=== PATIENT | male | born 1955 | race Caucasian/White ===

== ENCOUNTER → 2017-12-08 10:40 | Outpatient (CLI) | payer OTHER, SELFPAY ==
--- NOTE | 2017-12-08 17:08 | RAD_ITS ---
STUDY: X-RAY - ORBITS REASON FOR EXAM: Male, 62 years old. This study is being performed as a clearance examination for exclusion of orbital metal, prior to the performance of an MRI examination. TECHNIQUE: 2 view(s) of the orbits were obtained. COMPARISON: None. FINDINGS: Normal bilateral orbits without a metallic orbital foreign body. Normal visualized facial bones. Normal paranasal sinuses. The soft tissue structures are unremarkable. RAD/Orbits for Foreign Body IMPRESSION: No demonstrated metallic orbital foreign body. The patient is cleared for an MRI examination. Electronically Signed: Nguyen Nelson MD at 5:37 EST , Service support ,
== END ==
PROVIDERS: Family Provider Family Medicine; PCP Family Medicine
DX: Z01.818 Encounter for other preprocedural examination (principal); M54.12 Radiculopathy, cervical region; M65.812 Other synovitis and tenosynovitis, left shoulder; M12.512 Traumatic arthropathy, left shoulder
CPT/HCPCS: 70030

== ENCOUNTER 2018-04-01 14:00 | Outpatient (RCR) | payer OTHER, SELFPAY ==
--- NOTE | 2018-02-03 10:32 | HP.PTEVAL ---
Patient's Visit Information RADHA WOODARD is a 62 year old M referred to Physical Therapy by Andrew Frey with a diagnosis of Left shoulder Scope. Date of Evaluation: 01/30/18 Physical Therapist: Jaylene Hassan - Visit Plan Frequency: 3x /Week Duration: 3 Weeks Plan: Shoulder Scope 4/5- focus on ROM and strength - Subjective Subjective: Patient reports left shoulder surgery January 15, [address] Lopez - arthroscopic- RTC scope and removed bone spur. They want him up and moving around- they wanted him to use the sling when out in public but not normally. Went back to see MD 8 days after surgery. He told him rehab 3x a week for 6 weeks- but hopes to work with someone for a couple of weeks and do more at home. No pain just feels stiff. Worst: 10/10 with sudden movement up or back. Pain with putting a t-shirt on but he still has problems. Work: [employer]- heavy lifting and awkward lifting- unloading, dragging. MD is thinking of keeping him out 3 months. Sleep: can't roll on his left side. Pain is located in the shoulder and radiates to the elbow and sometimes to the neck. But now its better- no CASTILLO, blurred vision, dizziness. 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 PMHx: allergy and propecia med, pulmonary embolism (3 years), Right THR, Right elbow surgery, right RTc right hernia, right thumb surgery - Objective Posture: FH, RS, Increased kyphosis- mild guarding of the left UE- no sling. Palpation: tender along upper trap, medial border of the scapule, bicipital groove. ROM: elbow/wrist/hand: WNL Shoulder- AROM: flexion: 50 degrees, abduction: 40 degrees, IR: to L3, ER:20 degrees PROM: flexion-180 degrees, abduction: 180 degrees, ir: to belly ER: 60 degrees. Strength: Isometric at neutral: 4/5 with discomfort - Goals Goal 1:: Patient will be I with HEP and progression Goal Time Frame: 4-6 Weeks Goal 2:: Patient will demo full AROM of the left shoulder Goal Time Frame: 4-6 Weeks Goal 3:: Patient will demo 5/5 strength in UE where deficit Goal Time Frame: 4-6 Weeks - Rehabilitation Potential Physical Therapy Diagnosis: Patient presents with hypomobility- he has decreased AROM, strength and muscular endurance s/p left shoulder scope leading to inability to perform ADL's. Rehabilitation Potential: Good - Anticipated Interventions Patient/Client Instruction: Educate patient on: Benefits of Fitness Program For the Purpose of:: To improve ability to perform ADL's Therapeutic Exercise to Include: Strength training, Endurance training, Body mechanics, Postural training, Passive ROM, Active ROM, Scapular Strength/Stabilization For the Purpose of:: To improve muscle performance and motor function Manual Therapy Techniques to Include: Mobilization, Passive ROM, Soft tissue mobilization For the Purpose of:: To increase ROM TENS: Yes Cryotherapy (ice pack, ice massage): Yes Thermo therapy (hot pack): Yes Ultrasound (thermal/non thermal): Yes For the Purpose of:: To decrease pain Thank you for the opportunity to evaluate your patient. For Medicare and Medicare HMO plans, please review the plan of care and approve it. It will need to be FAXED BACK to us at [phone] for Medicare purposes. Please let me know if there are questions or concerns regarding this plan of care. Physician Signature: Date:
--- NOTE | 2018-02-20 10:31 | HP.PTREVAL_ITS ---
Andrew Frey, It has been my pleasure to treat RADHA WOODARD over the last 10 visits for Left shoulder Scope. Please see the progress note below for an update on the physical therapy plan of care! Subjective: Patient reports that its coming stiffness/pain/ mild pain at night. Rolling on ball feels really good- possibly from his neck. Worst: 7/10 after increased strengthening. No problems cutting grass. Feels like his ROM hits a wall of resistance but he can push through and it full ROM. Feels like he is 60% back to normal Objective/Function: Posture: FH, RS, Increased kyphosis-improving. Palpation: tender along upper trap, medial border of the scapule, bicipital groove. ROM: elbow/wrist/hand: WNL Shoulder- AROM: flexion: 170 degrees, abduction: 170 degrees, IR: to L3, ER:40 degrees Strength: Isometric at neutral: 4+/5 with discomfort. In available range 4-/5 throughout Plan Plan: Continue POC 2x a week for 4 weeks Goals Goal 1:: Patient will be I with HEP and progression Goal Time Frame: 4-6 Weeks Goal Progress: Progressing Goal 2:: Patient will demo full AROM of the left shoulder Goal Time Frame: 4-6 Weeks Goal Progress: Goal Met Goal 3:: Patient will demo 5/5 strength in UE where deficit Goal Time Frame: 4-6 Weeks Goal Progress: Progressing Anticipated Interventions Patient/Client Instruction: Educate patient on: Benefits of Fitness Program For the Purpose of:: To improve ability to perform ADL's Therapeutic Exercise to Include: Strength training, Endurance training, Body mechanics, Postural training, Passive ROM, Active ROM, Scapular Strength/ Stabilization For the Purpose of:: To improve muscle performance and motor function Manual Therapy Techniques to Include: Mobilization, Passive ROM, Soft tissue mobilization For the Purpose of:: To increase ROM TENS: Yes Cryotherapy (ice pack, ice massage): Yes Thermo therapy (hot pack): Yes Ultrasound (thermal/non thermal): Yes For the Purpose of:: To decrease pain Please do not hesitate to contact me at [phone] by phone or Fax: if you have questions or concerns regarding this new plan of care! Sincerely, Jaylene Hassan
--- NOTE | 2018-03-25 08:01 | HP.PTREVAL_ITS ---
Andrew Frey, It has been my pleasure to treat RADHA WOODARD over the last 18 visits for Left shoulder Scope. Please see the progress note below for an update on the physical therapy plan of care! Subjective: Patient reports that he has increased ROM and it loosens up in sessions. Sleeping has been a challenge in the past week due to working in the garden. Saw march 18 who wrote him off for another 6 weeks. Pain at the worst 6/10 best:0/10. Frustrated he isn't better faster. Objective/Function: Posture: FH, RS, Increased kyphosis- guards the left shoulder. Palpation: tender UT and bicipital groove. ROM: flexion-165 degrees abd-ear IR: L2 ER: 40 degrees. Strength: Flx/Abd: 4/5, IR/ER: 4/5, Extn/Add: 4+ /5, Scap: fair Plan Plan: Cont 2x a week for 2 for ROM strength and work related tasks- increased to 60 min for progression Goals Goal 1:: Patient will be I with HEP and progression Goal Time Frame: 4-6 Weeks Goal Progress: Progressing Goal 2:: Patient will demo full AROM of the left shoulder Goal Time Frame: 4-6 Weeks Goal Progress: Goal Met Goal 3:: Patient will demo 5/5 strength in UE where deficit Goal Time Frame: 4-6 Weeks Goal Progress: Progressing Anticipated Interventions Patient/Client Instruction: Educate patient on: Benefits of Fitness Program For the Purpose of:: To improve ability to perform ADL's Therapeutic Exercise to Include: Strength training, Endurance training, Body mechanics, Postural training, Passive ROM, Active ROM, Scapular Strength/ Stabilization For the Purpose of:: To improve muscle performance and motor function Manual Therapy Techniques to Include: Mobilization, Passive ROM, Soft tissue mobilization For the Purpose of:: To increase ROM TENS: Yes Cryotherapy (ice pack, ice massage): Yes Thermo therapy (hot pack): Yes Ultrasound (thermal/non thermal): Yes For the Purpose of:: To decrease pain Please do not hesitate to contact me at [phone] by phone or Fax: if you have questions or concerns regarding this new plan of care! Sincerely, Jaylene Hassan
--- NOTE | 2018-04-01 14:21 | HP.PTDCSUM ---
HP - PT D/C Summary It has been my pleasure to treat RADHA WOODARD under orders from Andrew Frey, for the diagnosis of Left shoulder Scope for a total of 21 visit(s). Discharge Date: Please see the following information for a summary of their discharge status. - Subjective Subjective: Feels that he is improving strength sorto. He only has problems with one machine where he has to come up. Goes back to his MD in 2 weeks. Plans to go back to work the next week. Is concerned about stretching out ahead of him. He is more confident about going back to work. - Pain Left Shoulder Pain Intensity (Out of 10): 1 - Overall Improvement % Improvement: 70 - Objective Objective/Function: Posture: good throughout- chest up more confident. Palpation: not tender. ROM: flexion-180 degrees abd-ear IR: equal ER: 40 degrees. Strength: Flx/Abd: 4+/5, IR/ER: 4+/5, Extn/Add: 5/5, Scap: fair plus - Goals Goal 1:: Patient will be I with HEP and progression Goal Progress: Goal Met Goal 2:: Patient will demo full AROM of the left shoulder Goal Progress: Goal Met Goal 3:: Patient will demo 5/5 strength in UE where deficit Goal Progress: Progressing - Plan Plan: Discharge to HEP - D/C Information If there are questions or concerns regarding this patient's physical therapy, please feel free to call me at [phone]. Thank you for the referral of this patient. Sincerely, Jaylene Hassan
== END 2018-04-01 16:16 | disposition home or self-care (01) ==
LOC: PT 14:00
PROVIDERS: Family Provider Family Medicine; PCP Family Medicine; Visit Provider Orthopaedic Surgery
DX: M75.112 Incomplete rotator cuff tear or rupture of left shoulder, not specified as traumatic (principal); M75.42 Impingement syndrome of left shoulder; S43.432D Superior glenoid labrum lesion of left shoulder, subsequent encounter; S46.012D Strain of muscle(s) and tendon(s) of the rotator cuff of left shoulder, subsequent encounter
CPT/HCPCS: 97110; 97161; 97164

== ENCOUNTER → 2019-09-13 09:33 | Outpatient (CLI) | payer SELFPAY ==
[2019-08-18 12:17] VITALS: BMI 27.2
--- NOTE | 2019-09-13 09:37 | STEWCON_ITS ---
Reason For Study: DYSPNEA/SOB Stress Results Protocol: Armando Protocol WITH DEFINITY Maximum Predicted HR: 158 bpm Target HR: 134 bpm % Maximum Predicted HR: 91 % DurationHeart Rate Stage (mm:ss) (bpm) BP Comment BASELINE 49 110/642 CC DEFINITY STAGE 1 3:00 78 118/64 STAGE 2 3:00 91 122/70 STAGE 3 3:00 108 144/70HAMSTRINGS ARE TIRED STAGE 4 2:30 144 / 2 CC DEFINITY RECOVERY 73 110/68 Stress Duration: 11:30 mm:ss Maximum Stress HR: 144 bpm Baseline Echocardiogram Findings Stress Echo Wall motion Data Resting WM Intermediate WM Stress WM Interpretation Summary Exercise stress echo. 64-year-old man with a history of hyperlipidemia and previous pulmonary embolism. Stress protocol: Resting EKG demonstrates sinus bradycardia with a rate of 54 bpm normal intervals are noted resting blood pressures 110/64 mmHg. The patient exercised according to regular Armando protocol for total duration of 11 minutes and 30 seconds. Patient completed 2 minutes and 30 seconds to stage IV of the Armando protocol the maximum heart rate attained was 139 bpm which was 87% of maximum predicted heart rate the maximum workload was 13.7 metabolic equivalents. The patient maintained sinus rhythm throughout the recording. Upsloping ST changes only were noted with no meet the criteria for ischemia. The resting blood pressure was 110/64 with a peak blood pressure 144/70 mmHg with a rate pressure product of 20,000. Stress echocardiographic images. Resting and stress echocardiographic images were obtained with Definity enhancement. The resting estimated ejection fraction was 55% with a peak ejection fraction of 65% with no wall motion abnormalities noted. There was adequate thickening of all peters. Test was terminated due to attainment of target heart rate. Conclusion: Exercise stress echo with no EKG or echocardiographic criteria for ischemia at a high workload. Excellent functional capacity. No arrhythmias noted. Ordering Physician: Jose Ramon Banks Referring Physician: Darren, Jose Ramon Performed By: Ermelinda Sosa, SACHA, RVT
[2019-09-13 11:52] LABS: AST(SGOT) 33 U/L (15-37); Alanine Aminotransfer ALT/SGPT 63 U/L (16-61); Albumin, Serum 4.2 g/dL (3.2-5.0); Alkaline Phosphatase 69 U/L (45-117); Anion Gap 9 (5-15); BUN 13 mg/dL (7-18); BUN/Creat Ratio 13.1 RATIO (10-20); Bilirubin, Direct 0.17 mg/dL (0.00-0.30); Calcium,Total 9.2 mg/dL (8.5-10.1); Chloride 105 mmol/L (98-107); Cholesterol 203 mg/dL (200); EST Glomerular Filtration Rate 81 mL/min (>60); Est Glom Filt Rate - Afr Amer 98 mL/min (>60); Glucose 115 mg/dL (74-106); High Density Lipoprotein 32 mg/dL; Protein, Total 7.2 g/dL (6.4-8.2); Sodium Level 140 mmol/L (136-145); Triglycerides 364 mg/dL; Very Low Density Lipoprotein 73 mg/dL (5-40)
== END ==
PROVIDERS: Family Provider Family Medicine; PCP Family Medicine; Referring Provider Internal Medicine Cardiovascular Disease; Visit Provider Internal Medicine Cardiovascular Disease
DX: R06.02 Shortness of breath (principal); R06.00 Dyspnea, unspecified; E78.5 Hyperlipidemia, unspecified; N40.0 Benign prostatic hyperplasia without lower urinary tract symptoms
CPT/HCPCS: 36415; 80048; 80061; 80076; 84153; 84443; 93017; 93350; Q9957; A4216; C8928; G0103

== ENCOUNTER 2020-04-02 07:12 | Emergency (ER) | payer OTHER, SELFPAY ==
[2019-08-18 12:17] VITALS: BMI 27.2
[2020-04-02 07:13] VITALS: BP 142/81; PULSE 59; RESP 16; TEMP 36.2; O2SAT 99; BMI 27.0
[2020-04-02 07:27] VITALS: BP 145/83; PULSE 52; RESP 16; O2SAT 98
--- NOTE | 2020-04-02 07:34 | VDLE_ITS ---
Reason For Study: LLE PAIN RIGHT LEFT CFV is compressible, spontaneous, phasic, GSV is normal. competent and demonstrates normal CFV is compressible, spontaneous, phasic, augmentation. competent, and demonstrates normal Procedure augmentation. Exam performed portable in ED. FV is compressible, spontaneous, phasic, A preliminary report was called and/or faxed competent and demonstrates normal to ED. augmentation. POP V is compressible, spontaneous, phasic, competent and demonstrates normal augmentation. T/P Trunk is compressible. PTV is compressible. LT PerV is compressible. Interpretation Summary Deep veins of the left lower extremity are patent and compressible segmentally. There is no evidence of left lower extremity deep vein thrombosis. Valvular competence appears intact within the proximal deep venous system on the left . The left great saphenous vein appears patent and compressible segmentally. Ordering Physician: Yann Khanna Referring Physician: Jhoan Pierre Performed By: Sonia Joseph, SACHA, RVT
--- NOTE | 2020-04-02 07:49 | ED.VISSUMM ---
- ER Visit Summary Date of Service: 04/02/20 Chief Complaint: Left calf pain History of Present Illness: The patient is a 64 M who presents with left calf pain. He states it started about 4 hours ago. He had cramping in his left calf. Started while he was sleeping. Actually woke him up from sleep. He states he went up to walk and he felt lightheaded and faint when it happened. That symptom has gone away. He feels like his left calf is still swollen but the pain and cramping is improved. He denies any injuries. He does have a history of PE. He is currently on no blood thinning medications currently. He denies any chest pain or shortness of breath. Physical Examination: Vital signs reviewed. HEENT exam unremarkable. Heart is regular rate and rhythm without murmurs. Lungs are clear to auscultation. Abdomen is soft and nontender. Extremities reveal no edema. He does have left calf tenderness to palpation. I feel no cords. There is no swelling. He has 2+ DP pulses which are equal. Skin exam normal. Neurologic exam normal. Test Results: BMP normal except for glucose of 182. Magnesium normal. Duplex ultrasound is negative Emergency Department Course and Treatment: Patient has no DVT. His electrolytes are normal. He has been outside a lot and he does have a little bit of a sunburn on his arms. He admits that he does not drink a lot of water when he is outside. I recommended that he increase his hydration. He is going to call his doctor for follow-up Treatment Plan: [] Disposition: Discharge Impression: Left leg pain This note was generated with [employer] dictation software. It may contain incorrect words, spelling, and punctuation that were not noted in review of the chart prior to signing ED Disposition - Plan for ED Patient: Disposition: Home or Assisted Living Instructions: ED Muscle Pain Leg Cramps Referrals: Jhoan Pierre MD [Primary Care Provider] -
[2020-04-02 08:31] LABS: Anion Gap 6 (5-15); BUN 16 mg/dL (7-18); Chloride 106 mmol/L (98-107); Creatinine, Serum 0.89 mg/dL (0.70-1.30); EST Glomerular Filtration Rate 92 mL/min (>60); Est Glom Filt Rate - Afr Amer 112 mL/min (>60); Estimated Creatinine Clearance 80.46 ml/min; Glucose 182 mg/dL (74-106); Magnesium 1.7 mg/dL (1.6-2.6); Potassium 4.1 mmol/L (3.5-5.1); Sodium Level 139 mmol/L (136-145)
== END 2020-04-02 10:24 | disposition home or self-care (01) ==
PROVIDERS: Emergency Provider Emergency Medicine; PCP Family Medicine
DX: M79.662 Pain in left lower leg (principal); M79.89 Other specified soft tissue disorders; Z86.711 Personal history of pulmonary embolism
CPT/HCPCS: 80048; 83735; 93971; 99282

== ENCOUNTER → 2020-07-26 11:04 | Outpatient (CLI) | payer SELFPAY ==
[2020-07-26 09:37] VITALS: BMI 28.1
--- NOTE | 2020-07-26 11:05 | RAD_ITS ---
STUDY: X-RAY CHEST REASON FOR EXAM: Male, 65 years old. DYSPNEA, INCREASED WEAKNESS TECHNIQUE: PA and lateral views of the chest. COMPARISON: 03/07/2017 FINDINGS: The lungs are clear and expanded. There is no demonstrated pleural abnormality. Normal size heart. Normal mediastinum and thuan. Normal visualized pulmonary arteries. Normal visualized aortic arch and descending thoracic aorta. Normal visualized thoracic spine. Normal visualized ribs, clavicles, and shoulders. There is no demonstrated abnormality of the visualized soft tissue structures of the upper abdomen. RAD/Chest PA and Lateral IMPRESSION: Normal x-ray examination of the chest. Electronically Signed: Roland Samaniego MD at 8:55 EDT Tel , Service support ,
== END ==
PROVIDERS: PCP Family Medicine; Referring Provider Physician Assistant Medical; Visit Provider Physician Assistant Medical
DX: R06.00 Dyspnea, unspecified (principal)
CPT/HCPCS: 71046

== ENCOUNTER → 2020-08-02 08:29 | Outpatient (CLI) | payer SELFPAY ==
[2020-07-26 09:37] VITALS: BMI 28.1
[2020-08-02 10:01] LABS: Absolute Lymphocyte Count 1.46 X10^3/uL (0.83-4.51); Absolute Neutrophil Count 2.7 X10^3/uL (2.0-7.7); Basophil# 0.03 X10^3/uL; Basophil% 0.6 % (0-1); Eosinophil# 0.23 X10^3/uL; Eosinophils% 4.7 % (0-5); Hematocrit 48.4 % (40-54); Hemoglobin 16.7 g/dL (13.0-16.5); Lymphocyte # 1.46 X10^3/ul (4.0); Lymphocyte % 30.1 % (19-41); Mean Corp Hgb Conc 34.5 g/dL (32-36); Mean Corpuscular Hgb 33.7 pg (27.0-32.0); Mean Corpuscular Volume 97.8 fL (80-94); Mean Platelet Vol. 9.2 fl (6.2-12.0); Monocyte% 8.2 % (0-10); NRBC Flagged by Analyzer 0 % (0-5); Neutrophil # 2.72 X10^3/uL (2.7-7.7); Neutrophil % 56.2 % (47-70); Platelet Count 161 K/mm3 (150-450); RBC Distribution Width CV 12.2 % (11.6-14.6); RBC Distribution Width SD 44.4 fl (35.1-43.9); Red Blood Count 4.95 M/mm3 (4.6-6.2); White Blood Count 4.9 K/mm3 (4.4-11.0)
[2020-08-02 10:32] LABS: Anion Gap 3 (5-15); BUN 19 mg/dL (7-18); BUN/Creat Ratio 19.9 RATIO (10-20); Calcium,Total 9.3 mg/dL (8.5-10.1); Chloride 106 mmol/L (98-107); Cholesterol 208 mg/dL (200); Creatinine, Serum 0.96 mg/dL (0.70-1.30); EST Glomerular Filtration Rate 84 mL/min (>60); Est Glom Filt Rate - Afr Amer 102 mL/min (>60); Glucose 128 mg/dL (74-106); High Density Lipoprotein 32 mg/dL; Potassium 4.2 mmol/L (3.5-5.1); Sodium Level 137 mmol/L (136-145); Triglycerides 526 mg/dL
[2020-08-02 10:46] LABS: Thyroid Stim Hormone (TSH) 4.21 uIU/mL (0.358-3.74)
== END ==
PROVIDERS: Physician Assistant Medical; PCP Family Medicine; Referring Provider Family Medicine; Visit Provider Family Medicine
DX: Z00.00 Encounter for general adult medical examination without abnormal findings (principal); E78.5 Hyperlipidemia, unspecified; R06.00 Dyspnea, unspecified
CPT/HCPCS: 36415; 80048; 80061; 84443; 85025

== ENCOUNTER 2020-08-23 08:31 | Outpatient (RCR) | payer SELFPAY ==
[2020-07-26 09:37] VITALS: BMI 28.1
--- NOTE | 2020-08-31 14:42 | NS ---
Recieved Message from pts Nichol w/ questions regarding seasoning/dressing on meats and vegetables. Provided several spice blend options w/ focus on low sodium for overall good health. Discussed dressing options and provided examples using spices/oils/mustard that pt likes. Gave ideas for toppings for sweet potatos. Use of garlic/onion/aromatic vegetables to infuse flavor into foods. Questions regarding keto diet pt had saw online as healthy diet- discourage following Keto diet and reviewed importance of CHO containing foods in moderation as discussed in initial appointment. Pt edda MINERN available for questions/concerns. Lulu Staples RDN, LD
== END 2020-09-11 23:59 ==
LOC: NS 08:31
PROVIDERS: PCP Family Medicine; Visit Provider Family Medicine
DX: Z71.3 Dietary counseling and surveillance (principal); E66.9 Obesity, unspecified; Z68.29 Body mass index [BMI] 29.0-29.9, adult; E11.9 Type 2 diabetes mellitus without complications
CPT/HCPCS: 97802

== ENCOUNTER 2020-09-25 09:04 | Outpatient (RCR) | payer SELFPAY ==
[2020-07-26 09:37] VITALS: BMI 28.1
== END 2020-09-25 23:59 | disposition home or self-care (01) ==
LOC: NS 09:04
PROVIDERS: PCP Family Medicine; Visit Provider Family Medicine
DX: Z71.3 Dietary counseling and surveillance (principal); E66.9 Obesity, unspecified; Z68.29 Body mass index [BMI] 29.0-29.9, adult
CPT/HCPCS: 97802

== ENCOUNTER → 2020-10-30 09:40 | Outpatient (CLI) | payer SELFPAY ==
[2020-07-26 09:37] VITALS: BMI 28.1
[2020-10-30 13:12] LABS: Hemoglobin A1c 5.2 % (3.8-5.6)
[2020-10-30 13:29] LABS: Anion Gap 8 (5-15); BUN 12 mg/dL (7-18); BUN/Creat Ratio 12.9 RATIO (10-20); Calcium,Total 9.1 mg/dL (8.5-10.1); Chloride 108 mmol/L (98-107); Cholesterol 176 mg/dL (200); Creatinine, Serum 0.93 mg/dL (0.70-1.30); EST Glomerular Filtration Rate 87 mL/min (>60); Est Glom Filt Rate - Afr Amer 106 mL/min (>60); Free T3 2.6 pg/mL (2.18-3.98); Glucose 96 mg/dL (74-106); High Density Lipoprotein 48 mg/dL; Potassium 3.9 mmol/L (3.5-5.1); Sodium Level 140 mmol/L (136-145); Thyroid Stim Hormone (TSH) 3.86 uIU/mL (0.358-3.74); Triglycerides 123 mg/dL; Very Low Density Lipoprotein 25 mg/dL (5-40)
== END ==
PROVIDERS: PCP Family Medicine; Visit Provider Family Medicine
DX: K21.9 Gastro-esophageal reflux disease without esophagitis (principal)
CPT/HCPCS: 36415; 80048; 80061; 83036; 84436; 84443; 84481

== ENCOUNTER → 2021-08-30 07:12 | Outpatient (CLI) | payer SELFPAY ==
[2021-08-30 10:38] LABS: ALB/GLOB Ratio 1.1 RATIO (0.9-2.4); AST(SGOT) 29 U/L (15-37); Alanine Aminotransfer ALT/SGPT 42 U/L (16-61); Albumin, Serum 3.8 g/dL (3.2-5.0); Alkaline Phosphatase 63 U/L (45-117); Anion Gap 5 (5-15); BUN 15 mg/dL (7-18); BUN/Creat Ratio 19.9 RATIO (10-20); Calcium,Total 9.5 mg/dL (8.5-10.1); Chloride 102 mmol/L (98-107); Cholesterol 193 mg/dL (200); Creatinine, Serum 0.75 mg/dL (0.70-1.30); EST Glomerular Filtration Rate 111 mL/min (>60); Est Glom Filt Rate - Afr Amer 134 mL/min (>60); Globulin 3.6 g/dL (2.2-4.2); Glucose 91 mg/dL (74-106); High Density Lipoprotein 56 mg/dL; Protein, Total 7.4 g/dL (6.4-8.2); Sodium Level 138 mmol/L (136-145); Triglycerides 67 mg/dL; Very Low Density Lipoprotein 13 mg/dL (5-40)
== END ==
PROVIDERS: PCP Family Medicine; Referring Provider Family Medicine; Visit Provider Family Medicine
DX: E78.5 Hyperlipidemia, unspecified (principal)
CPT/HCPCS: 36415; 80053; 80061

== ENCOUNTER → 2021-09-24 | Outpatient (CLI) | payer MEDICARE, SELFPAY | END | disposition home or self-care (01) | PROVIDERS: PCP Family Medicine; Visit Provider Nurse Practitioner Family | DX: U07.1 COVID-19 (principal) | CPT/HCPCS: 87635; U0005; U0003 ==

== ENCOUNTER → 2021-09-25 13:30 | Outpatient (CLI) | payer SELFPAY ==
--- NOTE | 2021-09-25 13:52 | RAD_ITS ---
STUDY: X-RAY CHEST REASON FOR EXAM: Male, 66 years old. COVID 19 . Shortness of breath. TECHNIQUE: PA and lateral views of the chest. COMPARISON: Comparison is made with prior examination dated 07/26/2020. FINDINGS: Patchy bilateral pulmonary infiltrates worse in the left hemithorax. Follow-up is recommended. There is no demonstrated pleural abnormality. Normal size heart. Normal mediastinum and thuan. Normal visualized pulmonary arteries. There is atherosclerotic tortuosity of the aortic arch and descending thoracic aorta. There are diffuse degenerative changes of the visualized thoracic spine. Normal visualized ribs, clavicles, and shoulders. There is no demonstrated abnormality of the visualized soft tissue structures of the upper abdomen. RAD/Chest PA and Lateral IMPRESSION: Bilateral pulmonary infiltrates worse in the left hemithorax. Follow-up is recommended. Electronically Signed: Peng Gomez MD at 14:20 EST , Service support ,
== END ==
PROVIDERS: PCP Family Medicine; Referring Provider Nurse Practitioner Family; Visit Provider Nurse Practitioner Family
DX: U07.1 COVID-19 (principal)
CPT/HCPCS: 71046

== ENCOUNTER 2021-09-26 12:56 | Inpatient (IN) | payer MEDICARE, OTHER, SELFPAY ==
[2021-09-26] VITALS (10 sets, daily range): BP systolic 108–131; BP diastolic 65–86; PULSE 55–71; RESP 16–28; TEMP 36.3–36.8; O2SAT 85–98; BMI 22.3; BMI 21.7
--- NOTE | 2021-09-26 13:46 | CT_ITS ---
STUDY: CTA CHEST REASON FOR EXAM: Male, 66 years old. Dyspnea, high probability PE RADIATION DOSAGE (If Supplied By Facility): CTDIvol = ( 12.77 ) mGy, DLP = ( 385.51 ) mGycm TECHNIQUE: The examination was performed with the intravenous administration of IV 100mL Isovue-370. Post-processing of the angiographic images was performed, with multiplanar reformation and 3D reconstruction. Individualized dose optimization techniques were used for this CT. COMPARISON: Comparison is made with prior chest graft done earlier today. FINDINGS: Intraluminal filling defects seen in the branches of the right lower lobe pulmonary artery in complex from emboli. Normal thoracic aorta and visualized great vessels. There is no demonstrated aortic dissection. Normal heart and pericardium. There are visualized mediastinal lymph nodes, which are within normal size limits, and with normal morphology. Normal hilar regions. Normal visualized trachea and bronchi. The lungs are well expanded. Diffuse bilateral pulmonary infiltrates worse in the lower lobes. Normal pleura. Normal chest wall structures. There are degenerative changes of thoracic spine. Normal visualized upper abdomen. CT/CTA Chest W/WO Contrast IMPRESSION: Pulmonary emboli in branches of the right lower lobe pulmonary artery. Diffuse bilateral pulmonary infiltrates in the peripheral distribution worse in the lower lobes. Electronically Signed: Peng Gomez MD at 14:41 EST , Service support ,
--- NOTE | 2021-09-26 13:46 | EKG12_ITS ---
Test Reason : SOB Blood Pressure : / mmHG Vent. Rate : 062 BPM Atrial Rate : 062 BPM P-R Int : 194 ms QRS Dur : 102 ms QT Int : 438 ms P-R-T Axes : 016 024 034 degrees QTc Int : 444 ms Normal sinus rhythm Normal ECG Confirmed by VIJAY BETTS, LIZZ ([id number]), newspaper managing editor AUDI FRANCO ([id number]) on 09/28/2021 12:45:48 PM Referred By: MEGAN/DO Confirmed By:ANGELLA LINARES MD
--- NOTE | 2021-09-26 13:48 | EDS_ITS ---
HPI History of Present Illness Chief Complaint: Shortness of Breath Detail of Chief Complaint: Shortness of breath with low oxygen levels at home Informant: patient and family Narrative Narrative: Patient presents to the emergency department chief complaint of shortness of breath. His family member who is with him states that his O2 saturations at home have been 80 to 84% on room air. Patient has exertional dyspnea as well as cough and low-grade fevers. He has remote history of PE 15 years ago. Patient currently not anticoagulated. Patient tested positive for Covid with a home test on September 15. Patient also had a drive-through test 3 days ago that was positive. Patient denies any chest pain. On arrival to the emergency department nurses ambulated patient with 4 L of oxygen on and he was 87%. [facility] Medical History Asthma Chronic back pain Disc disease, degenerative, lumbar or lumbosacral GERD (gastroesophageal reflux disease) History of deep venous thrombosis History of pulmonary embolus (PE) (2012) Obstructive sleep apnea Trigger finger Home Medications albuterol sulfate 2 puff INHALATION Q4H PRN PRN 11/11/14 [History Last Taken 11/10/14] finasteride 1 mg PO DAILY 11/11/14 [History Last Taken 11/10/14] [employer] Pack PO 08/18/19 [History Last Taken Unknown] magnesium oxide 400 mg PO DAILY 08/18/19 [History Last Taken Unknown] red yeast rice 600 mg tablet 600 mg PO DAILY 08/18/19 [History Last Taken Unknown] vitamin B complex 1 tab PO DAILY 08/18/19 [History Last Taken Unknown] montelukast 10 mg tablet 10 mg PO DAILY tab 07/05/21 [History Last Taken Unknown] nifedipine 30 mg tablet,extended release 24 hr 30 mg PO .PRN tab 07/05/21 [History Last Taken Unknown] Allergy/AdvReac Type Severity Reaction Status Date / Time iodine AdvReac Hives Verified 09/26/21 14:04 Family History Father Myocardial infarction, Onset Age: 37 Mother Myocardial infarction, Onset Age: 73 Surgical History History of herniorrhaphy History of hip replacement History of left heart catheterization (11/14/14) History of nasal septoplasty History of repair of rotator cuff Social History Smoking Status: Never smoker ROS ROS ED Constitutional Constitutional ED: Reports systems reviewed and no addt'l complaints, except as documented; Denies body ache(s), change in weight or chills Eyes Eyes: Denies acute decrease in peripheral vision, change in vision, double vision or loss of vision ENT ENT ED: Reports none; Denies ear pain, lip swelling, loss taste/smell, neck pain, otalgia or sore throat Cardiovascular Cardiovascular: Reports none; Denies abdominal pain, chest pain with activity, leg edema, lightheadedness, palpitations, rapid heart rate or syncope Respiratory/Chest Respiratory/Chest: Reports none, cough and dyspnea; Denies change in mental status, dry cough, hemoptysis, shortness of breath at rest or shortness of breath with exertion Gastrointestinal Gastrointestinal: Reports none; Denies abdominal pain, change in stool character, diarrhea, hematemesis, hematochezia, melena, rectal bleeding or v omiting Genitourinary Genitourinary ED: Reports none; Denies abdominal discomfort, anuria, dysuria, genital pain or polyuria Musculoskeletal Musculoskeletal: Reports none; Denies arthralgias, back pain, difficulty walking, extremity pain, muscle weakness or myalgias Integumentary Reports none; Denies abscess or rash Neurologic Neurologic: Reports none; Denies abnormal gait, confusion, focal weakness, frequent falls, headache(s), loss of vision, numbness, paresthesias, radicular pain, vertigo or weakness Psychiatric Psychiatric: Reports systems reviewed and no addt'l complaints, except as documented and none; Denies behavioral changes, confusion, difficulty concentrating, hallucinations, suicidal ideation, tactile hallucinations or visual hallucinations Endocrine Endocrinology: Denies none, cold intolerance, excessive sweating, fatigue or heat intolerance Hematologic/Lymphatic Hematologic/Lymphatic: Reports none; Denies anemia, easy bleeding or easy bruisi ng Allergic/Immunologic Allergic/Immunologic ED: Denies as per HPI, none, lip swelling, mouth swelling, throat swelling, tongue swelling or hives EXAM Physical Exam Const Vital Signs: 09/26/21 12:57 09/26/21 13:24 09/26/21 15:15 Temperature 97.5 F L Temperature Source Temporal Pulse Rate 71 59 L Respiratory Rate 18 16 Respiratory Effort Short of Breath Labored Respiratory Depth Normal Respiratory Pattern Normal Blood Pressure 123/71 H 116/74 Blood Pressure Mean 88 88 Pulse Ox 85 98 Oxygen Delivery Method Room Air Nasal Cannula Nasal Cannula Oxygen Flow Rate (L/min) 4 4 Positive well nourished and well developed General Appearance ED: well developed and NAD HEENT Reports TM's clear and moist mucous membranes normocephalic and atraumatic; Negative for trauma or tenderness Tympanic Membrane ED: Yes TM's clear Eyes PERRL and EOMs intact bilaterally General Eye ED: Negative for pale conjunctiva or scleral icterus Neck no lymphadenopathy, supple and no JVD General: Negative for tenderness Chest Wall inspection of chest normal and palpation of chest normal Chest: Negative for tenderness Resp normal respiratory effort and clear to auscultation bilaterally Effort and Inspection: Negative for respiratory distress or pain with movement Auscultation: Negative for rhonchi, wheezes or diminished lung sounds Cardio regular rate, regular rhythm, S1 normal heart sound, S2 normal heart sound and no murmurs Peripheral Pulses: pulses 2+ throughout GI normal to inspection, nondistended, normoactive bowel sounds, soft to palpation, non-tender, non-distended and no masses Back/Spine no CVA tenderness and no thoracic nor lumbar tenderness Extremity normal to inspection General Extremety ED: Negative for edema General Extremity: Negative for edema Neuro oriented x3, CN's II-XII intact bilaterally, no sensory deficits noted and gait normal Sensorium / Orientation: awake, alert, oriented to person, oriented to place and oriented to time Motor Exam: strength 5/5 throughout and strength abnormal Psych mental status grossly normal Skin no rashes or lesions noted and no wounds MDM MDM MDM Narrative Medical decision making narrative: IV line established on arrival. Patient placed on oxygen 4 L. Patient noted to have right lower lobe pulmonary emboli on CT and Covid pneumonia. He was started on Decadron as well as Lovenox. Case will be discussed with hospitalist evaluate patient for admission as he was hypoxic on 4 L with ambulation with pulse ox of 87%. Lab Data Attestation: I reviewed the patient's lab results. Labs: Laboratory Results - last 24 hr 09/26/21 09/26/2121 13:18 13:18 13:18 WBC 8.1 RBC 4.50 L Hgb 15.0 Hct 42.7 MCV 94.9 H MCH 33.3 H MCHC 35.1 RDW Std Deviation 45.1 H RDW Coeff of Jennifer 12.9 Plt Count 177 MPV 9.4 Immature Gran % (Auto) 0.900 Neut % (Auto) 89.4 H Lymph % (Auto) 5.2 L [place] % (Auto) 3.6 Eos % (Auto) 0.7 Baso % (Auto) 0.2 Absolute Neuts (auto) 7.2 Absolute Lymphs (auto) 0.42 L Nucleated RBC % 0 Differential Comment COMMENT Sodium 137 Potassium 3.5 Chloride 105 Carbon Dioxide 27.0 Anion Gap 5 BUN 18 Creatinine 0.71 Estim Creat Clear Calc 98.99 Est GFR (MDRD) Af Amer 143 Est GFR (MDRD) Non-Af 118 BUN/Creatinine Ratio 25.2 H Glucose 126 H Lactic Acid 0.7 Calcium 8.8 Troponin I High Sens 72 Radiography Diagnostic Testing: Clinical Impression(s) from Imaging Studies Chest CTA 09/26/21 13:46 IMPRESSION: Pulmonary emboli in branches of the right lower lobe pulmonary artery. Diffuse bilateral pulmonary infiltrates in the peripheral distribution worse in the lower lobes. Electronically Signed: Peng Gomez MD at 14:41 EST , Service support , EKG Initial EKG: Attestation: I personally reviewed and interpreted this EKG as follows: Comments: Sinus rhythm with a ventricular rate of 62 bpm with no acute ST segment changes Discharge Plan Triage Chief Complaint: Shortness of Breath ED Provider: Marcio Toney Dx/Rx/DC Orders Clinical Impression: Pulmonary emboli, COVID-19, Hypoxemia Prescriptions: No Action vitamin B complex [B Complex 1] Tablet 1 tab PO DAILY RF: 0 magnesium oxide 400 mg magnesium capsule 400 mg PO DAILY RF: 0 red yeast rice 600 mg tablet 600 mg tablet 600 mg PO DAILY RF: 0 [employer] Pack PO RF: 0 montelukast [Singulair] 10 mg tablet 10 mg PO DAILY RF: 0 nifedipine 30 mg tablet extended release 24hr 30 mg PO .PRN RF: 0 albuterol sulfate 1 PUFF inhaler 2 puff inhalation Q4H PRN PRN (Reason: Asthma) RF: 0 finasteride 1 MG tablet 1 mg PO DAILY RF: 0 Primary Care Provider: Jhoan Pierre Referrals: Jhoan Pierre MD [Primary Care Provider] - Disposition Disposition: Acute Care Hospital [facility]
[2021-09-26 13:59] LABS: Absolute Lymphocyte Count 0.42 X10^3/uL (0.83-4.51); Absolute Neutrophil Count 7.2 X10^3/uL (2.0-7.7); Basophil# 0.02 X10^3/uL; Basophil% 0.2 % (0-1); Eosinophil# 0.06 X10^3/uL; Eosinophils% 0.7 % (0-5); Hematocrit 42.7 % (40-54); Lymphocyte # 0.42 X10^3/ul (0.83-4.51); Lymphocyte % 5.2 % (19-41); Mean Corp Hgb Conc 35.1 g/dL (32-36); Mean Corpuscular Hgb 33.3 pg (27.0-32.0); Mean Corpuscular Volume 94.9 fL (80-94); Mean Platelet Vol. 9.4 fl (6.2-12.0); Monocyte# 0.29 X10^3/uL; Monocyte% 3.6 % (0-10); NRBC Flagged by Analyzer 0 % (0-5); Neutrophil # 7.24 X10^3/uL (2.7-7.7); Neutrophil % 89.4 % (47-70); POSITIVE DIFFERENTIAL YES; Platelet Count 177 K/mm3 (150-450); RBC Distribution Width CV 12.9 % (11.6-14.6); RBC Distribution Width SD 45.1 fl (35.1-43.9); White Blood Count 8.1 K/mm3 (4.4-11.0)
[2021-09-26 14:02] LABS: Differential Indicated SCAN CRITERIA MET
[2021-09-26] MEDS: dexAMETHasone 4 MG Tablet 6 MG PO (14:05)
[2021-09-26 14:12] LABS: Anion Gap 5 (5-15); BUN 18 mg/dL (7-18); BUN/Creat Ratio 25.2 RATIO (10-20); Calcium,Total 8.8 mg/dL (8.5-10.1); Chloride 105 mmol/L (98-107); Creatinine, Serum 0.71 mg/dL (0.70-1.30); EST Glomerular Filtration Rate 118 mL/min (>60); Est Glom Filt Rate - Afr Amer 143 mL/min (>60); Estimated Creatinine Clearance 98.99 ml/min; Glucose 126 mg/dL (74-106); Potassium 3.5 mmol/L (3.5-5.1); Sodium Level 137 mmol/L (136-145); Troponin-I HS 72 pg/mL (3.0-78.0)
[2021-09-26 14:15] LABS: Lactic Acid 0.7 mmol/L (0.4-1.9)
--- NOTE | 2021-09-26 15:27 | HP.PCM.HOS_ITS ---
HPI - General General Date of Admission: 09/26/21 Date of Service: 09/26/21 Chief Complaint: COVID +, Dyspnea, worsening HPI Narrative The patient is a 66 y/o M w/ PMHx: Asthma, GERD, BPH, Chronic back pain w/ DDD, OSITO, Hx VTE (PE, DVT 2012) who presents to the [facility] ED on 09/26/21 with history of diagnosis COVID from a home test as well as a drive-through with initial onset of Covid type symptoms 09/09/2021 with fevers, headaches, body aches, cough and dyspnea reporting that his also has been ill at home but has seemingly improved while he is worsened with progressively worsening fatigue, malaise, cough and dyspnea prompting eventual ED evaluation. Patient also reports pleuritic discomfort with deep inspiratory effort and coughing, primarily right-sided. Patient is not vaccinated against COVID. Patient's niece who is visiting strongly encourage patient to eventually present to the ED secondary to his worsening symptoms. Work-up in the ED included T 97.5, heart rate 71, BP 123/71, respiratory rate 18, initially 85% on room air with improvement to 98% on 4 L nasal cannula, CBC with WC 8.1, hemoglobin 15, platelet 177 with lymphopenia, BMP with glucose 126, lactic acid 0.7, high- sensitivity cardiac troponin 72, blood culture x2 pending per ED, CTPA with pulmonary emboli in the branches of the right lower lobe pulmonary artery, diffuse bilateral pulmonary infiltrates in the peripheral distribution worse in the lower lobes consistent with Covid pneumonia, EKG with sinus bradycardia with no acute evidence of ischemia. In the ED patient administered Decadron 6 mg p.o. x1 as well as Lovenox 70 mg subcu x1 and fentanyl 50 mcg x 1. [facility] Medical History Asthma Chronic back pain Disc disease, degenerative, lumbar or lumbosacral GERD (gastroesophageal reflux disease) History of deep venous thrombosis History of pulmonary embolus (PE) (2012) Obstructive sleep apnea Trigger finger Home Medications albuterol sulfate 2 puff INHALATION Q4H PRN PRN 11/11/14 [History Last Taken 09/26/21] finasteride 1 mg PO DAILY 11/11/14 [History Last Taken 09/26/21] [employer] Pack 1 dose pk PO DAILY 08/18/19 [History Last Taken 09/26/21] magnesium oxide 400 mg PO DAILY 08/18/19 [History Last Taken 09/26/21] montelukast 10 mg tablet 10 mg PO DAILY tab 07/05/21 [History Last Taken 09/26/21] cyanocobalamin (vitamin B-12) [Vitamin B-12] 1,000 mcg PO DAILY 09/26/21 [ History Last Taken 09/26/21] red yeast rice 600 mg PO DAILY 09/26/21 [History Last Taken 09/25/21] Allergy/AdvReac Type Severity Reaction Status Date / Time iodine AdvReac Hives Verified 09/26/21 14:04 Family History (Updated 09/26/21 @ 16:[address] Dorene Saha MD) Father Myocardial infarction, Onset Age: 37 Heart disease Mother Myocardial infarction, Onset Age: 73 Heart disease Surgical History History of herniorrhaphy History of hip replacement History of left heart catheterization (11/14/14) History of nasal septoplasty History of repair of rotator cuff Social History (Updated 09/26/21 @ 16:[address] Dorene Saha MD) household members: spouse Smoking Status: Former smoker how long ago did patient quit smoking: Smoked ~ 6 months 19-20 years old, <1/2 ppd. alcohol intake: never substance use type: does not use ROS ROS Narrative Admission Review of Systems: CONSTITUTIONAL: No weight loss, + fever, weakness or fatigue. HEENT: + Headache, dry throat. Eyes: No visual loss, blurred vision, double vision or yellow sclerae. Ears, Nose, Throat: No hearing loss, sneezing. SKIN: No rash or itching, lesions, wounds. CARDIOVASCULAR: + Pleuritic chest discomfort. No palpitations, edema, orthopnea, syncopal events. RESPIRATORY: + shortness of breath, cough, No marked sputum, wheezing, hemoptysis. GASTROINTESTINAL: No anorexia, nausea, vomiting, diarrhea, abdominal pain, melena, BRBPR. GENITOURINARY: No dysuria, frequency, urgency or retention. NEUROLOGICAL: + headache, No dizziness, syncope, paralysis, ataxia, numbness or tingling in the extremities, focal weakness, change in bowel or bladder control, seizure. MUSCULOSKELETAL: + muscle, back pain, joint pain or stiffness. HEMATOLOGIC: No anemia, bleeding or bruising. LYMPHATICS: No enlarged nodes. No history of splenectomy. PSYCHIATRIC: No history of depression or anxiety. ENDOCRINOLOGIC: No reports of sweating, cold or heat intolerance. No polyuria or polydipsia. ALLERGIES: + history of asthma, hives, eczema or rhinitis. Vital Signs Vital Signs Vital Signs: 09/26/21 12:57 09/26/21 13:24 09/26/21 15:15 Temperature 97.5 F L Temperature Source Temporal Pulse Rate 71 59 L Respiratory Rate 18 16 Respiratory Effort Short of Breath Labored Respiratory Depth Normal Respiratory Pattern Normal Blood Pressure 123/71 H 116/74 Blood Pressure Mean 88 88 Pulse Ox 85 98 Oxygen Delivery Method Room Air Nasal Cannula Nasal Cannula Oxygen Flow Rate (L/min) 4 4 Weight Weight: 146 lb 12.8 oz Body Mass Index (BMI) 22.3 Physical Exam Narrative Physical Examination: General: Awake, alert, oriented x 3 and cooperative, seated upright in the ED bed, fatigued and ill-appearing, mildly increased respiratory rate but no evidence of distress. Skin: Normal color, normal turgor, no icterus, no cyanosis. HEENT: AT/NC, EOMI, PERRLA, moderately dry MM, no carotid bruits or JVD noted. Lungs: Diffusely diminished, greater bases, mildly increased respiratory rate, coughing fits elicited with deep inspiratory effort increased, no rales, ronchi or wheezing. Heart: Mildly bradycardic with regular rhythm; no gallop, rub audible. Abdomen: Soft, morbidly obese, no obvious TTP, unable to discern distention given habitus, distant hyperactive bowel sounds, unable to discern HSM secondary to habitus. Extremities: No cyanosis, clubbing, or edema. Neurological: Patient awake, alert, oriented as noted, cognitive function intact; pupils equally reactive to light and accommodation, cranial nerves II- XII grossly normal, moving all 4 extremities, no focal deficits, strength moderately global decrease secondary to acute presentation. Psychiatric: Affect appears fatigued, ill-appearing, no acute evidence of depressive or anxiety feelings. Results Lab / Micro Data Result Diagrams: 09/26/21 13:18 09/26/21 13:18 Labs: Laboratory Results - last 24 hr 09/26/21 13:18: WBC 8.1, RBC 4.50 L, Hgb 15.0, Hct 42.7, MCV 94.9 H, MCH 33.3 H, MCHC 35.1, RDW Std Deviation 45.1 H, RDW Coeff of Jennifer 12.9, Plt Count 177, MPV 9.4, Immature Gran % (Auto) 0.900, Neut % (Auto) 89.4 H, Lymph % (Auto) 5.2 L, [place] % (Auto) 3.6, Eos % (Auto) 0.7, Baso % (Auto) 0.2, Absolute Neuts (auto) 7.2, Absolute Lymphs (auto) 0.42 L, Nucleated RBC % 0, Differential Comment COMMENT 09/26/21 13:18: Sodium 137, Potassium 3.5, Chloride 105, Carbon Dioxide 27.0, Anion Gap 5, BUN 18, Creatinine 0.71, Estim Creat Clear Calc 98.99, Est GFR (MDRD) Af Amer 143, Est GFR (MDRD) Non-Af 118, BUN/Creatinine Ratio 25.2 H, Glucose 126 H, Calcium 8.8, Troponin I High Sens 72 09/26/21 13:18: Lactic Acid 0.7 Radiology Impression Chest CTA 09/26/21 13:46 IMPRESSION: Pulmonary emboli in branches of the right lower lobe pulmonary artery. Diffuse bilateral pulmonary infiltrates in the peripheral distribution worse in the lower lobes. Electronically Signed: Peng Gomez MD at 14:41 EST , Service support , Assessment & Plan Assessment/Plan (1) Pneumonia due to COVID-19 virus: (2) Pulmonary emboli: QUALIFIERS: Pulmonary embolism type: other Chronicity: acute Acute cor pulmonale presence: unspecified Qualified Code(s): I26.99 - Other pulmonary embolism without acute cor pulmonale (3) Hypoxemia: PLAN: The patient is a 66 y/o M w/ PMHx: Asthma, GERD, BPH, Chronic back pain w/ DDD, OSITO, Hx VTE (PE, DVT 2012) who presents to the [facility] ED on 09/26/21 with history of diagnosis COVID from a home test as well as a drive-through with initial onset of Covid type symptoms 09/09/2021 with fevers, headaches, body aches, cough and dyspnea reporting that his also has been ill at home but has seemingly improved while he is worsened with progressively worsening fatigue, malaise, cough and dyspnea prompting eventual ED evaluation. #1. Acute Hypoxia secondary to Acute Bilateral Pneumonia and Acute R Sided Pulmonary emboli secondary to Acute Viral Syndrome, COVID-19: Will admit to the PCU, maintain on COVID precautions with need for completion 20 days of quarantine specifically ending on 09/29/21, will maintain on oxygen with wean as tolerated to room air, PRN albuterol, HOB, IS parameters w/ pending sputum cultures, respiratory viral panel and urine antigens, will obtain D-dimer for trending purposes, coags, procalcitonin, CRP, CPK, Ferritin, LDH, hepatic profile and BNP, continue supportive care including q 2 hour turning including prone given no prone bed availability and judicious hydration, closely monitor for worsening status for ARDS and multiorgan failure, will initiate and continue IV decadron x 10 doses, patient out of timeline for IV remdesivir, continue IV lovenox. If respiratory status worsens and patient requires airvo or BIPAP transition will initiate barcitinib regimen additionally with ID involvement. #2. Dyspnea, pleuritic chest discomfort, worsening with Hypoxia secondary to Acute presentation #1 and concurrent as noted Acute R Sided Pulmonary Embolism w/ history prior remote VTE: EKG without acute findings, trop x 1 normal. Will maintain on cardiac telemetry. Will obtain BNP. Will defer ECHO and BL LE DVT US given acute presentation #1 and does not currently changes course. Will continue therapeutic lovenox regimen with pending AM insurance oral regimen investigation. #3. Chronic asthma: Not on routine inhalation, will have as needed albuterol, encourage head of bed and I-S. #4. BPH: We will continue patient home finasteride regimen. #5. History of VTE: Noted history of DVT and PE 2012, from discussions no obvious evidence of provoked status but poor historian regarding the event. Will continue treatment as noted above. May require hypercoagulable work-up following completion of therapy, deferred immediately as already initiated on treatment in the ED upon evaluation. #6. OSITO: CPAP nightly. #7. GERD: We will maintain on famotidine. #8. DVT prophylaxis: SCDs, therapeutic Lovenox as noted. #9. CODE status: Patient LEONOR is his and living will is currently in place. Discussed CODE status at length including difference between FULL code, DNR-CCA and DNR-CC status. Following discussions about the differences in these status, requested Full Code status. Amenable to airvo and BIPAp if needed. Advanced Care Planning Face to Face Time: 16 minutes. Charges/Coding Visit Charges Inpatient E&M: 84165 Init Hosp L3 Procedures Hospitalists Procedures: [id number] Advncd Care Plan 30 Min
--- NOTE | 2021-09-26 15:49 | NURSING ---
PCU WHITE COVID 19, HYPOXIA, PE
[2021-09-26] MEDS: Enoxaparin 80 MG/0.8 ML Syringe 70 MG SC (16:37)
[2021-09-26 16:58] LABS: Procalcitonin 0.73 ng/mL (0.00-0.09)
[2021-09-26 17:16] LABS: International Normalized Ratio 1.2; Partial Thromboplast Time 27.9 Seconds (24.1-36.2); Prothrombin Time (Protime)PT. 14.8 SECONDS (11.7-14.9)
[2021-09-26 17:28] LABS: AST(SGOT) 32 U/L (15-37); Alanine Aminotransfer ALT/SGPT 58 U/L (16-61); Albumin, Serum 2.1 g/dL (3.2-5.0); Alkaline Phosphatase 245 U/L (45-117); Bilirubin, Direct 0.19 mg/dL (0.00-0.30); Ferritin 1177 ng/mL (26-388); Globulin 4.2 g/dL (2.2-4.2); LDH 343 U/L (87-241); Protein, Total 6.3 g/dL (6.4-8.2)
[2021-09-26 17:45] LABS: D-Dimer Quantitative (DVT/PE) 15.37 FEU/ug/m (0.27-0.49)
[2021-09-26 18:02] LABS: BNP,B-Type NATRIURETIC PEPTIDE 36.7 pg/mL (0-100)
[2021-09-26] MEDS: Famotidine 20 MG Tablet PO (20:58)
[2021-09-26] MEDS: 0.9% Normal Saline 1,000 ML 100 ML IV (20:59)
--- NOTE | 2021-09-26 21:32 | CPS ---
pt has home cpap and did not bring his from home.
[2021-09-27] VITALS (13 sets, daily range): BP systolic 113–146; BP diastolic 62–88; PULSE 51–91; RESP 20–22; TEMP 36.3–36.8; O2SAT 84–96
--- NOTE | 2021-09-27 01:00 | PCS.PANDOC ---
PANDEMIC DOCUMENTATION INITIATED: Date: 05/28/2021 Time: 190
[2021-09-27 07:32] LABS: Absolute Lymphocyte Count 0.35 X10^3/uL (0.83-4.51); Absolute Neutrophil Count 4.7 X10^3/uL (2.0-7.7); Hematocrit 38.9 % (40-54); Hemoglobin 13.7 g/dL (13.0-16.5); Lymphocyte # 0.35 X10^3/ul (0.83-4.51); Lymphocyte % 6.6 % (19-41); Mean Corp Hgb Conc 35.2 g/dL (32-36); Mean Corpuscular Hgb 33.3 pg (27.0-32.0); Mean Corpuscular Volume 94.6 fL (80-94); Mean Platelet Vol. 9.5 fl (6.2-12.0); Monocyte# 0.26 X10^3/uL; Monocyte% 4.9 % (0-10); NRBC Flagged by Analyzer 0 % (0-5); Neutrophil # 4.66 X10^3/uL (2.7-7.7); Neutrophil % 87.7 % (47-70); POSITIVE DIFFERENTIAL YES; Platelet Count 199 K/mm3 (150-450); RBC Distribution Width CV 12.8 % (11.6-14.6); RBC Distribution Width SD 44.6 fl (35.1-43.9); Red Blood Count 4.11 M/mm3 (4.6-6.2); White Blood Count 5.3 K/mm3 (4.4-11.0)
[2021-09-27 07:36] LABS: Differential Indicated SCAN CRITERIA MET
[2021-09-27 07:55] LABS: ALB/GLOB Ratio 0.4 RATIO (0.9-2.4); AST(SGOT) 20 U/L (15-37); Alanine Aminotransfer ALT/SGPT 43 U/L (16-61); Albumin, Serum 1.7 g/dL (3.2-5.0); Alkaline Phosphatase 221 U/L (45-117); Anion Gap 9 (5-15); BUN 19 mg/dL (7-18); BUN/Creat Ratio 35.8 RATIO (10-20); Calcium,Total 8.3 mg/dL (8.5-10.1); Chloride 107 mmol/L (98-107); Creatinine, Serum 0.53 mg/dL (0.70-1.30); EST Glomerular Filtration Rate 166 mL/min (>60); Est Glom Filt Rate - Afr Amer 201 mL/min (>60); Estimated Creatinine Clearance 129.26 ml/min; Globulin 4.1 g/dL (2.2-4.2); Glucose 141 mg/dL (74-106); Protein, Total 5.8 g/dL (6.4-8.2); Sodium Level 139 mmol/L (136-145)
[2021-09-27] MEDS: Enoxaparin 80 MG/0.8 ML Syringe 70 MG SC ×2 (09:26→20:30)
[2021-09-27] MEDS: dexAMETHasone 10 MG/ML Vial 6 MG IV (09:26)
[2021-09-27] MEDS: Magnesium Chloride 64 MG Delay Rel.Tablet 128 MG PO (09:27)
[2021-09-27] MEDS: Famotidine 20 MG Tablet PO ×2 (09:27→20:30)
[2021-09-27] MEDS: Montelukast 10 MG Tablet PO (09:27)
[2021-09-27] MEDS: Cyanocobalamin 500 MCG Tablet 1000 MCG PO (09:27)
--- NOTE | 2021-09-27 15:00 | PN.HOSP_ITS ---
Subjective Subjective Patient reported symptoms since 09/09/2021 with fever, headache, body aches, cough mild shortness of breath. He has a history of obstructive sleep apnea on CPAP at home, DVT/PE in 2013. He said shortness of breath is okay at rest but gets worse during conversation on exertion. Objective Data Objective Data Vital Signs: Vital Signs Temp Pulse Resp BP Pulse Ox 98.1 F 77 22 H 121/70 H 94 09/27/21 14:00 09/27/21 14:20 09/27/21 14:00 09/27/21 14:00 09/27/21 14:00 Oxygen Flow Rate (L/min) 11 Oxygen Delivery Method High Flow Weight: 142 lb 13.753 oz Body Mass Index (BMI) 21.7 Intake & Output: Intake and Output for Last 24 Hours 09/25/21 09/26/21 09/27/21 23:59 23:59 23:59 Intake Total 1346.67 / 1346.67 Output Total 120 / 120 Balance 1226.67 / 1226.67 Medical Nutrition Assessment Dietitian: Malnutrition Criteria Met Start: 09/27/21 13:58 Freq: Status: Active Protocol: Document 09/27/21 13:58 AG (Rec: 09/27/21 13:58 AG [id number]) Nutrition Malnutrition Evidence of Malnutrition Exists Yes Malnutrition (moderate): Acute Illness/Injury Evidenced By Suboptimal Energy Intake ( Moderate),Weight Loss (Severe) Clinical Problem Acute Disease or Injury Related Malnutrition Etiology moderate, acute malnutrition r /t inadequate energy intake w/ increased nutrient needs d/t COVID illness Signs/Symptoms as evidenced by unintentional wt loss of 9.1#/6% wt loss <1 month; estimated PO intake meeting <75% of estimated energy needs x 2 weeks Status Active Problem Recommendation Dietitian Recommendations/Changes regular diet; will d/c Ensure and add Magic Cup w/ dinner instead. Lab / Micro Data Result Diagrams: 09/27/21 07:00 09/27/21 07:00 Labs: Laboratory Results - last 24 hr 09/26/21 13:15: PT 14.8, INR 1.2, APTT 27.9, D-Dimer Quant (PE/DVT) 15.37 H* 09/26/21 13:18: B-Natriuretic Peptide 36.7 09/26/21 13:18: Procalcitonin 0.73 H 09/26/21 13:18: Ferritin 1177 H, Total Bilirubin 0.80, Direct Bilirubin 0.19, AST 32, ALT 58, Alkaline Phosphatase 245 H, Lactate Dehydrogenase 343 H, C-React Prot Ext Range 303.00 H, Total Protein 6.3 L, Albumin 2.1 L, Globulin 4.2 09/27/21 07:00: WBC 5.3, RBC 4.11 L, Hgb 13.7, Hct 38.9 L, MCV 94.6 H, MCH 33.3 H, MCHC 35.2, RDW Std Deviation 44.6 H, RDW Coeff of Jennifer 12.8, Plt Count 199, MPV 9.5, Immature Gran % (Auto) 0.800, Neut % (Auto) 87.7 H, Lymph % (Auto) 6.6 L, [place] % (Auto) 4.9, Eos % (Auto) 0.0, Baso % (Auto) 0.0, Absolute Neuts (auto) 4.7, Absolute Lymphs (auto) 0.35 L, Nucleated RBC % 0 09/27/21 07:00: Sodium 139, Potassium 4.0, Chloride 107, Carbon Dioxide 23.0, Anion Gap 9, BUN 19 H, Creatinine 0.53 L, Estim Creat Clear Calc 129.26, Est GFR (MDRD) Af Amer 201, Est GFR (MDRD) Non-Af 166, BUN/Creatinine Ratio 35.8 H, Glucose 141 H, Calcium 8.3 L, Total Bilirubin 0.60, AST 20, ALT 43, Alkaline Phosphatase 221 H, Total Protein 5.8 L, Albumin 1.7 L, Globulin 4.1, Albumin/Globulin Ratio 0.4 L Micro: Microbiology 09/27/21 13:52 Urine, Clean Catch Legionella Antigen - Final 09/27/21 13:52 Urine, Clean Catch Streptococcus pneumoniae Antigen (M - Final 09/26/21 Unknown Sputum, Expectorated/Coughed Gram Stain - Final 09/26/21 20:30 Mucosa - Nasopharyngeal Respiratory Panel (PCR) - Final Physical Exam Narrative General: Alert, Oriented x3, Cooperative HEENT: Atraumatic, PERRLA, EOMI, Normocephalic Oral: No Gingival or Mucosal Lesions/ Ulcerations Neck: Supple, No JVD, Negative Carotid Bruits Lungs: Air entry diminished in bilateral lung bases. Bilateral coarse rhonchi/wheezing. Hypoxia. Cardiovascular: Regular rate, Regular Rhythm, Normal S1, Normal S2, No murmurs Abdomen: Bowel Sounds Present, Soft, Non Tender, Non-Distended : No renal angle tenderness. No suprapubic tenderness. Extremities: No edema, Capillary Refill Less than 3 Seconds Skin: No rashes, No breakdown Musculoskeletal: No Tenderness to Palpation of Joints or Extremities Neurological: Cranial nerves II-XII grossly intact, DTR 2+/4 and Symmetrical, Neuro grossly intact Psych/Mental Status: Normal Affect, Appropriate. Assessment & Plan Assessment/Plan (1) Pneumonia due to COVID-19 virus: (2) Pulmonary emboli: QUALIFIERS: Pulmonary embolism type: other Chronicity: acute Acute cor pulmonale presence: unspecified Qualified Code(s): I26.99 - Other pulmonary embolism without acute cor pulmonale (3) Hypoxemia: PLAN: The patient is a 66 y/o M is admitted with shortness of breath and other Covid symptoms since 09/09. 1. Acute hypoxic respiratory failure secondary to bilateral COVID-19 pneumonia and acute right-sided pulmonary emboli due to COVID-19 infection, hypercoagulable disorder: Patient is admitted in PCU. On oxygen therapy to keep pulse ox more than 92%. On bronchodilator, Decadron, therapeutic dose of Lovenox. If patient needs airflow, BiPAP or high oxygen requirement, will need ID consult for baricitinib. Incentive spirometry, Pep. Urinary antigens are negative. Respiratory panel negative. Initial Gram stain of sputum culture shows 1+ gram-positive rods, 1+ GNR, 1+ GPC. Chest CTA shows pulmonary emboli in branches of the right lower lobe pulmonary artery. Diffuse bilateral pul monary infiltrates. #1. Right-sided pulmonary embolism, with history of DVT/PE in 2013: Continue Lovenox as mentioned above. Seems no obvious evidence of provoked cause therefore will need hypercoagulable work-up after 2-3 completion of anticoagulant therapy. Most likely will need lifelong anticoagulant as per tolerated. #3. Chronic intermittent asthma: On bronchodilator. PFT as an outpatient #4. BPH:continue patient home finasteride regimen. 5 OSITO: CPAP nightly. #7. GERD: On famotidine. #8. DVT prophylaxis: SCDs, therapeutic Lovenox as noted. #9. CODE status: Patient HCPOA is his and living will is currently in place full code. Charges/Coding Visit Charges Inpatient E&M: 35766 Subs Hosp L2
--- NOTE | 2021-09-27 16:54 | CASEMGMT ---
RN CM Assessment Introduced role of RN CM to patient.? Patient is alert, oriented and able?to participate in RN CM Assessment. ?Care providers, pharmacy, and demographics verified. Admit Dx: Covid, hypoxia, PE. Re-Admit: No Barriers/Issues: Patient was tested for Covid at [facility]. Patient is self pay and needing all the discounts he can get. Has [facility] #[phone]. States after he self pays- submits receipts to them and they will reimburse. PCP: Jhoan Pierre Specialists: Cardio- Used to see [facility] Preferred Pharmacy: [facility], [place] Insurance: None. Self Pay- see above note. Rx Benefit:?None- Self Pay. States [facility] will use savings cards- whichever card gives best discount. LNOK: Gloria Mcclelland LW/HPOA: Has both, aware not on file. HPOA- Gloria. Living Arrangements:? Lives with in a [facility], 2 steps to enter. ADL?s: Independent with ambulation and ADLs Transportation: Both patient and drive. will transport upon DC. DME: [employer]- [employer]. HHC: None SNF: None Goal: Home. Hope is to wean off O2 as he is self pay. Informed of approx private pay O2 cost and DME companies that take private pay no preference just wants whatever one is going to be the cheapest. DC PLAN: Home with possible O2. Given list to private pay HH/Outpatient PT, Given [facility] number, Given Haily Alba [facility] Information. Amita Scott RNCM
[2021-09-27] MEDS: guaiFENesin/D-Methorphan TAB.SR.12H 1 TABLET PO (20:30)
[2021-09-28] VITALS (10 sets, daily range): BP systolic 107–135; BP diastolic 56–78; PULSE 49–82; RESP 18–20; TEMP 35.8–36.7; O2SAT 87–99
--- NOTE | 2021-09-28 04:51 | CPS ---
Attempted to set up home cpap unit. When it was packed up, was packed up with water in container of main cpap. Electric inside machine is damaged. Machine will not even power on. Pt said to leave it to dry out. RN notified.
[2021-09-28] MEDS: Cyanocobalamin 500 MCG Tablet 1000 MCG PO (08:41)
[2021-09-28] MEDS: dexAMETHasone 10 MG/ML Vial 6 MG IV (08:41)
[2021-09-28] MEDS: Enoxaparin 80 MG/0.8 ML Syringe 70 MG SC ×2 (08:41→21:32)
[2021-09-28] MEDS: Magnesium Chloride 64 MG Delay Rel.Tablet 128 MG PO (08:41)
[2021-09-28] MEDS: Famotidine 20 MG Tablet PO ×2 (08:42→21:32)
[2021-09-28] MEDS: Montelukast 10 MG Tablet PO (08:42)
[2021-09-28] MEDS: guaiFENesin/D-Methorphan TAB.SR.12H 1 TABLET PO ×2 (08:46→21:32)
--- NOTE | 2021-09-28 14:19 | CASEMGMT ---
Green sheet on chart for home oxygen, if pt qualifies. Elmer GUARDADO CM
--- NOTE | 2021-09-28 14:50 | PCM.PN.HOSP ---
Subjective Subjective Patient got CPAP from home. Shortness of breath and dyspnea. No fever. Objective Data Objective Data Vital Signs: Vital Signs Temp Pulse Resp BP Pulse Ox 98.0 F 66 18 135/78 H 93 09/28/21 08:36 09/28/21 08:36 09/28/21 08:36 09/28/21 08:36 09/28/21 08:36 Oxygen Flow Rate (L/min) 9 Oxygen Delivery Method Nasal Cannula Weight: 139 lb 5.314 oz Body Mass Index (BMI) 21.7 Intake & Output: Intake and Output for Last 24 Hours 09/26/21 09/27/21 09/28/21 23:59 23:59 23:59 Intake Total 2446.67 / 2446.67 400 / 400 Output Total 1320 / 1320 1200 / 1200 Balance 1126.67 / 1126.67 -800 / -800 Medical Nutrition Assessment Dietitian: Malnutrition Criteria Met Start: 09/27/21 13:58 Freq: Status: Active Protocol: Document 09/27/21 13:58 AG (Rec: 09/27/21 13:58 [id number]) Nutrition Malnutrition Evidence of Malnutrition Exists Yes Malnutrition (moderate): Acute Illness/Injury Evidenced By Suboptimal Energy Intake ( Moderate),Weight Loss (Severe) Clinical Problem Acute Disease or Injury Related Malnutrition Etiology moderate, acute malnutrition r /t inadequate energy intake w/ increased nutrient needs d/t COVID illness Signs/Symptoms as evidenced by unintentional wt loss of 9.1#/6% wt loss <1 month; estimated PO intake meeting <75% of estimated energy needs x 2 weeks Status Active Problem Recommendation Dietitian Recommendations/Changes regular diet; will d/c Ensure and add Magic Cup w/ dinner instead. Lab / Micro Data Result Diagrams: 09/27/21 07:00 09/27/21 07:00 Micro: Microbiology 09/26/21 13:35 Blood Culture (Wb) - Anticubital Left Blood Culture - Preliminary No growth in 48 hours. 09/26/21 Unknown Sputum, Expectorated/Coughed Gram Stain - Final 09/26/21 Unknown Sputum, Expectorated/Coughed Respiratory Culture - Preliminary Appears to be normal respiratory jada. Further studies to follow. 09/27/21 13:52 Urine, Clean Catch Legionella Antigen - Final 09/27/21 13:52 Urine, Clean Catch Streptococcus pneumoniae Antigen (M - Final 09/26/21 20:30 Mucosa - Nasopharyngeal Respiratory Panel (PCR) - Final Physical Exam Narrative General: Alert, Oriented x3, Cooperative HEENT: Atraumatic, PERRLA, EOMI, Normocephalic Oral: No Gingival or Mucosal Lesions/ Ulcerations Neck: Supple, No JVD, Negative Carotid Bruits Lungs: Air entry diminished in bilateral lung bases. Bilateral rhonchi has improved. Still on high FiO2 Cardiovascular: Regular rate, Regular Rhythm, Normal S1, Normal S2, No murmurs Abdomen: Bowel Sounds Present, Soft, Non Tender, Non-Distended : No renal angle tenderness. No suprapubic tenderness. Extremities: No edema, Capillary Refill Less than 3 Seconds Skin: No rashes, No breakdown Musculoskeletal: No Tenderness to Palpation of Joints or Extremities Neurological: Cranial nerves II-XII grossly intact, DTR 2+/4 and Symmetrical, Neuro grossly intact Psych/Mental Status: Normal Affect, Appropriate. Assessment & Plan Assessment/Plan (1) Pneumonia due to COVID-19 virus: (2) Pulmonary emboli: QUALIFIERS: Pulmonary embolism type: other Chronicity: acute Acute cor pulmonale presence: unspecified Qualified Code(s): I26.99 - Other pulmonary embolism without acute cor pulmonale (3) Hypoxemia: PLAN: The patient is a 66 y/o M is admitted with shortness of breath and other Covid symptoms since 09/09. 1. Acute hypoxic respiratory failure secondary to bilateral COVID-19 pneumonia and acute right-sided pulmonary emboli due to COVID-19 infection, hypercoagulable disorder: Patient is admitted in PCU. On oxygen therapy to keep pulse ox more than 92%. On bronchodilator, Decadron, therapeutic dose of Lovenox. If patient needs airflow, BiPAP or high oxygen requirement, will need ID consult for baricitinib. Incentive spirometry, Pep. Urinary antigens are negative. Respiratory panel negative. Initial Gram stain of sputum culture shows 1+ gram-positive rods, 1+ GNR, 1+ GPC. Chest CTA shows pulmonary emboli in branches of the right lower lobe pulmonary artery. Diffuse bilateral pulmonary infiltrates. 09/28: Encouraged for incentive spirometry Pep and prone positioning. Sputum culture shows mixed normal respiratory jada. No fever. Labs ordered. #1. Right-sided pulmonary embolism, with history of DVT/PE in 2013: Continue Lovenox as mentioned above. Seems no obvious evidence of provoked cause therefore will need hypercoagulable work-up after 2-3 completion of anticoagulant therapy. Most likely will need lifelong anticoagulant as per tolerated. #3. Chronic intermittent asthma: On bronchodilator. PFT as an outpatient #4. BPH:continue patient home finasteride regimen. 5 OSITO: CPAP nightly. #7. GERD: On famotidine. #8. DVT prophylaxis: SCDs, therapeutic Lovenox as noted. #9. CODE status: Patient LEONOR is his and living will is currently in place full code. Active Medications Acetaminophen (Acetaminophen 325 Mg Tablet) 650 mg PO Q4H PRN PRN PRN Reason: Fever, pain 1-07/22 Al Hydroxide/Mg Hydroxide (Mag Hydrox/Al Hydrox/Simeth 30 Ml Udc) 30 ml PO Q6H PRN PRN PRN Reason: Gastric Burning Albuterol Sulfate (Albuterol 2.5 Mg/3 Ml Vial.Neb.) 2.5 mg INHALATION Q2H PRN PRN PRN Reason: Dyspnea, wheezing Cyanocobalamin (Cyanocobalamin 500 Mcg Tablet) 1,000 mcg PO DAILY [facility] Last Admin: 09/28/21 08:41 Dose: 1,000 mcg Documented by: Dexamethasone Sodium Phosphate (Dexamethasone 10 Mg/Ml Vial) 6 mg IV DAILY [facility] Stop: 10/06/21 10:01 Last Admin: 09/28/21 08:41 Dose: 6 mg Documented by: Enoxaparin Sodium (Enoxaparin 80 Mg/0.8 Ml Syringe) 70 mg SC Q12 [facility] Last Admin: 09/28/21 08:41 Dose: 70 mg Documented by: Famotidine (Famotidine 20 Mg Tablet) 20 mg PO BID [facility] Last Admin: 09/28/21 08:42 Dose: 20 mg Documented by: Guaifenesin (Guaifenesin/D-Methorphan Tab.Sr.12h) 1 tablet PO BID [facility] Last Admin: 09/28/21 08:46 Dose: 1 tablet Documented by: Hydralazine HCl (Hydralazine 20 Mg/Ml Vial) 10 mg IV Q4H PRN PRN PRN Reason: SBP > 160 Sodium Chloride () 250 mls @ 15 mls/hr IV .[id number] PRN PRN Reason: Saline Flush Sodium Chloride () 250 mls @ 15 mls/hr IV .[id number] PRN PRN Reason: Additional IVPB Infusion Loperamide HCl (Loperamide 2 Mg Capsule) 2 mg PO Q2H PRN PRN PRN Reason: Diarrhea Magnesium Chloride (Magnesium Chloride 64 Mg Delay Rel.Tablet) 128 mg PO DAILY [facility] Last Admin: 09/28/21 08:41 Dose: 128 mg Documented by: Melatonin (Melatonin 3 Mg Tablet) 3 mg PO QHS PRN PRN PRN Reason: INSOMNIA Montelukast Sodium (Montelukast 10 Mg Tablet) 10 mg PO DAILY [facility] Last Admin: 09/28/21 08:42 Dose: 10 mg Documented by: Prochlorperazine Edisylate (Prochlorperazine 10 Mg/2 Ml Vial) 5 mg IV Q4H PRN PRN PRN Reason: Breakthrough Nausea/Vomiting Sodium Chloride (0.9% Saline Lock 10 Ml Syringe) 10 - 40 ml IV UD PRN PRN Reason: SALINE FLUSH Throat Lozenges (Benzocaine/Menthol 1 Lozenge) 1 lozenge MUCOUS MEM Q2H PRN PRN PRN Reason: SORE THROAT Charges/Coding Visit Charges Inpatient E&M: 38185 Subs Hosp L2
[2021-09-28 16:01] LABS: Absolute Lymphocyte Count 0.34 X10^3/uL (0.83-4.51); Absolute Neutrophil Count 8.2 X10^3/uL (2.0-7.7); Basophil# 0.01 X10^3/uL; Basophil% 0.1 % (0-1); Eosinophil# 0.01 X10^3/uL; Eosinophils% 0.1 % (0-5); Hemoglobin 14.9 g/dL (13.0-16.5); Lymphocyte # 0.34 X10^3/ul (0.83-4.51); Lymphocyte % 3.9 % (19-41); Mean Corp Hgb Conc 34.7 g/dL (32-36); Mean Corpuscular Hgb 33.1 pg (27.0-32.0); Mean Corpuscular Volume 95.6 fL (80-94); Mean Platelet Vol. 10.5 fl (6.2-12.0); Monocyte# 0.18 X10^3/uL; Monocyte% 2.1 % (0-10); NRBC Flagged by Analyzer 0 % (0-5); Neutrophil # 8.19 X10^3/uL (2.7-7.7); Neutrophil % 93.3 % (47-70); POSITIVE COUNT YES; POSITIVE DIFFERENTIAL YES; Platelet Count 220 K/mm3 (150-450); RBC Distribution Width CV 12.9 % (11.6-14.6); RBC Distribution Width SD 45.8 fl (35.1-43.9); White Blood Count 8.8 K/mm3 (4.4-11.0)
[2021-09-28 16:15] LABS: Differential Indicated SCAN CRITERIA MET
[2021-09-28 16:53] LABS: ALB/GLOB Ratio 0.6 RATIO (0.9-2.4); AST(SGOT) 68 U/L (15-37); Alanine Aminotransfer ALT/SGPT 93 U/L (16-61); Albumin, Serum 2.2 g/dL (3.2-5.0); Alkaline Phosphatase 262 U/L (45-117); Anion Gap 7 (5-15); BUN 27 mg/dL (7-18); BUN/Creat Ratio 32.8 RATIO (10-20); Calcium,Total 8.8 mg/dL (8.5-10.1); Chloride 108 mmol/L (98-107); Creatinine, Serum 0.82 mg/dL (0.70-1.30); EST Glomerular Filtration Rate 100 mL/min (>60); Est Glom Filt Rate - Afr Amer 121 mL/min (>60); Estimated Creatinine Clearance 81.36 ml/min; Globulin 3.6 g/dL (2.2-4.2); Glucose 285 mg/dL (74-106); Potassium 4.6 mmol/L (3.5-5.1); Protein, Total 5.8 g/dL (6.4-8.2); Sodium Level 137 mmol/L (136-145)
[2021-09-28 17:00] LABS: Platelet Estimate ADEQUATE (ADEQ); Red Cell Morphology NORM C+C NORMAL (NORM C&C)
[2021-09-29] VITALS (12 sets, daily range): BP systolic 119–143; BP diastolic 70–78; PULSE 51–91; RESP 16–20; TEMP 36–36.6; O2SAT 91–96
[2021-09-29] MEDS: Sodium Chloride 0.65% 1 SPRAY SPRAY.BTL 2 SPRAY NASAL (06:13)
[2021-09-29 06:47] LABS: Absolute Lymphocyte Count 0.57 X10^3/uL (0.83-4.51); Absolute Neutrophil Count 8.6 X10^3/uL (2.0-7.7); Basophil# 0.01 X10^3/uL; Basophil% 0.1 % (0-1); Hematocrit 39.3 % (40-54); Lymphocyte # 0.57 X10^3/ul (0.83-4.51); Lymphocyte % 5.9 % (19-41); Mean Corp Hgb Conc 35.6 g/dL (32-36); Mean Corpuscular Hgb 33.6 pg (27.0-32.0); Mean Corpuscular Volume 94.2 fL (80-94); Mean Platelet Vol. 8.9 fl (6.2-12.0); Monocyte# 0.48 X10^3/uL; Monocyte% 4.9 % (0-10); NRBC Flagged by Analyzer 0 % (0-5); Neutrophil # 8.61 X10^3/uL (2.7-7.7); Neutrophil % 88.4 % (47-70); POSITIVE DIFFERENTIAL YES; Platelet Count 225 K/mm3 (150-450); RBC Distribution Width CV 12.8 % (11.6-14.6); RBC Distribution Width SD 44.3 fl (35.1-43.9); Red Blood Count 4.17 M/mm3 (4.6-6.2); White Blood Count 9.7 K/mm3 (4.4-11.0)
[2021-09-29 06:55] LABS: Differential Indicated SCAN CRITERIA MET
[2021-09-29 07:10] LABS: Differential Comment SCANNED
[2021-09-29 07:21] LABS: ALB/GLOB Ratio 0.5 RATIO (0.9-2.4); AST(SGOT) 139 U/L (15-37); Alanine Aminotransfer ALT/SGPT 210 U/L (16-61); Albumin, Serum 1.9 g/dL (3.2-5.0); Alkaline Phosphatase 247 U/L (45-117); Anion Gap 8 (5-15); BUN 25 mg/dL (7-18); BUN/Creat Ratio 38.5 RATIO (10-20); Calcium,Total 8.7 mg/dL (8.5-10.1); Chloride 109 mmol/L (98-107); Creatinine, Serum 0.65 mg/dL (0.70-1.30); EST Glomerular Filtration Rate 132 mL/min (>60); Est Glom Filt Rate - Afr Amer 159 mL/min (>60); Estimated Creatinine Clearance 104.42 ml/min; Globulin 3.8 g/dL (2.2-4.2); Glucose 134 mg/dL (74-106); Potassium 4.4 mmol/L (3.5-5.1); Protein, Total 5.7 g/dL (6.4-8.2); Sodium Level 139 mmol/L (136-145)
[2021-09-29] MEDS: Montelukast 10 MG Tablet PO (08:17)
[2021-09-29] MEDS: Famotidine 20 MG Tablet PO ×2 (08:17→20:40)
[2021-09-29] MEDS: guaiFENesin/D-Methorphan TAB.SR.12H 1 TABLET PO ×2 (08:17→20:40)
[2021-09-29] MEDS: dexAMETHasone 10 MG/ML Vial 6 MG IV (08:17)
[2021-09-29] MEDS: Magnesium Chloride 64 MG Delay Rel.Tablet 128 MG PO (08:17)
[2021-09-29] MEDS: Enoxaparin 80 MG/0.8 ML Syringe 70 MG SC (08:18)
[2021-09-29] MEDS: 0.9% Saline Lock 10 ML Syringe IV (08:18)
[2021-09-29] MEDS: Cyanocobalamin 500 MCG Tablet 1000 MCG PO (08:19)
--- NOTE | 2021-09-29 13:44 | PCM.PN.HOSP ---
Subjective Subjective Patient respiratory status is improved. Patient is doing incentive spirometry every 2 3 hours and Pep. Afebrile. Currently on 4 L of oxygen. Objective Data Objective Data Vital Signs: Vital Signs Temp Pulse Resp BP Pulse Ox 96.8 F L 53 L 18 143/74 H 91 09/29/21 08:25 09/29/21 08:25 09/29/21 08:25 09/29/21 08:25 09/29/21 12:46 Oxygen Flow Rate (L/min) 4 Oxygen Delivery Method High Flow Weight: 141 lb 12.116 oz Body Mass Index (BMI) 21.7 Intake & Output: Intake and Output for Last 24 Hours 09/27/21 09/28/21 09/29/21 23:59 23:59 23:59 Intake Total 2446.67 / 2446.67 880 / 1180 1000 / 1000 Output Total 1320 / 1320 2700 / 3700 1800 / 1800 Balance 1126.67 / 1126.67 -1820 / -2520 -800 / -800 Medical Nutrition Assessment Dietitian: Malnutrition Criteria Met Start: 09/27/21 13:58 Freq: Status: Active Protocol: Document 09/27/21 13:58 AG (Rec: 09/27/21 13:58 [id number]) Nutrition Malnutrition Evidence of Malnutrition Exists Yes Malnutrition (moderate): Acute Illness/Injury Evidenced By Suboptimal Energy Intake ( Moderate),Weight Loss (Severe) Clinical Problem Acute Disease or Injury Related Malnutrition Etiology moderate, acute malnutrition r /t inadequate energy intake w/ increased nutrient needs d/t COVID illness Signs/Symptoms as evidenced by unintentional wt loss of 9.1#/6% wt loss <1 month; estimated PO intake meeting <75% of estimated energy needs x 2 weeks Status Active Problem Recommendation Dietitian Recommendations/Changes regular diet; will d/c Ensure and add Magic Cup w/ dinner instead. Lab / Micro Data Result Diagrams: 09/29/21 06:40 09/29/21 06:40 Labs: Laboratory Results - last 24 hr 09/28/21 15:35: WBC 8.8, RBC 4.50 L, Hgb 14.9, Hct 43.0, MCV 95.6 H, MCH 33.1 H, MCHC 34.7, RDW Std Deviation 45.8 H, RDW Coeff of Jennifer 12.9, Plt Count 220, MPV 10.5, Immature Gran % (Auto) 0.500, Neut % (Auto) 93.3 H, Lymph % (Auto) 3.9 L, [place] % (Auto) 2.1, Eos % (Auto) 0.1, Baso % (Auto) 0.1, Absolute Neuts (auto) 8.2 H, Absolute Lymphs (auto) 0.34 L, Nucleated RBC % 0, Differential Comment , Platelet Estimate ADEQUATE, RBC Morphology NORM C+C 09/28/21 15:35: Sodium 137, Potassium 4.6, Chloride 108 H, Carbon Dioxide 22.0, Anion Gap 7, BUN 27 H, Creatinine 0.82, Estim Creat Clear Calc 81.36, Est GFR (MDRD) Af Amer 121, Est GFR (MDRD) Non-Af 100, BUN/Creatinine Ratio 32.8 H, Glucose 285 H, Calcium 8.8, Total Bilirubin 0.30, AST 68 H, ALT 93 H, Alkaline Phosphatase 262 H, Total Protein 5.8 L, Albumin 2.2 L, Globulin 3.6, Albumin/Globulin Ratio 0.6 L 09/29/21 06:40: WBC 9.7, RBC 4.17 L, Hgb 14.0, Hct 39.3 L, MCV 94.2 H, MCH 33.6 H, MCHC 35.6, RDW Std Deviation 44.3 H, RDW Coeff of Jennifer 12.8, Plt Count 225, MPV 8.9, Immature Gran % (Auto) 0.700, Neut % (Auto) 88.4 H, Lymph % (Auto) 5.9 L, [place] % (Auto) 4.9, Eos % (Auto) 0.0, Baso % (Auto) 0.1, Absolute Neuts (auto) 8.6 H, Absolute Lymphs (auto) 0.57 L, Nucleated RBC % 0, Differential Comment SCANNED 09/29/21 06:40: Sodium 139, Potassium 4.4, Chloride 109 H, Carbon Dioxide 22.0, Anion Gap 8, BUN 25 H, Creatinine 0.65 L, Estim Creat Clear Calc 104.42, Est GFR (MDRD) Af Amer 159, Est GFR (MDRD) Non-Af 132, BUN/Creatinine Ratio 38.5 H, Glucose 134 H, Calcium 8.7, Total Bilirubin 0.40, AST 139 H, ALT 210 H, Alkaline Phosphatase 247 H, Total Protein 5.7 L, Albumin 1.9 L, Globulin 3.8, Albumin/Globulin Ratio 0.5 L Micro: Microbiology 09/26/21 Unknown Sputum, Expectorated/Coughed Gram Stain - Final 09/26/21 Unknown Sputum, Expectorated/Coughed Respiratory Culture - Final 09/26/21 13:35 Blood Culture (Wb) - Anticubital Left Blood Culture - Preliminary No growth in 48 hours. 09/27/21 13:52 Urine, Clean Catch Legionella Antigen - Final 09/27/21 13:52 Urine, Clean Catch Streptococcus pneumoniae Antigen (M - Final 09/26/21 20:30 Mucosa - Nasopharyngeal Respiratory Panel (PCR) - Final Physical Exam Narrative General: Alert, Oriented x3, Cooperative HEENT: Atraumatic, PERRLA, EOMI, Normocephalic Oral: No Gingival or Mucosal Lesions/ Ulcerations Neck: Supple, No JVD, Negative Carotid Bruits Lungs: Air entry diminished in bilateral lung bases. No tachypnea. Mild expiratory rhonchi. Cardiovascular: Regular rate, Regular Rhythm, Normal S1, Normal S2, No murmurs Abdomen: Bowel Sounds Present, Soft, Non Tender, Non-Distended : No renal angle tenderness. No suprapubic tenderness. Extremities: No edema, Capillary Refill Less than 3 Seconds Skin: No rashes, No breakdown Musculoskeletal: No Tenderness to Palpation of Joints or Extremities Neurological: Cranial nerves II-XII grossly intact, DTR 2+/4 and Symmetrical, Neuro grossly intact Psych/Mental Status: Normal Affect, Appropriate. Assessment & Plan Assessment/Plan (1) Pneumonia due to COVID-19 virus: (2) Pulmonary emboli: QUALIFIERS: Acute cor pulmonale presence: unspecified Chronicity: acute Pulmonary embolism type: other Qualified Code(s): I26.99 - Other pulmonary embolism without acute cor pulmonale (3) Hypoxemia: PLAN: The patient is a 66 y/o M is admitted with shortness of breath and other Covid symptoms since 09/09. 1. Acute hypoxic respiratory failure secondary to bilateral COVID-19 pneumonia and acute right-sided pulmonary emboli due to COVID-19 infection, hypercoagulable disorder: Patient is admitted in PCU. On oxygen therapy to keep pulse ox more than 92%. On bronchodilator, Decadron, therapeutic dose of Lovenox. If patient needs airflow, BiPAP or high oxygen requirement, will need ID consult for baricitinib. Incentive spirometry, Pep. Urinary antigens are negative. Respiratory panel negative. Initial Gram stain of sputum culture shows 1+ gram-positive rods, 1+ GNR, 1+ GPC. Chest CTA shows pulmonary emboli in branches of the right lower lobe pulmonary artery. Diffuse bilateral pulmonary infiltrates. 09/28: Encouraged for incentive spirometry Pep and prone positioning. Sputum culture shows mixed normal respiratory jada. No fever. Labs ordered. 09/29: Labs reviewed. No fever. Oxygenation and ventilation improving #1. Right-sided pulmonary embolism, with history of DVT/PE in 2013: Continue Lovenox as mentioned above. Seems no obvious evidence of provoked cause therefore will need hypercoagulable work-up after 2-3 completion of anticoagulant therapy. Most likely will need lifelong anticoagulant as per tolerated. 09/29: Lovenox discontinued and started on Eliquis 10 mg p.o. twice daily, changed to 5 mg twice daily on 10/04, morning dose #3. Chronic intermittent asthma: On bronchodilator. 09/29: Patient further said he smoked for 1 year and was told he does not have COPD. PFT as an outpatient #4. BPH:continue patient home finasteride regimen. 5 OSITO: CPAP nightly. #7. GERD: On famotidine. #8. DVT prophylaxis: SCDs, therapeutic Lovenox as noted. #9. CODE status: Patient LEONOR is his and living will is currently in place full code. Charges/Coding Visit Charges Inpatient E&M: 13217 Subs Hosp L2
[2021-09-29] MEDS: APIXABAN 5 MG TABLET 10 MG PO (20:40)
[2021-09-30] VITALS (10 sets, daily range): BP systolic 113–137; BP diastolic 70–80; PULSE 45–70; RESP 18; TEMP 35.7–36.8; O2SAT 92–96
[2021-09-30 06:47] LABS: Absolute Lymphocyte Count 0.71 X10^3/uL (0.83-4.51); Absolute Neutrophil Count 7.6 X10^3/uL (2.0-7.7); Basophil# 0.01 X10^3/uL; Basophil% 0.1 % (0-1); Hematocrit 42.2 % (40-54); Hemoglobin 14.7 g/dL (13.0-16.5); Lymphocyte # 0.71 X10^3/ul (0.83-4.51); Lymphocyte % 7.9 % (19-41); Mean Corp Hgb Conc 34.8 g/dL (32-36); Mean Corpuscular Hgb 32.9 pg (27.0-32.0); Mean Corpuscular Volume 94.4 fL (80-94); Mean Platelet Vol. 8.9 fl (6.2-12.0); Monocyte# 0.58 X10^3/uL; Monocyte% 6.4 % (0-10); NRBC Flagged by Analyzer 0 % (0-5); Neutrophil # 7.61 X10^3/uL (2.7-7.7); Neutrophil % 84.2 % (47-70); Platelet Count 245 K/mm3 (150-450); RBC Distribution Width CV 12.6 % (11.6-14.6); RBC Distribution Width SD 43.9 fl (35.1-43.9); Red Blood Count 4.47 M/mm3 (4.6-6.2)
[2021-09-30 07:40] LABS: ALB/GLOB Ratio 0.6 RATIO (0.9-2.4); AST(SGOT) 152 U/L (15-37); Alanine Aminotransfer ALT/SGPT 427 U/L (16-61); Albumin, Serum 2.2 g/dL (3.2-5.0); Alkaline Phosphatase 275 U/L (45-117); Anion Gap 9 (5-15); BUN 25 mg/dL (7-18); BUN/Creat Ratio 37.3 RATIO (10-20); Chloride 105 mmol/L (98-107); Creatinine, Serum 0.67 mg/dL (0.70-1.30); EST Glomerular Filtration Rate 127 mL/min (>60); Est Glom Filt Rate - Afr Amer 153 mL/min (>60); Glucose 136 mg/dL (74-106); Potassium 4.5 mmol/L (3.5-5.1); Protein, Total 6.2 g/dL (6.4-8.2); Sodium Level 138 mmol/L (136-145)
[2021-09-30] MEDS: 0.9% Saline Lock 10 ML Syringe IV (08:16)
[2021-09-30] MEDS: Cyanocobalamin 500 MCG Tablet 1000 MCG PO (08:16)
[2021-09-30] MEDS: dexAMETHasone 10 MG/ML Vial 6 MG IV (08:16)
[2021-09-30] MEDS: Magnesium Chloride 64 MG Delay Rel.Tablet 128 MG PO (08:17)
[2021-09-30] MEDS: Famotidine 20 MG Tablet PO ×2 (08:17→21:38)
[2021-09-30] MEDS: APIXABAN 5 MG TABLET 10 MG PO ×2 (08:17→21:38)
[2021-09-30] MEDS: guaiFENesin/D-Methorphan TAB.SR.12H 1 TABLET PO ×2 (08:17→21:38)
[2021-09-30] MEDS: Montelukast 10 MG Tablet PO (08:17)
--- NOTE | 2021-09-30 12:26 | PN.HOSP_ITS ---
Subjective Subjective Patient had mild nosebleeding from dry air. On nasal saline. Shortness of breath/dyspnea on exertion. Objective Data Objective Data Vital Signs: Vital Signs Temp Pulse Resp BP Pulse Ox 97.5 F L 60 18 115/80 93 09/30/21 10:10 09/30/21 10:10 09/30/21 10:10 09/30/21 10:10 09/30/21 10:10 Oxygen Flow Rate (L/min) 3 Oxygen Delivery Method Nasal Cannula Weight: 141 lb 12.116 oz Body Mass Index (BMI) 21.7 Intake & Output: Intake and Output for Last 24 Hours 09/28/21 09/29/21 09/30/21 23:59 23:59 23:59 Intake Total 880 / 1180 1800 / 2400 960 / 960 Output Total 2700 / 3700 2500 / 4325 2875 / 2875 Balance -1820 / -2520 -700 / -1925 -1915 / -1915 Medical Nutrition Assessment Dietitian: Malnutrition Criteria Met Start: 09/27/21 13:58 Freq: Status: Active Protocol: Document 09/27/21 13:58 AG (Rec: 09/27/21 13:58 AG [id number]) Nutrition Malnutrition Evidence of Malnutrition Exists Yes Malnutrition (moderate): Acute Illness/Injury Evidenced By Suboptimal Energy Intake ( Moderate),Weight Loss (Severe) Clinical Problem Acute Disease or Injury Related Malnutrition Etiology moderate, acute malnutrition r /t inadequate energy intake w/ increased nutrient needs d/t COVID illness Signs/Symptoms as evidenced by unintentional wt loss of 9.1#/6% wt loss <1 month; estimated PO intake meeting <75% of estimated energy needs x 2 weeks Status Active Problem Recommendation Dietitian Recommendations/Changes regular diet; will d/c Ensure and add Magic Cup w/ dinner instead. Lab / Micro Data Result Diagrams: 09/30/21 05:10 09/30/21 05:10 Labs: Laboratory Results - last 24 hr 09/30/21 05:10: WBC 9.0, RBC 4.47 L, Hgb 14.7, Hct 42.2, MCV 94.4 H, MCH 32.9 H, MCHC 34.8, RDW Std Deviation 43.9, RDW Coeff of Jennifer 12.6, Plt Count 245, MPV 8.9, Immature Gran % (Auto) 1.400 H, Neut % (Auto) 84.2 H, Lymph % (Auto) 7.9 L, [place] % (Auto) 6.4, Eos % (Auto) 0.0, Baso % (Auto) 0.1, Absolute Neuts (auto) 7.6, Absolute Lymphs (auto) 0.71 L, Nucleated RBC % 0 09/30/21 05:10: Sodium 138, Potassium 4.5, Chloride 105, Carbon Dioxide 24.0, Anion Gap 9, BUN 25 H, Creatinine 0.67 L, Estim Creat Clear Calc 101.30, Est GFR (MDRD) Af Amer 153, Est GFR (MDRD) Non-Af 127, BUN/Creatinine Ratio 37.3 H, Glucose 136 H, Calcium 9.0, Total Bilirubin 0.50, AST 152 H, ALT 427 H, Alkaline Phosphatase 275 H, Total Protein 6.2 L, Albumin 2.2 L, Globulin 4.0, Albumin/Globulin Ratio 0.6 L Micro: Microbiology 09/26/21 Unknown Sputum, Expectorated/Coughed Gram Stain - Final 09/26/21 Unknown Sputum, Expectorated/Coughed Respiratory Culture - Final 09/26/21 13:35 Blood Culture (Wb) - Anticubital Left Blood Culture - Preliminary No growth in 48 hours. 09/27/21 13:52 Urine, Clean Catch Legionella Antigen - Final 09/27/21 13:52 Urine, Clean Catch Streptococcus pneumoniae Antigen (M - Final 09/26/21 20:30 Mucosa - Nasopharyngeal Respiratory Panel (PCR) - Final Physical Exam Narrative General: Alert, Oriented x3, Cooperative HEENT: Mild nasal bleeding/epistaxis from dry air. Atraumatic, PERRLA, EOMI, Normocephalic Oral: No Gingival or Mucosal Lesions/ Ulcerations Neck: Supple, No JVD, Negative Carotid Bruits Lungs: Air entry diminished in bilateral lung bases. No tachypnea. Mild expiratory rhonchi. Cardiovascular: Regular rate, Regular Rhythm, Normal S1, Normal S2, No murmurs Abdomen: Bowel Sounds Present, Soft, Non Tender, Non-Distended : No renal angle tenderness. No suprapubic tenderness. Extremities: No edema, Capillary Refill Less than 3 Seconds Skin: No rashes, No breakdown Musculoskeletal: No Tenderness to Palpation of Joints or Extremities Neurological: Cranial nerves II-XII grossly intact, DTR 2+/4 and Symmetrical, Neuro grossly intact Psych/Mental Status: Normal Affect, Appropriate. Assessment & Plan Assessment/Plan (1) Pneumonia due to COVID-19 virus: (2) Pulmonary emboli: QUALIFIERS: Pulmonary embolism type: other Chronicity: acute Acute cor pulmonale presence: unspecified Qualified Code(s): I26.99 - Other pulmonary embolism without acute cor pulmonale (3) Hypoxemia: PLAN: The patient is a 66 y/o M is admitted with shortness of breath and other Covid symptoms since 09/09. 1. Acute hypoxic respiratory failure secondary to bilateral COVID-19 pneumonia and acute right-sided pulmonary emboli due to COVID-19 infection, hypercoagulable disorder: Patient is admitted in PCU. On oxygen therapy to keep pulse ox more than 92%. On bronchodilator, Decadron, therapeutic dose of Lovenox. If patient needs airflow, BiPAP or high oxygen requirement, will need ID consult for baricitinib. Incentive spirometry, Pep. Urinary antigens are negative. Respiratory panel negative. Initial Gram stain of sputum culture shows 1+ gram-positive rods, 1+ GNR, 1+ GPC. Chest CTA shows pulmonary emboli in branches of the right lower lobe pulmonary artery. Diffuse bilateral pulmonary infiltrates. 09/28: Encouraged for incentive spirometry Pep and prone positioning. Sputum culture shows mixed normal respiratory jada. No fever. Labs ordered. 09/29: Labs reviewed. No fever. Oxygenation and ventilation improving 09/30: Patient on 3 L of oxygen but gets dyspneic/short of breath on exertion. Possible 1 or 2 more days and then discharge. #1. Right-sided pulmonary embolism, with history of DVT/PE in 2013: Continue Lovenox as mentioned above. Seems no obvious evidence of provoked cause therefore will need hypercoagulable work-up after 2-3 completion of anticoagulant therapy. Most likely will need lifelong anticoagulant as per tolerated. 09/29: Lovenox discontinued and started on Eliquis 10 mg p.o. twice daily, carmen nged to 5 mg twice daily on 10/04, morning dose 09/30 mild epistaxis probably from dry air. H&H 14.7/. Continue Eliquis as mentioned above. #3. Chronic intermittent asthma: On bronchodilator. 09/29: Patient further said he smoked for 1 year and was told he does not have COPD. PFT as an outpatient #4. BPH:continue patient home finasteride regimen. 5 OSITO: CPAP nightly. #7. GERD: On famotidine. #8. DVT prophylaxis: SCDs, therapeutic Lovenox as noted. #9. CODE status: Patient LEONOR is his and living will is currently in place full code. Charges/Coding Visit Charges Inpatient E&M: 01452 Subs Hosp L2
[2021-09-30] MEDS: MELATONIN 3 MG TABLET PO (23:58)
[2021-10-01] VITALS (10 sets, daily range): BP systolic 112–131; BP diastolic 66–74; PULSE 42–69; RESP 18–20; TEMP 35.2–36.9; O2SAT 89–96
[2021-10-01 06:27] LABS: Absolute Lymphocyte Count 0.96 X10^3/uL (0.83-4.51); Absolute Neutrophil Count 7.4 X10^3/uL (2.0-7.7); Basophil# 0.04 X10^3/uL; Basophil% 0.4 % (0-1); Eosinophil# 0.01 X10^3/uL; Eosinophils% 0.1 % (0-5); Hematocrit 43.3 % (40-54); Hemoglobin 15.1 g/dL (13.0-16.5); Lymphocyte # 0.96 X10^3/ul (0.83-4.51); Lymphocyte % 10.3 % (19-41); Mean Corp Hgb Conc 34.9 g/dL (32-36); Mean Corpuscular Hgb 32.8 pg (27.0-32.0); Mean Corpuscular Volume 94.1 fL (80-94); Mean Platelet Vol. 9.5 fl (6.2-12.0); Monocyte# 0.65 X10^3/uL; NRBC Flagged by Analyzer 0 % (0-5); Neutrophil # 7.36 X10^3/uL (2.7-7.7); Neutrophil % 79.4 % (47-70); Platelet Count 229 K/mm3 (150-450); RBC Distribution Width CV 12.4 % (11.6-14.6); RBC Distribution Width SD 42.8 fl (35.1-43.9); White Blood Count 9.3 K/mm3 (4.4-11.0)
[2021-10-01 06:36] LABS: ALB/GLOB Ratio 0.5 RATIO (0.9-2.4); AST(SGOT) 96 U/L (15-37); Alanine Aminotransfer ALT/SGPT 458 U/L (16-61); Albumin, Serum 2.2 g/dL (3.2-5.0); Alkaline Phosphatase 259 U/L (45-117); Anion Gap 6 (5-15); BUN 28 mg/dL (7-18); BUN/Creat Ratio 39.9 RATIO (10-20); Calcium,Total 8.4 mg/dL (8.5-10.1); Chloride 105 mmol/L (98-107); EST Glomerular Filtration Rate 120 mL/min (>60); Est Glom Filt Rate - Afr Amer 146 mL/min (>60); Estimated Creatinine Clearance 96.96 ml/min; Globulin 4.1 g/dL (2.2-4.2); Glucose 154 mg/dL (74-106); Potassium 4.5 mmol/L (3.5-5.1); Protein, Total 6.3 g/dL (6.4-8.2); Sodium Level 137 mmol/L (136-145)
[2021-10-01] MEDS: 0.9% Saline Lock 10 ML Syringe IV (09:13)
[2021-10-01] MEDS: dexAMETHasone 10 MG/ML Vial 6 MG IV (09:14)
[2021-10-01] MEDS: APIXABAN 5 MG TABLET 10 MG PO ×2 (09:15→22:02)
[2021-10-01] MEDS: Famotidine 20 MG Tablet PO ×2 (09:15→22:01)
[2021-10-01] MEDS: Cyanocobalamin 500 MCG Tablet 1000 MCG PO (09:15)
[2021-10-01] MEDS: Montelukast 10 MG Tablet PO (09:15)
[2021-10-01] MEDS: Magnesium Chloride 64 MG Delay Rel.Tablet 128 MG PO (09:15)
[2021-10-01] MEDS: guaiFENesin/D-Methorphan TAB.SR.12H 1 TABLET PO ×2 (09:15→22:01)
--- NOTE | 2021-10-01 10:11 | CASEMGMT ---
Addendum entered by Niru Yang 10/02/21 08:13: 10/01/21 1630 Pt re-tested for O2 and now needs oxygen with ambulation but also has crackles in bases. Hospitalist notified by nursing. Elmer GUARDADO CM Original Note: Per Naomi GUARDADO, pt does not qualify for home oxygen at this time. Pt will be sent home on Eliquis and pt to be provided Eliquis 30 day free trial card and co-pay card at this time w/ instructions. Pt voices no further questions/concerns/needs. Elmer GUARDADO CM
--- NOTE | 2021-10-01 18:09 | PN.HOSP_ITS ---
Subjective Subjective Follow-up on acute hypoxic respiratory failure/acute COVID-19 pneumonia/acute PE Patient was seen and examined. He is currently on 2 L of oxygen. Attempt to wean him off oxygen failed. He denied any chest pain or dizziness Objective Data Objective Data Vital Signs: Vital Signs Temp Pulse Resp BP Pulse Ox 96.3 F L 61 18 112/68 91 10/01/21 15:30 10/01/21 15:30 10/01/21 15:30 10/01/21 15:30 10/01/21 15:30 Oxygen Flow Rate (L/min) 2 Oxygen Delivery Method Room Air Weight: 63.1 kg Body Mass Index (BMI) 21.7 Intake & Output: Intake and Output for Last 24 Hours 09/29/21 09/30/21 10/01/21 23:59 23:59 23:59 Intake Total 1800 / 2400 1360 / 2560 2080 / 2080 Output Total 2500 / 4325 2875 / 4775 3300 / 3300 Balance -700 / -1925 -1515 / -2215 -1220 / -1220 Medical Nutrition Assessment Dietitian: Malnutrition Criteria Met Start: 09/27/21 13:58 Freq: Status: Active Protocol: Document 09/27/21 13:58 AG (Rec: 09/27/21 13:58 AG [id number]) Nutrition Malnutrition Evidence of Malnutrition Exists Yes Malnutrition (moderate): Acute Illness/Injury Evidenced By Suboptimal Energy Intake ( Moderate),Weight Loss (Severe) Clinical Problem Acute Disease or Injury Related Malnutrition Etiology moderate, acute malnutrition r /t inadequate energy intake w/ increased nutrient needs d/t COVID illness Signs/Symptoms as evidenced by unintentional wt loss of 9.1#/6% wt loss <1 month; estimated PO intake meeting <75% of estimated energy needs x 2 weeks Status Active Problem Recommendation Dietitian Recommendations/Changes regular diet; will d/c Ensure and add Magic Cup w/ dinner instead. Lab / Micro Data Result Diagrams: 10/01/21 05:05 10/01/21 05:05 Labs: Laboratory Results - last 24 hr 10/01/21 05:05: WBC 9.3, RBC 4.60, Hgb 15.1, Hct 43.3, MCV 94.1 H, MCH 32.8 H, MCHC 34.9, RDW Std Deviation 42.8, RDW Coeff of Jennifer 12.4, Plt Count 229, MPV 9. 5, Immature Gran % (Auto) 2.800 H, Neut % (Auto) 79.4 H, Lymph % (Auto) 10.3 L, [place] % (Auto) 7.0, Eos % (Auto) 0.1, Baso % (Auto) 0.4, Absolute Neuts (auto) 7.4, Absolute Lymphs (auto) 0.96, Nucleated RBC % 0 10/01/21 05:05: Sodium 137, Potassium 4.5, Chloride 105, Carbon Dioxide 26.0, Anion Gap 6, BUN 28 H, Creatinine 0.70, Estim Creat Clear Calc 96.96, Est GFR (MDRD) Af Amer 146, Est GFR (MDRD) Non-Af 120, BUN/Creatinine Ratio 39.9 H, Glucose 154 H, Calcium 8.4 L, Total Bilirubin 0.50, AST 96 H, ALT 458 H, Alkaline Phosphatase 259 H, Total Protein 6.3 L, Albumin 2.2 L, Globulin 4.1, Albumin/Globulin Ratio 0.5 L Micro: Microbiology 09/26/21 Unknown Sputum, Expectorated/Coughed Gram Stain - Final 09/26/21 Unknown Sputum, Expectorated/Coughed Respiratory Culture - Final 09/26/21 13:35 Blood Culture (Wb) - Anticubital Left Blood Culture - Preliminary No growth in 48 hours. 09/27/21 13:52 Urine, Clean Catch Legionella Antigen - Final 09/27/21 13:52 Urine, Clean Catch Streptococcus pneumoniae Antigen (M - Final 09/26/21 20:30 Mucosa - Nasopharyngeal Respiratory Panel (PCR) - Final Physical Exam Narrative Physical exam: General: Alert, Oriented x3, Cooperative, No apparent distress, on 2L oxygen HEENT: Atraumatic Oral: Moist Mucosa Neck: Supple Lungs: Diminished to auscultation Cardiovascular: HS I+II, regular, no murmurs Abdomen: Bowel Sounds Present, Soft, Non Tender Extremities: No edema Assessment & Plan Assessment/Plan (1) Pneumonia due to COVID-19 virus: (2) Pulmonary emboli: QUALIFIERS: Pulmonary embolism type: other Chronicity: acute Acute cor pulmonale presence: unspecified Qualified Code(s): I26.99 - Other pulmonary embolism without acute cor pulmonale (3) Hypoxemia: PLAN: 1. Acute hypoxic respiratory failure secondary to Acute COVID-19 pneumonia/Acute emboli Patient is currently on 2 L of oxygen Continue to wean off oxygen Encourage use of incentive spirometer 2. Acute PE, right-sided, on Eliquis 3. Rest of chronic medical conditions including asthma, BPH, OSITO, GERD remained stable 4. Severe protein calorie malnutrition, director of ancillary services consulted, on supplements 5. DVT prophylaxis?on Eliquis Charges/Coding Visit Charges Inpatient E&M: 89976 Subs Hosp L2
[2021-10-01] MEDS: MELATONIN 3 MG TABLET PO (22:58)
[2021-10-02] VITALS (9 sets, daily range): BP systolic 106–131; BP diastolic 71–75; PULSE 47–72; RESP 16–18; TEMP 36.8–37.1; O2SAT 76–97
[2021-10-02 06:44] LABS: Absolute Lymphocyte Count 1.02 X10^3/uL (0.83-4.51); Absolute Neutrophil Count 9.8 X10^3/uL (2.0-7.7); Basophil# 0.04 X10^3/uL; Basophil% 0.3 % (0-1); Eosinophil# 0.05 X10^3/uL; Eosinophils% 0.4 % (0-5); Hematocrit 42.1 % (40-54); Hemoglobin 14.8 g/dL (13.0-16.5); Lymphocyte # 1.02 X10^3/ul (0.83-4.51); Lymphocyte % 8.7 % (19-41); Mean Corp Hgb Conc 35.2 g/dL (32-36); Mean Corpuscular Volume 93.8 fL (80-94); Mean Platelet Vol. 9.6 fl (6.2-12.0); Monocyte# 0.72 X10^3/uL; Monocyte% 6.1 % (0-10); NRBC Flagged by Analyzer 0 % (0-5); Neutrophil # 9.75 X10^3/uL (2.7-7.7); Neutrophil % 82.9 % (47-70); Platelet Count 200 K/mm3 (150-450); RBC Distribution Width CV 12.5 % (11.6-14.6); RBC Distribution Width SD 43.1 fl (35.1-43.9); Red Blood Count 4.49 M/mm3 (4.6-6.2); White Blood Count 11.8 K/mm3 (4.4-11.0)
[2021-10-02 07:04] LABS: ALB/GLOB Ratio 0.6 RATIO (0.9-2.4); AST(SGOT) 40 U/L (15-37); Alanine Aminotransfer ALT/SGPT 332 U/L (16-61); Albumin, Serum 2.2 g/dL (3.2-5.0); Alkaline Phosphatase 222 U/L (45-117); Anion Gap 8 (5-15); BUN 26 mg/dL (7-18); BUN/Creat Ratio 40.5 RATIO (10-20); Calcium,Total 8.6 mg/dL (8.5-10.1); Chloride 102 mmol/L (98-107); Creatinine, Serum 0.64 mg/dL (0.70-1.30); EST Glomerular Filtration Rate 133 mL/min (>60); Est Glom Filt Rate - Afr Amer 161 mL/min (>60); Estimated Creatinine Clearance 104.07 ml/min; Globulin 3.9 g/dL (2.2-4.2); Glucose 157 mg/dL (74-106); Potassium 4.3 mmol/L (3.5-5.1); Protein, Total 6.1 g/dL (6.4-8.2); Sodium Level 136 mmol/L (136-145)
--- NOTE | 2021-10-02 09:53 | PCM.DC ---
Discharge Instructions Diet Discharge Diet: No restrictions Activity Discharge Activity: Return to Normal Activity Follow Up Care Test Results: Test results from this visit will be discussed in further detail at your follow-up appointment, if applicable. Discharge Plan Admission Admit Date/Time: 09/26/21 16:17 Primary Reason for Your Visit: Acute COVID-19 pneumonia/Acute PE Attending Provider: Mayra Ellison Primary Care Provider: Jhoan Pierre Instructions Additional Instructions / Restrictions: You are being discharged with oxygen. Continue to use your oxygen all the time. Continue to use your incentive spirometer. Continue to remain active and eat healthy. Let your doctor know if you develop fever >101.3F or have progressive worsening shortness of breath. Follow-up with your primary care doctor and also with pulmonology to have your continued oxygen use reevaluated. Be careful of going near open flames whilst on oxygen. Complete your Decadron as prescribed. Continue to use your inhaler as needed for shortness of breath. Continue to quarantine for 20 days total from the start of your symptoms. Discharge Orders/Prescriptions Prescriptions: New Mucus DM 30-600 mg Tablet Extended Release 12 Hr 1 tab PO BID 7 Days Qty: 14 RF: 0 Eliquis 5 mg Tablet See Taper mg PO BID Qty: 34 RF: 0 dexamethasone 6 mg tablet 6 mg PO DAILY 3 Days Qty: 3 RF: 0 Continued magnesium oxide 400 mg magnesium capsule 400 mg PO DAILY RF: 0 montelukast [Singulair] 10 mg tablet 10 mg PO DAILY RF: 0 albuterol sulfate 1 PUFF inhaler 2 puff inhalation Q4H PRN PRN (Reason: Asthma) RF: 0 finasteride 1 MG tablet 1 mg PO DAILY RF: 0 cyanocobalamin (vitamin B-12) [Vitamin B-12] 1,000 mcg Tablet 1,000 mcg PO DAILY RF: 0 Discontinued [place] [employer] Pack 1 dose pk PO DAILY RF: 0 red yeast rice 600 mg Tablet 600 mg PO DAILY RF: 0 betaine HCl 650 mg TID RF: 0 zinc 50 mg PO/SL DAILY RF: 0 Thyro Syn 2 cap PO/SL DAILY RF: 0 Deglyrrhizinated Licorice Extract 3 tab PO/SL BID RF: 0 Referrals / Follow Up: Jhoan Pierre MD [Primary Care Provider] - Within 2 Weeks Disposition Disposition (needs filled in before D/C Order can be placed): Home, Self Care
--- NOTE | 2021-10-02 10:15 | DS.PCM_ITS ---
Providers Date of Admission: 09/26/21 Date of Discharge: 10/02/21 Primary Care Physician: Dr. Jhoan Pierre MD Reason For Visit: COVID 19, HYPOXIA, PE Diagnosis Discharge Diagnosis (1) Pneumonia due to COVID-19 virus: Status: Acute Code(s): U07.1 - COVID-19; J12.82 - Pneumonia due to coronavirus disease 2019 (2) Pulmonary emboli: Status: Acute Code(s): I26.99 - Other pulmonary embolism without acute cor pulmonale Qualifiers: Acute cor pulmonale presence: unspecified Chronicity: acute Pulmonary embolism type: other Qualified Code(s): I26.99 - Other pulmonary embolism without acute cor pulmonale (3) Hyperlipemia: Status: Chronic Code(s): E78.5 - Hyperlipidemia, unspecified (4) Acute respiratory failure with hypoxia: Status: Acute Code(s): J96.01 - Acute respiratory failure with hypoxia (5) Severe protein-calorie malnutrition: Status: Acute Code(s): E43 - Unspecified severe protein-calorie malnutrition Medications at Discharge Home Medications albuterol sulfate 2 puff INHALATION Q4H PRN PRN 11/11/14 finasteride 1 mg PO DAILY 11/11/14 magnesium oxide 400 mg PO DAILY 08/18/19 montelukast 10 mg tablet 10 mg PO DAILY tab 07/05/21 cyanocobalamin (vitamin B-12) [Vitamin B-12] 1,000 mcg PO DAILY 09/26/21 apixaban [Eliquis] See Taper PO BID #34 tab 10/02/21 dexamethasone 6 mg PO DAILY 3 Days #3 tab 10/02/21 dextromethorphan-guaifenesin [Mucus DM] 1 tab PO BID 7 Days #14 tab 10/02/21 Hospital Course Operations None Procedures None Summary of Care Provided Minutes Spent on Discharge: 40 Hospital Course: 66-year-old male with multiple comorbidities who presents with fever, chills, cough shortness of breath ongoing since 09/09/21. Patient is unvaccinated. He was diagnosed with acute COVID-19 pneumonia. His CTA of the chest showed acute PE in the right lower lobe pulmonary arteries with diffuse bilateral pulmonary infiltrate. Patient was started on anticoagulation as well as dexamethasone. He continued to improve and his oxygenation but did require oxygen at discharge. He required 2 L of oxygen. He was transitioned to Eliquis. He had severe protein calorie malnutrition, dietitian consulted, was managed on supplements Patient was encouraged to continue to use his incentive spirometer. He was discharged to complete his dexamethasone. He will follow-up with his primary care doctor within 1 to 2 weeks Physical Exam Narrative Physical exam: General: Alert, Oriented x3, Cooperative, No apparent distress, on 2L oxygen HEENT: Atraumatic Oral: Moist Mucosa Neck: Supple Lungs: Diminished to auscultation Cardiovascular: HS I+II, regular, no murmurs Abdomen: Bowel Sounds Present, Soft, Non Tender Extremities: No edema Medical Records Data Medical Nutrition Assessment Dietitian: Malnutrition Criteria Met Start: 09/27/21 13:58 Freq: Status: Active Protocol: Document 09/27/21 13:58 (Rec: 09/27/21 13:58 AG [id number]) Nutrition Malnutrition Evidence of Malnutrition Exists Yes Malnutrition (moderate): Acute Illness/Injury Evidenced By Suboptimal Energy Intake ( Moderate),Weight Loss (Severe) Clinical Problem Acute Disease or Injury Related Malnutrition Etiology moderate, acute malnutrition r /t inadequate energy intake w/ increased nutrient needs d/t COVID illness Signs/Symptoms as evidenced by unintentional wt loss of 9.1#/6% wt loss <1 month; estimated PO intake meeting <75% of estimated energy needs x 2 weeks Status Active Problem Recommendation Dietitian Recommendations/Changes regular diet; will d/c Ensure and add Magic Cup w/ dinner instead. Weight / BMI Weight Weight: 62.3 kg Body Mass Index (BMI) 21.7 ABG / Lab / Microbiology Data Result Diagrams: 10/02/21 05:00 10/02/21 05:00 Laboratory: Laboratory Results - last 24 hr 10/02/21 05:00: WBC 11.8 H, RBC 4.49 L, Hgb 14.8, Hct 42.1, MCV 93.8, MCH 33.0 H , MCHC 35.2, RDW Std Deviation 43.1, RDW Coeff of Jennifer 12.5, Plt Count 200, MPV 9.6, Immature Gran % (Auto) 1.600 H, Neut % (Auto) 82.9 H, Lymph % (Auto) 8.7 L, [place] % (Auto) 6.1, Eos % (Auto) 0.4, Baso % (Auto) 0.3, Absolute Neuts (auto) 9.8 H, Absolute Lymphs (auto) 1.02, Nucleated RBC % 0 10/02/21 05:00: Sodium 136, Potassium 4.3, Chloride 102, Carbon Dioxide 26.0, A nion Gap 8, BUN 26 H, Creatinine 0.64 L, Estim Creat Clear Calc 104.07, Est GFR (MDRD) Af Amer 161, Est GFR (MDRD) Non-Af 133, BUN/Creatinine Ratio 40.5 H, Glucose 157 H, Calcium 8.6, Total Bilirubin 0.50, AST 40 H, ALT 332 H, Alkaline Phosphatase 222 H, Total Protein 6.1 L, Albumin 2.2 L, Globulin 3.9, Albumin/Globulin Ratio 0.6 L Microbiology: Microbiology 09/26/21 13:35 Blood Culture (Wb) - Anticubital Left Blood Culture - Final No growth in 5 days. 09/26/21 Unknown Sputum, Expectorated/Coughed Gram Stain - Final 09/26/21 Unknown Sputum, Expectorated/Coughed Respiratory Culture - Final 09/27/21 13:52 Urine, Clean Catch Legionella Antigen - Final 09/27/21 13:52 Urine, Clean Catch Streptococcus pneumoniae Antigen (M - Final 09/26/21 20:30 Mucosa - Nasopharyngeal Respiratory Panel (PCR) - Final D/C Instructions Discharge Diet: No restrictions Meaningful Use Info Meaningful Use Diagnoses (Choose all that apply): None applicable Discharge Plan Admission Admit Date/Time: 09/26/21 16:17 Primary Reason for Your Visit: Acute COVID-19 pneumonia/Acute PE Attending Provider: Mayra Ellison Primary Care Provider: Jhoan Pierre Instructions Additional Instructions / Restrictions: You are being discharged with oxygen. Continue to use your oxygen all the time. Continue to use your incentive spirometer. Continue to remain active and eat healthy. Let your doctor know if you develop fever >101.3F or have progressive worsening shortness of breath. Follow-up with your primary care doctor and also with pulmonology to have your continued oxygen use reevaluated. Be careful of going near open flames whilst on oxygen. Complete your Decadron as prescribed. Continue to use your inhaler as needed for shortness of breath. Continue to quarantine for 20 days total from the start of your symptoms. Discharge Orders/Prescriptions Prescriptions: New Mucus DM 30-600 mg Tablet Extended Release 12 Hr 1 tab PO BID 7 Days Qty: 14 RF: 0 Eliquis 5 mg Tablet See Taper mg PO BID Qty: 34 RF: 0 dexamethasone 6 mg tablet 6 mg PO DAILY 3 Days Qty: 3 RF: 0 Continued magnesium oxide 400 mg magnesium capsule 400 mg PO DAILY RF: 0 montelukast [Singulair] 10 mg tablet 10 mg PO DAILY RF: 0 albuterol sulfate 1 PUFF inhaler 2 puff inhalation Q4H PRN PRN (Reason: Asthma) RF: 0 finasteride 1 MG tablet 1 mg PO DAILY RF: 0 cyanocobalamin (vitamin B-12) [Vitamin B-12] 1,000 mcg Tablet 1,000 mcg PO DAILY RF: 0 Discontinued NuScriptRx Pack 1 dose pk PO DAILY RF: 0 red yeast rice 600 mg Tablet 600 mg PO DAILY RF: 0 betaine HCl 650 mg TID RF: 0 zinc 50 mg PO/SL DAILY RF: 0 Thyro Syn 2 cap PO/SL DAILY RF: 0 Deglyrrhizinated Licorice Extract 3 tab PO/SL BID RF: 0 Referrals / Follow Up: Jhoan Pierre MD [Primary Care Provider] - 10/11/21 2:00 pm Disposition Disposition (needs filled in before D/C Order can be placed): Home, Self Care Charges/Coding Visit Charges Inpatient E&M: 90252 Disch Hosp
[2021-10-02] MEDS: Furosemide 40 MG/4 ML Vial IV (10:35)
[2021-10-02] MEDS: 0.9% Saline Lock 10 ML Syringe IV (10:36)
[2021-10-02] MEDS: dexAMETHasone 10 MG/ML Vial 6 MG IV (10:36)
[2021-10-02] MEDS: Famotidine 20 MG Tablet PO (10:37)
[2021-10-02] MEDS: Cyanocobalamin 500 MCG Tablet 1000 MCG PO (10:37)
[2021-10-02] MEDS: Montelukast 10 MG Tablet PO (10:37)
[2021-10-02] MEDS: Magnesium Chloride 64 MG Delay Rel.Tablet 128 MG PO (10:37)
[2021-10-02] MEDS: guaiFENesin/D-Methorphan TAB.SR.12H 1 TABLET PO (10:37)
[2021-10-02] MEDS: APIXABAN 5 MG TABLET 10 MG PO (10:38)
--- NOTE | 2021-10-02 10:46 | CASEMGMT ---
Pt qualifies for 2L w/ exertion home oxygen and pt had previously stated he is self pay and would like the least expensive option. Referral faxed to [facility] pharmacy and this RN APRIL to follow. Pt updated on all and provided an [employer] 30 day free trial card. Pt states has pulse ox at home and is aware to keep oxygen greater than 89%. Pt voices no further questions/concerns/needs. SStaten RN CM
--- NOTE | 2021-10-02 13:40 | CASEMGMT ---
Addendum entered by Niru Yang 10/02/21 14:38: Per Denis, they do not have any Eliquis in stock. Call to [facility] retail pharmacy to see if they can transfer pt's prescription to them and per Meghann, she will take care of that at this time. 30 day free trial card to be applied. Elmer GUARDADO CM Addendum entered by Niru Yang 10/02/21 14:28: Sig other aware to speak with Dr. Pierre about Eliquis cost and length of need, voices understanding. Elmer GUARDADO CM Original Note: Call to [facility] pharmacy and they state they will be delivering pt e-tank soon and will just follow pt home to set up rest of equipment. Pt's sig other at desk and updated at this time, voices understanding. Sig other voices no further questions/concerns/needs. Gail GUARDADO updated on all, voices understanding. Elmer GUARDADO CM
== END 2021-10-02 15:53 | disposition home or self-care (01) | DRG 177 ==
LOC: ED 15:19 → PCU 16:31
PROVIDERS: Internal Medicine; Admitting Provider Family Medicine; Emergency Provider Emergency Medicine; PCP Family Medicine; Visit Provider Internal Medicine
DX: U07.1 COVID-19 (principal); I26.99 Other pulmonary embolism without acute cor pulmonale; J12.82 Pneumonia due to coronavirus disease 2019; J96.01 Acute respiratory failure with hypoxia; E43 Unspecified severe protein-calorie malnutrition; Z68.21 Body mass index [BMI] 21.0-21.9, adult; R04.0 Epistaxis; J45.20 Mild intermittent asthma, uncomplicated; M54.9 Dorsalgia, unspecified; G89.29 Other chronic pain; N40.0 Benign prostatic hyperplasia without lower urinary tract symptoms; K21.9 Gastro-esophageal reflux disease without esophagitis; G47.33 Obstructive sleep apnea (adult) (pediatric); Z79.899 Other long term (current) drug therapy; Z86.711 Personal history of pulmonary embolism; Z86.718 Personal history of other venous thrombosis and embolism; Z87.891 Personal history of nicotine dependence
CPT/HCPCS: 36415; 71275; 80048; 80053; 80076; 82728; 83605; 83615; 83880; 84145; 84484; 85025; 85379; 85610; 85730; 86140; 87040; 87070; 87205; 87449; 87633; 87635; 93005; 94667; 94762; 97802; 99285; J7030; U0005; A4216; J1940; U0003

== ENCOUNTER → 2021-10-11 14:34 | Outpatient (CLI) | payer SELFPAY ==
[2021-10-11 18:00] LABS: ALB/GLOB Ratio 0.6 RATIO (0.9-2.4); AST(SGOT) 18 U/L (15-37); Alanine Aminotransfer ALT/SGPT 48 U/L (16-61); Albumin, Serum 2.2 g/dL (3.2-5.0); Alkaline Phosphatase 120 U/L (45-117); Anion Gap 8 (5-15); BUN 20 mg/dL (7-18); Calcium,Total 8.6 mg/dL (8.5-10.1); Chloride 104 mmol/L (98-107); Creatinine, Serum 0.67 mg/dL (0.70-1.30); EST Glomerular Filtration Rate 128 mL/min (>60); Est Glom Filt Rate - Afr Amer 154 mL/min (>60); Globulin 3.8 g/dL (2.2-4.2); Glucose 132 mg/dL (74-106); Potassium 3.8 mmol/L (3.5-5.1); Sodium Level 138 mmol/L (136-145)
== END ==
PROVIDERS: PCP Family Medicine; Visit Provider Family Medicine
DX: R74.01 Elevation of levels of liver transaminase levels (principal)
CPT/HCPCS: 36415; 80053

== ENCOUNTER 2021-11-08 10:54 | Outpatient (CLI) | payer MEDICARE, SELFPAY ==
--- NOTE | 2021-11-08 11:01 | VDLE_ITS ---
Reason For Study: COVID-19 RIGHT LEFT GSV is normal. GSV is normal. CFV is compressible, spontaneous, phasic, CFV is compressible, spontaneous, phasic, competent and demonstrates normal competent, and demonstrates normal augmentation. augmentation. FV is compressible, spontaneous, phasic, FV is compressible, spontaneous, phasic, competent and demonstrates normal competent and demonstrates normal augmentation. augmentation. POP V is compressible, spontaneous, phasic, POP V is compressible, spontaneous, phasic, competent and demonstrates normal competent and demonstrates normal augmentation. augmentation. T/P Trunk is compressible. T/P Trunk is compressible. PTV is compressible. PTV is compressible. RT PerV is compressible. LT PerV is compressible. Gastroc V is partially compressible. Procedure This is a venous duplex using B-mode, color flow and spectral Doppler. Exam performed in department. The exam was diagnostic. A preliminary report was called and/or faxed to Dr. Jon. VL/Venous Duplex US - Yahir Extrem Interpretation Summary Chronic venous changes are noted in the right gastrocnemius vein, which is part ially compressible. The remainder of the right lower extremity deep venous system is patent and com pressible. Deep veins of the left lower extremity are patent and compressible segmentally. There is n o evidence of acute deep vein thrombosis on either side. Valvular competence is intact within the p roximal deep venous system bilaterally. The great saphenous veins are patent and compressible bilat erally. Ordering Physician: Ramakrishna Jon Performed By: Ariel Lin RVT
== END 2021-11-08 23:59 | disposition short-term general hospital (02) ==
PROVIDERS: PCP Family Medicine; Referring Provider Internal Medicine Pulmonary Disease; Visit Provider Internal Medicine Pulmonary Disease
DX: U07.1 COVID-19 (principal)
CPT/HCPCS: 93970

== ENCOUNTER 2021-11-22 03:54 | Emergency (ER) | payer OTHER, SELFPAY ==
[2021-11-22] VITALS (9 sets, daily range): BP systolic 122–171; BP diastolic 68–94; PULSE 55–83; RESP 12–24; TEMP 36.5; O2SAT 96–99; BMI 24.5
--- NOTE | 2021-11-22 03:55 | CT_ITS ---
STUDY: CT HEAD STROKE PROTOCOL W/O CONTRAST INJECTION REASON FOR EXAM: Male, 66 years old. Neuro deficit, acute, stroke suspected TECHNIQUE: Transaxial CT imaging of the brain was performed without administration of intravenous contrast material. Individualized dose optimization techniques were used for this CT. COMPARISON: No relevant priors. FINDINGS: Normal soft tissue structures. Normal calvarium. Normal size ventricles and extra-axial spaces for the patient''s age. Normal white matter tracts of the cerebral hemispheres. Small focal low attenuation likely lacunar infarct in the right caudate. Normal basal ganglia and thalami. Normal brainstem. Normal cerebellum. There is no intracranial hemorrhage. There are no findings of an acute ischemic infarction. Normal visualized paranasal sinuses. The bilateral mastoid air cells and ossicles are unopacified. ASPECT score: 10 CT/STROKE Brain/Head without Cont IMPRESSION: There is no acute intracranial pathology. Suspect small remote lacunar infarct right caudate. If there is high clinical concern for ischemic infarction or other acute or evolving intracranial process, consider further evaluation with brain MRI, presuming the patient is an appropriate candidate for that modality. N.B. : The above Results were Read Back by Nguyen Nelson MD to Eamon Rogers and understanding confirmed on 11/22/2021 04:20:30 (ET). Electronically Signed: Nguyen Nelson MD at 4:22 EST Reading Location ID and State: , Service support ,
--- NOTE | 2021-11-22 03:55 | EKG12_ITS ---
Test Reason : STROKE/TIA Blood Pressure : / mmHG Vent. Rate : 058 BPM Atrial Rate : 058 BPM P-R Int : 202 ms QRS Dur : 106 ms QT Int : 418 ms P-R-T Axes : 050 036 050 degrees QTc Int : 410 ms Sinus bradycardia Low voltage QRS (Limb Leads) Poor R wave progression Confirmed by USSAN BETTS, GAVIN ([id number]), continuity editor AUDI FRANCO ([id number]) on 11/23/2021 10:44:20 AM Referred By: DR GILL Confirmed By:GAVIN DAVIS MD
--- NOTE | 2021-11-22 03:55 | RAD_ITS ---
STUDY: X-RAY CHEST REASON FOR EXAM: Male, 66 years old. Neuro deficit, acute, stroke suspected TECHNIQUE: Single AP portable view of the chest. COMPARISON: 09/25/2021 FINDINGS: There are superimposed monitor leads. There is residual mild opacification in the left mid and lower lung parenchyma with improved aeration. There are areas of hyperinflation. Mild interstitial prominence. Component of chronic changes in the lung bases. There is no demonstrated pleural abnormality. Normal size heart. Normal mediastinum and thuan. Normal visualized pulmonary arteries. Normal visualized aortic arch and descending thoracic aorta. There is demineralization of the osseous structures. There are degenerative changes of the acromioclavicular joints. There is no demonstrated abnormality of the visualized soft tissue structures of the upper abdomen. RAD/Chest 1 View IMPRESSION: Near completely resolved hazy opacification left mid and lower lung parenchyma superimposing component of chronic disease and COPD. Electronically Signed: Nguyen Nelson MD at 4:58 EST Reading Location ID and State: , Service support ,
[2021-11-22 04:18] LABS: Absolute Lymphocyte Count 2.51 X10^3/uL (0.83-4.51); Absolute Neutrophil Count 4.4 X10^3/uL (2.0-7.7); Basophil# 0.04 X10^3/uL; Basophil% 0.5 % (0-1); Eosinophil# 0.34 X10^3/uL; Eosinophils% 4.4 % (0-5); Hematocrit 42.7 % (40-54); Hemoglobin 14.8 g/dL (13.0-16.5); Lymphocyte # 2.51 X10^3/ul (0.83-4.51); Lymphocyte % 32.1 % (19-41); Mean Corp Hgb Conc 34.7 g/dL (32-36); Mean Corpuscular Hgb 34.3 pg (27.0-32.0); Mean Corpuscular Volume 99.1 fL (80-94); Mean Platelet Vol. 8.6 fl (6.2-12.0); Monocyte# 0.51 X10^3/uL; Monocyte% 6.5 % (0-10); NRBC Flagged by Analyzer 0 % (0-5); Neutrophil # 4.35 X10^3/uL (2.7-7.7); Neutrophil % 55.7 % (47-70); Platelet Count 156 K/mm3 (150-450); RBC Distribution Width CV 14.6 % (11.6-14.6); RBC Distribution Width SD 53.8 fl (35.1-43.9); Red Blood Count 4.31 M/mm3 (4.6-6.2); White Blood Count 7.8 K/mm3 (4.4-11.0)
[2021-11-22 04:25] LABS: International Normalized Ratio 1.2; Prothrombin Time (Protime)PT. 14.6 SECONDS (11.7-14.9)
[2021-11-22 04:32] LABS: Anion Gap 15 (5-15); BUN 14 mg/dL (7-18); BUN/Creat Ratio 14.3 RATIO (10-20); Calcium,Total 8.4 mg/dL (8.5-10.1); Chloride 103 mmol/L (98-107); Creatinine, Serum 0.98 mg/dL (0.70-1.30); EST Glomerular Filtration Rate 82 mL/min (>60); Est Glom Filt Rate - Afr Amer 99 mL/min (>60); Estimated Creatinine Clearance 73.67 ml/min; Glucose 160 mg/dL (74-106); Potassium 3.4 mmol/L (3.5-5.1); Sodium Level 137 mmol/L (136-145); Troponin-I HS 16 pg/mL (3.0-78.0)
--- NOTE | 2021-11-22 04:44 | EDS_ITS ---
HPI History of Present Illness Chief Complaint: Neuro S/Sx Informant: patient, spouse/S.O. and EMS Narrative Narrative: 66-year-old male presenting to the emergency department as a prehospital stroke team. EMS states that the patient was making a strange noise while wearing his CPAP mask and his tried to wake him up. She stated that he was not very responsive and took his mask off and there was a lot of saliva at the bottom of it. Patient was making unintelligible sounds. He could not move his right arm. Reportedly he is on Eliquis for pulmonary embolisms sustained during -. states that she went to bed at 2200 hrs. That was the last time that she saw him. I met the ambulance in the hallway and the patient can tell me his name. He could lift his right arm and leg up off the bed. He was taken to CT scanner for noncontrasted head CT then brought back to the room. [facility] Medical History Asthma Chronic back pain CPAP (continuous positive airway pressure) dependence Disc disease, degenerative, lumbar or lumbosacral DVT (deep venous thrombosis) GERD (gastroesophageal reflux disease) High cholesterol History of deep venous thrombosis History of pulmonary embolus (PE) (2012) History of stress test Hypothyroidism Obstructive sleep apnea Sleep apnea Trigger finger Home Medications albuterol sulfate 2 puff INHALATION Q4H PRN PRN 11/11/14 [History Last Taken 09/26/21] finasteride 1 mg PO DAILY 11/11/14 [History Last Taken 09/26/21] magnesium oxide 400 mg PO DAILY 08/18/19 [History Last Taken 09/26/21] montelukast 10 mg tablet 10 mg PO DAILY tab 07/05/21 [History Last Taken 09/26/21] cyanocobalamin (vitamin B-12) [Vitamin B-12] 1,000 mcg PO DAILY 09/26/21 [History Last Taken 09/26/21] apixaban [Eliquis] See Taper PO BID #34 tab 10/02/21 [Rx Last Taken Unknown] dextromethorphan-guaifenesin [Mucus DM] 1 tab PO BID 7 Days #14 tab 10/02/21 [Rx Last Taken Unknown] prednisone 20 mg DAILY 11/22/21 [History Last Taken Unknown] Allergy/AdvReac Type Severity Reaction Status Date / Time iodine AdvReac Hives Verified 11/22/21 04:26 Family History Father Myocardial infarction, Onset Age: 37 Heart disease Mother Myocardial infarction, Onset Age: 73 Heart disease Surgical History H/O cardiac catheterization History of herniorrhaphy History of hip replacement History of left heart catheterization (11/14/14) History of nasal septoplasty History of repair of rotator cuff Social History household members: spouse Smoking Status: Never smoker how long ago did patient quit smoking: Smoked ~ 6 months 19-22 years old, <1/2 ppd. alcohol intake: never substance use type: does not use ROS ROS ED Constitutional Constitutional ED: Denies chills, fever(s) or weight loss Eyes Eyes: Denies change in vision or diplopia ENT ENT ED: Denies ear pain, rhinorrhea or sore throat Cardiovascular Cardiovascular: Denies chest pain, orthopnea, palpitations or racing heartbeat Respiratory/Chest Respiratory/Chest: Denies cough, dyspnea or orthopnea Gastrointestinal Gastrointestinal: Denies abdominal pain, diarrhea, nausea or vomiting Genitourinary Genitourinary ED: Denies dysuria, hematuria or urinary frequency Musculoskeletal Musculoskeletal: Reports other Details: Right shoulder pain ; Denies arthralgias or myalgias Integumentary Denies abscess or rash Neurologic Neurologic: Reports other Details: See history of present illness ; Denies headache(s) or weakness Psychiatric Psychiatric: Denies anxiety, depression, suicidal ideation or suicidal thoughts Endocrine Endocrinology: Denies polydipsia, polyphagia or polyuria Allergic/Immunologic Allergic/Immunologic ED: Denies mouth swelling, tongue swelling or urticaria EXAM Physical Exam Const Vital Signs: 11/22/21 03:57 11/22/21 04:00 11/22/21 04:09 Temperature 97.7 F L 97.7 F L Temperature Source Oral Oral Pulse Rate 77 83 78 Respiratory Rate 12 16 13 Blood Pressure 122/70 H 122/70 H Blood Pressure Mean 87 87 Pulse Ox 96 96 97 Oxygen Delivery Method Room Air Room Air Room Air 11/22/21 04:15 11/22/21 04:30 11/22/21 04:54 Temperature Temperature Source Pulse Rate 67 60 Respiratory Rate 24 H 16 Blood Pressure 136/77 H 128/68 H Blood Pressure Mean 96 88 Pulse Ox 97 97 98 Oxygen Delivery Method Room Air Room Air Room Air 11/22/21 05:00 11/22/21 06:00 Temperature Temperature Source Pulse Rate 64 55 L Respiratory Rate 17 17 Blood Pressure 135/72 H 171/94 H Blood Pressure Mean 93 119 Pulse Ox 98 99 Oxygen Delivery Method Room Air Room Air Positive well nourished and well developed General Appearance ED: well developed HEENT Reports normocephalic, head/scalp atraumatic and moist mucous membranes trauma Nose: other Other Details: There appears to be a small contusion on the tip of his tongue Eyes PERRL and EOMs intact bilaterally Neck no lymphadenopathy, supple and no JVD Resp normal respiratory effort and clear to auscultation bilaterally Cardio regular rate, regular rhythm and no murmurs Rate: regular rate Rhythm: regular rhythm GI normal to inspection, nondistended, normoactive bowel sounds and non-tender Palpation: soft Back/Spine no CVA tenderness and normal ROM Extremity Extremity Narrative: Tender to palpation anteriorly over the right shoulder without deformity or loss of range of motion General Extremety ED: Negative for edema General Extremity: Negative for edema Neuro oriented x3 and CN's II-XII intact bilaterally Sensorium / Orientation: alert Motor Exam: strength 5/5 throughout Psych mental status grossly normal Mood & Affect: Negative for depressed or tearful Skin no rashes or lesions noted and no wounds STROKE Vital Signs/Narrative: Vital Signs Temp Pulse Resp BP Pulse Ox 11/22/21 06:00 55 L 17 171/94 H 99 11/22/21 05:00 64 17 135/72 H 98 11/22/21 04:54 60 16 128/68 H 98 11/22/21 04:30 67 24 H 136/77 H 97 11/22/21 04:15 97 11/22/21 04:09 97.7 F L 78 13 122/70 H 97 11/22/21 04:00 83 16 122/70 H 96 11/22/21 03:57 97.7 F L 77 12 96 NIHSS Initial: 1a Level of Consciousness: 0 1b LOC Questions (Score 2 if aphasic/stupor): 0 1c LOC Commands (Only score 1st attempt): 0 2 Best Gaze (If aphasic, use reflexive mvmts.): 0 3 Visual: 0 4 Facial Palsy: 0 5 Motor Arm Right (UN = amputation/fusion): 0 5 Motor Arm Left: 0 6 Motor Leg Right: 0 6 Motor Leg Left: 0 7 Limb ataxia (Only + if out of proportion): 0 8 Sensory (Aphasia/stupor=0 or 1, coma=2): 0 9 Best Language: 0 10 Dysarthria (mute, coma=2, intubated=UN): 0 11 Extinction and Inattention (only scored if +): 0 Total Score: 0 MDM MDM MDM Narrative Medical decision making narrative: [facility] teleneurology agrees that this does not sound like stroke. I am concerned the patient may have had a seizure with a brief Miguel's paralysis. CT of the brain demonstrates remote lacunar infarct in the right caudate. My interpretation of the chest x-ray is no acute process. My interpretation of the right shoulder films is no acute process. Patient CO2 on his BMP is 19. 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 This would be his first time I do not think we need to start any antiepileptic medication at this time. I would encourage him to follow-up with his primary care doctor return to the emergency department if he has a recurrent seizure. Lab Data Attestation: I reviewed the patient's lab results. Labs: Laboratory Results - last 24 hr 11/22/21 11/22/21 11/22/21 04:08 04:08 04:08 WBC 7.8 RBC 4.31 L Hgb 14.8 Hct 42.7 MCV 99.1 H MCH 34.3 H MCHC 34.7 RDW Std Deviation 53.8 H RDW Coeff of Jennifer 14.6 Plt Count 156 MPV 8.6 Immature Gran % (Auto) 0.800 Neut % (Auto) 55.7 Lymph % (Auto) 32.1 Villalba % (Auto) 6.5 Eos % (Auto) 4.4 Baso % (Auto) 0.5 Absolute Neuts (auto) 4.4 Absolute Lymphs (auto) 2.51 Nucleated RBC % 0 PT 14.6 INR 1.2 APTT 26.0 Sodium 137 Potassium 3.4 L Chloride 103 Carbon Dioxide 19.0 L Anion Gap 15 BUN 14 Creatinine 0.98 Estim Creat Clear Calc 73.67 Est GFR (MDRD) Af Amer 99 Est GFR (MDRD) Non-Af 82 BUN/Creatinine Ratio 14.3 Glucose 160 H Lactic Acid Calcium 8.4 L Troponin I High Sens 16 11/22/21 04:48 WBC RBC Hgb Hct MCV MCH MCHC RDW Std Deviation RDW Coeff of Jennifer Plt Count MPV Immature Gran % (Auto) Neut % (Auto) Lymph % (Auto) Villalba % (Auto) Eos % (Auto) Baso % (Auto) Absolute Neuts (auto) Absolute Lymphs (auto) Nucleated RBC % PT INR APTT Sodium Potassium Chloride Carbon Dioxide Anion Gap BUN Creatinine Estim Creat Clear Calc Est GFR (MDRD) Af Amer Est GFR (MDRD) Non-Af BUN/Creatinine Ratio Glucose Lactic Acid 5.3 H* Calcium Troponin I High Sens Radiography Diagnostic Testing: Clinical Impression(s) from Imaging Studies Brain CT 11/22/21 03:55 IMPRESSION: There is no acute intracranial pathology. Suspect small remote lacunar infarct right caudate. If there is high clinical concern for ischemic infarction or other acute or evolving intracranial process, consider further evaluation with brain MRI, presuming the patient is an appropriate candidate for that modality. N.B. : The above Results were Read Back by Nguyen Nelson MD to Eamon Rogers and understanding confirmed on 11/22/2021 04:20:30 (ET). Electronically Signed: Nguyen Nelson MD at 4:22 EST Reading Location ID and State: , Service support , ADDENDUM: 11/22/21 0429 IMPRESSION: There is no acute intracranial pathology. Suspect small remote lacunar infarct right caudate. If there is high clinical concern for ischemic infarction or other acute or evolving intracranial process, consider further evaluation with brain MRI, presuming the patient is an appropriate candidate for that modality. N.B. : The above Results were Read Back by Nguyen Nelson MD to Eamon Rogers and understanding confirmed on 11/22/2021 04:20:30 (ET). Electronically Signed: Nguyen Nelson MD at 4:22 EST , Chest X-Ray 11/22/21 03:55 IMPRESSION: Near completely resolved hazy opacification left mid and lower lung parenchyma superimposing component of chronic disease and COPD. Electronically Signed: Nguyen Nelson MD at 4:58 EST , Shoulder X-Ray 11/22/21 04:49 IMPRESSION: Degenerative changes. High riding humeral head can be seen with ligamentous laxity or injury. There is no acute displaced fracture or dislocation. Electronically Signed: Nguyen Nelson MD at 6:22 EST , EKG Initial EKG: Attestation: I personally reviewed and interpreted this EKG as follows: Comments: Sinus bradycardia with a ventricular rate of 58 bpm Stroke Documentation Questions Stroke Team Activated: Yes Reviewed Inclusion/Exclusion criteria: Yes Was Patient considered for Endovascular Intervention?: No IV Alteplase (t-PA) Administered: No No contraindications for IV Alteplase (t-PA) administration.: No Alteplase (t-PA) risks, benefits, alternative discussed: No Discharge Plan Triage Chief Complaint: Neuro S/Sx ED Provider: Eamon Rogers Dx/Rx/DC Orders Clinical Impression: Acute alteration in mental status, Seizure, Miguel's paralysis Instructions: ED Seizure New Onset Unknown ... Prescriptions: No Action magnesium oxide 400 mg magnesium capsule 400 mg PO DAILY RF: 0 montelukast [Singulair] 10 mg tablet 10 mg PO DAILY RF: 0 albuterol sulfate 1 PUFF inhaler 2 puff inhalation Q4H PRN PRN (Reason: Asthma) RF: 0 finasteride 1 MG tablet 1 mg PO DAILY RF: 0 cyanocobalamin (vitamin B-12) [Vitamin B-12] 1,000 mcg Tablet 1,000 mcg PO DAILY RF: 0 Mucus DM 30-600 mg Tablet Extended Release 12 Hr 1 tab PO BID 7 Days Qty: 14 RF: 0 Eliquis 5 mg Tablet See Taper mg PO BID Qty: 34 RF: 0 prednisone 10 mg tablet 20 mg DAILY RF: 0 Primary Care Provider: Jhoan Pierre Referrals: Jhoan Pierre MD [Primary Care Provider] - 3-5 Days Activity Restrictions/Additional Instructions: No driving until released by your doctor Disposition Disposition: Home, Self Care
--- NOTE | 2021-11-22 04:49 | RAD_ITS ---
STUDY: X-RAY - RIGHT SHOULDER REASON FOR EXAM: Male, 66 years old. pain TECHNIQUE: 3 view(s) of the shoulder. 5 images COMPARISON: None. FINDINGS: There is moderate degenerative arthrosis of the glenohumeral articulation. There is degenerative arthrosis of the acromioclavicular joint without inferior osseous spur formation. High riding humeral head. Ossicles in the acromioclavicular joint space versus remote sclerosis injury. Normal acromion. Normal humeral head and visualized proximal humerus. The soft tissue structures are unremarkable. Normal visualized pulmonary apex. RAD/Shoulder min 2 Views IMPRESSION: Degenerative changes. High riding humeral head can be seen with ligamentous laxity or injury. There is no acute displaced fracture or dislocation. Electronically Signed: Nguyen Nelson MD at 6:22 EST Reading Location ID and State: , Service support ,
[2021-11-22 05:38] LABS: Lactic Acid 5.3 mmol/L (0.4-1.9)
[2021-11-22 08:55] LABS: Reflex Lactate? Y
== END 2021-11-22 08:01 | disposition home or self-care (01) ==
PROVIDERS: Emergency Provider Emergency Medicine; PCP Family Medicine; Visit Provider Emergency Medicine
DX: G83.84 Todd's paralysis (postepileptic) (principal); R56.9 Unspecified convulsions; R41.82 Altered mental status, unspecified; M54.9 Dorsalgia, unspecified; E78.00 Pure hypercholesterolemia, unspecified; Z87.891 Personal history of nicotine dependence; Z86.73 Personal history of transient ischemic attack (TIA), and cerebral infarction without residual deficits; Z79.01 Long term (current) use of anticoagulants; Z86.16 Personal history of COVID-19; Z86.711 Personal history of pulmonary embolism; J45.909 Unspecified asthma, uncomplicated; K21.9 Gastro-esophageal reflux disease without esophagitis; Z86.718 Personal history of other venous thrombosis and embolism; E03.9 Hypothyroidism, unspecified; G47.33 Obstructive sleep apnea (adult) (pediatric); Z79.899 Other long term (current) drug therapy; G89.29 Other chronic pain
CPT/HCPCS: 36415; 70450; 71045; 73030; 80048; 83605; 84484; 85025; 85610; 85730; 93005; 99284; A4216

== ENCOUNTER 2021-12-27 07:33 | Outpatient (CLI) | payer SELFPAY ==
[2021-12-27 08:38] LABS: ALB/GLOB Ratio 1.3 RATIO (0.9-2.4); AST(SGOT) 24 U/L (15-37); Alanine Aminotransfer ALT/SGPT 35 U/L (16-61); Alkaline Phosphatase 71 U/L (45-117); Anion Gap 3 (5-15); BUN 13 mg/dL (7-18); BUN/Creat Ratio 15.7 RATIO (10-20); Calcium,Total 9.6 mg/dL (8.5-10.1); Chloride 104 mmol/L (98-107); Creatinine, Serum 0.83 mg/dL (0.70-1.30); EST Glomerular Filtration Rate 99 mL/min (>60); Est Glom Filt Rate - Afr Amer 120 mL/min (>60); Globulin 3.1 g/dL (2.2-4.2); Glucose 108 mg/dL (74-106); Potassium 4.1 mmol/L (3.5-5.1); Protein, Total 7.1 g/dL (6.4-8.2); Sodium Level 138 mmol/L (136-145)
[2021-12-27 08:45] LABS: Lactic Acid 1.7 mmol/L (0.4-1.9)
== END 2021-12-27 23:59 | disposition home or self-care (01) ==
PROVIDERS: Nurse Practitioner Family; PCP Family Medicine; Visit Provider Psychiatry & Neurology Neurology
DX: R56.9 Unspecified convulsions (principal); U09.9 Post COVID-19 condition, unspecified
CPT/HCPCS: 36415; 80053; 83605

== ENCOUNTER 2022-01-08 08:00 | Outpatient (CLI) | payer SELFPAY ==
--- NOTE | 2022-01-08 08:04 | MRI_ITS ---
STUDY: MRI BRAIN WITH AND WITHOUT CONTRAST REASON FOR EXAM: Male, 66 years old. Nocturnal seizure TECHNIQUE: Standardized multiplanar fat and water weighted pulse sequences were obtained. IV 14ml DOTAREM was administered for the contrast portion of the examination. COMPARISON: Head CT dated November 22, 2021 FINDINGS: There is mild cerebral atrophy with widening of the extra-axial spaces and ventricular dilatation. There are a limited number of small white matter hyperintensities, distributed throughout the deep white matter tracts of the cerebral hemispheres, consistent with mild chronic white matter ischemic changes. There is no evidence for recent intracranial ischemia or other cause of cytotoxic edema on diffusion weighted imaging (DWI). Normal T2* images of the brain without demonstrated susceptibility artifact. There is no demonstrated hemosiderin stain. Normal bilateral frontal poles, and orbital frontal and gyrus recti of the frontal lobes. Normal bilateral temporal tips of the temporal lobes. There are no white matter shear injuries (diffuse axonal injuries). There are no parenchymal hemorrhages or hematomas. There are no findings to suggest prior closed head parenchymal injury of the brain. No focal parenchymal lesions or abnormal enhancement of the meninges or dura. No focal parenchymal edema is present. An old small lacunar infarct is present in the superior aspect of the right caudate nucleus. Normal thalami. There is no extra-axial fluid accumulation. Normal flow voids within the major intracranial circulation suggesting patency by spin echo criteria. Normal venous enhancement. There is no enhancing intra-axial or extra-axial abnormality. Normal sella turcica, pituitary gland, infundibular stalk, optic chiasm and hypothalamus. Normal tectal plate and pineal gland. Normal midbrain, facundo and medulla. Normal cerebellum. Normal basal cisterns. Normal bilateral temporal bones. Normal bilateral internal auditory canals. No demonstrated orbital abnormality, within the constraints of a routine brain study. Normal visualized paranasal sinuses. Normal calvarium and skull base. Normal visualized soft tissue structures. Normal visualized upper cervical spine. MRI/Brain W/WO Contrast IMPRESSION: 1. Involutional changes of the brain, as described above. 2. No focal parenchymal lesions or abnormal enhancement of the meninges or dura. No focal parenchymal edema is present. 3. An old small lacunar infarct is present in the superior aspect of the right caudate nucleus. Electronically Signed: Preston Barrera MD at 13:14 EDT ,
== END 2022-01-08 23:59 | disposition home or self-care (01) ==
PROVIDERS: PCP Family Medicine; Referring Provider Psychiatry & Neurology Neurology; Visit Provider Psychiatry & Neurology Neurology
DX: R56.9 Unspecified convulsions (principal)
CPT/HCPCS: 70553; A9575

== ENCOUNTER 2022-01-23 06:17 | Outpatient (CLI) | payer SELFPAY ==
--- NOTE | 2022-01-23 08:16 | TELEMED_ITS ---
[facility] has confirmed receipt of a request for visit. This document confirms receipt of the order initiating the consult. To find the results of the consultation, please view the patient's reports for the scanned Telemed Consult.
== END 2022-01-23 23:59 | disposition home or self-care (01) ==
PROVIDERS: PCP Family Medicine; Referring Provider Nurse Practitioner Family; Visit Provider Nurse Practitioner Family
DX: R56.9 Unspecified convulsions (principal)
CPT/HCPCS: 95819

== ENCOUNTER → 2022-05-30 | Outpatient (CLI) | payer MEDICARE, SELFPAY ==
[2022-05-30 10:51] LABS: Anion Gap 5 (5-15); BUN 15 mg/dL (7-18); BUN/Creat Ratio 17.9 RATIO (10-20); Calcium,Total 9.4 mg/dL (8.5-10.1); Chloride 103 mmol/L (98-107); Cholesterol 235 mg/dL (200); Creatinine, Serum 0.84 mg/dL (0.70-1.30); EST Glomerular Filtration Rate 98 mL/min (>60); Est Glom Filt Rate - Afr Amer 118 mL/min (>60); Glucose 114 mg/dL (74-106); High Density Lipoprotein 46 mg/dL; Potassium 3.7 mmol/L (3.5-5.1); Sodium Level 136 mmol/L (136-145); Triglycerides 143 mg/dL; Very Low Density Lipoprotein 29 mg/dL (5-40)
== END | disposition home or self-care (01) ==
LOC: MTLAB 07:42
PROVIDERS: PCP Family Medicine; Referring Provider Family Medicine; Visit Provider Family Medicine
DX: E78.5 Hyperlipidemia, unspecified (principal)
CPT/HCPCS: 36415; 80048; 80061

== ENCOUNTER → 2022-11-14 | Outpatient (CLI) | payer MEDICARE, SELFPAY ==
[2022-11-14 13:29] LABS: Cholesterol 221 mg/dL (200); High Density Lipoprotein 57 mg/dL; Triglycerides 158 mg/dL; Very Low Density Lipoprotein 32 mg/dL (5-40)
== END | disposition home or self-care (01) ==
PROVIDERS: PCP Family Medicine; Referring Provider Family Medicine; Visit Provider Family Medicine
DX: E78.5 Hyperlipidemia, unspecified (principal)
CPT/HCPCS: 36415; 80061

== ENCOUNTER 2023-02-03 12:30 | Outpatient (RCR) | payer MEDICARE, SELFPAY ==
--- NOTE | 2022-11-12 10:08 | HP.PTEVAL_ITS ---
Patient's Visit Information RADHA WOODARD is a 67 year old M referred to Physical Therapy by Dr. Andrew Frey MD with a diagnosis of R shoulder arthroscopy 08/22/22. Date of Evaluation: 11/12/22 Physical Therapist: Sergio He PT, ATC - Visit Plan Frequency: 2-3x /Week Duration: 4 Weeks Plan: R shoulder strengthening (rot cuff), scap stab ex's, UBE, and HEP - Subjective DOS: 08/22/22. Pt had arthroscopic surgery to his R shoulder at that time. Pt reports he had debridement on his rotator cuff and his biceps tendon. Pt notes he had PT after his surgery, but pt notes he was not happy with his improvements and his therapist let him go secondary to lack of progress. Pt is R hand dominant. Pt is retired at this time. 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 Pt denies any tingling or numbness in his R UE. Pt reports most of his pain is on the lateral aspect of his R shoulder. Pt notes reaching overhead, and a hammering type of motion. Pt reports he is very motivated and wants to get his strength back YADI. Pt reports he is not able to push any thing secondary to pain. Pt is unable to lift a gallon of milk off the second shelf secondary to pain. No sleep difficulty at this time. 0/10 pain while at rest, 4/10 at worst (reaching behind his back) - Pain R shoulder Pain Intensity (Out of 10): 0 Pain Intensity Range: 4 - Objective Neuro: B UE sensation is WNL to light touch. B bicipital reflex= 2/3. ROM: R shoulder flex= 165, abd= 165, ER= 45, IR WNL; L shoulder flex= 155, abd= 155, ER= 45, IR Minor limitations. MMT: R shoulder flex= 18, abd= 19, ER= 18, IR= 22 #F; L shoulder flex= 5, abd= 13, ER= 11, IR= 24 #F - Balance/Special Test Scores Quick DASH Score: 18.1800 - Goals Goal 1:: Decreases R shoulder pain x 50% to aid with overhead lifting Goal Time Frame: 4-6 Weeks Goal 2:: Increase R shoulder strength x 5-10#F throughout to aid with IADL's Goal Time Frame: 4-6 Weeks Goal 3:: Increase R shoulder flex and abd ROM x 5 degrees to aid with overhead activity Goal Time Frame: 4-6 Weeks Goal 4:: I with HEP Goal Time Frame: 4-6 Weeks - Rehabilitation Potential Physical Therapy Diagnosis: Pt has R shoulder pain, weakness, and limited ROM secondary to R shoulder arthroscopy Rehabilitation Potential: Good - Anticipated Interventions Patient/Client Instruction: Educate patient on: Condition, Plan of Care For the Purpose of:: To improve self management Therapeutic Exercise to Include: Strength training, Endurance training, Flexibilty training, Active ROM, Scapular Strength/Stabilization For the Purpose of:: To decrease pain, To increase ROM, To improve muscle performance and motor function IF ES: Yes For the Purpose of:: To decrease pain Thank you for the opportunity to evaluate your patient. For Medicare and Medicare HMO plans, please review the plan of care and approve it. It will need to be FAXED BACK to us at [phone] for Medicare purposes. For Medicare only, by signing this I certify the plan of care. Please let me know if there are questions or concerns regarding this plan of care. Physician Signature: Date:
--- NOTE | 2022-12-06 11:03 | HP.PTEVAL ---
Patient's Visit Information RADHA WOODARD is a 67 year old M referred to Physical Therapy by Dr. Andrew Frey MD with a diagnosis of R shoulder arthroscopy 08/22/22. Date of Evaluation: 11/12/22 Physical Therapist: Sergio He PT, ATC - Visit Plan Frequency: 2-3x /Week Duration: 4 Weeks Plan: R shoulder strengthening (rot cuff), scap stab ex's, UBE, and HEP - Subjective DOS: 08/22/22. Pt had arthroscopic surgery to his R shoulder at that time. Pt reports he had debridement on his rotator cuff and his biceps tendon. Pt notes he had PT after his surgery, but pt notes he was not happy with his improvements and his therapist let him go secondary to lack of progress. Pt is R hand dominant. Pt is retired at this time. 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 Pt denies any tingling or numbness in his R UE. Pt reports most of his pain is on the lateral aspect of his R shoulder. Pt notes reaching overhead, and a hammering type of motion. Pt reports he is very motivated and wants to get his strength back YADI. Pt reports he is not able to push any thing secondary to pain. Pt is unable to lift a gallon of milk off the second shelf secondary to pain. No sleep difficulty at this time. 0/10 pain while at rest, 4/10 at worst (reaching behind his back) - Pain R shoulder Pain Intensity (Out of 10): 0 Pain Intensity Range: 4 - Objective Neuro: B UE sensation is WNL to light touch. B bicipital reflex= 2/3. ROM: R shoulder flex= 165, abd= 165, ER= 45, IR WNL; L shoulder flex= 155, abd= 155, ER= 45, IR Minor limitations. MMT: R shoulder flex= 18, abd= 19, ER= 18, IR= 22 #F; L shoulder flex= 5, abd= 13, ER= 11, IR= 24 #F - Balance/Special Test Scores Quick DASH Score: 6.8175 - Goals Goal 1:: Decreases R shoulder pain x 50% to aid with overhead lifting Goal Time Frame: 4-6 Weeks Goal 2:: Increase R shoulder strength x 5-10#F throughout to aid with IADL's Goal Time Frame: 4-6 Weeks Goal 3:: Increase R shoulder flex and abd ROM x 5 degrees to aid with overhead activity Goal Time Frame: 4-6 Weeks Goal 4:: I with HEP Goal Time Frame: 4-6 Weeks - Rehabilitation Potential Physical Therapy Diagnosis: Pt has R shoulder pain, weakness, and limited ROM secondary to R shoulder arthroscopy Rehabilitation Potential: Good - Anticipated Interventions Patient/Client Instruction: Educate patient on: Condition, Plan of Care For the Purpose of:: To improve self management Therapeutic Exercise to Include: Strength training, Endurance training, Flexibilty training, Active ROM, Scapular Strength/Stabilization For the Purpose of:: To decrease pain, To increase ROM, To improve muscle performance and motor function IF ES: Yes For the Purpose of:: To decrease pain Thank you for the opportunity to evaluate your patient. For Medicare and Medicare HMO plans, please review the plan of care and approve it. It will need to be FAXED BACK to us at [phone] for Medicare purposes. For Medicare only, by signing this I certify the plan of care. Please let me know if there are questions or concerns regarding this plan of care. Physician Signature: Date:
--- NOTE | 2023-01-03 11:03 | HP.PTREVAL ---
Dr. Andrew Frey MD, It has been my pleasure to treat RADHA WOODARD over the last 22 visits for R shoulder arthroscopy 08/22/22. Please see the progress note below for an update on the physical therapy plan of care! Subjective: I dont have any pain today Objective/Function: R shoulder pain ranges from 0-1/10. R shoulder ROM: flex= 165, abd= 175 degrees. R shoulder MMT: flex= 7, abd= 17, ER= 9, IR= 17. Pt is I with HEP Plan Plan: Follow up in 1 month to re-assess, and possible discharge Balance/Gait/Functional tests - Balance/Special Test Scores Quick DASH Score: 13.6350 Goals Goal 1:: Decreases R shoulder pain x 50% to aid with overhead lifting Goal Time Frame: 4-6 Weeks Goal Progress: Goal Met Goal 2:: Increase R shoulder strength x 5-10#F throughout to aid with IADL's Goal Time Frame: 4-6 Weeks Goal Progress: Progressing Goal 3:: Increase R shoulder flex and abd ROM x 5 degrees to aid with overhead activity Goal Time Frame: 4-6 Weeks Goal Progress: Goal Met Goal 4:: I with HEP Goal Time Frame: 4-6 Weeks Goal Progress: Goal Met Anticipated Interventions Patient/Client Instruction: Educate patient on: Condition, Plan of Care For the Purpose of:: To improve self management Therapeutic Exercise to Include: Strength training, Endurance training, Flexibilty training, Active ROM, Scapular Strength/Stabilization For the Purpose of:: To decrease pain, To increase ROM, To improve muscle performance and motor function IF ES: Yes For the Purpose of:: To decrease pain Please do not hesitate to contact me at [phone] by phone or if you have questions or concerns regarding this new plan of care! Sincerely, Sergio He, PT, ATC
--- NOTE | 2023-02-03 13:59 | HP.PTREVAL_ITS ---
Dr. Andrew Frey MD, It has been my pleasure to treat RADHA WOODARD over the last 23 visits for R shoulder arthroscopy 08/22/22. Please see the progress note below for an update on the physical therapy plan of care! Subjective: I am doing much better Objective/Function: R shouldedr MMT: flex= 7, abd= 20, ER= 11, IR 27 #F. R sh oulder ROM: flex and abd= 170. Pain ranges from 0-1/2/10. Pt has made sig villalobos, but still lacks functional strength at this time Plan Plan: Recheck or discharge in 4 weeks Balance/Gait/Functional tests - Balance/Special Test Scores Quick DASH Score: 4.5450 Goals Goal 1:: Decreases R shoulder pain x 50% to aid with overhead lifting Goal Time Frame: 4-6 Weeks Goal Progress: Goal Met Goal 2:: Increase R shoulder strength x 5-10#F throughout to aid with IADL's Goal Time Frame: 4-6 Weeks Goal Progress: Progressing Goal 3:: Increase R shoulder flex and abd ROM x 5 degrees to aid with overhead activity Goal Time Frame: 4-6 Weeks Goal Progress: Goal Met Goal 4:: I with HEP Goal Time Frame: 4-6 Weeks Goal Progress: Goal Met Anticipated Interventions Patient/Client Instruction: Educate patient on: Condition, Plan of Care For the Purpose of:: To improve self management Therapeutic Exercise to Include: Strength training, Endurance training, Flexibilty training, Active ROM, Scapular Strength/Stabilization For the Purpose of:: To decrease pain, To increase ROM, To improve muscle performance and motor function IF ES: Yes For the Purpose of:: To decrease pain Please do not hesitate to contact me at [phone] by phone or if you have questions or concerns regarding this new plan of care! Sincerely, Sergio He, PT, ATC
--- NOTE | 2023-04-17 11:39 | HP.PT.NRP ---
Patient Information Patient Information: RADHA WOODARD was seen in my office for initial evaluation on 11/12/22. The following Plan of Care was established for this patient: POC Established Initial Frequency: 2-3x /Week Initial Duration: 4 Weeks Anticipated Interventions Patient/Client Instruction: Educate patient on: Condition and Plan of Care For the Purpose of:: To improve self management Therapeutic Exercise to Include: Strength training, Endurance training, Flexibilty training, Active ROM and Scapular Strength/Stabilization For the Purpose of:: To decrease pain, To increase ROM and To improve muscle performance and motor function IF ES: Yes For the Purpose of:: To decrease pain Last Seen Last Seen: This patient was last seen in our office . Pertinent comments regarding their Physical therapy will appear below: Pt was treated for 23 PT visits for R shoulder pain through the date of 02/03/23. Pt has not returned through todays date and is discontinued at this time. At this point I will be discontinuing this patient from physical therapy. I would be happy to see this patient again in the future if found appropriate by the physician. Thank you! Sergio He, PT, ATC Balance/Gait/Functional tests Balance/Special Test Scores Quick DASH Score: 4.5432
== END 2023-02-03 19:00 | disposition home or self-care (01) ==
LOC: PT 12:30
PROVIDERS: PCP Family Medicine; Referring Provider Orthopaedic Surgery; Visit Provider Orthopaedic Surgery
DX: M19.011 Primary osteoarthritis, right shoulder (principal); M75.41 Impingement syndrome of right shoulder; S43.431D Superior glenoid labrum lesion of right shoulder, subsequent encounter; M94.211 Chondromalacia, right shoulder; M75.01 Adhesive capsulitis of right shoulder
CPT/HCPCS: 97110; 97161; 97164

== ENCOUNTER 2023-02-26 23:24 | Observation (INO) | payer MEDICARE, SELFPAY ==
[2023-02-26 23:24] VITALS: BP 112/59; PULSE 86; RESP 18; TEMP 36.4; O2SAT 95; BMI 22.7
--- NOTE | 2023-02-26 23:39 | EKG12_ITS ---
Test Reason : UNRESONSIVE Blood Pressure : / mmHG Vent. Rate : 080 BPM Atrial Rate : 080 BPM P-R Int : 184 ms QRS Dur : 088 ms QT Int : 414 ms P-R-T Axes : 054 064 090 degrees QTc Int : 477 ms Normal sinus rhythm Possible Anterior infarct , age undetermined ST & T wave abnormality, consider lateral ischemia Abnormal ECG Confirmed by ANN-MARIE BETTS, AMEE ([id number]), makeup editor AUDI FRANCO ([id number]) on 02/28/2023 9:21:05 AM Referred By: MARIA TERESA Confirmed By:AMEE JACOBSEN MD
--- NOTE | 2023-02-26 23:41 | EX.ED.DYSGE1 ---
HPI History of Present Illness Chief Complaint: Alt LOC Detail of Chief Complaint: Mental status change Informant: patient and spouse/S.O. Narrative Narrative: Patient presents the emergency department via EMS from home. called the squad for him. Patient apparently had showered and gone to bed and was wearing his CPAP machine. heard him making noise and she looked over and noted that one of his arms was shaking and she could not tell which 1. He was not responding appropriately and seemed confused and she called the squad. Patient is on Eliquis for history of PEs and history of DVT. Patient had shoulder surgery thinks on the left shoulder in the past. He has not had any recent illness. Patient only complains of left shoulder pain. He denies chest pain or shortness of breath. Denies abdominal pain. He has not had recent illness. No history of seizures. PFSH PFSH Medical History Arthritis Asthma Chronic back pain CPAP (continuous positive airway pressure) dependence Disc disease, degenerative, lumbar or lumbosacral DVT (deep venous thrombosis) GERD (gastroesophageal reflux disease) High cholesterol History of deep venous thrombosis History of pulmonary embolus (PE) (2012) History of stress test Hx of blood clots Hypothyroidism Obstructive sleep apnea Sleep apnea Trigger finger Vitamin deficiency Home Medications apixaban 5 mg tablet (Eliquis) See Taper PO BID #34 tabs 10/02/21 [Rx Last Taken Unknown] finasteride 1 mg tablet (Propecia) 1 mg PO DAILY 07/29/22 [History Last Taken Unknown] Allergy/AdvReac Type Severity Reaction Status Date / Time iodine AdvReac Severe Hives Verified 02/26/23 23:30 Family History Father Myocardial infarction, Onset Age: 37 Heart disease Mental disorder Mother Myocardial infarction, Onset Age: 73 Heart disease Asthma Hypertension Surgical History H/O cardiac catheterization H/O thumb surgery History of herniorrhaphy History of hip replacement History of left heart catheterization (11/14/14) History of nasal septoplasty History of repair of rotator cuff History of shoulder surgery Social History (Updated 02/06/23 @ 13:44 by Sierra Vasquez) household members: spouse Smoking Status: Unknown if ever smoked how long ago did patient quit smoking: Smoked ~ 6 months [age] years old, <1/2 ppd. second hand exposure: No alcohol intake: never substance use type: does not use what type of physical activity do you participate in: walking, bicycling and weight training seatbelt use: always ROS ROS ED Review of Systems ROS Unobtainable: other Constitutional Constitutional ED: Reports lethargy; Denies chills, fever(s), sweats or weight loss Eyes Eyes: Denies blurry vision, change in vision or diplopia ENT ENT ED: Denies rhinorrhea or sore throat Cardiovascular Cardiovascular: Denies chest pain, orthopnea or racing heartbeat Respiratory/Chest Respiratory/Chest: Denies cough, dyspnea, dyspnea on exertion, orthopnea or sputum Gastrointestinal Gastrointestinal: Denies abdominal pain, diarrhea, nausea or vomiting Genitourinary Genitourinary ED: Denies dysuria, hematuria or urinary frequency Musculoskeletal Musculoskeletal: Reports other Details: Left shoulder pain ; Denies arthralgias, back pain, myalgias or neck pain Integumentary Denies abscess, Abrasions or rash Neurologic Neurologic: Reports other Details: Mental status change ; Denies headache(s) or weakness Psychiatric Psychiatric: Denies anxiety, depression or suicidal thoughts Endocrine Endocrinology: Denies polydipsia, polyphagia or polyuria Hematologic/Lymphatic Hematologic/Lymphatic: Denies easy bleeding, easy bruising or lymphadenopathy Allergic/Immunologic Allergic/Immunologic ED: Denies mouth swelling, tongue swelling or urticaria EXAM Physical Exam Const Vital Signs: 02/26/23 23:24 Temperature 97.6 F L Temperature Source Temporal Pulse Rate 86 Respiratory Rate 18 Blood Pressure 112/59 L Blood Pressure Mean 76 Pulse Ox 95 Oxygen Delivery Method Room Air Positive well nourished and well developed General Appearance ED: well developed and NAD HEENT Reports TM's clear and moist mucous membranes normocephalic and atraumatic; Negative for trauma or tenderness Tympanic Membrane ED: Yes TM's clear Eyes PERRL and EOMs intact bilaterally General Eye ED: Negative for pale conjunctiva or scleral icterus Neck no lymphadenopathy, supple and no JVD General: Negative for tenderness Chest Wall inspection of chest normal and palpation of chest normal Chest: Negative for tenderness Resp normal respiratory effort and clear to auscultation bilaterally Effort and Inspection: Negative for respiratory distress or pain with movement Auscultation: Negative for rhonchi, wheezes or diminished lung sounds Cardio regular rate, regular rhythm, S1 normal heart sound, S2 normal heart sound and no murmurs Peripheral Pulses: pulses 2+ throughout GI normal to inspection, nondistended, normoactive bowel sounds, soft to palpation, non-tender, non-distended and no masses Back/Spine no CVA tenderness and no thoracic nor lumbar tenderness Extremity Extremity Narrative: Patient has pain with range of motion of the left shoulder. Does have a slight sulcus sign noted on exam. He is neurovascular intact distally. General Extremety ED: Negative for edema General Extremity: Negative for edema Neuro oriented x3, CN's II-XII intact bilaterally, no sensory deficits noted and gait normal Sensorium / Orientation: awake, alert, oriented to person, oriented to place and oriented to time Motor Exam: strength 5/5 throughout and strength abnormal Psych mental status grossly normal Skin no rashes or lesions noted and no wounds MDM MDM MDM Narrative Medical decision making narrative: Patient presents with episode of mental status change. In the differential would be seizure versus intracranial hemorrhage versus electrolyte abnormality versus infectious etiology. IV line established. Patient placed on desk monitor. His GCS is a 15 currently. CBC with differential obtained was unremarkable. Chemistries unremarkable other than a slightly depressed potassium of 3.2. LFTs were normal. Urinalysis normal. CT scan of the brain without contrast was unremarkable. EKG obtained on arrival showed a sinus rhythm with a rate of [address] changes inferiorly with some subtle ST depression. When compared with prior EKG from November 2021 these changes appeared to be new. His troponin was normal. Case discussed with hospitalist will evaluate patient for admission. Etiology of his mental status change unclear. Lab Data Labs: Laboratory Results - last 24 hr 02/26/23 02/26/23 02/27/23 23:30 23:30 00:49 WBC 7.6 RBC 4.39 L Hgb 15.0 Hct 43.2 MCV 98.4 H MCH 34.2 H MCHC 34.7 RDW Std Deviation 44.1 H RDW Coeff of Jennifer 12.2 Plt Count 181 MPV 8.7 Immature Gran % (Auto) 0.400 Neut % (Auto) 47.9 Lymph % (Auto) 38.1 [place] % (Auto) 10.3 H Eos % (Auto) 2.5 Baso % (Auto) 0.8 Absolute Neuts (auto) 3.6 Absolute Lymphs (auto) 2.89 Nucleated RBC % 0 Sodium 137 Potassium 3.2 L Chloride 103 Carbon Dioxide 17.0 L Anion Gap 17 H BUN 9 Creatinine 1.02 Estim Creat Clear Calc 69.34 Est GFR (MDRD) Af Amer 94 Est GFR (MDRD) Non-Af 78 BUN/Creatinine Ratio 8.8 L Glucose 137 H Calcium 9.0 Total Bilirubin 1.10 H AST 51 H ALT 43 Alkaline Phosphatase 67 Troponin I High Sens 19 Total Protein 6.6 Albumin 3.8 Globulin 2.8 Albumin/Globulin Ratio 1.4 Urine Color Yellow Urine Clarity Clear Urine pH 6.0 Ur Specific [place] 1.015 Urine Protein 100 H Urine Glucose (UA) Normal Urine Ketones 150 A* Urine Occult Blood 50 H Urine Nitrite Negative Urine Bilirubin Negative Urine Urobilinogen Normal Ur Leukocyte Esterase Negative Radiography Chest X-Ray - ED: 1 View Diagnostic Testing: Clinical Impression(s) from Imaging Studies Brain CT 02/27/23 00:00 IMPRESSION: Negative head/brain CT without intravenous contrast. Electronically Signed: Sergio Jamison MD at 0:28 EDT Reading Location ID and State: [facility], later [facility] / [place] Tel , Service support , Shoulder X-Ray 02/27/23 00:00 IMPRESSION: 1. No acute abnormalities identified. 2. Degenerative changes of the acromioclavicular and glenohumeral joints. Electronically Signed: Sergio Jamison MD at 0:46 EDT Reading Location ID and State: [facility], [facility] / [place] Tel , Service support , Chest X-Ray 02/27/23 00:06 IMPRESSION: No radiographic evidence of acute cardiopulmonary disease. Electronically Signed: Sergio Jamison MD at 0:45 EDT Reading Location ID and State: [facility], [facility] / [place] Tel , Service support , 1 view chest x-ray obtained interpreted by myself as no evidence of infiltrate or acute disease process. Radiology in agreement. 2 view x-rays left shoulder obtained interpreted by myself as no fracture or dislocation. Radiology in agreement. Radiology did note degenerative changes of the acromioclavicular and glenohumeral joints. EKG Initial EKG: Attestation: I personally reviewed and interpreted this EKG as follows: Comments: Sinus rhythm with a rate of [address] changes inferiorly patient does have subtle ST depression in leads II, III and aVF. There may be also some subtle ST depression in leads V4, V5, and V6. Old septal infarct. Prior EKG tracings: available for review Prior: Changed Discharge Plan Triage Chief Complaint: Alt LOC ED Provider: Marcio Toney Dx/Rx/DC Orders Clinical Impression: Acute alteration in mental status, Abnormal ECG, Acute hypokalemia Prescriptions: No Action finasteride [Propecia] 1 mg tablet 1 mg PO DAILY Eliquis 5 mg Tablet See Taper PO BID Qty: 34 0RF Taper: Apixaban VTE Treatment 10 mg TWICE A DAY for 1 Day 5 mg TWICE A DAY for 30 Days Primary Care Provider: Jhoan Pierre Referrals: Jhoan Pierre MD [Primary Care Provider] - Disposition Disposition: Acute Care Hospital [facility]
[2023-02-26 23:46] LABS: Absolute Lymphocyte Count 2.89 X10^3/uL (0.83-4.51); Absolute Neutrophil Count 3.6 X10^3/uL (2.0-7.7); Basophil# 0.06 X10^3/uL; Basophil% 0.8 % (0-1); Eosinophil# 0.19 X10^3/uL; Eosinophils% 2.5 % (0-5); Hematocrit 43.2 % (40-54); Lymphocyte # 2.89 X10^3/ul (0.83-4.51); Lymphocyte % 38.1 % (19-41); Mean Corp Hgb Conc 34.7 g/dL (32-36); Mean Corpuscular Hgb 34.2 pg (27.0-32.0); Mean Corpuscular Volume 98.4 fL (80-94); Mean Platelet Vol. 8.7 fl (6.2-12.0); Monocyte# 0.78 X10^3/uL; Monocyte% 10.3 % (0-10); NRBC Flagged by Analyzer 0 % (0-5); Neutrophil # 3.64 X10^3/uL (2.7-7.7); Neutrophil % 47.9 % (47-70); Platelet Count 181 K/mm3 (150-450); RBC Distribution Width CV 12.2 % (11.6-14.6); RBC Distribution Width SD 44.1 fl (35.1-43.9); Red Blood Count 4.39 M/mm3 (4.6-6.2); White Blood Count 7.6 K/mm3 (4.4-11.0)
[2023-02-26] MEDS: Ondansetron 4 MG/2 ML Vial IV (23:47)
[2023-02-26] MEDS: Morphine 4 MG/ML Syringe IV (23:47)
[2023-02-26] MEDS: 0.9% Normal Saline 1,000 ML 150 ML IV (23:47)
[2023-02-27] VITALS (10 sets, daily range): BP systolic 117–156; BP diastolic 65–79; PULSE 48–58; RESP 12–18; TEMP 36.3–37; O2SAT 93–100; BMI 22.1
--- NOTE | 2023-02-27 | CT_ITS ---
EXAM: CT HEAD WITHOUT INTRAVENOUS CONTRAST CLINICAL INDICATION: mental status change TECHNIQUE: Multiple axial images were obtained of the head without intravenous contrast. This CT exam was performed using one or more of the following dose reduction techniques: automated exposure control, adjustment of the mA and/or kV according to patient size, and/or use of iterative reconstruction technique. COMPARISON: 11/22/2021 FINDINGS: BRAIN AND EXTRA-AXIAL SPACES: Unremarkable. No intra- or extra-axial hemorrhage. No evidence of acute infarct. No intracranial mass or mass effect. There is preservation of the priest/white matter interface. Posterior fossa structures are unremarkable. Ventricles are appropriate for age. No hydrocephalus. Basal cisterns are patent. BONES/JOINTS: Unremarkable. No discrete lytic or blastic abnormalities. SINUSES: Unremarkable as visualized. Clear. MASTOID AIR CELLS: Unremarkable. Clear. ORBITS: Visualized globes, extraocular muscles, optic nerves and retrobulbar fat appear unremarkable. CT/Brain/Head without Contrast IMPRESSION: Negative head/brain CT without intravenous contrast. Electronically Signed: Sergio Jamison MD at 0:28 EDT ,
--- NOTE | 2023-02-27 | RAD_ITS ---
EXAM: XR LEFT SHOULDER COMPLETE, 2 OR MORE VIEWS CLINICAL INDICATION: pain TECHNIQUE: Two or more views of the left shoulder. COMPARISON: No relevant prior studies available. FINDINGS: BONES/JOINTS: Degenerative changes of the acromioclavicular and glenohumeral joints. No acute fracture. No subluxation. Normal alignment. No sclerotic or destructive changes observed. SOFT TISSUES: Unremarkable. No soft tissue swelling or gas. No radiopaque foreign body. RAD/Shoulder min 2 Views IMPRESSION: 1. No acute abnormalities identified. 2. Degenerative changes of the acromioclavicular and glenohumeral joints. Electronically Signed: Sergio Jamison MD at 0:46 EDT ,
--- NOTE | 2023-02-27 00:06 | RAD_ITS ---
EXAM: XR CHEST, 1 VIEW CLINICAL INDICATION: mental status change TECHNIQUE: Frontal view of the chest. COMPARISON: 11/22/2021 FINDINGS: LUNGS AND PLEURAL SPACES: Unremarkable. No consolidation or edema. No pneumothorax. No effusion. HEART: Unremarkable. Cardiac silhouette not enlarged. MEDIASTINUM: Central airways and mediastinal contour are unremarkable. BONES/JOINTS: Unremarkable. SOFT TISSUES: Unremarkable. RAD/Chest 1 View (Portable) IMPRESSION: No radiographic evidence of acute cardiopulmonary disease. Electronically Signed: Sergio Jamison MD at 0:45 EDT ,
[2023-02-27 00:13] LABS: ALB/GLOB Ratio 1.4 RATIO (0.9-2.4); AST(SGOT) 51 U/L (15-37); Alanine Aminotransfer ALT/SGPT 43 U/L (16-61); Albumin, Serum 3.8 g/dL (3.2-5.0); Alkaline Phosphatase 67 U/L (45-117); Anion Gap 17 (5-15); BUN 9 mg/dL (7-18); BUN/Creat Ratio 8.8 RATIO (10-20); Chloride 103 mmol/L (98-107); Creatinine, Serum 1.02 mg/dL (0.70-1.30); EST Glomerular Filtration Rate 78 mL/min (>60); Est Glom Filt Rate - Afr Amer 94 mL/min (>60); Estimated Creatinine Clearance 69.34 ml/min; Globulin 2.8 g/dL (2.2-4.2); Glucose 137 mg/dL (74-106); Potassium 3.2 mmol/L (3.5-5.1); Protein, Total 6.6 g/dL (6.4-8.2); Sodium Level 137 mmol/L (136-145); Troponin-I HS (w/2H Reflex) 19 pg/mL (3.0-78.0)
[2023-02-27 00:54] LABS: Mucous, Urine 0 SEEN /hpf (<or=2+); Squamous Epithelial Cells - UA 0 SEEN /hpf (0-5); White Blood Cells 0 SEEN /hpf (0-5)
[2023-02-27 00:58] LABS: Color, Urine Yellow (Yellow); Glucose, Dipstick Normal (Normal); Leukocyte Esterase-Dipstick Negative /ul (Negative); Nitrite-Dipstick Negative (Negative); Occult Blood-Urine 50 /ul (Negative); Protein-Dipstick 100 mg/dl (Negative); Specific Gravity, Urine 1.015 (1.002-1.030); Urine Bilirubin Dipstick Negative (Negative); Urine Clarity Clear (Clear); Urine Urobilinogen Normal (Normal)
[2023-02-27 01:01] LABS: Ketone-Dipstick 150 mg/dl (Negative)
--- NOTE | 2023-02-27 01:04 | HP.PCM.HOS_ITS ---
HPI - General General Date of Admission: 02/27/23 Date of Service: 02/27/23 Chief Complaint: Unresponsive episode. HPI Narrative The patient is a 67 y/o M w/ PMHx: Hx VTE (DVT, PE), Asthma, OSITO on CPAP, BPH who presents to the [facility] ED on 02/27/23 with history of patient following showering and planning to get a bed hearing her making noise on his BiPAP machine and reported that one of his arms was twiching and he initially was not responsive prompting eventual EMS call. Upon arrival patient complains primarily of left shoulder discomfort worse with movement. The patient has been fasting x 4 days of note and has only been drinking water for congregational reasons of note. notes no bowel or bladder loss nor any tongue bitting. EMS noted patient was in and out of consciousness while on route. Patient does report that on day of presentation he was outside in the heat guarding for hours. Patient does report that he is having a left shoulder discomfort, worse with any movement and reports that he was telling while he had been gardening. He is unwilling to move his arm much in the emergency room upon evaluation secondary to pain elicited. Sensation is intact. Patient does use a CPAP at night and denies any knowledge of any recent malfunction. Patient denies any recent specific illness with no recent cough, congestion, rhinorrhea, nausea, emesis, diarrhea, fever, chills, dyspnea or chest discomfort. Work-up in the ED included T97.6, heart rate 86, BP 112/59, respiratory rate 18, 95% on room air, CBC with WBC 7.6, hemoglobin 15, platelet 181 without marked shift, CMP with potassium 3.2,, oxide 17, anion gap mildly elevated 17, glucose 137, T. bili 1.10, AST/LT 51/43 otherwise not marked appearing, troponin 19, urinalysis with no evidence of UTI but ketosis, CT the brain with no acute intracranial findi ngs, plain film of the left shoulder with no acute abnormalities with degenerative changes of the acromioclavicular and glenohumeral joints, chest x- ray with no acute cardiopulmonary findings, EKG with sinus rhythm with subtle ST depressions inferiorly. In the ED patient ministered 1 L normal saline, Zofran as well as morphine 4 mg IV x1. FORMERLY [facility], [facility] Medical History Arthritis Asthma Chronic back pain CPAP (continuous positive airway pressure) dependence Disc disease, degenerative, lumbar or lumbosacral DVT (deep venous thrombosis) GERD (gastroesophageal reflux disease) High cholesterol History of deep venous thrombosis History of pulmonary embolus (PE) (2012) History of stress test Hx of blood clots Hypothyroidism Obstructive sleep apnea Sleep apnea Trigger finger Vitamin deficiency Home Medications apixaban 5 mg tablet (Eliquis) See Taper PO BID #34 tabs 10/02/21 [Rx Last Taken Unknown] finasteride 1 mg tablet (Propecia) 1 mg PO DAILY 07/29/22 [History Last Taken Unknown] Allergy/AdvReac Type Severity Reaction Status Date / Time iodine AdvReac Severe Hives Verified 02/26/23 23:30 Family History Father Myocardial infarction, Onset Age: 37 Heart disease Mental disorder Mother Myocardial infarction, Onset Age: 73 Heart disease Asthma Hypertension Surgical History H/O cardiac catheterization H/O thumb surgery History of herniorrhaphy History of hip replacement History of left heart catheterization (11/14/14) History of nasal septoplasty History of repair of rotator cuff History of shoulder surgery Social History household members: spouse Smoking Status: Unknown if ever smoked how long ago did patient quit smoking: Smoked ~ 6 months 19-22 years old, <1/2 ppd. second hand exposure: No alcohol intake: never substance use type: does not use what type of physical activity do you participate in: walking, bicycling and weight training seatbelt use: always ROS ROS Narrative Admission Review of Systems: CONSTITUTIONAL: No weight loss, fever, chills, + weakness or fatigue. HEENT: Eyes: No visual loss, blurred vision, double vision or yellow sclerae. Ears, Nose, Throat: No hearing loss, sneezing, congestion, runny nose or sore throat. SKIN: No rash or itching, lesions, wounds. CARDIOVASCULAR: No chest pain, chest pressure or chest discomfort, palpitations, edema, orthopnea, syncopal events. RESPIRATORY: No shortness of breath, cough or sputum, wheezing, hemoptysis. GASTROINTESTINAL: No anorexia, nausea, vomiting or diarrhea, abdominal pain, melena, BRBPR. GENITOURINARY: No dysuria, frequency, urgency or retention. NEUROLOGICAL: + Unresponsive episode, possible tremors of unilateral upper extremity, transient confusion. No headache, dizziness, syncope, paralysis, ataxia, numbness or tingling in the extremities, focal weakness, change in bowel or bladder control. MUSCULOSKELETAL: + muscle, back pain, joint pain or stiffness. HEMATOLOGIC: No anemia, bleeding or bruising. LYMPHATICS: No enlarged nodes. No history of splenectomy. PSYCHIATRIC: No history of depression or anxiety. ENDOCRINOLOGIC: No reports of sweating, cold or heat intolerance. No polyuria or polydipsia. ALLERGIES: + history of hives. Vital Signs Vital Signs Vital Signs: 02/26/23 23:24 Temperature 97.6 F L Temperature Source Temporal Pulse Rate 86 Respiratory Rate 18 Blood Pressure 112/59 L Blood Pressure Mean 76 Pulse Ox 95 Oxygen Delivery Method Room Air Weight Weight: 149 lb 11.102 oz Body Mass Index (BMI) 22.7 Physical Exam Narrative Physical Examination: General: Awake, alert, oriented x 3 and cooperative, seated upright in the ED bed, notes ongoing persistent severe left shoulder pain, worse with any movement attempts. Skin: Normal color, normal turgor, no icterus, no cyanosis except for noted mild petechiae on the face and upper chest of unclear etiology. HEENT: AT/NC, EOMI, PERRLA, dry MM, no carotid bruits or JVD noted. Lungs: Mildly diminished, appropriate effort, no rales, ronchi or wheezing. Heart: Mildly bradycardic with regular rhythm; no gallop, rub audible. Abdomen: Soft, NTTP, ND, hyperactive BS, no HSM. Extremities: No cyanosis, clubbing, or edema, peripheral pulses intact, significant pain to the left upper extremity with patient deferral of aggressive movement secondary to this etiology, discomfort to palpation, sensation appropriate. Neurological: Patient awake, alert, oriented x 3, cognitive function intact; pupils equally reactive to light and accommodation, cranial nerves II-XII grossly normal, moving all 4 extremities although limited left upper extremity given severity of discomfort with any attempt, strength moderately global decrease secondary to acute presentation and discomfort to the shoulder concurrently. Psychiatric: Affect appears uncomfortable, fatigued, no acute evidence of depressive or anxiety feelings. Results Lab / Micro Data Result Diagrams: 02/26/23 23:30 02/26/23 23:30 Labs: Laboratory Results - last 24 hr 02/26/23 23:30: WBC 7.6, RBC 4.39 L, Hgb 15.0, Hct 43.2, MCV 98.4 H, MCH 34.2 H, MCHC 34.7, RDW Std Deviation 44.1 H, RDW Coeff of Jennifer 12.2, Plt Count 181, MPV 8.7, Immature Gran % (Auto) 0.400, Neut % (Auto) 47.9, Lymph % (Auto) 38.1, [place] % (Auto) 10.3 H, Eos % (Auto) 2.5, Baso % (Auto) 0.8, Absolute Neuts (auto) 3.6, Absolute Lymphs (auto) 2.89, Nucleated RBC % 0 02/26/23 23:30: Sodium 137, Potassium 3.2 L, Chloride 103, Carbon Dioxide 17.0 L , Anion Gap 17 H, BUN 9, Creatinine 1.02, Estim Creat Clear Calc 69.34, Est GFR (MDRD) Af Amer 94, Est GFR (MDRD) Non-Af 78, BUN/Creatinine Ratio 8.8 L, Glucose 137 H, Calcium 9.0, Total Bilirubin 1.10 H, AST 51 H, ALT 43, Alkaline Phosphatase 67, Troponin I High Sens 19, Total Protein 6.6, Albumin 3.8, Globulin 2.8, Albumin/Globulin Ratio 1.4 02/27/23 00:49: Urine Color Yellow, Urine Clarity Clear, Urine pH 6.0, Ur Specific [place] 1.015, Urine Protein 100 H, Urine Glucose (UA) Normal, Urine Ketones 150 A*, Urine Occult Blood 50 H, Urine Nitrite Negative, Urine Bilirubin Negative, Urine Urobilinogen Normal, Ur Leukocyte Esterase Negative Radiology Impression Brain CT 02/27/23 00:00 IMPRESSION: Negative head/brain CT without intravenous contrast. Electronically Signed: Sergio Jamison MD at 0:28 EDT , Shoulder X-Ray 02/27/23 00:00 IMPRESSION: 1. No acute abnormalities identified. 2. Degenerative changes of the acromioclavicular and glenohumeral joints. Electronically Signed: Sergio Jamison MD at 0:46 EDT , Chest X-Ray 02/27/23 00:06 IMPRESSION: No radiographic evidence of acute cardiopulmonary disease. Electronically Signed: Sergio Jamison MD at 0:45 EDT , Assessment & Plan Assessment/Plan (1) Unresponsive episode: PLAN: Plan The patient is a 67 y/o M w/ PMHx: Hx VTE (DVT, PE), Asthma, OSITO on CPAP, BPH who presents to the [facility] ED on 02/27/23 with history of patient following showering and planning to get a bed hearing her making noise on his BiPAP machine and reported that one of his arms was twiching and he initially was not responsive prompting eventual EMS call. Upon arrival patient complains primarily of left shoulder discomfort worse with movement. #1. Unresponsive episode, unclear etiology with subtle EKG changes: Unclear etiology but some suspicion could be related to his recent prolonged fasting with ketosis evident but cannot rule out underlying cardiac etiology especially given mild subtle EKG changes and given atypical possible movements while unresponsive some concern for possible seizure activity also present. Will admit to PCU, maintain on telemetry, cycle cardiac enzymes, maintain on fall, aspiration and seizure precautions pending further work-up, EKGs as needed, will obtain MRI of the brain to be cautious as well as EEG, magnesium level requested, TSH requested, UDS requested, will have RT evaluation of patient home CPAP as certainly CPAP malfunction could be contributing to his unresponsive episode, discussed and strongly encouraged appropriate oral intake and will continue judicious hydration at this time, TCK pending but given fasting suspect would be elevated regardless. #2. Intractable left shoulder pain, suspected musculoskeletal etiology: Plain film of the left shoulder with no acute findings with degenerative changes, suspect likely secondary to recent aggressive gardening and tilling with repetitive movement, will have urine oral and IV pain regimen, deferring aggressive NSAID usage given anticoagulation, will place lidocaine patches, use low dose gabapentin, icing, elevation as able, tizanidine as needed, PT assessment for discharge planning. If ongoing pain may need to consider more aggressive imaging or orthopedic surgery involvement. #3. Hyperglycemia, unclear etiology with mild anion gap elevation but suspect likely associated with fasting with ketosis: Glucose upon presentation 137, anion gap 17 likely from his recent fasting with urinalysis notable for ketosis but no urine glucose demonstrated, will obtain hemoglobin A1c however to be cautious. #4. Hypokalemia: Admission K+ 3.2, magnesium level requested, supplementation given, repeat level in AM. #5. Chronic asthma: Not on any chronic regimen, will have as needed albuterol. #6. BPH: We will continue patient on finasteride regimen. #7. 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 #8. OSITO: CPAP nightly, will have RT assess patient's home machine to assure appropriately functioning given malfunction can certainly contribute to his acute presentation #1. #9. DVT prophylaxis: We will continue patient home apixaban regimen. #10. CODE status: Full Code. Admission Evaluation Time spent evaluating chart, patient history, patient evaluation, care planning and discussion with specialists: 60 minutes. Charges/Coding Visit Charges Inpatient E&M: 34249 Init Hosp L2
[2023-02-27 01:10] LABS: Bacteria RARE /hpf (None Seen); Red Blood Cells-Urine 0-5 SEEN /hpf (0-5)
[2023-02-27 01:43] LABS: Reflex Troponin-HS? (from REC) Y
[2023-02-27 01:50] LABS: Magnesium 1.8 mg/dL (1.6-2.6)
[2023-02-27 02:20] LABS: Troponin-I HS 30 pg/mL (3.0-78.0)
--- NOTE | 2023-02-27 02:32 | MRI_ITS ---
EXAM: MR HEAD WITHOUT INTRAVENOUS CONTRAST CLINICAL INDICATION: Seizure, UNRESPONSIVE EPISODE, MENTAL STATUS CHANGE TECHNIQUE: Multiplanar and multisequence MR images of the brain were obtained without intravenous contrast. COMPARISON: CT brain 02/27/2023 FINDINGS: BRAIN AND EXTRA-AXIAL SPACES: Small foci of increased T2 signal intensity within the body of the right caudate nucleus suggestive of chronic lacunar type infarction. There is also small focus of increased T2 signal intensity within the right frontal white matter. Brain signal intensity is otherwise normal. No hemorrhage or mass effect. No acute ischemia. Ventricles are normal. Posterior fossa is normal. No hydrocephalus. Basal cisterns are patent. SELLA: Normal. Normal sella turcica, pituitary gland, infundibular stalk, optic chiasm and hypothalamus. AUDITORY SYSTEM: Normal. The internal auditory canals are patent. BONES/JOINTS: Intact calvarium. SINUSES: Unremarkable as visualized. Clear. MASTOID AIR CELLS: Unremarkable as visualized. Clear. ORBITS: Unremarkable as visualized. Both globes, extraocular muscles, optic nerves and retrobulbar fat appear unremarkable. VASCULATURE: Unremarkable as visualized. Normal vascular flow voids. MRI/Brain without Contrast IMPRESSION: No acute intracranial abnormality. 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 Electronically Signed: Adryan Valentin MD at 14:30 EDT ,
--- NOTE | 2023-02-27 03:12 | CPS ---
RT at bedside to assess the function of the patient's home CPAP machine. Upon setting his home machine up it was discovered that a piece of tubing specific to his particular unit is missing. The patient believes it was mistakenly left at home by family member who packed his unit to bring to him here at the hospital. The machine sprays water from the humidifier without this tubing and therefor is unable to be properly used at this time. RT offered to set the patient up with one of the hospital CPAP units for his stay, to which he declined. He remains on oxygen via nasal cannula at this time.
[2023-02-27] MEDS: 0.9% Saline Lock 10 ML Syringe IV (03:20)
[2023-02-27] MEDS: 0.9% Normal Saline 1,000 ML 125 ML IV ×2 (03:20→12:09)
[2023-02-27] MEDS: Ketorolac 15 MG/ML Vial IV (03:21)
[2023-02-27] MEDS: Potassium Chloride Oral Tablet 20 MEQ 40 MEQ PO (03:21)
[2023-02-27] MEDS: Gabapentin 100 MG Capsule PO ×3 (03:28→18:16)
[2023-02-27 03:50] LABS: Amphetamine Urine VISTA NEGATIVE (<1000 ng/mL); Barbiturate Urine VISTA NEGATIVE (< 200 ng/mL); Benzodiazepine Urine VISTA NEGATIVE (< 200 ng/mL); Cocaine Urine VISTA NEGATIVE (< 300 ng/mL); Ecstacy Urine VISTA NEGATIVE (< 500 ng/mL); Methadone Urine VISTA NEGATIVE (< 300 ng/mL); PCP Urine VISTA NEGATIVE (< 25 ng/mL); THC Urine VISTA NEGATIVE (< 50 ng/mL); Vista UDS pH Range 5
[2023-02-27 03:57] LABS: CPK Total, Creatine Kinase 862 U/L (39-308); Thyroid Stim Hormone (TSH) 2.64 uIU/mL (0.358-3.74)
[2023-02-27] MEDS: tiZANidine HCl 2 MG Tablet PO ×2 (04:59→19:01)
[2023-02-27 06:12] LABS: Absolute Lymphocyte Count 0.44 X10^3/uL (0.83-4.51); Absolute Neutrophil Count 7.5 X10^3/uL (2.0-7.7); Basophil# 0.02 X10^3/uL; Basophil% 0.2 % (0-1); Eosinophil# 0.01 X10^3/uL; Eosinophils% 0.1 % (0-5); Hematocrit 41.8 % (40-54); Hemoglobin 14.9 g/dL (13.0-16.5); Lymphocyte # 0.44 X10^3/ul (0.83-4.51); Lymphocyte % 5.3 % (19-41); Mean Corp Hgb Conc 35.6 g/dL (32-36); Mean Corpuscular Hgb 34.5 pg (27.0-32.0); Mean Corpuscular Volume 96.8 fL (80-94); Mean Platelet Vol. 8.8 fl (6.2-12.0); Monocyte% 4.8 % (0-10); NRBC Flagged by Analyzer 0 % (0-5); Neutrophil # 7.46 X10^3/uL (2.7-7.7); Neutrophil % 89.4 % (47-70); POSITIVE DIFFERENTIAL YES; Platelet Count 125 K/mm3 (150-450); RBC Distribution Width CV 12.4 % (11.6-14.6); RBC Distribution Width SD 44.3 fl (35.1-43.9); Red Blood Count 4.32 M/mm3 (4.6-6.2); White Blood Count 8.4 K/mm3 (4.4-11.0)
[2023-02-27 06:22] LABS: Differential Indicated SCAN CRITERIA MET
[2023-02-27 06:48] LABS: Macrocytosis 1+; Platelet Estimate SLT DEC (ADEQ)
[2023-02-27 06:54] LABS: ALB/GLOB Ratio 1.3 RATIO (0.9-2.4); AST(SGOT) 55 U/L (15-37); Alanine Aminotransfer ALT/SGPT 41 U/L (16-61); Albumin, Serum 3.5 g/dL (3.2-5.0); Alkaline Phosphatase 64 U/L (45-117); Anion Gap 10 (5-15); BUN 9 mg/dL (7-18); BUN/Creat Ratio 15.4 RATIO (10-20); Chloride 104 mmol/L (98-107); Cholesterol 145 mg/dL (200); Creatinine, Serum 0.58 mg/dL (0.70-1.30); EST Glomerular Filtration Rate 148 mL/min (>60); Est Glom Filt Rate - Afr Amer 179 mL/min (>60); Estimated Creatinine Clearance 118.35 ml/min; Globulin 2.7 g/dL (2.2-4.2); Glucose 120 mg/dL (74-106); High Density Lipoprotein 68 mg/dL; Potassium 3.8 mmol/L (3.5-5.1); Protein, Total 6.2 g/dL (6.4-8.2); Sodium Level 134 mmol/L (136-145); Triglycerides 47 mg/dL; Very Low Density Lipoprotein 9 mg/dL (5-40)
[2023-02-27 07:09] LABS: Troponin-I HS 33 pg/mL (3.0-78.0)
--- NOTE | 2023-02-27 07:20 | PN.HOSP_ITS ---
Reason for Visit Reason for Visit: Diagnoses Other symptoms and signs involving cognitive functions and awareness (02/27/23) Subjective Subjective Follow-up period of unresponsiveness Objective Data Objective Data Vital Signs: Vital Signs Temp Pulse Resp BP Pulse Ox O2 Del Method O2 Flow Rate 97.4 F L 48 L 16 117/68 99 Nasal Cannula 2 02/27/23 03:12 02/27/23 04:10 02/27/23 04:10 02/27/23 03:12 02/27/23 03:30 02/27/23 04:10 02/27/23 04:10 Oxygen Flow Rate (L/min) 2 Oxygen Delivery Method Nasal Cannula Weight: 145 lb 4.554 oz Body Mass Index (BMI) 22.1 Intake & Output: Intake and Output for Last 24 Hours 02/25/23 02/26/23 02/27/23 23:59 23:59 23:59 Intake Total 747.5 / 747.5 Output Total 400 / 400 Balance 347.5 / 347.5 Lab / Micro Data Result Diagrams: 02/27/23 05:30 02/27/23 05:30 Labs: Laboratory Results - last 24 hr 02/26/23 23:30: WBC 7.6, RBC 4.39 L, Hgb 15.0, Hct 43.2, MCV 98.4 H, MCH 34.2 H, MCHC 34.7, RDW Std Deviation 44.1 H, RDW Coeff of Jennifer 12.2, Plt Count 181, MPV 8.7, Immature Gran % (Auto) 0.400, Neut % (Auto) 47.9, Lymph % (Auto) 38.1, Sharkey % (Auto) 10.3 H, Eos % (Auto) 2.5, Baso % (Auto) 0.8, Absolute Neuts (auto) 3.6, Absolute Lymphs (auto) 2.89, Nucleated RBC % 0 02/26/23 23:30: Sodium 137, Potassium 3.2 L, Chloride 103, Carbon Dioxide 17.0 L , Anion Gap 17 H, BUN 9, Creatinine 1.02, Estim Creat Clear Calc 69.34, Est GFR (MDRD) Af Amer 94, Est GFR (MDRD) Non-Af 78, BUN/Creatinine Ratio 8.8 L, Glucose 137 H, Calcium 9.0, Total Bilirubin 1.10 H, AST 51 H, ALT 43, Alkaline Phosphatase 67, Troponin I High Sens 19, Total Protein 6.6, Albumin 3.8, Globulin 2.8, Albumin/Globulin Ratio 1.4 02/26/23 23:30: Magnesium 1.8 02/27/23 00:49: Urine Color Yellow, Urine Clarity Clear, Urine pH 6.0, Ur Specific [place] 1.015, Urine Protein 100 H, Urine Glucose (UA) Normal, Urine Ketones 150 A*, Urine Occult Blood 50 H, Urine Nitrite Negative, Urine Bilirubin Negative, Urine Urobilinogen Normal, Ur Leukocyte Esterase Negative, Urine RBC 0-5 SEEN, Urine WBC 0 SEEN, Ur Squamous Epith Cells 0 SEEN, Other Crystals SEE COMMENT, Urine Bacteria RARE, Urine Mucus 0 SEEN 02/27/23 00:49: Urine Opiates Screen POSITIVE H, Urine Methadone Screen NEGATIVE, Ur Barbiturates Screen NEGATIVE, Ur Phencyclidine Scrn NEGATIVE, Ur Amphetamines Screen NEGATIVE, MDMA (Ecstasy) Screen NEGATIVE, U Benzodiazepines Scrn NEGATIVE, Urine Cocaine Screen NEGATIVE, U Cannabinoids Screen NEGATIVE, Ur Drug Screen Comment 02/27/23 00:50: Troponin I High Sens 30 02/27/23 00:50: Total Creatine Kinase 862 H, TSH 2.64 02/27/23 05:30: WBC 8.4, RBC 4.32 L, Hgb 14.9, Hct 41.8, MCV 96.8 H, MCH 34.5 H, MCHC 35.6, RDW Std Deviation 44.3 H, RDW Coeff of Jennifer 12.4, Plt Count 125 L, MPV 8.8, Immature Gran % (Auto) 0.200, Neut % (Auto) 89.4 H, Lymph % (Auto) 5.3 L, Sharkey % (Auto) 4.8, Eos % (Auto) 0.1, Baso % (Auto) 0.2, Absolute Neuts (auto) 7.5, Absolute Lymphs (auto) 0.44 L, Nucleated RBC % 0, Platelet Estimate SLT DEC, Macrocytosis 1+ 02/27/23 05:30: Sodium 134 L, Potassium 3.8, Chloride 104, Carbon Dioxide 20.0 L , Anion Gap 10, BUN 9, Creatinine 0.58 L, Estim Creat Clear Calc 118.35, Est GFR (MDRD) Af Amer 179, Est GFR (MDRD) Non-Af 148, BUN/Creatinine Ratio 15.4, Glucose 120 H, Calcium 8.0 L, Total Bilirubin 0.90, AST 55 H, ALT 41, Alkaline Phosphatase 64, Total Protein 6.2 L, Albumin 3.5, Globulin 2.7, Albumin/Globulin Ratio 1.3, Triglycerides 47, Cholesterol 145, LDL Cholesterol 68, VLDL Cholesterol 9, HDL Cholesterol 68 02/27/23 05:30: Troponin I High Sens 33 Radiography Diagnostic Testing: Radiology Impression Brain CT 02/27/23 00:00 IMPRESSION: Negative head/brain CT without intravenous contrast. Electronically Signed: Sergio Jamison MD at 0:28 EDT Reading Location ID and State: [facility] / [place] Tel , Service support , Shoulder X-Ray 02/27/23 00:00 IMPRESSION: 1. No acute abnormalities identified. 2. Degenerative changes of the acromioclavicular and glenohumeral joints. Electronically Signed: Sergio Jamison MD at 0:46 EDT Reading Location ID and State: [facility] / [place] Tel , Service support , Chest X-Ray 02/27/23 00:06 IMPRESSION: No radiographic evidence of acute cardiopulmonary disease. Electronically Signed: Sergio Jamison MD at 0:45 EDT Reading Location ID and State: [facility] / [place] Tel , Service support , Physical Exam Narrative Seen and examined. Patient denies any prior history of seizure/epilepsy confirmed 2 or 3 times. Yesterday he went to bed after taking shower and then after putting CPAP. Episode of unresponsiveness. As per EMS they also on saw tightening of the body and abnormal involuntary movement but not complete grand total seizure. The episode lasted not more than 30 seconds. 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 History of 2 rotator cuff surgery on the right and 1 on the left. Complain of left shoulder pain, not told to raise it. Physical exam General: Alert, Oriented x3, Cooperative HEENT: Atraumatic, PERRLA, EOMI, Normocephalic Oral: Oral mucosa moist. No Gingival or Mucosal Lesions/ Ulcerations Neck: Supple, No JVD, Negative Carotid Bruits Lungs: Air entry diminished in bilateral lung bases. No crepitation/rhonchi Cardiovascular: Regular rate, Regular Rhythm, Normal S1, Normal S2, No murmurs Abdomen: Bowel Sounds Present, Soft, Non Tender, Non-Distended : Urine output very good. Clear color. Denies burning micturition. No renal angle tenderness. No suprapubic tenderness. Extremities: No edema, Capillary Refill Less than 3 Seconds Skin: No rashes, No breakdown Musculoskeletal: Tenderness over over upper humerus around surgical neck. ROM very painful and therefore not attempted. Right shoulder status post rotator cuff repair. No Tenderness to Palpation of Joints of lower extremities. Muscle strength lower extremity 5/5 at knee and hip joints. Neurological: Cranial nerves II-XII grossly intact, DTR 2+/4 and Symmetrical, Neuro grossly intact Psych/Mental Status: Normal Affect, Appropriate. Assessment & Plan Assessment/Plan (1) Unresponsive episode: PLAN: Plan The patient is a 67 y/o M was brought by EMS for episode of unresponsiveness after tightening up of the body. Patient in and out of responsiveness as per EMS. Patient also not using left arm and was stating his left shoulder hurts. #1. Unresponsive episode, unclear etiology possible partial seizure, exact type class unclear: Patient is admitted in PCU. EEG done and reported abnormal study that reflects presence of diffuse degree of electrocortical dysfunction. There are no sharp activity predominantly initiating left posterior temporal region followed by brief period of high voltage frontal sharp activity. MRI brain pending. SOC consult afterwards. The patient has unequal from early age. No obvious cause was found. 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 U tox was positive for opioids otherwise negative. Patient not on opioid medications at home. Discussed with SOC neurologist. Patient denies any prior history of seizures but states that he had similar seizure-like episode. With EEG finding, SOC neurologist and I agreed for starting on low-dose Keppra to 50 mg twice daily so that patient can tolerate. . MRI brain without contrast reported no acute intracranial abnormality. 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 Transient EKG changes: Twelve-lead EKG sinus rhythm [address] changes inferior to 3 and aVF and V4 to V6. Old septal infarct. TSH normal. Serial troponin enzymes in normal range. Fasting profile shows LDL 68 HDL 68. Patient also had prolonged fasting of 4 days only on water that he normally does once in a year. CK elevated 862. AST 51. Serum phosphorus ordered. Continue IV fluid normal saline. Repeat twelve-lead EKG done and shows normal sinus rhythm with resolution of ST depression in inferior leads. ACS or non-STEMI ruled out. Patient does not have chest pain. #2. Intractable left shoulder pain, suspected musculoskeletal etiology: Plain film of the left shoulder with no acute findings with degenerative changes, most likely due to aggressive manual work. 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 Had 2 times right shoulder rotator cuff repair and one-time left shoulder rotator cuff. Pain controlled. PT and OT. Patient on lidocaine patch, low-dose gabapentin and as needed tizanidine for #3. Hyperglycemia, unclear etiology with mild anion gap elevation but suspect likely associated with fasting with ketosis: Glucose upon presentation 137, anion gap 17 most likely due to high anion gap metabolic acidosis probably from fasting/ketosis. A1c 5.3%. Diabetes/prediabetes ruled out. #4. Hypokalemia: Admission K+ 3.2, Serum magnesium level normal. Mild hypokalemia is replaced and repeat normal. #5. Chronic asthma: Not on any chronic regimen, will have as needed albuterol. #6. BPH: continue patient on finasteride regimen. #7. 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 #8. OSITO: CPAP nightly, will have RT assess patient's home machine to assure appropriately functioning given malfunction can certainly contribute to his acut e presentation #1. #9. DVT prophylaxis: We will continue patient home apixaban regimen. #10. CODE status: Full Code. 02/26/23 23:30: WBC 7.6, RBC 4.39 L, Hgb 15.0, Hct 43.2, MCV 98.4 H, MCH 34.2 H, MCHC 34.7, RDW Std Deviation 44.1 H, RDW Coeff of Jennifer 12.2, Plt Count 181, MPV 8.7, Immature Gran % (Auto) 0.400, Neut % (Auto) 47.9, Lymph % (Auto) 38.1, Sharkey % (Auto) 10.3 H, Eos % (Auto) 2.5, Baso % (Auto) 0.8, Absolute Neuts (auto) 3.6, Absolute Lymphs (auto) 2.89, Nucleated RBC % 0 02/26/23 23:30: Sodium 137, Potassium 3.2 L, Chloride 103, Carbon Dioxide 17.0 L , Anion Gap 17 H, BUN 9, Creatinine 1.02, Estim Creat Clear Calc 69.34, Est GFR (MDRD) Af Amer 94, Est GFR (MDRD) Non-Af 78, BUN/Creatinine Ratio 8.8 L, Glucose 137 H, Calcium 9.0, Total Bilirubin 1.10 H, AST 51 H, ALT 43, Alkaline Phosphatase 67, Troponin I High Sens 19, Total Protein 6.6, Albumin 3.8, Globulin 2.8, Albumin/Globulin Ratio 1.4 02/26/23 23:30: Magnesium 1.8 02/27/23 00:49: Urine Color Yellow, Urine Clarity Clear, Urine pH 6.0, Ur Specific [place] 1.015, Urine Protein 100 H, Urine Glucose (UA) Normal, Urine Ketones 150 A*, Urine Occult Blood 50 H, Urine Nitrite Negative, Urine Bilirubin Negative, Urine Urobilinogen Normal, Ur Leukocyte Esterase Negative, Urine RBC 0-5 SEEN, Urine WBC 0 SEEN, Ur Squamous Epith Cells 0 SEEN, Other Crystals SEE COMMENT, Urine Bacteria RARE, Urine Mucus 0 SEEN 02/27/23 00:49: Urine Opiates Screen POSITIVE H, Urine Methadone Screen NEGATIVE, Ur Barbiturates Screen NEGATIVE, Ur Phencyclidine Scrn NEGATIVE, Ur Amphetamines Screen NEGATIVE, MDMA (Ecstasy) Screen NEGATIVE, U Benzodiazepines Scrn NEGATIVE, Urine Cocaine Screen NEGATIVE, U Cannabinoids Screen NEGATIVE, Ur Drug Screen Comment 02/27/23 00:50: Troponin I High Sens 30 02/27/23 00:50: Total Creatine Kinase 862 H, TSH 2.64 02/27/23 05:30: WBC 8.4, RBC 4.32 L, Hgb 14.9, Hct 41.8, MCV 96.8 H, MCH 34.5 H, MCHC 35.6, RDW Std Deviation 44.3 H, RDW Coeff of Jennifer 12.4, Plt Count 125 L, MPV 8.8, Immature Gran % (Auto) 0.200, Neut % (Auto) 89.4 H, Lymph % (Auto) 5.3 L, Sharkey % (Auto) 4.8, Eos % (Auto) 0.1, Baso % (Auto) 0.2, Absolute Neuts (auto) 7.5, Absolute Lymphs (auto) 0.44 L, Nucleated RBC % 0, Platelet Estimate SLT DEC, Macrocytosis 1+ 02/27/23 05:30: Sodium 134 L, Potassium 3.8, Chloride 104, Carbon Dioxide 20.0 L , Anion Gap 10, BUN 9, Creatinine 0.58 L, Estim Creat Clear Calc 118.35, Est GFR (MDRD) Af Amer 179, Est GFR (MDRD) Non-Af 148, BUN/Creatinine Ratio 15.4, Glucose 120 H, Calcium 8.0 L, Total Bilirubin 0.90, AST 55 H, ALT 41, Alkaline Phosphatase 64, Total Protein 6.2 L, Albumin 3.5, Globulin 2.7, Albumin/Globulin Ratio 1.3, Triglycerides 47, Cholesterol 145, LDL Cholesterol 68, VLDL Cholesterol 9, HDL Cholesterol 68 02/27/23 05:30: Troponin I High Sens 33 Clinical Impression(s) from Imaging Studies Brain CT 02/27/23 00:00 IMPRESSION: Negative head/brain CT without intravenous contrast. Electronically Signed: Sergio Jamison MD at 0:28 EDT , Shoulder X-Ray 02/27/23 00:00 IMPRESSION: 1. No acute abnormalities identified. 2. Degenerative changes of the acromioclavicular and glenohumeral joints. Electronically Signed: Sergio Jamison MD at 0:46 EDT , Chest X-Ray 02/27/23 00:06 IMPRESSION: No radiographic evidence of acute cardiopulmonary disease. Electronically Signed: Sergio Jamison MD at 0:45 EDT , Brain MRI 02/27/23 02:32 IMPRESSION: No acute intracranial abnormality. 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 Charges/Coding Addendum Addendum: Total time of the visit including total time spent in counseling or coordination of care, (more than 50% of the total time, spent in obtaining medical information from nurses and other ancillary care providers,explaining to the patient about labs, imaging, diagnosis and management of active complex medical conditions), detailed history and physical exam, EEG review, MRI brain and neuro consult, review of labs and imaging is 50 minutes. Visit Charges Inpatient E&M: 76116 Subs Hosp L3
[2023-02-27 09:03] LABS: Hemoglobin A1c 5.3 % (3.8-5.6)
[2023-02-27] MEDS: APIXABAN 5 MG TABLET PO ×2 (09:09→21:21)
[2023-02-27] MEDS: Finasteride 5 MG Tablet PO (09:09)
[2023-02-27] MEDS: Lidocaine 5% Patch 2 PATCH TOPICAL (09:09)
--- NOTE | 2023-02-27 13:26 | EKG12_ITS ---
Test Reason : Blood Pressure : / mmHG Vent. Rate : 059 BPM Atrial Rate : 059 BPM P-R Int : 198 ms QRS Dur : 084 ms QT Int : 420 ms P-R-T Axes : 055 036 076 degrees QTc Int : 415 ms Sinus bradycardia Nonspecific ST and T wave abnormality Abnormal ECG When compared with ECG of 26-FEB-2023 23:27, MANUAL COMPARISON REQUIRED, DATA IS UNCONFIRMED Confirmed by ANN-MARIE BETTS, AMEE ([id number]), story editor AUDI FRANCO ([id number]) on 02/28/2023 1:11:20 PM Referred By: Confirmed By:AMEE JACOBSEN MD
[2023-02-27] MEDS: oxyCODONE 5 MG Tablet PO (18:15)
[2023-02-27] MEDS: levETIRAcetam 250 MG Tablet PO (18:16)
[2023-02-27] MEDS: Morphine 2 MG/ML Syringe IV ×2 (19:04→22:38)
[2023-02-27] MEDS: Fluticasone 0.05% 1 SPRAY NASAL.SRY NASAL (21:47)
[2023-02-28] VITALS (8 sets, daily range): BP systolic 121–146; BP diastolic 68–79; PULSE 50–55; RESP 10–18; TEMP 36.3–37; O2SAT 93–100; BMI 22.4
[2023-02-28] MEDS: Morphine 2 MG/ML Syringe IV (05:21)
--- NOTE | 2023-02-28 05:55 | MRI_ITS ---
INDICATION: Altered mental status, seizure. EXAMINATION: MR Brain W/ Contrast TECHNIQUE: Axial and coronal T1 images were obtained with gadolinium. IV Contrast Dosage and Agent: 13 mL Clariscan. COMPARISON: February 27, 2023 MRI brain without contrast. FINDINGS: No abnormal brain parenchymal enhancement is identified. No abnormal extra-axial enhancement identified. Vasculature enhances normally. Stable size and configuration of the ventricles and sulci. [place] infarct in the right caudate head again seen. White matter lesion in the right frontal lobe white matter does not enhance. Punctate subcortical white matter lesion in the high left anterior parietal subcortical white matter does not enhance. Punctate anterior frontal subcortical white matter lesions do not enhance. There is no mass, vasogenic edema or midline shift. Calvarium is intact. Paranasal sinuses and mastoid air cells are clear. Orbits are unremarkable. MRI/Brain WITH Contrast IMPRESSION: No abnormal enhancement identified. Electronically Signed: Jhoan Navarro MD at 16:26 EDT ,
[2023-02-28 06:17] LABS: Absolute Lymphocyte Count 1.42 X10^3/uL (0.83-4.51); Absolute Neutrophil Count 4.9 X10^3/uL (2.0-7.7); Basophil# 0.03 X10^3/uL; Basophil% 0.4 % (0-1); Eosinophil# 0.15 X10^3/uL; Eosinophils% 2.2 % (0-5); Hematocrit 43.5 % (40-54); Hemoglobin 15.5 g/dL (13.0-16.5); Lymphocyte # 1.42 X10^3/ul (0.83-4.51); Lymphocyte % 20.5 % (19-41); Mean Corp Hgb Conc 35.6 g/dL (32-36); Mean Corpuscular Hgb 34.6 pg (27.0-32.0); Mean Corpuscular Volume 97.1 fL (80-94); Mean Platelet Vol. 8.9 fl (6.2-12.0); Monocyte# 0.46 X10^3/uL; Monocyte% 6.6 % (0-10); NRBC Flagged by Analyzer 0 % (0-5); Neutrophil # 4.88 X10^3/uL (2.7-7.7); Neutrophil % 70.3 % (47-70); Platelet Count 145 K/mm3 (150-450); RBC Distribution Width CV 12.9 % (11.6-14.6); Red Blood Count 4.48 M/mm3 (4.6-6.2); White Blood Count 6.9 K/mm3 (4.4-11.0)
[2023-02-28 06:40] LABS: Anion Gap 4 (5-15); BUN 7 mg/dL (7-18); BUN/Creat Ratio 10.1 RATIO (10-20); Calcium,Total 8.6 mg/dL (8.5-10.1); Chloride 107 mmol/L (98-107); Creatinine, Serum 0.69 mg/dL (0.70-1.30); EST Glomerular Filtration Rate 121 mL/min (>60); Est Glom Filt Rate - Afr Amer 147 mL/min (>60); Estimated Creatinine Clearance 101.15 ml/min; Glucose 107 mg/dL (74-106); Potassium 3.8 mmol/L (3.5-5.1); Sodium Level 138 mmol/L (136-145)
[2023-02-28 06:52] LABS: CPK Total, Creatine Kinase 643 U/L (39-308)
--- NOTE | 2023-02-28 08:49 | PCM.PN.HOSP ---
Reason for Visit Reason for Visit: Diagnoses Other symptoms and signs involving cognitive functions and awareness (02/27/23) Follow-up for seizure and severe left shoulder pain. Objective Data Objective Data Vital Signs: Vital Signs Temp Pulse Resp BP Pulse Ox O2 Del Method O2 Flow Rate 97.6 F L 51 L 13 121/74 H 93 Room Air 10 02/28/23 03:30 02/28/23 04:45 02/28/23 04:45 02/28/23 03:30 02/28/23 07:22 02/28/23 07:22 02/28/23 03:33 FiO2 21 02/28/23 04:45 Oxygen Flow Rate (L/min) 10 Oxygen Delivery Method Room Air Weight: 147 lb 11.355 oz Body Mass Index (BMI) 22.4 Intake & Output: Intake and Output for Last 24 Hours 02/26/23 02/27/23 02/28/23 23:59 23:59 23:59 Intake Total 2747.50 / 3067.50 440 / 440 Output Total 2800 / 3150 750 / 750 Balance -52.50 / -82.50 -310 / -310 Lab / Micro Data Result Diagrams: 02/28/23 05:30 02/28/23 05:30 Labs: Laboratory Results - last 24 hr 02/27/23 05:30: Hemoglobin A1c 5.3 02/27/23 05:30: Phosphorus 3.0 02/28/23 05:30: WBC 6.9, RBC 4.48 L, Hgb 15.5, Hct 43.5, MCV 97.1 H, MCH 34.6 H, MCHC 35.6, RDW Std Deviation 46.0 H, RDW Coeff of Jennifer 12.9, Plt Count 145 L, MPV 8.9, Immature Gran % (Auto) 0.000, Neut % (Auto) 70.3 H, Lymph % (Auto) 20.5, [place] % (Auto) 6.6, Eos % (Auto) 2.2, Baso % (Auto) 0.4, Absolute Neuts (auto) 4.9, Absolute Lymphs (auto) 1.42, Nucleated RBC % 0 02/28/23 05:30: Sodium 138, Potassium 3.8, Chloride 107, Carbon Dioxide 27.0, Anion Gap 4 L, BUN 7, Creatinine 0.69 L, Estim Creat Clear Calc 101.15, Est GFR (MDRD) Af Amer 147, Est GFR (MDRD) Non-Af 121, BUN/Creatinine Ratio 10.1, Glucose 107 H, Calcium 8.6 02/28/23 05:30: Total Creatine Kinase 643 H Radiography Diagnostic Testing: Radiology Impression Brain MRI 02/27/23 02:32 IMPRESSION: No acute intracranial abnormality. 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 Electronically Signed: Adryan Valentin MD at 14:30 EDT , Physical Exam Narrative Seen and examined. Patient did not have any seizure. Still complaining of severe left shoulder pain not able to active or passive movement. CT of left shoulder ordered. History of 2 rotator cuff surgery on the right and 1 on the left. Complain of left shoulder pain, not told to raise it. Physical exam General: Alert, Oriented x3, Cooperative HEENT: Atraumatic, PERRLA, EOMI, Normocephalic Oral: Oral mucosa moist. No Gingival or Mucosal Lesions/ Ulcerations Neck: Supple, No JVD, Negative Carotid Bruits Lungs: Air entry diminished in bilateral lung bases. No crepitation/rhonchi Cardiovascular: Regular rate, Regular Rhythm, Normal S1, Normal S2, No murmurs Abdomen: Bowel Sounds Present, Soft, Non Tender, Non-Distended : Urine output adequate. Clear color. Denies burning micturition. No renal angle tenderness. No suprapubic tenderness. Extremities: No edema, Capillary Refill Less than 3 Seconds Skin: No rashes, No breakdown Musculoskeletal: Tenderness over over upper humerus around surgical neck shoulder joint. ROM very painful and therefore not attempted. Right shoulder status post rotator cuff repair. No Tenderness to Palpation of Joints of lower extremities. Muscle strength lower extremity 5/5 at knee and hip joints. Neurological: Cranial nerves II-XII grossly intact, DTR 2+/4 and Symmetrical, Neuro grossly intact Psych/Mental Status: Normal Affect, Appropriate. Assessment & Plan Assessment/Plan (1) Unresponsive episode: PLAN: Plan The patient is a 67 y/o M was brought by EMS for episode of unresponsiveness after tightening up of the body. Patient in and out of responsiveness as per EMS. Patient denies any prior history of seizure/epilepsy confirmed 2 or 3 times. On day of admission, he went to bed after taking shower and then after putting CPAP. Episode of unresponsiveness. As per EMS they also on saw tightening of the body and abnormal involuntary movement but not complete grand total seizure. The episode lasted not more than 30 seconds. #1. Unresponsive episode, most likely partial complex seizure: Patient is admitted in PCU. EEG done and reported abnormal study that reflects presence of diffuse degree of electrocortical dysfunction. There are sharp activity predominantly initiating left posterior temporal region followed by brief period of high voltage frontal sharp activity. 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 No obvious cause was found. 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 U tox was positive for opioids otherwise negative. Patient not on opioid medications at home. Discussed with [facility] neurologist. Patient denies any prior history of seizures but states that he had similar seizure-like episode. With EEG finding, [facility] neurologist and I agreed for starting on low-dose Keppra 250 mg twice daily so that patient can tolerate. . Repeat MRI brain with IV contrast and EEG tomorrow AM 02/28: MRI brain with contrast pending. Repeat EEG on 02/28 reported episode of left sharp burst of fibs over left frontotemporal predominance. This might be potential focus of epilepsy. Overall clinically it seems patient had seizure. Patient sees Dr. Mcdonough. As per his last note in January 2023 patient had episode of unresponsiveness after snorting during sleep. Episode resolved within 30 minutes. No abnormal movements were noted then. At that time, anticonvulsant therapy was not warranted. EEG from January 2022 was normal. Patient tolerated to 50 mg Keppra twice daily they have increased to 500 mg twice daily. 2. Transient EKG changes: Twelve-lead EKG sinus rhythm [address] changes inferior to 3 and aVF and V4 to V6. Old septal infarct. TSH normal. Serial troponin enzymes in normal range. Fasting profile shows LDL 68 HDL 68. Patient also had prolonged fasting of 4 days only on water that he normally does once in a year. CK elevated 862. AST 51. Serum phosphorus ordered. Continue IV fluid normal saline. Repeat twelve-lead EKG done and shows normal sinus rhythm with resolution of ST depression in inferior leads. ACS or non-STEMI ruled out. Patient does not have chest pain. 02/28: Patient had elevated CK. Continue IV fluid normal saline with KCl. Serum phosphorous 3.0. #2. Intractable left shoulder pain, due to left posterior superior dislocation and avulsion fracture of scapula: Plain film of the left shoulder with no acute findings with degenerative changes, most likely due to aggressive manual work. 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 Had 2 times right shoulder rotator cuff repair and one-time left shoulder rotator cuff. Pain controlled. PT and OT. Patient on lidocaine patch, low-dose gabapentin and as needed tizanidine 02/28: Patient is still in severe pain despite pain medications. Started on Robaxin. CT of left shoulder was done which shows posterior superior dislocation of glenohumeral joint with displaced fracture of inferior aspect of glenoid. Soft tissue swelling. Orthopedic surgeon Dr. Black Brothers was consulted as Dr. Shelley not on-call. Probably will take the patient for close reduction tomorrow AM. #3. Hyperglycemia, unclear etiology with mild anion gap elevation but suspect likely associated with fasting with ketosis: Glucose upon presentation 137, anion gap 17 most likely due to high anion gap metabolic acidosis probably from fasting/ketosis. A1c 5.3%. Diabetes/prediabetes ruled out. #4. Hypokalemia: Admission K+ 3.2, Serum magnesium level normal. Mild hypokalemia is replaced and repeat normal. Repeat potassium 3.8. #5. Chronic asthma: Not on any chronic regimen, will have as needed albuterol. #6. BPH: continue patient on finasteride regimen. #7. 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 #8. OSITO: CPAP nightly, will have RT assess patient's home machine to assure appropriately functioning given malfunction can certainly contribute to his acute presentation #1. #9. DVT prophylaxis: We will continue patient home apixaban regimen. #10. CODE status: Full Code. Laboratory Results 02/27/23 05:30: Hemoglobin A1c 5.3 02/27/23 05:30: Phosphorus 3.0 02/28/23 05:30: WBC 6.9, RBC 4.48 L, Hgb 15.5, Hct 43.5, MCV 97.1 H, MCH 34.6 H, MCHC 35.6, RDW Std Deviation 46.0 H, RDW Coeff of Jennifer 12.9, Plt Count 145 L, MPV 8.9, Immature Gran % (Auto) 0.000, Neut % (Auto) 70.3 H, Lymph % (Auto) 20.5, Millard % (Auto) 6.6, Eos % (Auto) 2.2, Baso % (Auto) 0.4, Absolute Neuts (auto) 4.9, Absolute Lymphs (auto) 1.42, Nucleated RBC % 0 02/28/23 05:30: Sodium 138, Potassium 3.8, Chloride 107, Carbon Dioxide 27.0, Anion Gap 4 L, BUN 7, Creatinine 0.69 L, Estim Creat Clear Calc 101.15, Est GFR (MDRD) Af Amer 147, Est GFR (MDRD) Non-Af 121, BUN/Creatinine Ratio 10.1, Glucose 107 H, Calcium 8.6 02/28/23 05:30: Total Creatine Kinase 643 H Clinical Impression(s) from Imaging Studies Brain CT 02/27/23 00:00 IMPRESSION: Negative head/brain CT without intravenous contrast. Electronically Signed: Sergio Jamison MD at 0:28 EDT Reading Location ID and State: [facility] / [place] Tel , Service support , Shoulder X-Ray 02/27/23 00:00 IMPRESSION: 1. No acute abnormalities identified. 2. Degenerative changes of the acromioclavicular and glenohumeral joints. Electronically Signed: Sergio Jamison MD at 0:46 EDT , Chest X-Ray 02/27/23 00:06 IMPRESSION: No radiographic evidence of acute cardiopulmonary disease. Electronically Signed: Sergio Jamison MD at 0:45 EDT , Brain MRI 02/27/23 02:32 IMPRESSION: No acute intracranial abnormality. 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 Charges/Coding Addendum Addendum: Total time of the visit including total time spent in counseling or coordination of care, (more than 50% of the total time, spent in obtaining medical information from nurses and other ancillary care providers,explaining to the patient about labs, imaging, diagnosis and management of active complex medical conditions), discussion regarding MRI, EEG and CT scan of left shoulder to patient and his , orthopedic surgery consult, review of labs and imaging is 45 minutes. Visit Charges Inpatient E&M: 54447 Subs Hosp L3
--- NOTE | 2023-02-28 09:06 | CT_ITS ---
STUDY: CT LEFT SHOULDER REASON FOR EXAM: Male, 67 years old. Left shoulder severe pain, no trauma RADIATION DOSAGE (If Supplied By Facility): CTDIvol = ( 24.91 ) mGy, DLP = ( 642.82 ) mGycm TECHNIQUE: The patient was scanned in a multi detector CT scanner. High resolution transaxial imaging was performed without the administration of intravenous contrast material. Sagittal and coronal images were reconstructed. Individualized dose optimization techniques were used for this CT. COMPARISON: None. FINDINGS: There is evidence of a posterior and superior dislocation of the glenohumeral joint. There is evidence of an avulsion fracture of the inferior aspect of the glenoid with the posterior subluxation of the fracture fragment. Normal humeral head, neck and tuberosities. Normal coracoid process. Normal visualized lateral clavicle. There is mild osteoarthritis with articular joint space narrowing. There is a Type II morphology (curved), with a neutral orientation. Soft tissue swelling. CT/Extremity Upper without Contra IMPRESSION: Posterior-superior dislocation of the glenohumeral joint with displaced fracture of the inferior aspect of the glenoid. Soft tissue swelling. Electronically Signed: Peng Gomez MD at 10:18 EDT ,
[2023-02-28] MEDS: KCL 20MEQ in 0.9% NS 20 MEQ/1,000 ML IV.SOLN. 100 MEQ IV ×2 (12:31→21:47)
[2023-02-28] MEDS: Gabapentin 100 MG Capsule PO ×2 (12:32→17:27)
[2023-02-28] MEDS: levETIRAcetam 250 MG Tablet PO (12:34)
[2023-02-28] MEDS: APIXABAN 5 MG TABLET PO (12:34)
[2023-02-28] MEDS: Lidocaine 5% Patch 2 PATCH TOPICAL (12:35)
[2023-02-28] MEDS: Finasteride 5 MG Tablet PO (12:35)
[2023-02-28] MEDS: Methocarbamol 500 MG Tablet 1000 MG PO ×3 (12:35→21:50)
[2023-02-28] MEDS: Acetaminophen 325 MG Tablet 650 MG PO (15:02)
[2023-02-28] MEDS: oxyCODONE 5 MG Tablet PO (15:02)
[2023-02-28] MEDS: Potassium Chloride Oral Tablet 20 MEQ 40 MEQ PO (17:23)
[2023-02-28] MEDS: Pantoprazole Sodium 40 MG Tablet PO (17:23)
[2023-02-28] MEDS: Ibuprofen 400 MG Tablet PO ×2 (17:23→21:48)
--- NOTE | 2023-02-28 21:17 | CON.PCM_ITS ---
Assessment & Plan Assessment/Plan (1) Dislocation of left shoulder joint: PLAN: His diagnosis and treatment options regarding his left posterior shoulder dislocation likely related to seizure disorder discussed with him and his at length. Reduction is recommended. I explained I could not most likely give him adequate sedation and/or pain relief to do this at the bedside in his room. I did offer to take him to surgery tomorrow morning for closed reduction under general anesthetic with fluoroscopy availability. I explained there is no guarantee I will be able to obtain, and/or maintain a reduction. They understand I will not be performing any open procedure to obtain or maintain reduction. I explained we could refer him to a shoulder specialist that his preference either now or after our procedure tomorrow. Prolonged discussion and answering all of their questions patient and his have decided to proceed with attempted closed reduction in the operating room tomorrow under general anesthetic. Risk of surgery including but not limited to from operative or postoperative complications. Risk of anesthetic complications such as heart attacks, strokes, seizures, or . Risk of infections. Risk of damage to nerves arteries tendons. Risk of inadvertent fractures or dislocations. Risk of bone or wound healing complications. Possibility of nonunion malunion pain stiffness weakness. Possible need for further surgery such as hardware removal. Risk of DVT PE and other potential complications could lead to or disability explained. No guarantees were stated or implied. All of their q uestions were answered. Appropriate informed consent was obtained and signed for surgical intervention. Patient understands he may have underlying rotator cuff tear as well. He also understands there may be an adequate stability of the shoulder after reduction. Possible need for surgery to maintain shoulder reduction was explained. Possible need for rotator cuff repair. Also possibility of axillary nerve injury from his dislocation explained. Plan to proceed with closed reduction of the shoulder tomorrow morning under general anesthetic. Continue with arm sling,ice , pain medication in the meantime. The patient is currently on blood thinner. I explained I do not think this should interfere with a closed reduction procedure. HPI Consult Data Date of Consult: 02/28/23 HPI Narrative HPI Narrative: RADHA WOODARD, is a 67 M who presents with left shoulder pain. Reportedly patient had a syncopal episode and/or seizure on 2022. He was brought to the emergency room. He was admitted and ultimately felt he may have had a seizure. Patient states he had a similar episode 1 year ago. He was not diagnosed with a seizure episode after that. Patient did supposedly sustain a right shoulder injury and rotator cuff at that episode. He did have 2 right shoulder surgeries by Dr. Song. He has also had 1 shoulder surgery on the left by Dr. Song patient has had 10 out of 10 left shoulder pain. He had an x-ray today that was read as no dislocation. He did have a CAT scan that did show a posterior shoulder dislocation with a Hill-Sachs lesion and a fracture of his inferior glenoid. Patient's pain has been much better with sling and pain medication. Patient's pain currently 5 out of 10. I did perform his history and physical exam with his through the on speaker phone throughout. Patient admits to having a 4-day water fast prior to this episode [facility] Medical History Arthritis Asthma Chronic back pain CPAP (continuous positive airway pressure) dependence Disc disease, degenerative, lumbar or lumbosacral DVT (deep venous thrombosis) GERD (gastroesophageal reflux disease) High cholesterol History of deep venous thrombosis History of pulmonary embolus (PE) (2012) History of stress test Hx of blood clots Hypothyroidism Obstructive sleep apnea Sleep apnea Trigger finger Vitamin deficiency Home Medications apixaban 5 mg tablet (Eliquis) See Taper PO BID #34 tabs 10/02/21 [Rx Last Taken Unknown] finasteride 1 mg tablet (Propecia) 1 mg PO DAILY 07/29/22 [History Last Taken Unknown] Allergy/AdvReac Type Severity Reaction Status Date / Time iodine AdvReac Severe Hives Verified 02/26/23 23:30 Family History Father Myocardial infarction, Onset Age: 37 Heart disease Mental disorder Mother Myocardial infarction, Onset Age: 73 Heart disease Asthma Hypertension Surgical History H/O cardiac catheterization H/O thumb surgery History of herniorrhaphy History of hip replacement History of left heart catheterization (11/14/14) History of nasal septoplasty History of repair of rotator cuff History of shoulder surgery Social History household members: spouse Smoking Status: Unknown if ever smoked how long ago did patient quit smoking: Smoked ~ 6 months [age] years old, <1/2 ppd. second hand exposure: No alcohol intake: never substance use type: does not use what type of physical activity do you participate in: walking, bicycling and weight training seatbelt use: always ROS ROS Narrative Patient denies any recent changes to eyes ears nose or throat heart or lungs bowel or bladder. Patient states he has lost weight over the past few years with intermittent fasting. 1 previous syncopal episode. New onset left shoulder pain as above Physical Exam Narrative Patient has pain at the left shoulder. He has mild deformity with posterior fullness. He is very tender about the left shoulder. He does have subjective numbness at the deltoid of the left shoulder compared to the right. Seemingly normal sensation at the elbow wrist and fingers. He can gently move the wrist and fingers as well as elbow. Any left shoulder motion causes severe pain. Left shoulder could not be examined for strength. Right shoulder has good motion and strength and sensation. Left shoulder x-rays and CAT scan reviewed showing a posterior humeral joint dislocation with associated reverse Hill-Sachs lesion and inferior glenoid fracture. Images explained to patient and his Lab / Micro Data Result Diagrams: 02/28/23 05:30 02/28/23 05:30 Labs: Laboratory Results - last 24 hr 02/28/23 05:30: WBC 6.9, RBC 4.48 L, Hgb 15.5, Hct 43.5, MCV 97.1 H, MCH 34.6 H, MCHC 35.6, RDW Std Deviation 46.0 H, RDW Coeff of Jennifer 12.9, Plt Count 145 L, MPV 8.9, Immature Gran % (Auto) 0.000, Neut % (Auto) 70.3 H, Lymph % (Auto) 20.5, [place] % (Auto) 6.6, Eos % (Auto) 2.2, Baso % (Auto) 0.4, Absolute Neuts (auto) 4.9, Absolute Lymphs (auto) 1.42, Nucleated RBC % 0 02/28/23 05:30: Sodium 138, Potassium 3.8, Chloride 107, Carbon Dioxide 27.0, Anion Gap 4 L, BUN 7, Creatinine 0.69 L, Estim Creat Clear Calc 101.15, Est GFR (MDRD) Af Amer 147, Est GFR (MDRD) Non-Af 121, BUN/Creatinine Ratio 10.1, Glucose 107 H, Calcium 8.6 02/28/23 05:30: Total Creatine Kinase 643 H Radiology Impression Brain MRI 02/28/23 05:55 IMPRESSION: No abnormal enhancement identified. Electronically Signed: Jhoan Navarro MD at 16:26 EDT , Upper Extremity CT 02/28/23 09:06 IMPRESSION: Posterior-superior dislocation of the glenohumeral joint with displaced fracture of the inferior aspect of the glenoid. Soft tissue swelling. Electronically Signed: Peng Gomez MD at 10:18 EDT ,
[2023-02-28] MEDS: levETIRAcetam 500 MG Tablet PO (21:47)
[2023-02-28] MEDS: Senna/Docusate Sodium 1 Tablet 2 TABLET PO (21:48)
[2023-03-01] VITALS (8 sets, daily range): BP systolic 103–141; BP diastolic 61–85; PULSE 45–55; RESP 14–18; TEMP 35.9–36.8; O2SAT 96–100; BMI 22.4; BMI 23.2
[2023-03-01] MEDS: 0.9% Saline Lock 10 ML Syringe IV ×3 (02:34→15:14)
[2023-03-01] MEDS: Morphine 2 MG/ML Syringe IV ×3 (02:34→15:14)
[2023-03-01 04:00] LABS: Absolute Lymphocyte Count 1.49 X10^3/uL (0.83-4.51); Absolute Neutrophil Count 3.6 X10^3/uL (2.0-7.7); Basophil# 0.03 X10^3/uL; Basophil% 0.5 % (0-1); Eosinophil# 0.28 X10^3/uL; Eosinophils% 4.8 % (0-5); Hematocrit 40.8 % (40-54); Hemoglobin 14.3 g/dL (13.0-16.5); Lymphocyte # 1.49 X10^3/ul (0.83-4.51); Lymphocyte % 25.4 % (19-41); Mean Corpuscular Hgb 34.9 pg (27.0-32.0); Mean Corpuscular Volume 99.5 fL (80-94); Mean Platelet Vol. 8.9 fl (6.2-12.0); Monocyte# 0.44 X10^3/uL; Monocyte% 7.5 % (0-10); NRBC Flagged by Analyzer 0 % (0-5); Neutrophil % 61.5 % (47-70); Platelet Count 135 K/mm3 (150-450); RBC Distribution Width CV 12.9 % (11.6-14.6); RBC Distribution Width SD 47.4 fl (35.1-43.9); White Blood Count 5.9 K/mm3 (4.4-11.0)
[2023-03-01 04:55] LABS: Anion Gap 4 (5-15); BUN 12 mg/dL (7-18); BUN/Creat Ratio 20.4 RATIO (10-20); Calcium,Total 8.4 mg/dL (8.5-10.1); Chloride 113 mmol/L (98-107); Creatinine, Serum 0.59 mg/dL (0.70-1.30); EST Glomerular Filtration Rate 147 mL/min (>60); Est Glom Filt Rate - Afr Amer 178 mL/min (>60); Estimated Creatinine Clearance 118.29 ml/min; Glucose 112 mg/dL (74-106); Potassium 4.3 mmol/L (3.5-5.1); Sodium Level 142 mmol/L (136-145)
[2023-03-01 05:13] LABS: CPK Total, Creatine Kinase 273 U/L (39-308)
--- NOTE | 2023-03-01 05:55 | EKG12_ITS ---
Test Reason : AM EKG Blood Pressure : / mmHG Vent. Rate : 047 BPM Atrial Rate : 047 BPM P-R Int : 184 ms QRS Dur : 092 ms QT Int : 444 ms P-R-T Axes : 014 025 029 degrees QTc Int : 392 ms Sinus bradycardia Otherwise normal ECG When compared with ECG of 27-FEB-2023 13:32, Nonspecific T wave abnormality no longer evident in Lateral leads Confirmed by ANN-MARIE BETTS, AMEE ([id number]), editor managing director AUDI FRANCO ([id number]) on 03/04/2023 9:08:04 AM Referred By: Confirmed By:AMEE JACOBSEN MD
--- NOTE | 2023-03-01 07:54 | NURSING ---
report called to surgery present in room
--- NOTE | 2023-03-01 07:55 | RAD_ITS ---
STUDY: X-RAY - LEFT SHOULDER REASON FOR EXAM: Male, 67 years old. SHOULDER PAIN TECHNIQUE: 4 C-arm view(s) of the shoulder. 24.4 seconds fluoroscopy time COMPARISON: CT scan 02/28/2023. FINDINGS: These limited [id number] C-arm images, there appears to be satisfactory reduction of the previous dislocation. Currently, grossly satisfactory appearance of the Glenohumeral joint. Correlate with procedure note. Electronically Signed: Jonel Aparicio MD at 16:41 EDT , RAD/Shoulder min 2 Views IMPRESSION: undefined
[2023-03-01] MEDS: Lidocaine 1% (30 ml sdv) 30 ML Vial (08:11)
--- NOTE | 2023-03-01 08:48 | PCM.OP.BLANK ---
Problems Associated Problem List Diagnoses (1) Dislocation of left shoulder joint: Operative Report Date of Procedure: 03/01/23 Preoperative diagnosis: Left shoulder posterior dislocation with associated Hill-Sachs deformity, glenoid fracture, possible axillary nerve neuropraxia Postoperative diagnosis: Same Procedure: Closed reduction left shoulder dislocation, placement of UltraSling Surgeon: Dr. Black Brothers Anesthesia: MAC Sedation with local Anesthesia provider: Dr. 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 He was brought to the emergency room. He was ultimately diagnosed with a shoulder posterior dislocation with associated fractures. Patient and his were explained his diagnosis and treatment options. They understood there is no guarantee closed reduction would be a successful definitive procedure for his injury. Due to his shoulder pain and possible axillary nerve neuropraxia I did think closed reduction was warranted. Case had been discussed with Dr. Shea, who agreed. Patient and his understood I would not be doing open procedure or surgical repair or open reduction. Findings: Patient did have a posterior dislocation of the shoulder. I was able to successfully get a closed reduction. However it was noted shoulder was unstable with internal rotation across his body. Ultimately he was placed in a UltraSling with forward /slight external rotation of the humerus rather than internal rotation. Images at the end of the procedure with his UltraSling on showed anatomic reduction of the glenohumeral joint on AP and axillary view. Glenoid fracture fragment noted. Hill-Sachs lesion noted. Procedure: Patient was brought to the operating room. Appropriate timeouts performed. Left shoulder was prepped with sterilizing skin prep and alcohol. Patient has known Betadine allergy. He then underwent a local anesthetic at the left glenohumeral joint with 20 cc of 1% lidocaine plain under standard sterile technique. Patient was sedated throughout. He underwent reduction with attempted cross body abduction, internal rotation, forward elevation followed by external rotation. This was not successful. He then underwent reduction with traction countertraction method and with appropriate rotation I was able to get this reduced. However on rotating his arm across his abdomen it was noted to be unstable. Fracture was read reduced. Again with traction countertraction and manipulation at the site. Abduction pillow/UltraSling applied with arm pointing forward slight external rotation. Shoulder was now noted to be well reduced in the glenoid on both axillary view and AP view of the shoulder. Images saved. Clinically shoulder was reduced. He was transferred to his own bed and recovery room in satisfactory condition. Patient was very comfortable on awaking from his anesthetic. Patient's was explained again the inherent instability of this injury with glenoid fracture and reverse Hill-Sachs lesion as well as soft tissue injury associated with this. I explained most likely he will need surgical intervention by a shoulder specialist to stabilize his shoulder. I explained there is no one locally to perform such a complex procedure. I recommended he be seen by a shoulder patient centered care specialist. They understand they could care transfer to Dr. Nohemi Parker, his previous shoulder surgeon, or be referred to [facility] shoulder specialist. They understand if the shoulder does not stay located, read dislocates, I would not recommend repeated attempts at closed reduction. I would recommend transfer. They understand and agree with the treatment plan.
--- NOTE | 2023-03-01 10:02 | DCINST_ITS ---
Discharge Instructions Diet Discharge Diet: No restrictions Activity Discharge Activity: Return to Normal Activity and May Not Drive (Until cleared by neurologist.) Weight Bearing Status: Weight bearing as tolerated Dressing / Incision Call your doctor if you observe: Fever of 101 or Higher, Coldness, Increased Pain, Numbness or Tingling, Change in Color, Inability to urinate, Inability to have a bowel movement, Shortness of breath, Dizziness, Fainting spells, Swelling in the ankles, Chest pain, Prolonged hiccupping, Increased palpitations (irregular heartbeat) and Calf discomfort Follow Up Care When: IN 2 WEEKS Test Results: Test results from this visit will be discussed in further detail at your follow- up appointment, if applicable. Discharge Plan Admission Admit Date/Time: 02/27/23 01:28 Primary Reason for Your Visit: Unresponsiveness, seizure, right shoulder dislocation Attending Provider: Claudio Pena Primary Care Provider: Jhoan Pierre Consulting Providers: Dorene Saha ; Black Brothers Instructions Additional Instructions / Restrictions: Follow-up orthopedic surgeon Elena Song within 2 to 3 days sooner than possible. Discharge Orders/Prescriptions Prescriptions: New acetaminophen 325 mg Tablet 650 mg PO Q6H PRN PRN (Reason: Fever, pain 1-10) Qty: 0 0RF Rx Instructions: [id number] Tylenol methocarbamol 500 mg Tablet 1,000 mg PO 4X/DAY PRN (Reason: muscle spasm) Qty: 30 0RF oxycodone 5 mg Tablet 2.5 mg PO Q4H PRN PRN (Reason: Pain Score 4-10) 3 Days Qty: 10 0RF Rx Instructions: 2.5 mg for 4-6 and 7-10/10 levetiracetam 500 mg Tablet 500 mg PO BID 30 Days Qty: 60 2RF pantoprazole 40 mg Tablet,Delayed Release (Dr/Ec) 40 mg PO DAILY 30 Days Qty: 30 0RF Continued finasteride [Propecia] 1 mg tablet 1 mg PO DAILY Eliquis 5 mg Tablet See Taper PO BID Qty: 34 0RF Taper: Apixaban VTE Treatment 10 mg TWICE A DAY for 1 Day 5 mg TWICE A DAY for 30 Days Referrals / Follow Up: Jhoan Pierre MD [Primary Care Provider] - Within 2 Weeks Enmanuel Mcdonough MD [Non-Staff -Ordering Privileges] - Within 2 Weeks (For new onset seizure.) Disposition Disposition (needs filled in before D/C Order can be placed): Home, Self Care
--- NOTE | 2023-03-01 10:39 | CASEMGMT ---
RN CM NOTE RN APRIL informed has questions for CM. RN CM to room. Introduced self and role to pt and . inquiring about status and inquiring if pt is OBS or IN. and pt made aware pt is still OBS status, as he is not meeting criteria for IN-pt status at this time. They were made aware statuses are reviewed daily w/PA. Further questions answered and they voice understanding. They deny having further questions at this time. Pt had surgery this AM for closed reduction of shoulder. Pt and deny having any discharge planning needs at this time. states they plan to f/u w/[facility]. Remi CHACONN GEO CHEN
[2023-03-01] MEDS: Gabapentin 100 MG Capsule PO (10:49)
[2023-03-01] MEDS: Methocarbamol 500 MG Tablet 1000 MG PO ×2 (10:49→13:56)
[2023-03-01] MEDS: levETIRAcetam 500 MG Tablet PO (10:50)
[2023-03-01] MEDS: APIXABAN 5 MG TABLET PO (10:50)
[2023-03-01] MEDS: Potassium Chloride Oral Tablet 20 MEQ 40 MEQ PO (10:51)
[2023-03-01] MEDS: Pantoprazole Sodium 40 MG Tablet PO (10:51)
[2023-03-01] MEDS: Finasteride 5 MG Tablet PO (10:51)
[2023-03-01] MEDS: Senna/Docusate Sodium 1 Tablet 2 TABLET PO (10:52)
[2023-03-01] MEDS: Fluticasone 0.05% 1 SPRAY NASAL.SRY NASAL (10:53)
[2023-03-01] MEDS: Lidocaine 5% Patch 2 PATCH TOPICAL (10:54)
--- NOTE | 2023-03-01 11:11 | PCM.DC.SUM ---
Providers Date of Admission: 02/27/23 Date of Discharge: 03/01/23 Primary Care Physician: Dr. Jhoan Pierre MD Consultations 02/28/23 14:23 Consult: Orthopedics Routine Consulting Provider: Black Brothers Reason for Consult: left shoulder dislocation and avulsion fracture EMERGENT Consult: No MD Notified: Yes Date Notified: 02/28/23 Time Notified: 14:23 Method of Notification: Verbal Reason For Visit: UNRESPONSIVE EPISODE Diagnosis Discharge Diagnosis (1) Dislocation of left shoulder joint: Status: Acute Code(s): S43.005A - Unspecified dislocation of left shoulder joint, initial encounter Plan The patient is a 67 y/o M was brought by EMS for episode of unresponsiveness after tightening up of the body. Patient in and out of responsiveness as per EMS. Patient denies any prior history of seizure/epilepsy confirmed 2 or 3 times. On day of admission, he went to bed after taking shower and then after putting CPAP. Episode of unresponsiveness. As per EMS they also on saw tightening of the body and abnormal involuntary movement but not complete grand total seizure. The episode lasted not more than 30 seconds. #1. Unresponsive episode, most likely partial complex seizure: Patient is admitted in PCU. EEG done and reported abnormal study that reflects presence of diffuse degree of electrocortical dysfunction. There are sharp activity predominantly initiating left posterior temporal region followed by brief period of high voltage frontal sharp activity. 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 No obvious cause was found. 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 U tox was positive for opioids otherwise negative. Patient not on opioid medications at home. Discussed with [facility] neurologist. Patient denies any prior history of seizures but states that he had similar seizure-like episode. With EEG finding, [facility] neurologist and I agreed for starting on low-dose Keppra 250 mg twice daily so that patient can tolerate. . Repeat MRI brain with IV contrast and EEG tomorrow AM 02/28: MRI brain with contrast pending. Repeat EEG on 02/28 reported episode of left sharp burst of fibs over left frontotemporal predominance. This might be potential focus of epilepsy. Overall clinically it seems patient had seizure. Patient sees Dr. Mcdonough. As per his last note in January 2023 patient had episode of unresponsiveness after snorting during sleep. Episode resolved within 30 minutes. No abnormal movements were noted then. At that time, anticonvulsant therapy was not warranted. EEG from January 2022 was normal. Patient tolerated 250 mg Keppra twice daily they have increased to 500 mg twice daily. 03/01: Repeat MRI brain with contrast was done which shows no abnormal enhancement. Rest as mentioned above. No acute seizure. Patient is discharged on 500 mg Keppra twice daily and follow-up with Dr. Mcdonough with no driving as per [place] [employer] law until cleared by neurologist. Prescription for Keppra was given. 2. Transient EKG changes: Twelve-lead EKG sinus rhythm [address] changes inferior to 3 and aVF and V4 to V6. Old septal infarct. TSH normal. Serial troponin enzymes in normal range. Fasting profile shows LDL 68 HDL 68. Patient also had prolonged fasting of 4 days only on water that he normally does once in a year. CK elevated 862. AST 51. Serum phosphorus ordered. Continue IV fluid normal saline. Repeat twelve-lead EKG done and shows normal sinus rhythm with resolution of ST depression in inferior leads. ACS or non-STEMI ruled out. Patient does not have chest pain. 02/28: Patient had elevated CK. Continue IV fluid normal saline with KCl. Serum phosphorous 3.0. #2. Intractable left shoulder pain, due to left posterior superior dislocation and avulsion fracture of scapula: Plain film of the left shoulder with no acute findings with degenerative changes, most likely due to aggressive manual work. 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 Had 2 times right shoulder rotator cuff repair and one-time left shoulder rotator cuff. Pain controlled. PT and OT. Patient on lidocaine patch, low-dose gabapentin and as needed tizanidine 02/28: Patient is still in severe pain despite pain medications. Started on Robaxin. CT of left shoulder was done which shows posterior superior dislocation of glenohumeral joint with displaced fracture of inferior aspect of glenoid. Soft tissue swelling. Orthopedic surgeon Dr. Black Brothers was consulted as Dr. Shelley not on-call. Probably will take the patient for close reduction tomorrow AM. 03/01: Orthopedic surgeon Dr. Black Brothers did closed reduction of left shoulder dislocation and placement of UltraSling under MAC sedation with local. He was strictly instructed by Dr. Brothers, myself and nursing staff to keep the left elbow and hand pointing forward/anteriorly. Do not keep left upper extremity internally rotated to chest wall as it might cause dislocation of left shoulder. He also has a small glenoid fracture possible axillary nerve neuropraxia and Hill-Sachs deformity as mentioned by Dr. Black Brothers. Advised to follow-up on orthopedic surgeon Dr. Andrew Song on 03/03/2023Friday. Prescription for oxycodone 2.5 to 5 mg q. 4 hourly as needed for moderate to severe pain respectively total 10 tablets given. OARRS was checked. Prescription for Protonix and methocarbamol were also given. Repeat CK normal. #3. Hyperglycemia, unclear etiology with mild anion gap elevation but suspect likely associated with fasting with ketosis: Glucose upon presentation 137, anion gap 17 most likely due to high anion gap metabolic acidosis probably from fasting/ketosis. A1c 5.3%. Diabetes/prediabetes ruled out. #4. Hypokalemia: Admission K+ 3.2, Serum magnesium level normal. Mild hypokalemia is replaced and repeat normal. Repeat potassium 3.8. 03/01 repeat potassium 4.3. #5. Chronic asthma: Not on any chronic regimen, will have as needed albuterol. #6. BPH: continue patient on finasteride regimen. #7. 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 #8. OSTIO: CPAP nightly, will have RT assess patient's home machine to assure appropriately functioning given malfunction can certainly contribute to his acute presentation #1. #9. DVT prophylaxis: We will continue patient home apixaban regimen. #10. CODE status: Full Code. Discharge medication reconciliation done. Discharge follow-up instructions completed. Discharge process discussed with the patient and all questions were answered to patient's satisfaction. Discharge medications instructions and follow-up were discussed in detail with the patient, his near the bedside and the nursing staff. Total time spent, exact 35 minutes on discharge meds reconciliation, examination, coordination of care with nurses and ancillary staff, review of imaging and blood test and discussion with the patient on follow-up instructions. Clinical Impression(s) from Imaging Studies Brain CT 02/27/23 00:00 IMPRESSION: Negative head/brain CT without intravenous contrast. Electronically Signed: Sergio Jamison MD at 0:28 EDT , Shoulder X-Ray 02/27/23 00:00 IMPRESSION: 1. No acute abnormalities identified. 2. Degenerative changes of the acromioclavicular and glenohumeral joints. Electronically Signed: Sergio Jamison MD at 0:46 EDT , Chest X-Ray 02/27/23 00:06 IMPRESSION: No radiographic evidence of acute cardiopulmonary disease. Electronically Signed: Sergio Jamison MD at 0:45 EDT , Brain MRI 02/27/23 02:32 IMPRESSION: No acute intracranial abnormality. 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 Medications at Discharge Home Medications apixaban 5 mg tablet (Eliquis) See Taper PO BID #34 tabs 10/02/21 finasteride 1 mg tablet (Propecia) 1 mg PO DAILY 07/29/22 acetaminophen 325 mg tablet 650 mg PO Q6H PRN PRN Fever, pain 1-10/10 #0 tabs 03/01/23 levetiracetam 500 mg tablet 500 mg PO BID 30 days #60 tabs 03/01/23 methocarbamol 500 mg tablet 1,000 mg PO 4X/DAY PRN muscle spasm #30 tabs 03/01/23 oxycodone 5 mg tablet 2.5 mg PO Q4H PRN PRN Pain Score 4-10 3 days #10 tabs 03/01/23 pantoprazole 40 mg tablet,delayed release 40 mg PO DAILY 30 days #30 tabs 03/01/23 Physical Exam Narrative Seen and examined. Patient did not have new seizure. Patient had closed reduction of left shoulder under anesthesia in OR today in the morning. Left shoulder in sling. History of 2 rotator cuff surgery on the right and 1 on the left. Complain of left shoulder pain, not told to raise it. Physical exam General: Alert, Oriented x3, Cooperative HEENT: Atraumatic, PERRLA, EOMI, Normocephalic Oral: Oral mucosa moist. No Gingival or Mucosal Lesions/ Ulcerations Neck: Supple, No JVD, Negative Carotid Bruits Lungs: Air entry diminished in bilateral lung bases. No crepitation/rhonchi Cardiovascular: Regular rate, Regular Rhythm, Normal S1, Normal S2, No murmurs Abdomen: Bowel Sounds Present, Soft, Non Tender, Non-Distended : Urine output adequate. Denies burning micturition. No renal angle tenderness. No suprapubic tenderness. Extremities: No edema, Capillary Refill Less than 3 Seconds Skin: No rashes, No breakdown Musculoskeletal: Left shoulder under sling and swath. Right shoulder status post rotator cuff repair. No Tenderness to Palpation of Joints of lower extremities. Muscle strength lower extremity 5/5 at knee and hip joints. Neurological: Cranial nerves II-XII grossly intact, DTR 2+/4 and Symmetrical, Neuro grossly intact Psych/Mental Status: Normal Affect, Appropriate. Weight / BMI Weight Weight: 153 lb 0.013 oz Body Mass Index (BMI) 23.2 ABG / Lab / Microbiology Data Result Diagrams: 03/01/23 03:28 03/01/23 03:28 Laboratory: Laboratory Results - last 24 hr 03/01/23 03:28: WBC 5.9, RBC 4.10 L, Hgb 14.3, Hct 40.8, MCV 99.5 H, MCH 34.9 H, MCHC 35.0, RDW Std Deviation 47.4 H, RDW Coeff of [place] 12.9, Plt Count 135 L, MPV 8.9, Immature Gran % (Auto) 0.300, Neut % (Auto) 61.5, Lymph % (Auto) 25.4, [place] % (Auto) 7.5, Eos % (Auto) 4.8, Baso % (Auto) 0.5, Absolute Neuts (auto) 3.6, Absolute Lymphs (auto) 1.49, Nucleated RBC % 0 03/01/23 03:28: Sodium 142, Potassium 4.3, Chloride 113 H, Carbon Dioxide 25.0, Anion Gap 4 L, BUN 12, Creatinine 0.59 L, Estim Creat Clear Calc 118.29, Est GFR (MDRD) Af Amer 178, Est GFR (MDRD) Non-Af 147, BUN/Creatinine Ratio 20.4 H, Glucose 112 H, Calcium 8.4 L 03/01/23 03:28: Total Creatine Kinase 273 Radiography Diagnostic Testing: Radiology Impression Brain MRI 02/28/23 05:55 IMPRESSION: No abnormal enhancement identified. Electronically Signed: Jhoan Navarro MD at 16:26 EDT , D/C Instructions Discharge Diet: No restrictions Weight Bearing Status: Weight bearing as tolerated Call your doctor if you observe: Fever of 101 or Higher, Coldness, Increased Pain, Numbness or Tingling, Change in Color, Inability to urinate, Inability to have a bowel movement, Shortness of breath, Dizziness, Fainting spells, Swelling in the ankles, Chest pain, Prolonged hiccupping, Increased palpitations (irregular heartbeat) and Calf discomfort When: IN 2 WEEKS Meaningful Use Info Meaningful Use Diagnoses (Choose all that apply): None applicable Discharge Plan Admission Admit Date/Time: 02/27/23 01:28 Primary Reason for Your Visit: Unresponsiveness, seizure, right shoulder dislocation Attending Provider: Claudio Pena Primary Care Provider: Jhoan Pierre Consulting Providers: Dorene Saha ; Black Brothers Instructions Additional Instructions / Restrictions: Follow-up orthopedic surgeon Elena Song within 2 to 3 days sooner than possible. Discharge Orders/Prescriptions Prescriptions: New acetaminophen 325 mg Tablet 650 mg PO Q6H PRN PRN (Reason: Fever, pain 1-10/10) Qty: 0 0RF Rx Instructions: [id number] Tylenol methocarbamol 500 mg Tablet 1,000 mg PO 4X/DAY PRN (Reason: muscle spasm) Qty: 30 0RF oxycodone 5 mg Tablet 2.5 mg PO Q4H PRN PRN (Reason: Pain Score 4-10) 3 Days Qty: 10 0RF Rx Instructions: 2.5 mg for 4-6 and 7-10/10 levetiracetam 500 mg Tablet 500 mg PO BID 30 Days Qty: 60 2RF pantoprazole 40 mg Tablet,Delayed Release (Dr/Ec) 40 mg PO DAILY 30 Days Qty: 30 0RF Continued finasteride [Propecia] 1 mg tablet 1 mg PO DAILY Eliquis 5 mg Tablet See Taper PO BID Qty: 34 0RF Taper: Apixaban VTE Treatment 10 mg TWICE A DAY for 1 Day 5 mg TWICE A DAY for 30 Days Referrals / Follow Up: Jhoan Pierre MD [Primary Care Provider] - Within 2 Weeks Enmanuel Mcdonough MD [Non-Staff -Ordering Privileges] - Within 2 Weeks (For new onset seizure.) Disposition Disposition (needs filled in before D/C Order can be placed): Home, Self Care Charges/Coding Visit Charges Inpatient E&M: 24066 Disch Hosp >30min
== END 2023-03-01 11:10 | disposition home or self-care (01) ==
LOC: ED 02-27 01:06 → PCU 02-27 01:30
PROVIDERS: Orthopaedic Surgery; Admitting Provider Family Medicine; Emergency Provider Emergency Medicine; PCP Family Medicine; Visit Provider Internal Medicine
PROC: (CPT 23700; principal; 2023-03-01 07:55)
DX: R41.82 Altered mental status, unspecified (principal); G40.89 Other seizures; E87.6 Hypokalemia; E78.00 Pure hypercholesterolemia, unspecified; Z87.891 Personal history of nicotine dependence; Z79.01 Long term (current) use of anticoagulants; R94.31 Abnormal electrocardiogram [ECG] [EKG]; Z86.718 Personal history of other venous thrombosis and embolism; Z86.711 Personal history of pulmonary embolism; G47.33 Obstructive sleep apnea (adult) (pediatric); J45.909 Unspecified asthma, uncomplicated; N40.0 Benign prostatic hyperplasia without lower urinary tract symptoms; R73.9 Hyperglycemia, unspecified; Z79.899 Other long term (current) drug therapy; R94.01 Abnormal electroencephalogram [EEG]; R93.0 Abnormal findings on diagnostic imaging of skull and head, not elsewhere classified; S42.142A Displaced fracture of glenoid cavity of scapula, left shoulder, initial encounter for closed fracture; X58.XXXA Exposure to other specified factors, initial encounter
CPT/HCPCS: 23650; 36415; 70450; 70551; 70552; 71045; 73030; 73200; 76000; 80048; 80053; 80061; 80307; 81001; 82550; 83036; 83735; 84100; 84443; 84484; 85025; 93005; 94660; 94668; 95819; 96361; 96365; 96366; 96375; 96376; 97162; 97166; 99221; 99285; A9575; J7030; A4216; G0378; J2405

== ENCOUNTER 2023-06-27 06:50 | Emergency (ER) | payer MEDICARE, SELFPAY ==
[2023-06-27 06:52] VITALS: BP 145/68; PULSE 48; RESP 18; TEMP 36.4; O2SAT 99; BMI 24.9
--- NOTE | 2023-06-27 07:23 | CT_ITS ---
HISTORY: head injury. TECHNIQUE: Multiple axial images were obtained of the head without intravenous contrast. A radiation dose optimization technique was used for this scan. 239 images. COMPARISON: 02/27/2023. FINDINGS: BRAIN PARENCHYMA: Mild chronic small vessel ischemic gliosis. No acute intra-axial hemorrhage. CSF SPACES: Cerebral ventricles, cortical sulci, and other extra-axial CSF spaces within normal limits in size for age. No midline shift or other significant mass effect. No acute extra-axial hemorrhage. OTHER: Intact calvarium. No significant air fluid levels in the paranasal sinuses or mastoid air cells. Mild right periorbital contusion. Symmetric orbital contents. CT/Brain/Head without Contrast IMPRESSION: No acute intracranial process identified. Mild right periorbital contusion. Electronically Signed: Suzy Hernandez MD at 8:12 EDT ,
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
[2023-06-27] MEDS: Acetaminophen 325 MG Tablet 650 MG PO (07:34)
--- NOTE | 2023-06-27 07:50 | RAD_ITS ---
HISTORY: pain, trauma. TECHNIQUE: XR Ribs Unilateral W/ PA Chest Min 3 Views. COMPARISON: 02/27/2023. FINDINGS: CARDIOMEDIASTINAL BORDERS: Cardiac silhouette within normal limits in size. Mediastinal contour unremarkable. LUNGS: Radiographically clear. PLEURA: No pleural effusion or pneumothorax seen. OSSEOUS STRUCTURES: Nondisplaced right 10th and 11th rib fractures laterally, age indeterminate. RAD/Ribs Uni Min 3V w/PA Chest IMPRESSION: Age-indeterminate nondisplaced right 10th and 11th rib fractures. Electronically Signed: Suzy Hernandez MD at 8:18 EDT ,
[2023-06-27 08:50] VITALS: RESP 16
== END 2023-06-27 08:51 | disposition home or self-care (01) ==
PROVIDERS: Emergency Provider Emergency Medicine; PCP Family Medicine; Visit Provider Emergency Medicine
DX: S01.111A Laceration without foreign body of right eyelid and periocular area, initial encounter (principal); J43.9 Emphysema, unspecified; S20.211A Contusion of right front wall of thorax, initial encounter; W01.198A Fall on same level from slipping, tripping and stumbling with subsequent striking against other object, initial encounter; Z79.01 Long term (current) use of anticoagulants; S05.11XA Contusion of eyeball and orbital tissues, right eye, initial encounter; E78.00 Pure hypercholesterolemia, unspecified; E03.9 Hypothyroidism, unspecified; G47.33 Obstructive sleep apnea (adult) (pediatric); K21.9 Gastro-esophageal reflux disease without esophagitis; Z79.899 Other long term (current) drug therapy; Z87.891 Personal history of nicotine dependence
CPT/HCPCS: 70450; 71101; 99282

== ENCOUNTER 2023-07-09 14:00 | Outpatient (RCR) | payer MEDICARE, SELFPAY ==
--- NOTE | 2023-05-06 16:35 | HP.PTEVAL ---
Patient's Visit Information Visit Information Visit Information: RADHA WOODARD is a 67 year old M referred to Physical Therapy by ALEXSANDRA MONTES DE OCA with a diagnosis of R rot cuff tear, L scap fx. Date of Evaluation: 05/06/23 Physical Therapist: Sergio He, PT, ATC Visit Plan Frequency: 2-3x /Week Duration: 4-6 Weeks Plan: B shoulder rot cuff strengthening, scap stab ex's, UBE, and HEP Subjective Subjective: DOI: roughly 3 months ago. Pt reports he was working out side for about 10 hours. Pt reports he went inside, took a shower, and went to bed. Pt reports the next morning he awoke in the ER. Pt reports a fractured L scapula and a tear of the R rot cuff musculature. Pt reports he was having a seizure at the time. Pt reports when he woke up, his shoulders were in excruciating pain. Pt reports he was consulted by a surgeon who recommended reconstruction surgery. Pt requested to take a conservative approach, so he is here for rehab this date. Pt denies tingling or numbness at this time. Pt reports difficulty with getting to sleep some nights secondary to pain. Pt reports he has difficulty with all overhead lifting at this time. Pt is R hand dominant. Pt reports he is more sore today in the R shoulder than the left shoulder. Pain L shoulder pain: Pain Intensity (Out of 10): 0 Pain Intensity Range: 5 R shoulder pain: Pain Intensity (Out of 10): 0 Pain Intensity Range: 7 Objective Objective: Neuro: B UE sensation is WNL ROM: R shoulder flex= 160, abd= 160, ER= 50, IR= Moderate limitation; L shoulder flex= 155, abd= 160, ER= , IR= WNL MMT: R shoulder flex= 5, abd= 15, ER= 11, IR= 20; L shoulder flex= 7, abd= 12, ER= 3, IR= 14 #F Balance/Special Test Scores Quick DASH Score: 54.5450 Goals Goal 1:: Decrease B shoulder pain x 50% to aid with sleep Goal Time Frame: 4-6 Weeks Goal 2:: Increase B shoulder strength x 10#F in all planes to aid with IADL's Goal Time Frame: 4-6 Weeks Goal 3:: I with HEP Goal Time Frame: 4-6 Weeks Rehabilitation Potential Physical Therapy Diagnosis: Pt has B shoulder pain, weakness, and limited ROM secondary to R rot cuff tear and L scap fx Rehabilitation Potential: Good Anticipated Interventions Patient/Client Instruction: Educate patient on: Condition and Plan of Care For the Purpose of:: To improve self management Therapeutic Exercise to Include: Strength training, Flexibilty training, Active ROM and Scapular Strength/Stabilization For the Purpose of:: To decrease pain, To improve muscle performance and motor function and To increase tolerance to activity/condition/position Cryotherapy (ice pack, ice massage): Yes For the Purpose of:: To decrease pain Text: Thank you for the opportunity to evaluate your patient. For Medicare and Medicare HMO plans, please review the plan of care and approve it. It will need to be FAXED BACK to us at [phone] for Medicare purposes. For Medicare only, by signing this I certify the plan of care. Please let me know if there are questions or concerns regarding this plan of care. Physician Signature: Date:
--- NOTE | 2023-06-11 14:44 | HP.PTREVAL ---
Re-Evaluation Intro: ALEXSANDRA MONTES DE OCA, It has been my pleasure to treat RADHA WOODARD over the last 12 visits for R rot cuff tear, L scap fx. Please see the progress note below for an update on the physical therapy plan of care! Subjective Subjective: Pt reports no pain at rest this date Objective Objective/Function: B shoulder pain ranges from 0-2/10 MMT: R shoulder flex= 7, abd= 20, IR= 31, ER= 13 #F; L shoulder flex= 14, abd= 17, IR= 25, ER= 7 #F Pt is I with HEP Pt is progressing well at this time Plan Plan Plan: B shoulder rot cuff strengthening, scap stab ex's, UBE, and HEP Balance/Gait/Functional tests Balance/Special Test Scores Quick DASH Score: 54.5450 Goals Goals Goal 1:: Decrease B shoulder pain x 50% to aid with sleep Goal Time Frame: 4-6 Weeks Goal Progress: Progressing Goal 2:: Increase B shoulder strength x 10#F in all planes to aid with IADL's Goal Time Frame: 4-6 Weeks Goal Progress: Progressing Goal 3:: I with HEP Goal Time Frame: 4-6 Weeks Goal Progress: Progressing Anticipated Interventions Anticipated Interventions Patient/Client Instruction: Educate patient on: Condition and Plan of Care For the Purpose of:: To improve self management Therapeutic Exercise to Include: Strength training, Flexibilty training, Active ROM and Scapular Strength/Stabilization For the Purpose of:: To decrease pain, To improve muscle performance and motor function and To increase tolerance to activity/condition/position Cryotherapy (ice pack, ice massage): Yes For the Purpose of:: To decrease pain Re-Evaluation Ending Re-evaluation ending: Please do not hesitate to contact me at [phone] by phone or if you have questions or concerns regarding this new plan of care! Sincerely, Sergio He, PT, ATC
--- NOTE | 2023-08-12 13:17 | HP.PT.NRP ---
Patient Information Patient Information: RADHA WOODARD was seen in my office for initial evaluation on 05/06/23. The following Plan of Care was established for this patient: POC Established Initial Frequency: 2-3x /Week Initial Duration: 4-6 Weeks Anticipated Interventions Patient/Client Instruction: Educate patient on: Condition and Plan of Care For the Purpose of:: To improve self management Therapeutic Exercise to Include: Strength training, Flexibilty training, Active ROM and Scapular Strength/Stabilization For the Purpose of:: To decrease pain, To improve muscle performance and motor function and To increase tolerance to activity/condition/position Cryotherapy (ice pack, ice massage): Yes For the Purpose of:: To decrease pain Last Seen Last Seen: This patient was last seen in our office . Pertinent comments regarding their Physical therapy will appear below: Pt returned today with a new order and treatment will be transferred to another V# At this point I will be discontinuing this patient from physical therapy. I would be happy to see this patient again in the future if found appropriate by the physician. Thank you! Sergio He, PT, ATC Balance/Gait/Functional tests Balance/Special Test Scores Quick DASH Score: 54.5446
== END 2023-07-09 19:00 | disposition home or self-care (01) ==
LOC: PT 14:00
PROVIDERS: PCP Family Medicine
DX: S42.142D Displaced fracture of glenoid cavity of scapula, left shoulder, subsequent encounter for fracture with routine healing (principal); M75.121 Complete rotator cuff tear or rupture of right shoulder, not specified as traumatic
CPT/HCPCS: 97110; 97161; 97164; 97530

== ENCOUNTER → 2023-08-18 | Outpatient (CLI) | payer MEDICARE, SELFPAY ==
--- NOTE | 2023-08-18 11:56 | MRI_ITS ---
STUDY: MRI RIGHT FOOT REASON FOR EXAM: Male, 68 years old. Pain, evaluate for neuroma versus ganglion cyst. First interspace, second digit MTP joint. TECHNIQUE: Standardized fat and water weighted pulse sequences were obtained in all 3 orthogonal planes. COMPARISON: None. FINDINGS: There is a 5 mm cyst or erosion in the second metatarsal head, with adjacent marrow edema (coronal T2 series 7 image 9). Normal bone marrow of the remainder of the metatarsals, phalanges and visualized distal tarsal row, without fracture, periostitis, erosions or reactive bone edema. Normal sesamoids without sesamoiditis, fracture or avascular necrosis. Normal joint spaces, without effusions. There are no extraarticular fluid collections. Normal visualized Lisfranc joints and normal Lisfranc ligament. There is minimal first intermetatarsal space bursitis. There is no evidence of a Brennan''s neuroma. Normal visualized extensor digitorum longus, extensor hallucis longus, flexor digitorum brevis and flexor hallucis longus tendons. Normal visualized plantar fascia without fasciitis, fibromatosis or tear. Normal intrinsic muscles of the foot, without soft tissue masses or evidence of denervation atrophy. Normal dorsal and plantar subcutis adipose space. MRI/Lower Ext/No Jt/w/o IMPRESSION: 5 mm cyst or erosion in the second metatarsal head, with adjacent marrow edema. Minimal first intermetatarsal space bursitis. No MRI evidence of a neuroma or ganglion cyst. Electronically Signed: Eric Ramon MD at 10:22 EST ,
== END | disposition home or self-care (01) ==
LOC: MRI 11:52
PROVIDERS: PCP Family Medicine; Visit Provider Student in an Organized Health Care Education/Training Program
DX: M79.671 Pain in right foot (principal)
CPT/HCPCS: 73718

== ENCOUNTER → 2023-09-11 | Outpatient (CLI) | payer MEDICARE, SELFPAY ==
[2023-09-11 12:13] LABS: Absolute Lymphocyte Count 1.13 X10^3/uL (0.83-4.51); Absolute Neutrophil Count 2.2 X10^3/uL (2.0-7.7); Basophil# 0.04 X10^3/uL; Eosinophil# 0.12 X10^3/uL; Eosinophils% 3.1 % (0-5); Hematocrit 46.7 % (40-54); Lymphocyte # 1.13 X10^3/ul (0.83-4.51); Lymphocyte % 29.3 % (19-41); Mean Corp Hgb Conc 34.3 g/dL (32-36); Mean Corpuscular Hgb 34.2 pg (27.0-32.0); Mean Corpuscular Volume 99.8 fL (80-94); Mean Platelet Vol. 8.7 fl (6.2-12.0); Monocyte# 0.35 X10^3/uL; Monocyte% 9.1 % (0-10); NRBC Flagged by Analyzer 0 % (0-5); Neutrophil # 2.22 X10^3/uL (2.7-7.7); Neutrophil % 57.5 % (47-70); Platelet Count 168 K/mm3 (150-450); RBC Distribution Width CV 13.3 % (11.6-14.6); RBC Distribution Width SD 49.4 fl (35.1-43.9); Red Blood Count 4.68 M/mm3 (4.6-6.2); White Blood Count 3.9 K/mm3 (4.4-11.0)
[2023-09-11 12:36] LABS: ALB/GLOB Ratio 1.3 RATIO (0.9-2.4); AST(SGOT) 27 U/L (15-37); Alanine Aminotransfer ALT/SGPT 34 U/L (16-61); Albumin, Serum 4.1 g/dL (3.2-5.0); Alkaline Phosphatase 74 U/L (45-117); Anion Gap 6 (5-15); BUN 14 mg/dL (7-18); BUN/Creat Ratio 14.6 RATIO (10-20); Calcium,Total 8.9 mg/dL (8.5-10.1); Chloride 105 mmol/L (98-107); Cholesterol 214 mg/dL (200); Creatinine, Serum 0.96 mg/dL (0.70-1.30); EST Glomerular Filtration Rate 84 mL/min (>60); Est Glom Filt Rate - Afr Amer 101 mL/min (>60); Globulin 3.2 g/dL (2.2-4.2); Glucose 114 mg/dL (74-106); High Density Lipoprotein 57 mg/dL; Protein, Total 7.3 g/dL (6.4-8.2); Sodium Level 139 mmol/L (136-145); Triglycerides 119 mg/dL; Very Low Density Lipoprotein 24 mg/dL (5-40)
[2023-09-15 19:06] LABS: Lamotrigine (Lamictal) Level 2.1 ug/mL (2.0-20.0)
== END | disposition home or self-care (01) ==
LOC: MTLAB 10:01
PROVIDERS: Psychiatry & Neurology Neurology; PCP Nurse Practitioner Family; Referring Provider Nurse Practitioner Family; Visit Provider Nurse Practitioner Family
DX: I10 Essential (primary) hypertension (principal); E78.5 Hyperlipidemia, unspecified
CPT/HCPCS: 36415; 80053; 80061; 82140; 82542; 85025

== ENCOUNTER 2023-10-09 12:30 | Outpatient (RCR) | payer MEDICARE, SELFPAY ==
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
--- NOTE | 2023-09-10 16:10 | HP.PTREVAL ---
Re-Evaluation Intro: ALEXSANDRA MONTES DE OCA, It has been my pleasure to treat RADHA WOODARD over the last 9 visits for superior glenoid labrum tear and glenoid cav fx of scapula. Please see the progress note below for an update on the physical therapy plan of care! Subjective Subjective: Pt reports that he really likes what he is doing here in PT. Pt feels that he is stronger. He moreno no pain. He occ has a tender feeling. Objective Objective/Function: R shoulder flex 14.2 and L 16.5 R shoulder ABD 12 and L 15.7 R ER 8.3 and L 10.5 R IR 11.3 and L 16.6 Plan Plan Plan: 2X/ week for 3 more weeks to learn I set up with HEP then DC to Indep HEP. Exercises log has been written out and is in the protocol folder Balance/Gait/Functional tests Balance/Special Test Scores Quick DASH Score: 20.4525 Goals Goals Goal 1:: I HEP Goal Time Frame: 6-8 Weeks Goal Progress: Progressing Goal 2:: Increase L shoulder strength (at time of the eval: MMT R shoulder flex 14.2 and L 14.8 R shoulder ABD 12 and L 12.5 R ER 8.3 and L 9.3 R IR 11.3 and L 12.5) Goal Time Frame: 6-8 Weeks Goal Progress: Progressing Goal 3:: Sit with upright posture during treatment sessions Goal Time Frame: 6-8 Weeks Goal Progress: Progressing Anticipated Interventions Anticipated Interventions Patient/Client Instruction: Educate patient on: Condition and Plan of Care For the Purpose of:: To increase ROM, To improve nutrient delivery to tissue, To improve muscle performance and motor function, To improve ability to perform ADL's, To increase tolerance to activity/condition/position, To improve performance and independence with ADL's, To decrease level of supervision to perform tasks, To improve health of tissue and To increase flexibility/ROM Therapeutic Exercise to Include: Strength training, Postural training, Flexibilty training, Neuromotor development, Passive ROM, Active ROM and Scapular Strength/Stabilization For the Purpose of:: To increase ROM, To improve nutrient delivery to tissue, To improve muscle performance and motor function, To improve ability to perform ADL's, To increase tolerance to activity/condition/position, To improve performance and independence with ADL's, To improve health of tissue and To increase flexibility/ROM Manual Therapy Techniques to Include: Passive ROM For the Purpose of:: To increase ROM Re-Evaluation Ending Re-evaluation ending: Please do not hesitate to contact me at [phone] by phone or if you have questions or concerns regarding this new plan of care! Sincerely, Namrata Marion, MPT
--- NOTE | 2023-10-09 13:24 | HP.PTDCSUM ---
Discharge Summary D/C summary: It has been my pleasure to treat RADHA WOODARD referred by ALEXSANDRA MONTES DE OCA, with the diagnosis of superior glenoid labrum tear and glenoid cav fx of scapula for a total of 15 visit(s). Discharge Date: 10/09/23 Please see the following information for a summary of their discharge status. Subjective Subjective: Overall he feels pretty good. He has some difficulties with pushing with some force with arms up by head. He is having foot surgery on the . He feels good about coming in and doing his exercises. Pain L shoulder pain: Pain Intensity (Out of 10): 0 Overall Improvement % Improvement: 50 Objective Objective/Function: MMT R shoulder flex 14.2 and L 18.2 R shoulder ABD 14.5 and L 13.3 R ER 12.5 and L 14.7 R IR 16.7 and L 16.9 Issued exercise sheet for gym exercises and new orange band for HEP Goals Goal 1:: I HEP Goal Progress: Goal Met Goal 2:: Increase L shoulder strength (at time of the eval: MMT R shoulder flex 14.2 and L 14.8 R shoulder ABD 12 and L 12.5 R ER 8.3 and L 9.3 R IR 11.3 and L 12.5) Goal Progress: Goal Met Goal 3:: Sit with upright posture during treatment sessions Goal Progress: Goal Met Plan Plan: DC PT to HEP and I H&W program D/C Information Discharge Comments: DC PT to HEP d/c sentence: If there are questions or concerns regarding this patient's physical therapy, please feel free to call me at [phone]. Thank you for the referral of this patient. Sincerely, Namrata Marion, MPT Balance/Gait/Functional tests Balance/Special Test Scores Quick DASH Score: 9.0900 Improvement % Improvement: 50
== END 2023-10-09 19:00 | disposition home or self-care (01) ==
LOC: PT 12:30
PROVIDERS: PCP Family Medicine
DX: S42.145D Nondisplaced fracture of glenoid cavity of scapula, left shoulder, subsequent encounter for fracture with routine healing (principal); S43.432D Superior glenoid labrum lesion of left shoulder, subsequent encounter
CPT/HCPCS: 97110; 97161; 97530

== ENCOUNTER → 2023-10-20 | Outpatient (CLI) | payer MEDICARE, SELFPAY ==
[2023-10-20 12:21] LABS: Absolute Lymphocyte Count 1.31 X10^3/uL (0.83-4.51); Absolute Neutrophil Count 2.6 X10^3/uL (2.0-7.7); Basophil# 0.02 X10^3/uL; Basophil% 0.4 % (0-1); Eosinophil# 0.24 X10^3/uL; Eosinophils% 5.3 % (0-5); Hematocrit 44.7 % (40-54); Hemoglobin 14.8 g/dL (13.0-16.5); Lymphocyte # 1.31 X10^3/ul (0.83-4.51); Lymphocyte % 28.7 % (19-41); Mean Corp Hgb Conc 33.1 g/dL (32-36); Mean Corpuscular Hgb 33.3 pg (27.0-32.0); Mean Corpuscular Volume 100.7 fL (80-94); Mean Platelet Vol. 9.3 fl (6.2-12.0); Monocyte# 0.43 X10^3/uL; Monocyte% 9.4 % (0-10); NRBC Flagged by Analyzer 0 % (0-5); Neutrophil # 2.55 X10^3/uL (2.7-7.7); Platelet Count 169 K/mm3 (150-450); RBC Distribution Width CV 13.2 % (11.6-14.6); RBC Distribution Width SD 48.9 fl (35.1-43.9); Red Blood Count 4.44 M/mm3 (4.6-6.2); White Blood Count 4.6 K/mm3 (4.4-11.0)
[2023-10-20 13:34] LABS: ALB/GLOB Ratio 1.2 RATIO (0.9-2.4); AST(SGOT) 28 U/L (15-37); Alanine Aminotransfer ALT/SGPT 31 U/L (16-61); Albumin, Serum 3.8 g/dL (3.2-5.0); Alkaline Phosphatase 71 U/L (45-117); Anion Gap 3 (5-15); BUN 21 mg/dL (7-18); BUN/Creat Ratio 22.6 RATIO (10-20); Calcium,Total 9.8 mg/dL (8.5-10.1); Chloride 109 mmol/L (98-107); Creatinine, Serum 0.93 mg/dL (0.70-1.30); EST Glomerular Filtration Rate 86 mL/min (>60); Est Glom Filt Rate - Afr Amer 104 mL/min (>60); Globulin 3.2 g/dL (2.2-4.2); Glucose 115 mg/dL (74-106); Potassium 4.2 mmol/L (3.5-5.1); Sodium Level 141 mmol/L (136-145)
== END | disposition home or self-care (01) ==
LOC: BFHLAB 10:04
PROVIDERS: PCP Nurse Practitioner Family; Visit Provider Nurse Practitioner Family
DX: I10 Essential (primary) hypertension (principal)
CPT/HCPCS: 36415; 80053; 85025

== ENCOUNTER 2023-10-31 13:28 | Day surgery (SDC) | payer MEDICARE, SELFPAY ==
[2023-10-31] VITALS (7 sets, daily range): BP systolic 110–130; BP diastolic 67–72; PULSE 48–82; RESP 16; TEMP 36.2–36.4; O2SAT 96–100; BMI 24.7
--- OUTSIDE RECORDS SUMMARY | 2023-10-31 13:46 | XMS RPT_ITS | CCD ---
Author Name Unknown Address [address] [place] [address] Organization [facility] Results Test Name Value Interpretation Reference Range Facil ity Summary Purpose Family History No Family History Records Found Advance Directives No Advanced Directives Records Found Additional Source Comments (unrecognized sect ion and content) No Status Records Found INFORMATION SOURCE (unrecogn ized section and content) FOR RECORDS PERTAINING TO PATIENTS WHO ARE OR HAVE BEEN ENROLLED IN A CHEMICAL DEPENDENCY/SUBSTANCEABUSE PROGRAM, SOME INFORMATION MAY BE OMITTED. This clinical summary was aggregated from multiple sources. Caution should be exercised in using it in the provision of clinical care. This summary normalizes information from multiple sources, and as a consequence, information in this document may materially change the coding, format and clinical context of patient data. In addition, data may be omitted in some cases. CLINICAL DECISIONS SHOULD BE BASED ON THE PRIMARY CLINICAL RECORDS. [email or web address] provides no warranty or guarantee of the accuracy or completeness of information in this document.
[2023-10-31] MEDS: Lactated Ringers 1,000 ML 15 ML IV (14:05)
[2023-10-31] MEDS: Cefazolin 2 GM in 0.9% Normal Saline (100mL Bag) 100 ML IV (14:20)
--- NOTE | 2023-10-31 14:50 | RAD_ITS ---
INDICATION: PARTIAL EXCISION OF 2ND METATARSAL HEAD WITH SAUCERIZATION EXAMINATION/TECHNIQUE: X-RAY - RIGHT XR Foot 9 VIEWS COMPARISON: FINDINGS: Intraoperative images demonstrate surgery at the second metatarsal head cystic lesion . Bony details are limited. RAD/Foot 2 Views IMPRESSION: Intraoperative images for surgery at the second metatarsal head for a cystic nodule. Electronically Signed: Antonio Long DO at 19:43 EST ,
--- NOTE | 2023-10-31 15:46 | DCINST_ITS ---
Discharge Instructions Diet Discharge Diet: No restrictions Activity Discharge Activity: May Not Drive, May Shower (Please utilize cast bag covering when showering to keep dressings clean, dry, and intact to the right foot. Please remain seated on shower chair to remain nonweightbearing to the right foot when showering.) and Use Crutches (Please utilize crutches/walker/knee scooter to remain compliant with nonweightbearing status to right foot) Weight Bearing Status: No weight bearing (Please remain nonweightbearing to the right foot with the assistance of crutches, walker, knee scooter) Keep extremity elevated above heart level: Right Leg (Please elevate right foot at all times of rest for postoperative edema control) Dressing / Incision Call your doctor if you observe: Fever of 101 or Higher, Shortness of breath, Chest pain, Calf discomfort and Uncontrolled pain Change Dressing in: do not change dressing (Physician will change dressing at first postoperative appointment) Remove Dressing in: leave in place till F/U (Physician will change dressing at first postoperative appointment. Please keep dressing clean, dry, and intact) Cleanse incision/area with: Do not get Incision Wet and Keep Dressing Clean & Dry (Please keep dressing clean, dry, and intact to the right foot) Follow Up Care Please Follow Up With: Cristino Alfaro DPM When: Patient has first postoperative appointment with me in office early next week Test Results: Test results from this visit will be discussed in further detail at your follow- up appointment, if applicable. Discharge Plan Admission Attending Provider: Cristino Alfaro Primary Care Provider: Ermelinda Castanon Discharge Orders/Prescriptions Prescriptions: New doxycycline hyclate 100 mg capsule 100 mg PO DAILY Qty: 10 0RF oxycodone-acetaminophen 5-325 mg tablet 1 tab PO Q8H PRN (Reason: pain) 7 Days Qty: 28 0RF No Action finasteride [Propecia] 1 mg tablet 1 mg PO DAILY lamotrigine 25 mg tablet 50 mg PO BID Qty: 120 6RF acetaminophen 325 mg Tablet 650 mg PO Q6H PRN PRN (Reason: Fever, pain 1-07/22) Qty: 0 0RF Rx Instructions: [id number] Tylenol montelukast 10 mg tablet 10 mg PO DAILY Patient Comments: take 1 tablet by mouth once daily Eliquis 5 mg Tablet 5 mg PO BID Taper: Apixaban VTE Treatment 10 mg TWICE A DAY for 1 Day 5 mg TWICE A DAY for 30 Days Referrals / Follow Up: Ermelinda Castanon, [employer] [Primary Care Provider] - Disposition Disposition (needs filled in before D/C Order can be placed): Home, Self Care
[2023-10-31] MEDS: Lidocaine 1% (20 ml mdv) 20 ML Vial (16:40)
[2023-10-31] MEDS: Bupivacaine Mpf 0.5% 30 ML VIAL (16:40)
--- NOTE | 2023-10-31 18:21 | RAD_ITS ---
INDICATION: Postop 2nd met head bone cyst w/graft packing PACU EXAMINATION/TECHNIQUE: X-RAY - RIGHT XR Foot 3 VIEWS COMPARISON: FINDINGS: SOFT TISSUES: No soft tissue swelling or gas. No radiopaque foreign body. Calcification at the Achilles tendon insertion. BONES/JOINTS: No acute fracture or subluxation.. Normal alignment. Preservation of the joint space.. Postsurgical changes at the second metatarsal head. A splint is in place. RAD/Foot min 3 Views IMPRESSION: Postsurgical changes at the second metatarsal head with splint placement. Electronically Signed: Antonio Lnog DO at 18:40 EST Reading Location ID and State: [facility] / [place] Tel [phone], Service support ,
--- NOTE | 2023-10-31 18:42 | PCM.OPRPT ---
Problems Associated Problem List Diagnoses (1) Cyst of bone of right foot: (2) Capsulitis of toe of right foot: (3) Pain in right foot: Report of Operation Date of Procedure: 10/31/23 Pre-Operative Diagnosis: 1. Bone cyst/erosion second metatarsal head right foot 2. Capsulitis second MTPJ right foot 3. Pain right foot Post-Operative Diagnosis: 1. Bone cyst/erosion second metatarsal head right foot 2. Capsulitis second MTPJ right foot 3. Pain right foot Surgery/Procedure Performed:: 1. Partial excision with saucerization second metatarsal head right foot 2. Harvesting of bone graft right calcaneus/heel Description of Surgical Findings:: See operative note for findings Surgeon: Cristino Alfaro medical researcher: Myron Baxter DPM PGY-2 Type of Anesthesia: General and Local (20 cc one-to-one mixture 1% lidocaine plain and 0.5% Marcaine plain) Specimen's removed: None Drains: None Estimated Blood Loss (mL): < 2 mL Description of Procedure: HPI/indication: Patient is a 68-year-old male who with right foot pain presented to office stating a concrete field bucket struck his foot. He states the bucket was heavy and rolled off the front of the foot late October 2022. Radiographs at this time were negative for acute fracture. He states the orthotics and change in shoe gear did help improve pain however he still does have pain at times with certain steps or pushoff that he may perform. He did have corticosteroid injection to the site x 2 which did also improve pain. He did return in July 2023 stating the pain has returned. MRI was ordered at this time demonstrating a 5 mm cyst or erosion in the second metatarsal head, with adjacent marrow edema. No marrow of the remainder of the metatarsals, phalanges, and visualized distal tarsal row, without fracture, periostitis, erosions, or reactive bone edema. MRI results were discussed with him and discussed surgical intervention for curettage of the lesion with bone graft placement at the second metatarsal head of the right foot. He is in agreement with this as he does continue to have pain which affects his ability to work on his house and yard. He would also like to return to running for exercise. Due to the continued pain he would like to proceed forward with the surgical intervention. I discussed the procedure in great detail. Reviewed rationale with the patient in detail. Discussed all possible risk versus benefits of the procedure. Discussed the risks include but are not limited to the following: Pain, continued pain, complex regional pain syndrome, deformity, continued deformity, recurrence, overcorrection, under correction, numbness/neuritis, swelling, scarring, poor cosmetic result, bleeding, the need for further surgery/procedures, fracture, nonunion, delayed union, nonhealing/delayed healing, dehiscence, infection, blood clots, allergic reaction, transfer lesions, postoperative arthritis, weakness, shoe gear problems/irritation, inability to walk, inability to wear shoes, heart attack, stroke, addiction to pain medication, loss of function, loss of limb, loss of life. Patient was able to repeat these back and voiced understanding of these. Typical postoperative course was reviewed in detail. Patient expressed understanding and agreement with these. Consent forms were signed freely by patient. No guarantees were given. No promises were made. He was cleared for surgery by PCP. All diagnostic data was reviewed prior to surgery. Operative limb was signed prior to entering the OR. He was scheduled to undergo partial excision and saucerization of the second metatarsal head of the right foot with harvesting of bone graft from the right heel/calcaneus at [facility] on 10/31/2023. Procedure: Under mild sedation patient was brought to the operating placed on the table in the supine position. Patient was secured to table with safety belt. Warren bump was utilized to elevate the right lower extremity. Following induction of general anesthesia a local anesthetic block was performed about the right ankle consisting of 20 cc one-to-one mixture 1% lidocaine plain and 0.5% Marcaine plain. A pneumatic ankle tourniquet was placed about the patient's right ankle. The foot was then scrubbed, prepped, and draped in the usual aseptic manner. Next, utilizing fluoroscopic imaging all incision points were placed under guidance of fluoroscopy and site of bone harvesting was marked under fluoroscopy utilizing freer to confirm placement of bone harvest. An Esmarch bandage was utilized to exsanguinate the right foot and the pneumatic ankle tourniquet was inflated to 250 mmHg. At this time attention was directed to the dorsal aspect of the right foot overlying the second metatarsal where a linear incision was performed utilizing a #15 blade proximal to distal overlying the second metatarsal phalangeal joint. Incision was deepened through sharp and blunt dissection. Care was taken to identify all vital neurovascular structures and retract these and protected throughout the duration of this case. The EDL tendon was identified and retracted medially and protected throughout the duration of this case. Utilizing fluoroscopy the position of the bone cyst on the second metatarsal head was confirmed in the capsule of the second metatarsophalangeal joint was incised linearly and reflected medial and lateral exposing the head of the metatarsal at the operative field. The inner lining of the joint capsule was noted to be slightly red in color and inflamed with minimal capsule thickening. The second metatarsal head was inspected and noted to have healthy, shiny, glistening cartilage which was intact. At the lateral portion of the metatarsal head just proximal to the joint cartilage there was a notable soft portion of discolored bone consistent with cyst placement on MRI and fluoroscopy. This region of bone cyst and soft bone was sharply debrided via curettage to healthy bleeding bone. Remainder of the bone did feel hard with good coloration indicating viability. Next, a Small osteotome and mallet was utilized to perform a fish scaling of the site for acceptance of bone graft. Next, site was flushed with copious amounts of normal sterile saline. At this time attention was directed to the lateral aspect of the right heel where a stab incision was utilized at the previous marked site for harvesting of the bone graft. A Jamshidi needle was utilized to obtain a small sample of bone graft and then a curette was inserted into the heel and bone graft was harvested. The bone graft was then packed into the second metatarsal head at the site of defect. Next, blood was obtained from the right heel at the site of previous graft harvest site and mixed with 2.5 cc of arthrocell DBM graft. Utilizing the Arthrex cell graft the remainder of the defect was packed about the second metatarsal head. Site of bone graft harvesting was then flushed with copious amounts of normal sterile saline and the incision site was then closed with 3-0 Prolene in simple interrupted fashion. Next, the capsular tissues were closed utilizing 4-0 Vicryl. The deep tissues were closed utilizing 4-0 Vicryl. The subcutaneous tissues were then closed utilizing 4-0 Monocryl. And the skin was reapproximated utilizing 3-0 Prolene in simple interrupted fashion. The pneumatic ankle tourniquet was then deflated and a prompt hyperemic response was noted to the digits of the Right foot. The incision sites were then dressed utilizing Adaptic, 4 x 4 gauze, Kerlix, Webril cast padding, 4 inch Kervin wrapped, 6 inch Kervin wrap. A well molded posterior splint was then applied to the right lower extremity and anchored with a 4 inch and 6 inch Kervin wrap in a modified Terry compression fashion. The patient tolerated the procedure and anesthesia well and was transported to PACU with vital signs stable and vascular status intact to the right foot. He was given postoperative instructions to remain nonweightbearing to the right foot with the assistance of crutches/walker/knee scooter. He is to keep all dressings clean, dry, and intact to the right foot and utilize cast bag when showering while seated on shower chair. Will continue to elevate right foot at all times of rest for postoperative edema control. Patient has first postoperative appointment with me in office early next week. Grafts/Implants Used: Bone graft from Right Calcaneus; 1cc Arthrocell DBM Complications None Admit VTE Documentation VTE Present on Admission: Yes VTE Mechan Device Prophylaxis: SCD's VTE Pharm Prophylaxis ordered?: No Reason prophylaxis not ordered:: Procedure Not Indicated (Patient will resume prior Rx: Eliquis following surgery.)
== END 2023-10-31 19:28 | disposition home or self-care (01) ==
LOC: SDC 13:30 → AC 13:32
PROVIDERS: PCP Nurse Practitioner Family; Referring Provider Student in an Organized Health Care Education/Training Program; Visit Provider Student in an Organized Health Care Education/Training Program
PROC: (CPT 28122; principal; 2023-10-31 14:45)
DX: M85.671 Other cyst of bone, right ankle and foot (principal); E11.9 Type 2 diabetes mellitus without complications; M77.51 Other enthesopathy of right foot and ankle; M79.671 Pain in right foot; Z79.01 Long term (current) use of anticoagulants; Z79.899 Other long term (current) drug therapy; E78.5 Hyperlipidemia, unspecified; E03.9 Hypothyroidism, unspecified
CPT/HCPCS: 28122; 20900; 01480; 73620; 73630; 76000; J7120; J2405

== ENCOUNTER → 2024-01-28 | Outpatient (CLI) | payer MEDICARE, SELFPAY ==
[2024-01-28 16:21] LABS: Hemoglobin A1c 5.3 % (3.8-5.6)
[2024-01-28 16:26] LABS: Anion Gap 5 (5-15); BUN 20 mg/dL (7-18); BUN/Creat Ratio 21.9 RATIO (10-20); Calcium,Total 9.8 mg/dL (8.5-10.1); Chloride 106 mmol/L (98-107); Cholesterol 219 mg/dL (200); Creatinine, Serum 0.91 mg/dL (0.70-1.30); EST Glomerular Filtration Rate 88 mL/min (>60); Est Glom Filt Rate - Afr Amer 107 mL/min (>60); Glucose 121 mg/dL (74-106); High Density Lipoprotein 43 mg/dL; Potassium 4.2 mmol/L (3.5-5.1); Sodium Level 138 mmol/L (136-145); Triglycerides 232 mg/dL; Very Low Density Lipoprotein 46 mg/dL (5-40)
== END | disposition home or self-care (01) ==
LOC: LAB.FUTURE 13:46 → BFHLAB 13:47
PROVIDERS: PCP Nurse Practitioner Family; Referring Provider Nurse Practitioner Family; Visit Provider Nurse Practitioner Family
DX: E78.5 Hyperlipidemia, unspecified (principal); R53.83 Other fatigue; R73.01 Impaired fasting glucose
CPT/HCPCS: 36415; 80048; 80061; 83036

== ENCOUNTER 2024-02-01 06:54 | Emergency (ER) | payer MEDICARE, SELFPAY ==
[2024-02-01 06:54] VITALS: BP 130/80; PULSE 50; RESP 16; TEMP 36.2; O2SAT 98; BMI 23.8
--- NOTE | 2024-02-01 07:23 | EDS_ITS ---
HPI History of Present Illness Chief Complaint: Lower Extremity Injury Informant: patient and spouse/S.O. Narrative Narrative: 68-year-old male anticoagulated on Eliquis because of history of DVT/PE states that several days ago he worked his lower body at the gym for the first time in a long time. He woke up this morning and his legs are sore. He got a significant cramp in his right calf, and he states the pain was excruciating, feeling like a muscle cramp. Therefore without getting up out of bed, he had his knee in extension and he dorsiflexed his right foot with the muscles in his leg, not using his hand and assistance, and felt a painful pop in his mid calf immediately. He got up and was able to walk to the kitchen although it was sore and painful, and when he was there he noticed that there was an indentation in his calf where the pain was that is not there right now. [facility] Medical History Alcohol use Anxiety Arthritis Asthma Cardiology follow-up encounter CPAP (continuous positive airway pressure) dependence Depression Diabetes Dietary restriction Dislocation of left shoulder joint DVT (deep venous thrombosis) History of deep venous thrombosis History of pulmonary embolus (PE) (2012) History of stress test Hypothyroidism Leg cramps Loss of hearing Seizures TIA (transient ischemic attack) Trigger finger Wears contact lenses Wears glasses Home Medications finasteride 1 mg tablet (Propecia) 1 mg PO DAILY 07/29/22 [History Last Taken Unknown] acetaminophen 325 mg tablet 650 mg (2 x 325 mg) PO Q6H PRN PRN Fever, pain 1- 07/22 #0 tabs 03/01/23 [Rx Last Taken Unknown] lamotrigine 25 mg tablet 50 mg (2 x 25 mg) PO BID #120 tabs 08/04/23 [Rx Last T aken 10/31/23] apixaban 5 mg tablet (Eliquis) 5 mg PO BID 10/22/23 [History Last Taken 10/24/23] montelukast 10 mg tablet 10 mg PO DAILY 10/22/23 [History Last Taken Unknown] doxycycline hyclate 100 mg capsule 100 mg PO DAILY #10 caps 10/31/23 [Rx Last Taken Unknown] oxycodone-acetaminophen 5 mg-325 mg tablet 1 tab PO Q8H PRN pain 7 days #28 tabs 10/31/23 [Rx Last Taken Unknown] hydrocodone-acetaminophen 5-325mg 5mg-325mg 0.5 - 1 tab (0.5 - 1 x 5-325 mg) PO Q4H PRN PRN Pain 2 days #10 TABLETS 02/01/24 [Rx Last Taken Unknown] Allergy/AdvReac Type Severity Reaction Status Date / Time iodine AdvReac Severe Hives Verified 02/01/24 06:55 Family History Father Myocardial infarction, Onset Age: 37 Heart disease Mental disorder Mother Myocardial infarction, Onset Age: 73 Heart disease Asthma Hypertension Surgical History H/O cardiac catheterization H/O thumb surgery History of herniorrhaphy History of hip replacement History of nasal septoplasty History of repair of rotator cuff History of shoulder surgery Hx of arthroscopy of shoulder Hx of colonoscopy Hx of elbow surgery Social History household members: spouse Smoking Status: Never smoker how long ago did patient quit smoking: Smoked ~ 6 months 19-20 years old, <1/2 ppd. second hand exposure: No alcohol intake: never substance use type: does not use what type of physical activity do you participate in: walking, bicycling and weight training seatbelt use: always ROS ROS ED Constitutional Constitutional ED: Denies chills or fever(s) Musculoskeletal Musculoskeletal: Reports extremity pain; Denies neck pain Integumentary Denies Abrasions, rash or wounds Neurologic Neurologic: Denies paresthesias or weakness EXAM Physical Exam Const Vital Signs: 02/01/24 06:54 Temperature 97.1 F L Temperature Source Temporal Pulse Rate 50 L Respiratory Rate 16 Blood Pressure 130/80 H Blood Pressure Mean 96 Pulse Ox 98 Oxygen Delivery Method Room Air Positive well nourished and well developed General Appearance ED: well developed and NAD Neck full ROM and supple Back/Spine normal ROM and normal to inspection Extremity normal to inspection and full ROM Extremity Narrative: Point tender in 1 particular area mid calf at the most posterior aspect, approximately 10 cm from the popliteal fossa. Normal on inspection. No discoloration. No edema distally. All compartments soft and nondistended with no deformities or indentations, including with plantarflexion of the foot. Full range of motion of all of the joints of the right lower extremity without any discomfort. When in knee extension and gently forcibly dorsiflexing the foot, t here is a very slight increase in pain but nothing severe. Rider's test is normal and without pain. 2+ bounding dorsalis pedis pulse and brisk cap refill. Normal neurologic exam. No palpable cords in the calf. Neuro oriented x3, no focal motor deficits and no sensory deficits noted Sensorium / Orientation: alert Psych mental status grossly normal and thought process normal Mood & Affect: anxious Skin no wounds Rashes: no rashes MDM MDM MDM Narrative Medical decision making narrative: Patient does not have any signs of purpura or ecchymosis right now but he came right after this happened. I think this is all muscular. I do not think he needs an ultrasound for DVT, that is not consistent with a history and he is already anticoagulated. Patient goes on several tangents, so is wondering if I can tell him why he had a DVT years ago when he had COVID, as of the 1 that he had before that was 15 years prior. Wants to know if he is truly supposed to be on anticoagulation. He states he was told that his blood clot was may be related to his stroke that he had at some point in the past. I advised him that my suspicion was that his most recent DVT was related to COVID since it increases clotting, and I wouldn't be able to advise him on how long he should be anticoagulated. Patient states that the painful pop in his leg today felt like something broke. I advised him that he is not tender along the tibia or the fibula and so I do not think this is a bony issue but he and significant other are really pressing for x-rays so I obtained 2 view x-ray of the right tibia/fibula, and on my interpretation this confirms that there is no acute bony issue. At this time I recommend supportive care along with ice for the first 3 days, then if he does not see any ecchymosis or purpura to suggest a muscle or tendon tear/rupture, I think applying heat to help things loosen up would be reasonable. He would occasionally have spasms of pain here and he was offered a tramadol which he has never had before and he was okay with trying that and Tylenol. He has a sex worker or escort that did surgery on his foot and ankle a couple months ago and he wants to follow-up with him which I think is reasonable, worst case scenario they refer him on to orthopedics, but they may be able to help him if he has persistent issues in which case possibly an MRI of the calf muscle may be indicated. Of note, patient has had no new prescriptions recently such as antibiotics or steroids to potentially put him at risk for a tendon rupture. Discharge Plan Triage Chief Complaint: Lower Extremity Injury ED Provider: Philip Toscano Dx/Rx/DC Orders Clinical Impression: Strain of right gastrocnemius muscle or tendon Instructions: Self-Care for Strains and Sprains Prescriptions: New hydrocodone-acetaminophen [hydrocodone-acetaminophen] 5-325 mg tablet 0.5 - 1 tab PO Q4H PRN PRN (Reason: Pain) 2 Days Qty: 10 0RF No Action finasteride [Propecia] 1 mg tablet 1 mg PO DAILY lamotrigine 25 mg tablet 50 mg PO BID Qty: 120 6RF acetaminophen 325 mg Tablet 650 mg PO Q6H PRN PRN (Reason: Fever, pain 1-07/22) Qty: 0 0RF Rx Instructions: [id number] Tylenol montelukast 10 mg tablet 10 mg PO DAILY Patient Comments: take 1 tablet by mouth once daily Eliquis 5 mg Tablet 5 mg PO BID Taper: Apixaban VTE Treatment 10 mg TWICE A DAY for 1 Day 5 mg TWICE A DAY for 30 Days doxycycline hyclate 100 mg capsule 100 mg PO DAILY Qty: 10 0RF oxycodone-acetaminophen 5-325 mg tablet 1 tab PO Q8H PRN (Reason: pain) 7 Days Qty: 28 0RF Primary Care Provider: Ermelinda Castanon Referrals: Ermelinda Castanon, [employer] [Primary Care Provider] - 1 Week if not improving (or your sex worker or escort) Activity Restrictions/Additional Instructions: Apply ice to affected area as needed for the first 3 days, then as long as you do not see the significant bruising or purple discoloration traveling down your leg, you may apply heat if desired to help loosen the calf muscle. Gentle stretches are okay, walking is okay, use pain as your guide and do not push it or exert with regards to her right lower extremity until you are better. Disposition Disposition: Home, Self Care
[2024-02-01] MEDS: traMADol 50 MG Tablet PO (07:28)
[2024-02-01] MEDS: Acetaminophen 500 MG Tablet 1000 MG PO (07:28)
--- NOTE | 2024-02-01 07:30 | RAD_ITS ---
INDICATION: pain EXAMINATION/TECHNIQUE: X-RAY - RIGHT XR Tibia/Fibula 2 Views 2 VIEWS COMPARISON: No relevant prior comparison study available FINDINGS: SOFT TISSUES: No soft tissue swelling or gas. No radiopaque foreign body. BONES/JOINTS: No acute fracture or subluxation.. Normal alignment. Preservation of the joint space.. No sclerotic or destructive changes observed. RAD/Tibia & Fibula 2 Views IMPRESSION: No evidence of acute fracture or dislocation. Electronically Signed: Kunal Jarrett MD at 8:32 EDT ,
[2024-02-01 08:18] VITALS: BP 115/67; PULSE 50; RESP 18; TEMP 36.1; O2SAT 99
== END 2024-02-01 08:33 | disposition home or self-care (01) ==
PROVIDERS: Emergency Provider Emergency Medicine; PCP Nurse Practitioner Family; Visit Provider Emergency Medicine
DX: S86.111A Strain of other muscle(s) and tendon(s) of posterior muscle group at lower leg level, right leg, initial encounter (principal); E11.9 Type 2 diabetes mellitus without complications; X58.XXXA Exposure to other specified factors, initial encounter; R25.2 Cramp and spasm; E03.9 Hypothyroidism, unspecified; Z79.01 Long term (current) use of anticoagulants; Z79.899 Other long term (current) drug therapy; Z86.718 Personal history of other venous thrombosis and embolism; Z86.711 Personal history of pulmonary embolism; Z87.891 Personal history of nicotine dependence
CPT/HCPCS: 73590; 99284

== ENCOUNTER → 2024-02-02 | Outpatient (CLI) | payer MEDICARE, SELFPAY ==
[2024-02-02 13:12] LABS: Magnesium 2.1 mg/dL (1.6-2.6)
[2024-02-02 13:16] LABS: Ammonia < 10.0 umol/L (11-32)
[2024-02-04 15:09] LABS: Lamotrigine (Lamictal) Level 2.4 ug/mL (2.0-20.0)
== END | disposition home or self-care (01) ==
LOC: LAB 12:14
PROVIDERS: PCP Nurse Practitioner Family; Referring Provider Psychiatry & Neurology Neurology; Visit Provider Psychiatry & Neurology Neurology
DX: G40.909 Epilepsy, unspecified, not intractable, without status epilepticus (principal)
CPT/HCPCS: 36415; 82140; 82542; 83735

== ENCOUNTER 2024-09-30 07:51 | Outpatient (CLI) | payer MEDICARE, SELFPAY ==
[2024-09-30 08:30] LABS: Absolute Lymphocyte Count 1.41 X10^3/uL (0.83-4.51); Absolute Neutrophil Count 2.9 X10^3/uL (2.0-7.7); Basophil# 0.04 X10^3/uL; Basophil% 0.8 % (0-1); Eosinophils% 7.6 % (0-5); Hematocrit 42.7 % (40-54); Hemoglobin 14.9 g/dL (13.0-16.5); Lymphocyte # 1.41 X10^3/ul (0.83-4.51); Lymphocyte % 26.8 % (19-41); Mean Corp Hgb Conc 34.9 g/dL (32-36); Mean Corpuscular Hgb 34.2 pg (27.0-32.0); Mean Corpuscular Volume 97.9 fL (80-94); Mean Platelet Vol. 8.4 fl (6.2-12.0); Monocyte# 0.53 X10^3/uL; Monocyte% 10.1 % (0-10); NRBC Flagged by Analyzer 0 % (0-5); Neutrophil # 2.88 X10^3/uL (2.7-7.7); Neutrophil % 54.5 % (47-70); Platelet Count 145 K/mm3 (150-450); RBC Distribution Width CV 13.2 % (11.6-14.6); RBC Distribution Width SD 47.5 fl (35.1-43.9); Red Blood Count 4.36 M/mm3 (4.6-6.2); White Blood Count 5.3 K/mm3 (4.4-11.0)
[2024-09-30 09:06] LABS: ALB/GLOB Ratio 1.3 RATIO (0.9-2.4); AST(SGOT) 34 U/L (15-37); Alanine Aminotransfer ALT/SGPT 46 U/L (16-61); Albumin, Serum 3.8 g/dL (3.2-5.0); Alkaline Phosphatase 67 U/L (45-117); Anion Gap 4 (5-15); BUN 14 mg/dL (7-18); BUN/Creat Ratio 14.5 RATIO (10-20); Calcium,Total 9.7 mg/dL (8.5-10.1); Chloride 104 mmol/L (98-107); Cholesterol 244 mg/dL (200); Creatinine, Serum 0.97 mg/dL (0.70-1.30); EST Glomerular Filtration Rate 82 mL/min (>60); Est Glom Filt Rate - Afr Amer 99 mL/min (>60); Glucose 112 mg/dL (74-106); High Density Lipoprotein 51 mg/dL; Protein, Total 6.8 g/dL (6.4-8.2); Sodium Level 137 mmol/L (136-145); Triglycerides 142 mg/dL; Very Low Density Lipoprotein 28 mg/dL (5-40); Vitamin D,25 Hydroxy 54.6 ng/mL
== END 2024-09-30 23:59 | disposition home or self-care (01) ==
LOC: LAB 07:52
PROVIDERS: PCP Nurse Practitioner Family; Referring Provider Nurse Practitioner Family; Visit Provider Nurse Practitioner Family
DX: Z00.01 Encounter for general adult medical examination with abnormal findings (principal); E55.9 Vitamin D deficiency, unspecified
CPT/HCPCS: 36415; 80053; 80061; 82306; 84153; 85025; G0103

== ENCOUNTER → 2025-03-29 | Outpatient (CLI) | payer MEDICARE, SELFPAY ==
--- OUTSIDE RECORDS SUMMARY | 2025-03-29 07:10 | XMS RPT_ITS | CCD ---
Author Organization [facility] CliniSyor Care Team Providers Care Stained Glass Artist Name Role Phone Dr. Jhoan Pierre Primary Care Provider Dr. Marcio Toney Emergency Provider Dr. Dorene Saha Admit Provider Dr. Dorene Saha Attending Provider Dr. Dorene Saha Other Provider Dr. Claudio Pena Attending Provider Dr. Claudio Pena Other Provider [facility]. Mayra jamil Attending Provider Dr. Mayra Ellison Other Provider Dr. Jhoan Pierre Referring Provider Dr. Enmanuel Mcdonough Attending Provider Dr. Jhoan Pierre Primary Care Provider Dr. Marcio Toney Emergency Provider Dr. Dorene Saha Admit Provider Dr. Jhoan Pierre Primary Care Provider Dr. Jhoan Pierre Referring Provider Gautam AREA MECHANIC, AREA MECHANIC-C Gail Attending Provider Dr. Jhoan Pierre Primary Care Provider Dr. Jhoan Pierre Referring Provider Dr. Enmanuel Mcdonough Attending Provider Dr. Jhoan Pierre Primary Care Provider Dr. Jhoan Pierre Referring Provider Dr. Enmanuel Mcdonough Attending Provider Dr. Marcio Toney Emergency Provider Yifan, Dr. Dorene Waldron Admit Provider Yifan, Dr. Dorene Waldron Attending Provider Yifan, Dr. Dorene Waldron Other Provider Jean, Dr. Snyder Attending Provider Jean, Dr. Snyder Other Provider eZv, Dr. Cleaning Other Provider Dr. Jhoan Pierre Primary Care Provider Dr. Jose Ramon Banks Attending Provider Dr. Jose Ramon Banks Referring Provider Dr. Jhoan Pierre Referring Provider Dr. Enmanuel Mcdonough Attending Provider Dr. Jhoan Pierre Primary Care Provider Dr. Jhoan Pierre Referring Provider Dr. Enmanuel Mcdonough Attending Provider Dr. Jhoan Pierre Primary Care Provider Dr. Jhoan Pierre Referring Provider Dr. Enmanuel Mcdonough Attending Provider Dr. Jhoan Pierre Referring Provider Dr. Enmanuel Mcdonough Attending Provider Lg, AREA MECHANIC-C Ermelinda Primary Care Provider Enmanuel Mcdonough Attending Unavailable PierreJhoan barrera Referring Unavailable Lg, Ermelinda Primary Care Unavailable Enmanuel Mcdonough Attending Unavailable Lg, Ermelinda Referring Unavailable Lg, Ermelinda Primary Care Unavailable Lg, Ermelinda Attending Unavailable Lg, Ermelinda Referring Unavailable Lg, Ermelinda Primary Care Unavailable Lg, Ermelinda Primary Care Unavailable Enmanuel Mcdonough Attending Unavailable SandydoEnmanuel walker Referring Unavailable Lg, Ermelinda Primary Care Unavailable Lg, Ermelinda Attending Unavailable Lg, Ermelinda Referring Unavailable Lg, Ermelinda Primary Care Unavailable Philip Toscano Attending Unavailable Lg AREA MECHANICGianna, Ermelinda Primary Care Provider [phone] Ermelinda Guthrie Referring Provider Ceasar BETTS, Dr. Singer Attending Provider Allergies Allergy Classification Reported Allergen(s) Allergy Type Date of Onset Reaction(s) Facility (16 sources) Iodine Drug Allergy 12-25-2021 [facility] Comment on above: TOPICAL SURGERY SCRU B (1 source) Iodine Drug Allergy 07-26-2024 [facility] Repository Medications Current Medications Medication Drug Class(es) Dates Sig (Normalized) Sig (Original) acetaminophen 325 mg oral tablet (11 sources) Start: 03-01-2023 take 2 tablets by mouth every six hours as needed for pain Acetaminophen 325 mg Tablet Active 650 mg PO EVERY 6 HOURS NEEDED as needed for Fever, pain March 01, 2023 11:03am [id number]-vatqynd Tylenol Start: 03-01-2023 take 650 mg by mouth every six hours as needed Acetaminophen Active 650 MG PO EVERY 6 HOURS NEEDED March 01, 2023 11:03am Otdx-fzk-boexles Tylenol Albuterol Sulfate (5 sources) beta2-Adrenergic Agonist Start: 11-11-2014 take 1 puff(s) by inhalation every four hours as needed Albuterol Sulfate Active 2 PUFF INHALATION EVERY 4 HOURS NEEDED November 11, 2014 3:38pm Start: 11-11-2014 take 1 puff(s) by in halation every four hours as needed Albuterol Sulfate Active 2 PUFF INHALATION EVERY 4 HOURS NEEDED November 11, 2014 12:00am Start: 11-11-2014 take 1 puff(s) by in halation every four hours as needed Albuterol Sulfate Active 2 PUFF INHALATION EVERY 4 HOURS NEEDED November 11, 2014 1:00am apixaban 5 mg oral tablet (20 sources) Factor Xa Inhibitor Start: 10-02-2021 End: 10-22-2023 take 1 tablet by mouth twice daily Apixaban (Eliquis) 5 mg Tablet Active 5 mg PO TWICE A DAY October 22, 2023 1:00am Please contact the information source for Taper Schedule details. clindamycin 300 mg oral capsule (1 source) Lincosamide Antibacterial Start: 07-26-2024 Clindamycin Hcl 300 mg capsule Active 300 mg PO .COMPLEX July 26, 2024 12:00am 300 mg orally; To be taken around dental procedures as needed finasteride 1 mg oral tablet (20 sources) 5-alpha Reductase Inhibitor Start: 07-29-2022 take 1 tablet by mouth once daily Finasteride (Propecia) 1 mg tablet Active 1 mg PO DAILY July 29, 2022 12:00am Start: 11-11-2014 End: 02-26-2022 take 1 tablet by mouth once daily Finasteride 1 MG tablet Discontinued 1 mg PO DAILY November 11, 2014 1:00am February 26, 2022 11:35am methocarbamol 500 mg oral tablet (5 sources) Muscle Relaxant Start: 03-01-2023 take 1000 mg by mouth four times daily Methocarbamol Active 1000 MG PO 4 TIMES DAILY February 28, 2023 11:00pm montelukast 10 mg oral tablet (20 sources) Leukotriene Receptor Antagonist Start: 10-22-2023 take 1 tablet by mouth once daily Montelukast 10 mg tablet Active 10 mg PO DAILY October 22, 2023 1:00am Start: 08-17-2019 End: 07-05-2021 take 1 tablet by mouth once daily in the evening Montelukast (Singulair) 10 mg tablet Discontinued 10 mg PO EVERY EVENING August 17, 2019 1:00am July 05, 2021 9:39am oxyCODONE hydrochloride 5 mg oral tablet (5 sources) Opioid Agonist Start: 03-01-2023 Oxycodone Acti ve 2.5 MG PO EVERY 4 HOURS NEEDED 07 15March 01, 2023 2.5 mg for 4-6 and 7-10/10 pantoprazole 40 mg delayed release oral tablet (20 sources) Proton Pump Inhibitor Start: 03-01-2023 take 40 mg by mouth once daily Pantoprazole Active 40 MG PO DAILY February 28, 2023 11:00pm Start: 08-17-2019 End: 08-18-2019 take 1 tablet by mouth once daily Pantoprazole 40 mg tablet,delayed release (DR/EC) Discontinued 40 mg PO DAILY August 17, 2019 1:00am August 18, 2019 3:15pm Completed/Discontinued Medications Medication Drug Class(es) Dates Sig (Normalized) Sig (Original) acetaminophen 325 mg / HYDROcodone bitartrate 5 mg oral tablet (8 sources) Opioid Agonist Start: 02-01-2024 End: 03-28-2025 Hydrocodone-Acetami nophen 5-325 mg tablet Discontinued 0.5 - 1 {tbl} PO EVERY 4 HOURS NEEDED as needed for Pain 10 February 01, 2024 March 28, 2025 10:42am Start: 02-01-2024 take 1 tablet by nelson th every four hours as needed Hydrocodone-Acetaminophen Active 0.5 - 1 TABLET PO EVERY 4 HOURS NEEDED 10 February 01, 2024 Start: 06-27-2023 take 1 tablet by nelson th every eight hours Hydrocodone-Acetaminophen Active 1 TABLE T PO Q8H 9 June 27, 2023 acetaminophen 325 mg / oxyCODONE hydrochloride 5 mg oral tablet (5 sources) Opioid Agonist Start: 10-31-2023 End: 03-28-2025 Oxycodone-Acetaminophen 5-32 5 mg tablet Discontinued 1 {tbl} PO Q8H as needed for pain 09 05October 31, 2023 March 28, 2025 10:42am Start: 10-31-2023 take 1 tablet by nelson th every eight hours Oxycodone-Acetaminophen Active 1 TABLET PO Q8H 09 05October 31, 2023 aspirin 81 mg delayed release oral tablet (16 sources) Platelet Aggregation Inhibitor, Nonsteroidal Anti-inflammatory Drug Start: 08-17-2019 End: 08-18-2019 take 1 tablet by mouth once daily Aspirin (Adult Aspirin Regimen) 81 mg tablet,delayed release (DR/EC) Discontinued 81 mg PO DAILY August 17, 2019 1:00am August 18, 2019 3:42pm benzonatate 100 mg oral capsule (16 sources) Non-narcotic Antitussive Start: 11-11-2014 End: 08-17-2019 take 1 capsule by mouth three times daily as needed for cough Benzonatate 100 MG capsule Discontinued 100 mg PO 3 TIMES DAILY NEEDED as needed for Cough November 11, 2014 1:00am August 17, 2019 10:16pm Betaine (16 sources) Methylating Agent Start: 09-26-2021 End: 10-02-2021 betaine HCl Discontinued 650 MG THREE TIMES A DAY September 26, 2021 9:47pm October 02, 2021 11:08am pt takes with meals Start: 09-26-2021 End: 10-02-2021 betaine HCl Discontinued 650 mg THREE TIMES A DAY September 26, 2021 1:00am October 02, 2021 11:08am pt takes with meals Start: 09-26-2021 End: 10-02-2021 betaine HCl Discontinued 650 MG THREE TIMES A DAY September 26, 2021 12:00am October 02, 2021 10:08am pt takes with meals Start: 09-26-2021 End: 10-02-2021 betaine HCl Discontinued 650 MG THREE TIMES A DAY September 26, 2021 1:00am October 02, 2021 11:08am pt takes with meals Deglyrrhizinated Licorice Extract (16 sources) Start: 09-29-2021 End: 10-02-2021 take 3 tablets by mouth twice daily Deglyrrhizinated Licorice Extract Discontinued 3 TABLET SL/PO TWICE A DAY September 29, 2021 9:07am October 02, 2021 11:08am Start: 09-29-2021 End: 10-02-2021 Deglyrrhizinated Licorice Ex tract Discontinued 3 {tbl} SL/PO TWICE A DAY September 29, 2021 1:00am October 02, 2021 11:08am Start: 09-29-2021 End: 10-02-2021 take 3 tablets by mouth twice daily Deglyrrhizinated Licorice Extract Discontinued 3 TABLET SL/PO TWICE A DAY September 29, 2021 12:00am October 02, 2021 10:08am Start: 09-29-2021 End: 10-02-2021 take 3 tablets by mouth twice daily Deglyrrhizinated Licorice Extract Discontinued 3 TABLET SL/PO TWICE A DAY September 29, 2021 1:00am October 02, 2021 11:08am dexlansoprazole 60 mg delayed release oral capsule (16 sources) Proton Pump Inhibitor Start: 11-11-2014 End: 08-17-2019 take 1 capsule by mouth once daily Dexlansoprazole 60 MG capsule,biphase delayed releas Discontinued 60 mg PO DAILY November 11, 2014 1:00am August 17, 2019 10:16pm 12 hr dextromethorphan hydrobromide 30 mg / guaiFENesin 600 mg extended release oral tablet (16 sources) Uncompetitive M-kwraqg-X-asparta te Receptor Antagonist, Sigma-1 Agonist Start: 10-02-2021 End: 07-29-2022 Dextromethorphan-Gu aifenesin (Mucus Dm) 30-600 mg Tablet Extended Release 12 Hr Discontinued 1 {tbl} PO TWICE A DAY 14 October 02, 2021 1:00am July 29, 2022 2:58pm doxycycline hyclate 100 mg oral capsule (5 sources) Tetracycline-class Drug Start: 10-31-2023 End: 03-28-2025 take 1 capsule by mouth once daily Doxycycline Hyclate 100 mg capsule Discontinued 100 mg PO DAILY October 31, 2023 1:00am March 28, 2025 10:43am lamoTRIgine 25 mg oral tablet (20 sources) Mood Stabilizer, Anti-epileptic Agent Start: 08-04-2023 End: 03-28-2025 take 2 tablets by mouth twice daily Lamotrigine 25 mg tablet Discontinued 50 mg PO TWICE A DAY March 28, 2025 10:40am March 28, 2025 10:41am Start: 08-04-2023 End: 02-02-2024 take 50 mg by mouth twice daily Lamotrigine Active 50 MG PO TWICE A DAY 120 February 02, 2024 11:47am Start: 03-24-2023 End: 08-04-2023 take 1 tablet by mouth twice daily, then take 2 tablets by mouth twice daily Lamotrigine 25 mg tablet Discontinued 25 mg PO .COMPLEX 120 March 24, 2023 12:00am August 04, 2023 12:09pm Beginning on 03/25/2023, take 1 tablet twice daily for 1 week then 2 tablets twice daily thereafter. lansoprazole 15 mg delayed release oral capsule (16 sources) Proton Pump Inhibitor Start: 08-18-2019 End: 07-26-2020 take 2 capsules by mouth once daily Lansoprazole 15 mg capsule,delayed release(DR/EC) Discontinued 30 mg PO DAILY August 18, 2019 1:00am July 26, 2020 9:36am Start: 08-18-2019 End: 07-26-2020 take 30 mg by mouth once daily Lansoprazole Discontinu ed 30 MG PO DAILY August 18, 2019 1:00am July 26, 2020 9:36am levETIRAcetam 250 mg oral tablet (20 sources) Start: 03-24-2023 End: 08-04-2023 Levetiracetam 250 mg tablet Discontinued 250 mg PO .COMPLEX 42 March 24, 2023 12:00am August 04, 2023 12:07pm Beginning on 03/29/2023, take 1 tablet twice daily for 2 weeks then 1 tablet daily for 2 weeks then discontinue levetiracetam. Start: 03-01-2023 End: 03-24-2023 take 1 tablet by mouth twice daily Levetiracetam 500 mg Tablet Discontinued 500 mg PO TWICE A DAY March 01, 2023 12:00am March 24, 2023 10:30pm magnesium oxide 400 mg oral capsule (16 sources) Start: 08-18-2019 End: 10-10-2022 take 1 capsule by mouth once daily Magnesium Oxide 400 mg magnesium capsule Discontinued 400 mg PO DAILY August 18, 2019 1:00am October 10, 2022 11:35am meloxicam 7.5 mg oral tablet (16 sources) Nonsteroidal Anti-inflammatory Drug Start: 11-11-2014 End: 08-17-2019 take 1 tablet by mouth once daily Meloxicam 7.5 MG tablet Discontinued 7.5 mg PO DAILY November 11, 2014 1:00am August 17, 2019 10:16pm 60 actuat mometasone furoate 0.22 mg/actuat dry powder inhaler (16 sources) Corticosteroid Start: 11-11-2014 End: 08-17-2019 Mometasone 220 MCG inhaler Discontinued 220 ug INHALATION TWICE A DAY as needed for Dyspnea November 11, 2014 1:00am August 17, 2019 10:16pm niacin 100 mg oral tablet (16 sources) Nicotinic Acid Start: 08-18-2019 End: 08-18-2019 take 1 tablet by mouth twice daily Niacin 100 mg tablet Discontinued 100 mg PO TWICE A DAY August 18, 2019 1:00am August 18, 2019 3:43pm predniSONE 10 mg oral tablet (16 sources) Start: 11-22-2021 End: 02-26-2022 Prednisone 10 mg tablet Discontinued 20 mg DAILY November 22, 2021 1:00am February 26, 2022 11:35am Start: 11-22-2021 End: 02-26-2022 Prednisone Discontinued 20 M G DAILY November 22, 2021 1:00am February 26, 2022 11:35am red yeast rice 600 mg oral tablet (16 sources) Start: 09-26-2021 End: 10-02-2021 take 1 tablet by mouth once daily Red Yeast Rice 600 mg Tablet Discontinued 600 mg PO DAILY September 26, 2021 1:00am October 02, 2021 11:08am Testosterone (16 sources) Androgen Start: 11-11-2014 End: 08-17-2019 Testosterone Discontinued 20.25 MG TD DAILY November 11, 2014 3:38pm August 17, 2019 10:16pm Start: 11-11-2014 End: 08-17-2019 Testosterone 75 GM gel in me tered-dose pump Discontinued 20.25 mg TD DAILY November 11, 2014 1:00am August 17, 2019 10:16pm Start: 11-11-2014 End: 08-17-2019 Testosterone Discontinued 20 .25 MG TD DAILY November 11, 2014 12:00am August 17, 2019 9:16pm Start: 11-11-2014 End: 08-17-2019 Testosterone Discontinued 20 .25 MG TD DAILY November 11, 2014 1:00am August 17, 2019 10:16pm Thyro Syn (16 sources) Start: 09-29-2021 End: 10-02-2021 take 2 capsules by mouth once daily Thyro Syn Discontinued 2 CAP SL/PO DAILY September 29, 2021 9:04am October 02, 2021 11:08am Start: 09-29-2021 End: 10-02-2021 Thyro Syn Discontinued 2 NMA SL/PO DAILY September 29, 2021 1:00am October 02, 2021 11:08am Start: 09-29-2021 End: 10-02-2021 take 2 capsules by mouth once daily Thyro Syn Discontinued 2 CAP SL/PO DAILY September 29, 2021 12:00am October 02, 2021 10:08am Start: 09-29-2021 End: 10-02-2021 take 2 capsules by mouth once daily Thyro Syn Discontinued 2 CAP SL/PO DAILY September 29, 2021 1:00am October 02, 2021 11:08am [employer] [facility] (16 sources) Start: 08-18-2019 End: 10-02-2021 take 1 dose by mouth once daily [employer] Discontinued 1 dose pk PO DAILY August 18, 2019 3:20pm October 02, 2021 11:08am Start: 08-18-2019 End: 10-02-2021 take 1 dose by mouth once daily [employer] [facility] Discontinued 1 dose pk PO DAILY August 18, 2019 12:00am October 02, 2021 10:08am Start: 08-18-2019 End: 10-02-2021 take 1 dose by mouth once daily [employer] Discontinued 1 dose pk PO DAILY August 18, 2019 1:00am October 02, 2021 11:08am vitamin b12 1 mg oral tablet (16 sources) Vitamin B12 Start: 09-26-2021 End: 07-29-2022 take 1 tablet by mouth once daily Cyanocobalamin (Vitamin B-12) (Vitamin B-12) 1,000 mcg Tablet Discontinued 1000 ug PO DAILY September 26, 2021 1:00am July 29, 2022 2:59pm Zinc (16 sources) Start: 09-26-2021 End: 10-02-2021 take 50 mg by mouth once daily zinc Discontinued 50 MG SL/PO DAILY September 26, 2021 9:53pm October 02, 2021 11:08am Start: 09-26-2021 End: 10-02-2021 take 50 mg by mouth once daily zinc Discontinued 50 mg SL/PO DAILY September 26, 2021 1:00am October 02, 2021 11:08am Start: 09-26-2021 End: 10-02-2021 take 50 mg by mouth once daily zinc Discontinued 50 MG SL/PO DAILY September 26, 2021 12:00am October 02, 2021 10:08am Start: 09-26-2021 End: 10-02-2021 take 50 mg by mouth once daily zinc Discontinued 50 MG SL/PO DAILY September 26, 2021 1:00am October 02, 2021 11:08am Problems Active Problems Problem Classification Problem Date Documented Date Episodic/Chronic Anxiety disorders (13 sources) Anxiety; Translations: [Anxiety disorder, unspecified] 10-10-2022 Chronic Conditions associated with dizziness or vertigo (13 sources) Lightheadedness; Translations: [Dizziness and giddiness] 10-10-2022 Episodic Disorders of lipid metabolism (20 sources) Hyperlipidemia; Translations: [Hyperlipidemia, unspecified] Onset: 4 Chronic Epilepsy; convulsions (20 sources) Epilepsy; Translations: [Epilepsy, unspecified, not intractable, without status epilepticus] Onset: 4 03-24-2023 Chronic Epilepsy; convulsions (20 sources) Seizure; Translations: [Unspecified convulsions] Episodic Fluid and electrolyte disorders (13 sources) Acute hypokalemia; Translations: [Hypokalemia] 02-27-2023 Episodic Fracture of upper limb (11 sources) Fracture of scapula; Translations: [Fracture of unspecified part of scapula, left shoulder, initial encounter for closed fracture] 03-01-2023 Episodic Joint disorders and dislocations; trauma-related (11 sources) Dislocation of shoulder joint; Translations: [Unspecified dislocation of left shoulder joint, initial encounter] 03-09-2023 Episodic Nonspecific chest pain (16 sources) Chest pain; Translations: [Chest pain, unspecified] 08-17-2019 Episodic Nutritional deficiencies (19 sources) Deficiency of macronutrients; Translations: [Unspecified severe protein-calorie malnutrition] Chronic Other aftercare (10 sources) Long-term current use of anticoagulant; Translations: [senior living (current) use of anticoagulants] 06-27-2023 Episodic Other bone disease and musculoskeletal deformities (5 sources) Bone cyst of right foot; Translations: [Other cyst of bone, right ankle and foot] 10-31-2023 Episodic Other bone disease and musculoskeletal deformities (4 sources) Other cyst of bone, right ankle and foot; Translations: [Cyst of bone (localized), unspecified] 10-31-2023 Episodic Other connective tissue disease (16 sources) Triggering of digit; Translations: [Trigger finger, unspecified finger] 07-05-2021 Episodic Other connective tissue disease (5 sources) Capsulitis; Translations: [Other enthesopathy of right foot and ankle] 10-31-2023 Episodic Other connective tissue disease (5 sources) Foot pain; Translations: [Pain in right foot] 10-31-2023 Episodic Other connective tissue disease (4 sources) Other enthesopathy of right foot and ankle; Translations: [Enthesopathy of ankle and tarsus, unspecified] 10-31-2023 Episodic Other connective tissue disease (4 sources) Pain in right foot; Translations: [Pain in limb] 10-31-2023 Episodic Other injuries and conditions due to external causes (10 sources) Closed injury of head; Translations: [Unspecified injury of head, initial encounter] 06-27-2023 Episodic Other lower respiratory disease (16 sources) Hypoxemia; Translations: [Hypoxemia] 09-26-2021 Episodic Other lower respiratory disease (3 sources) Hypoxemia; Translations: [Hypoxemia] Episodic Other nervous system disorders (12 sources) Paresthesia; Translations: [Paresthesia of skin] 07-29-2022 Episodic Other nervous system disorders (2 sources) Paresthesia of skin; Translations: [Disturbance of skin sensation] 07-29-2022 Episodic Other nervous system disorders (11 sources) Unresponsive ; Translations: [Other symptoms and signs involving cognitive functions and awareness] 03-09-2023 Episodic Other nervous system disorders (2 sources) Other symptoms and signs involving cognitive functions and awareness; Translations: [Other alteration of consciousness] 03-01-2023 Episodic Other nervous system disorders (5 sources) Acute postoperative pain; Translations: [Other acute postprocedural pain] 10-31-2023 Episodic Other nutritional; endocrine; and metabolic disorders (16 sources) Hypomagnesemia; Translations: [Hypomagnesemia] 08-17-2019 Chronic Other screening for suspected conditions (not mental disorders or infectious disease) (13 sources) Electrocardiogram abnormal; Translations: [Abnormal electrocardiogram [ECG] [EKG]] 02-27-2023 Episodic Paralysis (16 sources) Miguel's paresis; 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 Pulmonary heart disease (20 sources) Pulmonary embolism; Translations: [Other pulmonary embolism without acute cor pulmonale] Episodic Comment on above: 2012 Residual codes; unclassified (20 sources) Altered mental status; Translations: [Altered mental status, unspecified] 11-30-2021 Episodic Residual codes; unclassified (12 sources) Disturbance in sleep behavior; Translations: [Sleep disorder, unspecified] 10-10-2022 Episodic Residual codes; unclassified (2 sources) Sleep disorder, unspecified; Translations: [Sleep disturbance, unspecified] 10-10-2022 Episodic Residual codes; unclassified (2 sources) Altered mental status, unspecified; Translations: [Altered mental status] 03-01-2023 Episodic Respiratory failure; insufficiency; arrest (adult) (19 sources) Acute respiratory failure; Translations: [Acute respiratory failure with hypoxia] Episodic Spondylosis; intervertebral disc disorders; other back problems (13 sources) Neck pain; Translations: [Cervicalgia] 07-29-2022 Episodic Sprains and strains (4 sources) Strain of other muscle(s) and tendon(s) of posterior muscle group at lower leg level, right leg, initial encounter; Translations: [Strain of right gastrocnemius muscle or tendon] 02-01-2024 Episodic Superficial injury; contusion (20 sources) Contusion of rib; Translations: [Contusion of right front wall of thorax, initial encounter] 06-27-2023 Episodic Viral infection (20 sources) COVID-19; Translations: [Pneumonia due to COVID-19 virus] Episodic Past or Other Problems Problem Classification Problem Date Documented Da te Episodic/Chronic Other injuries and conditions due to external causes (1 source) Unspecified injury of unspecified lower leg, initial encounter; Translations: [Unspecified injury of unspecified lower leg, initial encounter] Onset: 02-06-2024 Episodic Results Test Name Value Interpretation Reference Range Facility CBC W/Diff, Automatedon 12-1 Absolute Lymph 1.41 X10 3/uL Normal 0.83-4.51 [facility] Comment on above: Performed By: #### L 500.4050, L100.0100, L500.4100, L501.9910, L506.1000 #### [facility] [address] [place], [place], [id number] (325 Absolute Neut 2.9 X10 3/uL Normal 2.0-7.7 [facility] Comment on above: Performed By: #### L 500.4050, L100.0100, L500.4100, L501.9910, L506.1000 #### [facility] [address] [place], [address] Basophils/100 WBC (Bld) 0.8 % Normal 0-1 [facility] Comment on above: Performed By: #### L 500.4050, L100.0100, L500.4100, L501.9910, L506.1000 #### [facility] [address] [place], [address] Eosinophils/100 WBC (Bld) 7.6 % High 0-5 [facility] Comment on above: Performed By: #### L 500.4050, L100.0100, L500.4100, L501.9910, L506.1000 #### [facility] [address] [place], [address] Erythrocyte distribution width (RBC) [Ratio] 13.2 % Normal 11.6-14.6 [facility] Comment on above: Performed By: #### L 500.4050, L100.0100, L500.4100, L501.9910, L506.1000 #### [facility] [address] [place], [address] Hematocrit (Bld) [Volume fraction] 42.7 % Normal 40-54 [facility] Comment on above: Performed By: #### L 500.4050, L100.0100, L500.4100, L501.9910, L506.1000 #### [facility] [address] [place], [address] Hemoglobin (Bld) [Mass/Vol] 14.9 g/dL Normal 13.0-16.5 [facility] Comment on above: Performed By: #### L 500.4050, L100.0100, L500.4100, L501.9910, L506.1000 #### [facility] [address] [place], [address] IG% 0.200 Normal 0.0-0.9 [facility] Comment on above: Result Comment: IG% - Immature Granulocytes (promyelocytes, myelocytes and metamyelocytes) > 1% indicates that a LEFT SHIFT is Present. Performed By: #### L 500.4050, L100.0100, L500.4100, L501.9910, L506.1000 #### [facility] [facility] [address] [place], [address] Lymphocytes/100 WBC (Bld) 26.8 % Normal 19-41 [facility] Comment on above: Performed By: #### L 500.4050, L100.0100, L500.4100, L501.9910, L506.1000 #### [facility] [address] [place], [address] MCH (RBC) [Entitic mass] 34.2 pg High 27.0-32.0 [facility] Comment on above: Performed By: #### L 500.4050, L100.0100, L500.4100, L501.9910, L506.1000 #### [facility] [address] [place], [address] MCHC (RBC) [Mass/Vol] 34.9 g/dL Normal 32-36 [facility] Comment on above: Performed By: #### L 500.4050, L100.0100, L500.4100, L501.9910, L506.1000 #### [facility] [address] [place], [address] MCV (RBC) [Entitic vol] 97.9 fL High 80-94 [facility] Comment on above: Performed By: #### L 500.4050, L100.0100, L500.4100, L501.9910, L506.1000 #### [facility] [address] [place], [address] Monocytes/100 WBC (Bld) 10.1 % High 0-10 [facility] Comment on above: Performed By: #### L 500.4050, L100.0100, L500.4100, L501.9910, L506.1000 #### [facility] [address] [place], [address] Neutrophils/100 WBC (Bld) 54.5 % Normal 47-70 [facility] Comment on above: Performed By: #### L 500.4050, L100.0100, L500.4100, L501.9910, L506.1000 #### [facility] [address] [place], [address] Nucleated RBC (Bld) [#/Vol] 0 10*3/uL Normal 0-5 [facility] Comment on above: Performed By: #### L 500.4050, L100.0100, L500.4100, L501.9910, L506.1000 #### [facility] [address] [place], [address] Platelet mean volume (Bld) [Entitic vol] 8.4 fL Normal 6.2-12.0 [facility] Comment on above: Performed By: #### L 500.4050, L100.0100, L500.4100, L501.9910, L506.1000 #### [facility] [address] [place], [address] Platelets (Bld) [#/Vol] 145 10*3/uL Low 150-450 [facility] Comment on above: Performed By: #### L 500.4050, L100.0100, L500.4100, L501.9910, L506.1000 #### [facility] [address] [place], [address] RBC (Bld) [#/Vol] 4.36 10*6/uL Low 4.6-6.2 [facility] Comment on above: Performed By: #### L 500.4050, L100.0100, L500.4100, L501.9910, L506.1000 #### [facility] [address] [place], [address] RDW SD 47.5 fl High 35.1-43.9 [facility] Comment on above: Performed By: #### L 500.4050, L100.0100, L500.4100, L501.9910, L506.1000 #### [facility] [address] [place], [address] WBC (Bld) [#/Vol] 5.3 10*3/uL Normal 4.4-11.0 [facility] Comment on above: Performed By: #### L 500.4050, L100.0100, L500.4100, L501.9910, L506.1000 #### [facility] [address] [place], [address] Comprehensive Metabolic Prof ilon 09-30-2024 Albumin [Mass/Vol] 3.8 g/dL Normal 3.2-5.0 [facility] Comment on above: Order Comment: CBCD Performed By: #### L 500.4050, L100.0100, L500.4100, L501.9910, L506.1000 #### [facility] [address] [place], [address] Albumin/Globulin [Mass ratio] 1.3 {ratio} Normal 0.9-2.4 [facility] Comment on above: Order Comment: CBCD Performed By: #### L 500.4050, L100.0100, L500.4100, L501.9910, L506.1000 #### [facility] [address] [place], [address] ALK P 67 U/L Normal 45-117 [facility] Comment on above: Order Comment: CBCD Performed By: #### L 500.4050, L100.0100, L500.4100, L501.9910, L506.1000 #### [facility] [address] [place], [address] ALT [Catalytic activity/Vol] 46 U/L Normal 16-61 [facility] Comment on above: Order Comment: CBCD Performed By: #### L 500.4050, L100.0100, L500.4100, L501.9910, L506.1000 #### [facility] [address] [place], [address] AST [Catalytic activity/Vol] 34 U/L Normal 15-37 [facility] Comment on above: Order Comment: CBCD Performed By: #### L 500.4050, L100.0100, L500.4100, L501.9910, L506.1000 #### [facility] [address] [place], [address] Bilirubin [Mass/Vol] 0.90 mg/dL Normal 0.20-1.[address] [facility] Comment on above: Order Comment: CBCD Result Comment: For patients on eltrombopag therapy, use of Dimension Antler TBIL is not recommended. Performed By: #### L 500.4050, L100.0100, L500.4100, L501.9910, L506.1000 #### [facility] [address] [place], [address] BUN/CRE 14.5 RATIO Normal 10-20 [facility] Comment on above: Order Comment: CBCD Performed By: #### L 500.4050, L100.0100, L500.4100, L501.9910, L506.1000 #### [facility] [address] [place], [address] CA,Total 9.7 mg/dL Normal 8.5-10.1 [facility] Comment on above: Order Comment: CBCD Performed By: #### L 500.4050, L100.0100, L500.4100, L501.9910, L506.1000 #### [facility] [address] [place], [address] Chloride [Moles/Vol] 104 mmol/L Normal 98-[address] [facility] Comment on above: Order Comment: CBCD Performed By: #### L 500.4050, L100.0100, L500.4100, L501.9910, L506.1000 #### [facility] [address] [place], [address] CO2 [Moles/Vol] 29.0 mmol/L Normal 21.0-32.0 [facility] Comment on above: Order Comment: CBCD Performed By: #### L 500.4050, L100.0100, L500.4100, L501.9910, L506.1000 #### [facility] [address] [place], [address] Creatinine [Mass/Vol] 0.97 mg/dL Normal 0.70-1.30 [facility] Comment on above: Order Comment: CBCD Result Comment: The validity of the calculated GFR GFRAA in patients over 70 years has not been determined. Clinical correlation is essential. Performed By: #### L 500.4050, L100.0100, L500.4100, L501.9910, L506.1000 #### [facility] [address] [place], [address] EST GFR - AA 99 mL/min Normal >60 [facility] Comment on above: Order Comment: CBCD Result Comment: Afri can [place] GFR Calc Performed By: #### L 500.4050, L100.0100, L500.4100, L501.9910, L506.1000 #### [facility] [address] [place], [address] GAP 4 Low 5-15 [facility] Comment on above: Order Comment: CBCD Performed By: #### L 500.4050, L100.0100, L500.4100, L501.9910, L506.1000 #### [facility] [address] [place], [address] GFR/1.73 sq M.predicted among non-blacks MDRD (S/P/Bld) [Vol rate/Area] 82 mL/min/{1.73_m2} Normal >60 [facility] Comment on above: Order Comment: CBCD Result Comment: Non- GFR Calc Performed By: #### L 500.4050, L100.0100, L500.4100, L501.9910, L506.1000 #### [facility] [address] [place], [address] Globulin (S) [Mass/Vol] 3.0 g/dL Normal 2.2-4.2 [facility] Comment on above: Order Comment: CBCD Performed By: #### L 500.4050, L100.0100, L500.4100, L501.9910, L506.1000 #### [facility] [address] [place], [address] Glucose [Mass/Vol] 112 mg/dL High 74-106 [facility] Comment on above: Order Comment: CBCD Result Comment: Fast ing Glucose result from 100 to 125 mg/dL suggests IMPAIRED HOMEOSTASIS per A.D.A. criteria. Performed By: #### L 500.4050, L100.0100, L500.4100, L501.9910, L506.1000 #### [facility] [address] [place], [address] Potassium [Moles/Vol] 4.0 mmol/L Normal 3.5-5.1 [facility] Comment on above: Order Comment: CBCD Performed By: #### L 500.4050, L100.0100, L500.4100, L501.9910, L506.1000 #### [facility] [address] [place], [address] Sodium [Moles/Vol] 137 mmol/L Normal 136-145 [facility] Comment on above: Order Comment: CBCD Performed By: #### L 500.4050, L100.0100, L500.4100, L501.9910, L506.1000 #### [facility] [address] [place], [address] T PROT 6.8 g/dL Normal 6.4-8.2 [facility] Comment on above: Order Comment: CBCD Performed By: #### L 500.4050, L100.0100, L500.4100, L501.9910, L506.1000 #### [facility] [address] [place], [address] Urea nitrogen [Mass/Vol] 14 mg/dL Normal 7-18 [facility] Comment on above: Order Comment: CBCD Performed By: #### L 500.4050, L100.0100, L500.4100, L501.9910, L506.1000 #### [facility] [address] [place], [address] Lipid Profileon 09-30-2024 Cholesterol [Mass/Vol] 244 mg/dL High 200 [facility] Comment on above: Order Comment: CBCD Result Comment: <200 mg/dL Desirable 200-240 mg/dL Borderline >240 mg/dL High Risk Performed By: #### L 500.4050, L100.0100, L500.4100, L501.9910, L506.1000 #### [facility] [address] [place], [address] Cholesterol in HDL [Mass/Vol] 51 mg/dL Normal [facility] Comment on above: Order Comment: CBCD Result Comment: The drugs N-Acetylcysteine and Metamizole may falsely depress this assay. Reference Range HDL <40 mg/dL Low HDL Cholesterol HDL >or= 60 mg/dL High HDL Cholesterol Performed By: #### L 500.4050, L100.0100, L500.4100, L501.9910, L506.1000 #### [facility] [address] [place], [address] Cholesterol in LDL [Mass/Vol] 165 mg/dL High 0-130 [facility] Comment on above: Order Comment: CBCD Performed By: #### L 500.4050, L100.0100, L500.4100, L501.9910, L506.1000 #### [facility] [address] [place], [address] Cholesterol in VLDL [Mass/Vol] 28 mg/dL Normal 5-40 [facility] Comment on above: Order Comment: CBCD Performed By: #### L 500.4050, L100.0100, L500.4100, L501.9910, L506.1000 #### [facility] [address] [place], [address] Triglyceride [Mass/Vol] 142 mg/dL Normal [facility] Comment on above: Order Comment: CBCD Result Comment: The drugs N-Acetylcysteine and Metamizole may falsely depress this assay. Serum Triglycerides Reference Interval Normal <150 mg/dL Borderline high 150 - 199 mg/dL High 200 - 499 mg/dL Very High > or = 500 mg/dL Performed By: #### L 500.4050, L100.0100, L500.4100, L501.9910, L506.1000 #### [facility] [address] [place], [address] PSA,Total - Annual Screenon 09-30-2024 PSA,TOT SCREEN 0.10 ng/mL Normal 0.00-4.00 [facility] Comment on above: Order Comment: CBCD Result Comment: This test was performed using the TPSA assay method for the [employer] chemistry system. Values obtained with different assay methods cannot be used interchangably. When changing PSA assays in the course of monitoring a patient, additional sequential testing should be carried out to confirm baseline values. Performed By: #### L 500.4050, L100.0100, L500.4100, L501.9910, L506.1000 ####[facility] [address] [place], [address] Vitamin D,25 Hydroxyon 09-30 Vitamin D 25-OH 54.6 ng/mL Normal [facility] Comment on above: Result Comment: Alondra min D 25(OH) Status Range Deficiency <20 ng/mL (50nmol/L) Insufficiency 20 - 30 ng/mL (50 - 75 nmol/L) Sufficiency 30 - 100 ng/mL (75 - 250 nmol/L) Toxicity >100 ng/mL (>250 nmol/L) Performed By: #### L 500.4050, L100.0100, L500.4100, L501.9910, L506.1000 #### [facility] [address] [place], [place], [address] Neurology Visit Reporton Neurology Visit Report [facility] [address], [address] [place], [place] [address] OFFICE VISIT Date of Service: 07/26/24 MR#: [id number] Acct: [id number] Name: RADHA WOODARD Rep #: [id number] : 1955 Provider: Dr. Enmanuel mann MD Age/Sex: 69/M Location: [facility]. Status: Signed HPI HPI Chief Complaint: Details: Interim History: Radha returns for follow-up. He has a history of hyperlipidemia, diet-controlled diabetes mellitus, hypothyroidism, right Adie's pupil and obstructive sleep apnea on CPAP. In the retirement specialist hours of 11/22/2021, while asleep, he was noted by his to exhibit a snorting sound. He was wearing his CPAP at that time; he had not exhibited snorting type sounds previously. She tried to awaken him but was unable to do so. He did not have limb shaking, tongue biting or urinary incontinence. He was taken to the hospital by EMS. When his saw him about 30 minutes later, he was awake and alert and back to his baseline. He denied having any numbness, headache, vision loss, lightheadedness or dizziness associated with the episode. He had some difficulty elevating the right arm and attributed this to prominent right shoulder pain that he was experiencing at that time. He reported having chronic right shoulder pain due to degenerative joint disease. He is under the care of an orthopedic surgeon and had right shoulder surgery in August 2022 and this was of benefit. His right shoulder pain has diminished. He had bilateral shoulder rotator cuff surgeries in the past. On emergency room evaluation, his oxygen saturation was 96-98% and initial blood pressure was 122/70 with a pulse of 83 and respirations 16. His lactic acid was elevated and serum bicarb was low as documented below. An EKG revealed sinus bradycardia with a ventricular rate of 58 bpm. EMS report indicated that his initial O2 sat was 96, blood glucose 123, cardiac rhythm was sinus rhythm, blood pressure 117/67, pulse 111 and respirations 14; he was initially found unresponsive and diaphoretic, but after several minutes he became responsive to verbal stimuli; EMS reported that he was unable to move the right arm. 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 His brain MRI from December 2021 revealed an old lacunar infarct of the right caudate nucleus and chronic involutional changes of the brain, but was otherwise unremarkable. His EEG from January 2022 was normal. He has no history of clinically manifested stroke. 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 He does not have any history of prior seizures. He has had no further episodes suggestive of seizures until 02/26/2023, when he had another similar episode to that described above. He was noted by his to exhibit a snorting sound while asleep, and she was unable to awaken him. She also noted that he exhibited transient arm shaking (she did not recall which arm). He did not have associated tongue biting or urinary incontinence. EMS was called and he was brought to the emergency room and was awake and alert on evaluation (though he had reported having a vague brain fog during the 2 preceding weeks prior to the incident) and was hospitalized. He complained of left shoulder pain and was found to have a left shoulder joint dislocation and glenoid fracture (a large impaction fracture along the anterior aspect of the humeral head was also noted on subsequent left shoulder MRI). He did not have any history of fall that precipitated the shoulder fracture. Multifocal sharp waves with a predominance in the left temporal region was noted on EEGs. It was suspected that the episode was a nocturnal seizure and he was started on levetiracetam; he experienced easy irritability as a side effect. Earlier in 2022, levetiracetam was discontinued and lamotrigine was initiated. He has had no further seizures since February 2023. He is tolerating lamotrigine well. He was evaluated by an orthopedic surgeon and underwent reduction of his left shoulder dislocation. His left shoulder pain has resolved. He does not have any history of LOG CHIPPER infection, concussion or significant history. He was hospitalized for a COVID-19 infection in September 2021, and was on supplemental oxygen for a period of time. He had a lower extremity DVT and pulmonary embolism in 2011 and was treated for a period of time with warfarin then this medication was discontinued. He had pulmonary emboli associated with his COVID-19 infection in September 2021 and Eliquis was prescribed. Beginning in April 2022, he developed intermittent numbness and tingling discomfort in the hands and occasional tingling in the toes (more content not included)... Normal [facility] Lamotrigine (Lamictal) Level on 02-04-2024 LAMOTRIGINE 2.4 ug/mL Normal 2.0-20.0 [facility] Comment on above: Result Comment: Dete ction Limit = 1.0 Performed at: [address] [id number] Telescope Operator: Candy Briceno MD, Phone: [phone] Performed By: #### L 3300.4400, L503.5510, L501.5200 ####[facility] [id number] [place], [place], [id number] Ammoniaon 02-02-2024 Ammonia (P) [Mass/Vol] ug/dL Low [facility] Comment on above: Performed By: #### L 3300.4400, L503.5510, L501.5200 ####[facility] [id number] [place], [address] Basophil percentageOrdered B y: Enmanuel Mcdonough on 02-02-2024 Basophil percentage < 10.0 umol/L [facility] - Chemistry and C hemistry - challengeOrdered By: Enmanuel Mcdonough on 02-02-2024 Magnesium [Mass/Vol] 2.1 mg/dL 1.6-2.[address] [facility] Magnesiumon 02-02-2024 Magnesium [Mass/Vol] 2.1 mg/dL Normal 1.6-2.[address] [facility] Comment on above: Performed By: #### L 3300.4400, L503.5510, L501.5200 ####[facility] [id number] [place], [place], [address] Neurology Visit Reporton Neurology Visit Report [facility] [address], [address] [place], [place] [address] OFFICE VISIT Date of Service: 02/02/24 MR#: [id number] Acct: [id number] Name: RADHA WOODARD Rep #: [id number] : 1955 Provider: Dr. 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: No Accompanied by: Allergies iodine Adverse Reaction (Severe, Verified 02/02/24 11:15) Hives [facility] Medical History Alcohol use Anxiety Arthritis Asthma Cardiology follow-up encounter CPAP (continuous positive airway pressure) dependence Depression Diabetes Dietary restriction Dislocation of left shoulder joint DVT (deep venous thrombosis) History of deep venous thrombosis History of pulmonary embolus (PE) (2012) History of stress test Hypothyroidism Leg cramps Loss of hearing Seizures TIA (transient ischemic attack) Trigger finger Wears contact lenses Wears glasses Surgical History H/O cardiac catheterization H/O thumb surgery History of herniorrhaphy History of hip replacement History of nasal septoplasty History of repair of rotator cuff History of shoulder surgery Hx of arthroscopy of shoulder Hx of colonoscopy Hx of elbow surgery Family History Father Myocardial infarction, Onset Age: 37 Heart disease Mental disorder Mother Myocardial infarction, Onset Age: 73 Heart disease Asthma Hypertension Social History household members: spouse Smoking Status: Never smoker how long ago did patient quit smoking: Smoked 6 months 19-20 years old, <1/2 ppd. second hand exposure: No alcohol intake: never substance use type: does not use what type of physical activity do you participate in: walking, bicycling and weight training seatbelt use: always HPI HPI Chief Complaint: Details: Interim History: Radha returns for follow-up. He has a history of hyperlipidemia, diet-controlled diabetes mellitus, hypothyroidism, right Adie's pupil and obstructive sleep apnea on CPAP. In the retirement specialist hours of 11/22/2021, while asleep, he was noted by his to exhibit a snorting sound. He was wearing his CPAP at that time; he had not exhibited snorting type sounds pre viously. She tried to awaken him but was unable to do so. He did not have limb shaking, tongue biting or urinary incontinence. He was taken to the hospital by EMS. When his saw him about 30 minutes later, he was awake and alert and back to his baseline. He denied having any numbness, headache, vision loss, lightheadedness or dizziness associated with the episode. He had some difficulty elevating the right arm and attributed this to prominent right shoulder pain that he was experiencing at that time. He reported having chronic right shoulder pain due to degenerative joint disease. He is under the care of an orthopedic surgeon and had right shoulder surgery in August 2022 and this was of benefit. His right shoulder pain has diminished. He had bilateral shoulder rotator cuff surgeries in the past. On emergency room evaluation, his oxygen saturation was 96-98% and initial blood pressure was 122/70 with a pulse of 83 and respirations 16. His lactic acid was elevated and serum bicarb was low as documented below. An EKG revealed sinus bradycardia with a ventricular rate of 58 bpm. EMS report indicated that his initial O2 sat was 96, blood glucose 123, cardiac rhythm was sinus rhythm, blood pressure 117/67, pulse 111 and respirations 14; he was initially found unresponsive and diaphoretic, but after several minutes he became responsive to verbal stimuli; EMS reported that he was unable to move the right arm. 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 His brain MRI from December 2021 revealed an old lacunar infarct of the right caudate nucleus and chronic involutional changes of the brain, but was otherwise unremarkable. His EEG from January 2022 was normal. He has no history of clinically manifested stroke. 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 Normal [facility] Serum or plasma lamotrigine measurement (mass/volume)Ordered By: Enmanuel Mcdonough on 02-02-2024 lamoTRIgine [Mass/Vol] 2.4 ug/mL 2.0-20.0 [facility] Comment on above: Detection Limit = 1. 0Performed at: [facility] [id number] Director: Candy Briceno MD, Phone: [phone] Emergency Department Summary on 02-01-2024 Emergency Department Summary [facility] Medical Records Department [address] [place] [id number] Emergency Department Summary 02/01/24 MR#: [id number] Acct: [id number] Name: RADHA WOODARD Rep #: [id number] : 1955 68 From: Philip Toscano MD PCP: BAL Cuenca Status:REG ER Location: ED HPI History of Present Illness Chief Complaint: Lower Extremity Injury Informant: patient and spouse/S.O. Narrative Narrative: 68-year-old male anticoagulated on Eliquis because of history of DVT/PE states that several days ago he worked his lower body at the gym for the first time in a long time. He woke up this morning and his legs are sore. He got a significant cramp in his right calf, and he states the pain was excruciating, feeling like a muscle cramp. Therefore without getting up out of bed, he had his knee in extension and he dorsiflexed his right foot with the muscles in his leg, not using his hand and assistance, and felt a painful pop in his mid calf immediately. He got up and was able to walk to the kitchen although it was sore and painful, and when he was there he noticed that there was an indentation in his calf where the pain was that is not there right now. [facility] Medical History Alcohol use Anxiety Arthritis Asthma Cardiology follow-up encounter CPAP (continuous positive airway pressure) dependence Depression Diabetes Dietary restriction Dislocation of left shoulder joint DVT (deep venous thrombosis) History of deep venous thrombosis History of pulmonary embolus (PE) (2012) History of stress test Hypothyroidism Leg cramps Loss of hearing Seizures TIA (transient ischemic attack) Trigger finger Wears contact lenses Wears glasses Home Medications finasteride 1 mg tablet (Propecia) 1 mg PO DAILY 07/29/22 [History Last Taken Unknown] acetaminophen 325 mg tablet 650 mg (2 x 325 mg) PO Q6H PRN PRN Fever, pain 1-07/22 #0 tabs 03/01/23 [Rx Last Taken Unknown] lamotrigine 25 mg tablet 50 mg (2 x 25 mg) PO BID #120 tabs 08/04/23 [Rx Last Taken 10/31/23] apixaban 5 mg tablet (Eliquis) 5 mg PO BID 10/22/23 [History Last Taken 10/24/23] montelukast 10 mg tablet 10 mg PO DAILY 10/22/23 [History Last Taken Unknown] doxycycline hyclate 100 mg capsule 100 mg PO DAILY #10 caps 10/31/23 [Rx Last Taken Unknown] oxycodone-acetaminophen 5 mg-325 mg tablet 1 tab PO Q8H PRN pain 7 days #28 tabs 10/31/23 [Rx Last Taken Unknown] hydrocodone-acetaminophe n 5-325mg 5mg-325mg 0.5 - 1 tab (0.5 - 1 x 5-325 mg) PO Q4H PRN PRN Pain 2 days #10 TABLETS 02/01/24 [Rx Last Taken Unknown] Allergy/AdvReac Type Severity Reaction Status Date / Time iodine AdvReac Severe Hives Verified 02/01/24 06:55 Family History Father Myocardial infarction, Onset Age: 37 Heart disease Mental disorder Mother Myocardial infarction, Onset Age: 73 Heart disease Asthma Hypertension Surgical History H/O cardiac catheterization H/O thumb surgery History of herniorrhaphy History of hip replacement History of nasal septoplasty History of repair of rotator cuff History of shoulder surgery Hx of arthroscopy of shoulder Hx of colonoscopy Hx of elbow surgery Social History household members: spouse Smoking Status: Never smoker how long ago did patient quit smoking: Smoked 6 months 19-22 years old, <1/2 ppd. second hand exposure: No alcohol intake: never substance use type: does not use what type of physical activity do you participate in: walking, bicycling and weight training seatbelt use: always ROS ROS ED Constitutional Constitutional ED: Denies chills or fever(s) Musculoskeletal Musculoskeletal: Reports extremity pain; Denies neck pain Integumentary Denies Abrasions, rash or wounds Neurologic Neurologic: Denies paresthesias or weakness EXAM Physical Exam Const Vital Signs: 02/01/24 06:54 Temperature 97.1 F L Temperature Source Temporal Pulse Rate 50 L Respiratory Rate 16 Blood Pressure 130/80 H Blood Pressure Mean 96 Pulse Ox 98 Oxygen Delivery Method Room Air Positive well nourished and well developed General Appearance ED: well developed and NAD Neck full ROM and supple Back/Spine normal ROM and normal to inspection Extremity normal to inspection and full ROM Extremity Narrative: Point tender in 1 particular area mid calf at the most posterior aspect, approximately 10 cm from the popliteal fossa. Normal on inspection. No discoloration. No edema distally. All compartments soft and nondistended with no deformities or indentations, including with plantarflexion of the foot. Full ran (more content not included)... Normal [facility] Tibia Fibula 2 Viewson 01-31 Tibia Fibula [address] [facility] Imaging Services [address] [place] [address] Tibia Fibula 2 Views MR#: [id number] Acct: [id number] Name: RADHA WOODADR Rep #: [id number] : 1955 M 68 From: Kunal Rose PCP: BARRERA CuencaC Status: REG ER Study: Tibia Fibula 2 Views Date of Exam: 02/01/24 Exam# [id number] Ordering Dr: Philip Toscano MD [id number] INDICATION: pain EXAMINATION/TECHNIQUE: X-RAY - RIGHT XR Tibia/Fibula 2 Views 2 VIEWS COMPARISON: No relevant prior comparison study available FINDINGS: SOFT TISSUES: No soft tissue swelling or gas. No radiopaque foreign body. BONES/JOINTS: No acute fracture or subluxation.. Normal alignment. Preservation of the joint space.. No sclerotic or destructive changes observed. RAD/Tibia Fibula 2 Views IMPRESSION: No evidence of acute fracture or dislocation. Electronically Signed: Kunal Jarrett MD at 8:32 EDT , CC: [employer]IC-C Ermelinda Castanon; Dr. Philip Toscano MD Joint Supervisor: Signed Normal [facility] Basic Metabolic Profile (BMP )on 01-28-2024 BUN/CRE 21.9 RATIO High 10-20 [facility] Comment on above: Performed By: #### L 500.2500, L500.4100, L501.9985 #### [facility] [address] [place], [place], [address] CA,Total 9.8 mg/dL Normal 8.5-10.1 [facility] Comment on above: Performed By: #### L 500.2500, L500.4100, L501.9985 #### [facility] [address] [place], [address] Chloride [Moles/Vol] 106 mmol/L Normal 98-[address] [facility] Comment on above: Performed By: #### L 500.2500, L500.4100, L501.9985 #### [facility] [address] [place], [address] CO2 [Moles/Vol] 27.0 mmol/L Normal 21.0-32.0 [facility] Comment on above: Performed By: #### L 500.2500, L500.4100, L501.9985 #### [facility] [address] [place], [address] Creatinine [Mass/Vol] 0.91 mg/dL Normal 0.70-1.30 [facility] Comment on above: Result Comment: The validity of the calculated GFR GFRAA in patients over 70 years has not been determined. Clinical correlation is essential. Performed By: #### L 500.2500, L500.4100, L501.9985 #### [facility] [address] [place], [address] EST GFR - AA 107 mL/min Normal >60 [facility] Comment on above: Result Comment: Afri can [place] GFR Calc Performed By: #### L 500.2500, L500.4100, L501.9985 #### [facility] [address] [place], [address] GAP 5 Normal 5-15 [facility] Comment on above: Performed By: #### L 500.2500, L500.4100, L501.9985 #### [facility] [address] [place], [address] GFR/1.73 sq M.predicted among non-blacks MDRD (S/P/Bld) [Vol rate/Area] 88 mL/min/{1.73_m2} Normal >60 [facility] Comment on above: Result Comment: Non- GFR Calc Performed By: #### L 500.2500, L500.4100, L501.9985 #### [facility] [address] [place], [address] Glucose [Mass/Vol] 121 mg/dL High 74-106 [facility] Comment on above: Result Comment: Fast ing Glucose result from 100 to 125 mg/dL suggests IMPAIRED HOMEOSTASIS per A.D.A. criteria. Performed By: #### L 500.2500, L500.4100, L501.9985 #### [facility] [address] [place], [address] Potassium [Moles/Vol] 4.2 mmol/L Normal 3.5-5.1 [facility] Comment on above: Performed By: #### L 500.2500, L500.4100, L501.9985 #### [facility] [address] [place], [address] Sodium [Moles/Vol] 138 mmol/L Normal 136-145 [facility] Comment on above: Performed By: #### L 500.2500, L500.4100, L501.9985 #### [facility] [address] [place], [address] Urea nitrogen [Mass/Vol] 20 mg/dL High 7-18 [facility] Comment on above: Performed By: #### L 500.2500, L500.4100, L501.9985 #### [facility] [address] [place], [address] Basophil percentageOrdered B y: Ermelinda Castanon on 01-28-2024 Chloride [Moles/Vol] 106 mmol/L 98-[address] [facility] Cholesterol [Mass/Vol] 219 mg/dL <200 [facility] Comment on above: <200 mg/dL Desirable 200-240 mg/dL Borderline >240 mg/dL High Risk Glucose [Mass/Vol] 121 mg/dL 74-106 [facility] Comment on above: Fasting Glucose resu lt from 100 to 125 mg/dL suggests IMPAIRED HOMEOSTASIS per A.D.A. criteria. Potassium [Moles/Vol] 4.2 mmol/L 3.5-5.1 [facility] Sodium [Moles/Vol] 138 mmol/L 136-145 [facility] Triglyceride [Mass/Vol] 232 mg/dL <199 [facility] Comment on above: The drugs N-Acetylcy steine and Metamizole may falsely depress this assay.Serum Triglycerides Reference Interval Normal <150 mg/dL Borderline high 150 - 199 mg/dL High 200 - 499 mg/dL Very High > or = 500 mg/dL Hemoglobin A1con 01-28-2024 HbA1c (Bld) [Mass fraction] 5.3 % Normal 3.8-5.6 [facility] Comment on above: Result Comment: Norm al < 5.7 % Prediabetic 5.7 - 6.4 % Diabetic >or= 6.5 % Please note range changes. Performed By: #### L 500.2500, L500.4100, L501.9985 #### [facility] [address] [place], [address] Laboratory - Chemistry and C hemistry - challengeOrdered By: Ermelinda Castanon on 01-28-2024 Cholesterol in HDL [Mass/Vol] 43 mg/dL >40 [facility] Comment on above: The drugs N-Acetylcy steine and Metamizole may falsely depress this assay. Reference Range HDL <40 mg/dL Low HDL Cholesterol HDL >or= 60 mg/dL High HDL Cholesterol Cholesterol in LDL [Mass/Vol] 130 mg/dL 0-130 [facility] CO2 [Moles/Vol] 27.0 mmol/L 21.0-32.0 [facility] Urea nitrogen/Creatinine [Mass ratio] 21.9 mg/mg 10-20 [facility] Lipid Profileon 01-28-2024 Cholesterol [Mass/Vol] 219 mg/dL High 200 [facility] Comment on above: Result Comment: <200 mg/dL Desirable 200-240 mg/dL Borderline >240 mg/dL High Risk Performed By: #### L 500.2500, L500.4100, L501.9985 #### [facility] [address] [place], [address] Cholesterol in HDL [Mass/Vol] 43 mg/dL Normal [facility] Comment on above: Result Comment: The drugs N-Acetylcysteine and Metamizole may falsely depress this assay. Reference Range HDL <40 mg/dL Low HDL Cholesterol HDL >or= 60 mg/dL High HDL Cholesterol Performed By: #### L 500.2500, L500.4100, L501.9985 #### [facility] [address] [place], [address] Cholesterol in LDL [Mass/Vol] 130 mg/dL Normal 0-130 [facility] Comment on above: Performed By: #### L 500.2500, L500.4100, L501.9985 #### [facility] [address] [place], [address] Cholesterol in VLDL [Mass/Vol] 46 mg/dL High 5-40 [facility] Comment on above: Performed By: #### L 500.2500, L500.4100, L501.9985 #### [facility] [address] [place], [address] Triglyceride [Mass/Vol] 232 mg/dL High [facility] Comment on above: Result Comment: The drugs N-Acetylcysteine and Metamizole may falsely depress this assay. Serum Triglycerides Reference Interval Normal <150 mg/dL Borderline high 150 - 199 mg/dL High 200 - 499 mg/dL Very High > or = 500 mg/dL Performed By: #### L 500.2500, L500.4100, L501.9985 #### [facility] [address] [place], [address] No Panel InformationOrdered By: Ermelinda Castanon on 01-28-2024 Estimated GFR (MDRD) Amer 107 mL/min >60 [facility] Comment on above: GFR Calc Estimated GFR (MDRD) Non-Af Amer 88 mL/min >60 [facility] Comment on above: Non- GFR Calc VLDL Cholesterol 46 mg/dL 5-40 [facility] Serum or plasma calcium royer urement (mass/volume)Ordered By: Ermelinda Castanon on 01-28-2024 Calcium [Mass/Vol] 9.8 mg/dL 8.5-10.1 [facility] Serum or plasma creatinine m easurement (mass/volume)Ordered By: Ermelinda Castanon on 01-28-2024 Creatinine [Mass/Vol] 0.91 mg/dL 0.70-1.30 [facility] Comment on above: The validity of the calculated GFR & GFRAA in patients over 70 years has not been determined. Clinical correlation is essential. Serum or plasma urea nitroge n measurement (mass/volume)Ordered By: Ermelinda Castanon on 01-28-2024 Urea nitrogen [Mass/Vol] 20 mg/dL 7-18 [facility] Thin prep Papanicolaou smear with manual screeningOrdered By: Ermelinda Castanon on 01-28-2024 Thin prep Papanicolaou smear with manual screening 5 5-15 [facility] Whole blood hemoglobin A1c/t otal hemoglobin ratio (mass fraction)Ordered By: Ermelinda Castanon on 01-28-2024 HbA1c (Bld) [Mass fraction] 5.3 % 3.8-5.6 [facility] Comment on above: Normal < 5.7 % Predi abetic 5.7 - 6.4 % Diabetic >or= 6.5 % Please note range changes. Absolute lymphocyte countOrd ered By: Ermelinda Castanon on 10-20-2023 Lymphocytes Auto (Unsp spec) [#/Vol] 1.31 10*3/uL 0.83-4.51 [facility] Basophil percentageOrdered B y: Ermelinda Castanon on 10-20-2023 Basophils/100 WBC (Bld) 0.4 % 0-1 [facility] Bilirubin [Mass/Vol] 0.60 mg/dL 0.20-1.[address] [facility] Comment on above: For patients on eltr ombopag therapy, use of Dimension Antler TBIL is not recommended. Chloride [Moles/Vol] 109 mmol/L 98-[address] [facility] Eosinophils/100 WBC (Bld) 5.3 % 0-5 [facility] Glucose [Mass/Vol] 115 mg/dL 74-106 [facility] Comment on above: Fasting Glucose resu lt from 100 to 125 mg/dL suggests IMPAIRED HOMEOSTASIS per A.D.A. criteria. Neutrophils (Bld) [#/Vol] 2.6 10*3/uL 2.0-7.7 [facility] Neutrophils/100 WBC (Bld) 56.0 % 47-70 [facility] Potassium [Moles/Vol] 4.2 mmol/L 3.5-5.1 [facility] Protein [Mass/Vol] 7.0 g/dL 6.4-8.2 [facility] Sodium [Moles/Vol] 141 mmol/L 136-145 [facility] WBC (Bld) [#/Vol] 4.6 10*3/uL 4.4-11.0 [facility] Blood erythrocytes count (nu mber/volume)Ordered By: Ermelinda Castanon on 10-20-2023 RBC (Bld) [#/Vol] 4.44 10*6/uL 4.6-6.2 [facility] Blood hemoglobin measurement (mass/volume)Ordered By: Ermelinda Castanon on 10-20-2023 Hemoglobin (Bld) [Mass/Vol] 14.8 g/dL 13.0-16.5 [facility] Blood lymphocytes/100 leukoc ytesOrdered By: Ermelinda Castanon on 10-20-2023 Lymphocytes/100 WBC (Bld) 28.7 % 19-41 [facility] Blood monocytes/100 leukocyt esOrdered By: Ermelinda Castanon on 10-20-2023 Monocytes/100 WBC (Bld) 9.4 % 0-10 [facility] Blood platelet mean volumeOr dered By: Ermelinda Castanon on 10-20-2023 Platelet mean volume (Bld) [Entitic vol] 9.3 fL 6.2-12.0 [facility] Determination of erythrocyte mean corpuscular volume (MCV)Ordered By: Ermelinda Castanon on 10-20-2023 MCV (RBC) [Entitic vol] 100.7 fL 80-94 [facility] Hematocrit Auto (Bld) [Volum e fraction]Ordered By: Ermelinda Castanon on 10-20-2023 Hematocrit (Bld) [Volume fraction] 44.7 % 40-54 [facility] Laboratory - Chemistry and C hemistry - challengeOrdered By: Ermelinda Castanon on 10-20-2023 ALP [Catalytic activity/Vol] 71 U/L 45-117 [facility] ALT [Catalytic activity/Vol] 31 U/L 16-61 [facility] CO2 [Moles/Vol] 29.0 mmol/L 21.0-32.0 [facility] Globulin (S) [Mass/Vol] 3.2 g/dL 2.2-4.2 [facility] Urea nitrogen/Creatinine [Mass ratio] 22.6 mg/mg 10-20 [facility] Laboratory - Hematology and Cell countsOrdered By: Ermelinda Castanon on 10-20-2023 Erythrocyte distribution width (RBC) [Entitic vol] 48.9 fL 35.1-43.9 [facility] Erythrocyte distribution width (RBC) [Ratio] 13.2 % 11.6-14.6 [facility] Immature granulocytes/100 WBC (Bld) 0.200 % 0.0-0.9 [facility] Comment on above: IG% - Immature Granu locytes (promyelocytes, myelocytes and metamyelocytes) > 1% indicates that a LEFT SHIFT is Present. MCH (RBC) [Entitic mass] 33.3 pg 27.0-32.0 [facility] Nucleated RBC/100 WBC (Bld) [Ratio] 0 % 0-5 [facility] MCHC Auto (RBC) [Mass/Vol]Or dered By: Ermelinda Castanon on 10-20-2023 MCHC (RBC) [Mass/Vol] 33.1 g/dL 32-36 [facility] No Panel InformationOrdered By: Ermelinda Castanon on 10-20-2023 Estimated GFR (MDRD) Amer 104 mL/min >60 [facility] Comment on above: GFR Calc Estimated GFR (MDRD) Non-Af Amer 86 mL/min >60 [facility] Comment on above: Non- GFR Calc Platelets bldOrdered By: Skip Castanon on 10-20-2023 Platelets (Bld) [#/Vol] 169 10*3/uL 150-450 [facility] Serum or plasma albumin royer urement (mass/volume)Ordered By: Ermelinda Castanon on 10-20-2023 Albumin [Mass/Vol] 3.8 g/dL 3.2-5.0 [facility] Serum or plasma albumin/glob ulin mass ratioOrdered By: Ermelinda Castanon on 10-20-2023 Albumin/Globulin [Mass ratio] 1.2 {ratio} 0.9-2.4 [facility] Serum or plasma calcium royer urement (mass/volume)Ordered By: Ermelinda Castanon on 10-20-2023 Calcium [Mass/Vol] 9.8 mg/dL 8.5-10.1 [facility] Serum or plasma creatinine m easurement (mass/volume)Ordered By: Ermelinda Castanon on 10-20-2023 Creatinine [Mass/Vol] 0.93 mg/dL 0.70-1.30 [facility] Comment on above: The validity of the calculated GFR & GFRAA in patients over 70 years has not been determined. Clinical correlation is essential. Serum or plasma urea nitroge n measurement (mass/volume)Ordered By: Ermelinda Castanon on 10-20-2023 Urea nitrogen [Mass/Vol] 21 mg/dL 7-18 [facility] Thin prep Papanicolaou smear with manual screeningOrdered By: Ermelindacraig Castanon on 10-20-2023 Thin prep Papanicolaou smear with manual screening 28 U/L 15-37 [facility] Thin prep Papanicolaou smear with manual screening 3 5-15 [facility] Absolute lymphocyte countOrd ered By: Ermelinda Castanon on 09-11-2023 Lymphocytes Auto (Unsp spec) [#/Vol] 1.13 10*3/uL 0.83-4.51 [facility] Basophil percentageOrdered B y: Enmanuel Mcdonough on 09-11-2023 Ammonia (P) [Moles/Vol] 47.0 umol/L 11-32 [facility] Basophil percentageOrdered B y: Ermelinda Castanon on 09-11-2023 Basophils/100 WBC (Bld) 1.0 % 0-1 [facility] Bilirubin [Mass/Vol] 0.70 mg/dL 0.20-1.[address] [facility] Comment on above: For patients on eltr ombopag therapy, use of Dimension Antler TBIL is not recommended. Chloride [Moles/Vol] 105 mmol/L 98-[address] [facility] Cholesterol [Mass/Vol] 214 mg/dL <200 [facility] Comment on above: <200 mg/dL Desirable 200-240 mg/dL Borderline >240 mg/dL High Risk Eosinophils/100 WBC (Bld) 3.1 % 0-5 [facility] Glucose [Mass/Vol] 114 mg/dL 74-106 [facility] Comment on above: Fasting Glucose resu lt from 100 to 125 mg/dL suggests IMPAIRED HOMEOSTASIS per A.D.A. criteria. Neutrophils (Bld) [#/Vol] 2.2 10*3/uL 2.0-7.7 [facility] Neutrophils/100 WBC (Bld) 57.5 % 47-70 [facility] Potassium [Moles/Vol] 4.0 mmol/L 3.5-5.1 [facility] Protein [Mass/Vol] 7.3 g/dL 6.4-8.2 [facility] Sodium [Moles/Vol] 139 mmol/L 136-145 [facility] Triglyceride [Mass/Vol] 119 mg/dL <199 [facility] Comment on above: The drugs N-Acetylcy steine and Metamizole may falsely depress this assay.Serum Triglycerides Reference Interval Normal <150 mg/dL Borderline high 150 - 199 mg/dL High 200 - 499 mg/dL Very High > or = 500 mg/dL WBC (Bld) [#/Vol] 3.9 10*3/uL 4.4-11.0 [facility] Blood erythrocytes count (nu mber/volume)Ordered By: Ermelinda Castanon on 09-11-2023 RBC (Bld) [#/Vol] 4.68 10*6/uL 4.6-6.2 [facility] Blood hemoglobin measurement (mass/volume)Ordered By: Ermelinda Castanon on 09-11-2023 Hemoglobin (Bld) [Mass/Vol] 16.0 g/dL 13.0-16.5 [facility] Blood lymphocytes/100 leukoc ytesOrdered By: Ermelinda Castanon on 09-11-2023 Lymphocytes/100 WBC (Bld) 29.3 % 19-41 [facility] Blood monocytes/100 leukocyt esOrdered By: Ermelindacraig Castanon on 09-11-2023 Monocytes/100 WBC (Bld) 9.1 % 0-10 [facility] Blood platelet mean volumeOr dered By: Ermelindacraig Castanon on 09-11-2023 Platelet mean volume (Bld) [Entitic vol] 8.7 fL 6.2-12.0 [facility] Determination of erythrocyte mean corpuscular volume (MCV)Ordered By: Ermelindacraig Castanon on 09-11-2023 MCV (RBC) [Entitic vol] 99.8 fL 80-94 [facility] Hematocrit Auto (Bld) [Volum e fraction]Ordered By: [place] Lg on 09-11-2023 Hematocrit (Bld) [Volume fraction] 46.7 % 40-54 [facility] Laboratory - Chemistry and C hemistry - challengeOrdered By: [facility]2023 ALP [Catalytic activity/Vol] 74 U/L 45-117 [facility] ALT [Catalytic activity/Vol] 34 U/L 16-61 [facility] CO2 [Moles/Vol] 28.0 mmol/L 21.0-32.0 [facility] Globulin (S) [Mass/Vol] 3.2 g/dL 2.2-4.2 [facility] Urea nitrogen/Creatinine [Mass ratio] 14.6 mg/mg 10-20 [facility] - Hematology and Cell countsOrdered By: [facility] on 09-11-2023 Erythrocyte distribution width (RBC) [Entitic vol] 49.4 fL 35.1-43.9 [facility] Erythrocyte distribution width (RBC) [Ratio] 13.3 % 11.6-14.6 [facility] Immature granulocytes/100 WBC (Bld) 0.000 % 0.0-0.9 [facility] Comment on above: IG% - Immature Granu locytes (promyelocytes, myelocytes and metamyelocytes) > 1% indicates that a LEFT SHIFT is Present. MCH (RBC) [Entitic mass] 34.2 pg 27.0-32.0 [facility] Nucleated RBC/100 WBC (Bld) [Ratio] 0 % 0-5 [facility] MCHC Auto (RBC) [Mass/Vol]Or dered By: Ermelinda Castanon on 09-11-2023 MCHC (RBC) [Mass/Vol] 34.3 g/dL 32-36 [facility] No Panel InformationOrdered By: Ermelinda Castanon on 09-11-2023 Estimated GFR (MDRD) Amer 101 mL/min >60 [facility] Comment on above: GFR Calc Estimated GFR (MDRD) Non-Af Amer 84 mL/min >60 [facility] Comment on above: Non- GFR Calc Platelets bldOrdered By: Skip Castanon on 09-11-2023 Platelets (Bld) [#/Vol] 168 10*3/uL 150-450 [facility] Serum or plasma albumin royer urement (mass/volume)Ordered By: Ermelinda Castanon on 09-11-2023 Albumin [Mass/Vol] 4.1 g/dL 3.2-5.0 [facility] Serum or plasma albumin/glob ulin mass ratioOrdered By: Ermelinda Castanon on 09-11-2023 Albumin/Globulin [Mass ratio] 1.3 {ratio} 0.9-2.4 [facility] Serum or plasma calcium royer urement (mass/volume)Ordered By: Ermelinda Castanon on 09-11-2023 Calcium [Mass/Vol] 8.9 mg/dL 8.5-10.1 [facility] Serum or plasma cholesterol in HDL measurement (mass/volume)Ordered By: Ermelinda Castanon on 09-11-2023 Cholesterol in HDL [Mass/Vol] 57 mg/dL >40 [facility] Comment on above: The drugs N-Acetylcy steine and Metamizole may falsely depress this assay. Reference Range HDL <40 mg/dL Low HDL Cholesterol HDL >or= 60 mg/dL High HDL Cholesterol Serum or plasma cholesterol in VLDL measurement (mass/volume)Ordered By: Ermelinda Castanon on 09-11-2023 Cholesterol in VLDL [Mass/Vol] 24 mg/dL 5-40 [facility] Serum or plasma creatinine m easurement (mass/volume)Ordered By: Ermelinda Castanon on 09-11-2023 Creatinine [Mass/Vol] 0.96 mg/dL 0.70-1.30 [facility] Comment on above: The validity of the calculated GFR & GFRAA in patients over 70 years has not been determined. Clinical correlation is essential. Serum or plasma lamotrigine measurement (mass/volume)Ordered By: Enmanuel Mcdonough on 09-11-2023 lamoTRIgine [Mass/Vol] 2.1 ug/mL 2.0-20.0 [facility] Comment on above: Detection Limit = 1. 0Performed at: [facility] [id number] Director: Candy Briceno MD, Phone: [phone] Serum or plasma low density lipoprotein (LDL) cholesterol measurement (mass/volume)Ordered By: Ermelindacraig Castanon on 09-11-2023 Cholesterol in LDL [Mass/Vol] 133 mg/dL 0-130 [facility] Serum or plasma urea nitroge n measurement (mass/volume)Ordered By: Ermelinda Castanon on 09-11-2023 Urea nitrogen [Mass/Vol] 14 mg/dL 7-18 [facility] Thin prep Papanicolaou smear with manual screeningOrdered By: Ermelindacraig Castanon on 09-11-2023 Thin prep Papanicolaou smear with manual screening 27 U/L 15-37 [facility] Thin prep Papanicolaou smear with manual screening 6 5-15 [facility] Absolute lymphocyte countOrd ered By: Claudio Pena on 03-01-2023 Lymphocytes Auto (Unsp spec) [#/Vol] 1.49 10*3/uL 0.83-4.51 [facility] Basophil percentageOrdered B y: Claudio Pena on 03-01-2023 Basophils/100 WBC (Bld) 0.5 % 0-1 [facility] Chloride [Moles/Vol] 113 mmol/L 98-[address] [facility] Eosinophils/100 WBC (Bld) 4.8 % 0-5 [facility] Glucose [Mass/Vol] 112 mg/dL 74-106 [facility] Comment on above: Fasting Glucose resu lt from 100 to 125 mg/dL suggests IMPAIRED HOMEOSTASIS per A.D.A. criteria. Neutrophils (Bld) [#/Vol] 3.6 10*3/uL 2.0-7.7 [facility] Neutrophils/100 WBC (Bld) 61.5 % 47-70 [facility] Potassium [Moles/Vol] 4.3 mmol/L 3.5-5.1 [facility] Sodium [Moles/Vol] 142 mmol/L 136-145 [facility] WBC (Bld) [#/Vol] 5.9 10*3/uL 4.4-11.0 [facility] Blood erythrocytes count (nu mber/volume)Ordered By: Claudio Pena on 03-01-2023 RBC (Bld) [#/Vol] 4.10 10*6/uL 4.6-6.2 [facility] Blood hemoglobin measurement (mass/volume)Ordered By: Claudio Pena on 03-01-2023 Hemoglobin (Bld) [Mass/Vol] 14.3 g/dL 13.0-16.5 [facility] Blood lymphocytes/100 leukoc ytesOrdered By: Claudio Pena on 03-01-2023 Lymphocytes/100 WBC (Bld) 25.4 % 19-41 [facility] Blood monocytes/100 leukocyt esOrdered By: Claudio Pena on 03-01-2023 Monocytes/100 WBC (Bld) 7.5 % 0-10 [facility] Blood platelet mean volumeOr dered By: Claudio Pena on 03-01-2023 Platelet mean volume (Bld) [Entitic vol] 8.9 fL 6.2-12.0 [facility] Determination of erythrocyte mean corpuscular volume (MCV)Ordered By: Claudio Pena on 03-01-2023 MCV (RBC) [Entitic vol] 99.5 fL 80-94 [facility] Hematocrit Auto (Bld) [Volum e fraction]Ordered By: Claudio Pena on 03-01-2023 Hematocrit (Bld) [Volume fraction] 40.8 % 40-54 [facility] Laboratory - Chemistry and C hemistry - challengeOrdered By: Claudio Pena on 03-01-2023 CK [Catalytic activity/Vol] 273 U/L 39-308 [facility] CO2 [Moles/Vol] 25.0 mmol/L 21.0-32.0 [facility] Urea nitrogen/Creatinine [Mass ratio] 20.4 mg/mg 10-20 [facility] Laboratory - Hematology and Cell countsOrdered By: Claudio Pena on 03-01-2023 Erythrocyte distribution width (RBC) [Entitic vol] 47.4 fL 35.1-43.9 [facility] Erythrocyte distribution width (RBC) [Ratio] 12.9 % 11.6-14.6 [facility] Immature granulocytes/100 WBC (Bld) 0.300 % 0.0-0.9 [facility] Comment on above: IG% - Immature Granu locytes (promyelocytes, myelocytes and metamyelocytes) > 1% indicates that a LEFT SHIFT is Present. MCH (RBC) [Entitic mass] 34.9 pg 27.0-32.0 [facility] Nucleated RBC/100 WBC (Bld) [Ratio] 0 % 0-5 [facility] MCHC Auto (RBC) [Mass/Vol]Or dered By: Claudio Pena on 03-01-2023 MCHC (RBC) [Mass/Vol] 35.0 g/dL 32-36 [facility] No Panel InformationOrdered By: Claudio Pena on 03-01-2023 Estimated Creatinine Clearance Calc 118.29 ml/min [facility] Estimated GFR (MDRD) Amer 178 mL/min >60 [facility] Comment on above: GFR Calc Estimated GFR (MDRD) Non-Af Amer 147 mL/min >60 [facility] Comment on above: Non- GFR Calc Platelets bldOrdered By: Ponce Pena on 03-01-2023 Platelets (Bld) [#/Vol] 135 10*3/uL 150-450 [facility] Serum or plasma calcium royer urement (mass/volume)Ordered By: Claudio Pena on 03-01-2023 Calcium [Mass/Vol] 8.4 mg/dL 8.5-10.1 [facility] Serum or plasma creatinine m easurement (mass/volume)Ordered By: Claudio Pena on 03-01-2023 Creatinine [Mass/Vol] 0.59 mg/dL 0.70-1.30 [facility] Comment on above: The validity of the calculated GFR & GFRAA in patients over 70 years has not been determined. Clinical correlation is essential. Serum or plasma urea nitroge n measurement (mass/volume)Ordered By: Claudio Pena on 03-01-2023 Urea nitrogen [Mass/Vol] 12 mg/dL 7-18 [facility] Thin prep Papanicolaou smear with manual screeningOrdered By: Claudio Pena on 03-01-2023 Thin prep Papanicolaou smear with manual screening 4 5-15 [facility] Basophil percentageOrdered B y: Claudio Pena on 02-27-2023 Basophil percentage 3.0 mg/dL 2.5-4.9 [facility] Basophil percentageOrdered B y: Dorene Saha on 02-27-2023 Bilirubin [Mass/Vol] 0.90 mg/dL 0.20-1.[address] [facility] Comment on above: For patients on eltr ombopag therapy, use of Dimension [place] TBIL is not recommended. Cholesterol [Mass/Vol] 145 mg/dL <200 [facility] Comment on above: <200 mg/dL Desirable 200-240 mg/dL Borderline >240 mg/dL High Risk Protein [Mass/Vol] 6.2 g/dL 6.4-8.2 [facility] Triglyceride [Mass/Vol] 47 mg/dL <199 [facility] Comment on above: The drugs N-Acetylcy steine and Metamizole may falsely depress this assay.Serum Triglycerides Reference Interval Normal <150 mg/dL Borderline high 150 - 199 mg/dL High 200 - 499 mg/dL Very High > or = 500 mg/dL Basophil percentageOrdered B y: Marcio Toney on 02-27-2023 Basophil percentage 0 SEEN /hpf 0-[address] [facility] Bilirubin Test strip Ql (U)O rdered By: Vijius Feng on 02-27-2023 Bilirubin Ql (U) Negative Negative [facility] Blood platelet adequacy dete ction by light microscopyOrdered By: Dorene Saha on 02-27-2023 Platelets LM Ql (Bld) SLT DEC ADEQ [facility] Ketones Test strip Ql (U)Ord ered By: Remus Feng on 02-27-2023 Ketones Ql (U) 150 mg/dl Negative [facility] Comment on above: CRITICAL VALUE *HCRI TICAL VALUE VERIFIED. CALLED TO Ashley NAVA RN ER02/27/23 0101 Maricarmen Ferrera.RESULTS READ BACK BY SAME. Laboratory - Chemistry and C hemistry - challengeOrdered By: Dorene Saha on 02-27-2023 ALP [Catalytic activity/Vol] 64 U/L 45-117 [facility] ALT [Catalytic activity/Vol] 41 U/L 16-61 [facility] Globulin (S) [Mass/Vol] 2.7 g/dL 2.2-4.2 [facility] Laboratory - Drug toxicology Ordered By: Dorene Saha on 02-27-2023 Amphetamines Ql (U) Negative <1000 ng/mL [facility] Benzodiazepines Ql (U) Negative < 200 ng/mL [facility] Cannabinoids Screen Ql (U) Negative < 50 ng/mL [facility] Cocaine Ql (U) Negative < 300 ng/mL [facility] Opiates Ql (U) Positive < 300 ng/mL [facility] Macrocytes detectionOrdered By: Dorene Saha on 02-27-2023 Macrocytes Ql (Bld) 1+ [facility] Mucus LM Ql (Urine sed)Order ed By: Marcio Toney on 02-27-2023 Mucus Ql (Urine sed) 0 SEEN /hpf [facility] Nitrite Test strip Ql (U)Ord ered By: Marcio Toney on 02-27-2023 Nitrite Ql (U) Negative Negative [facility] No Panel InformationOrdered By: Dorene Saha on 02-27-2023 Troponin I High Sensitivity 33 pg/mL 3.0-78.0 [facility] Comment on above: Please Note: New [place] t Units and Gender Specific Reference Ranges. For more information see Policy Stat Procedure [place] High Sensitivity Troponin (TNIH) and attachments. Thyroid Stimulating Hormone (TSH) 2.64 uIU/mL 0.358-3.74 [facility] MDMA (Ecstasy) Screen Negative < 500 ng/mL [facility] Urine Barbiturates Screen Negative < 200 ng/mL [facility] Urine Drug Screen Comment [facility] Comment on above: CONFIRMATORY TESTING FOR ALL POSITIVE URINE DRUG SCREENRESULTS WILL ONLY BE SENT OUT UPON PHYSICIAN ORDER. VISTA Urine Drug Screen methods provide only preliminaryanalytical test results. A more specific alternate chemicalmethod must be used in order to obtain a confirmedanalytical result. Gas chromatography/mass spectrometery(GC/MS) is the preferred confirmatory method. Clinicalconsideration and professional judgement should be appliedto any drug of abuse test result, particularly whenpreliminary positive results are used. URINE TCA TESTING MUST BE ORDERED SEPARATELY. USE TESTMNEMONIC: [facility] Urine Methadone Screen Negative < 300 ng/mL [facility] Protein Test strip Ql (U)Ord ered By: Marcio Toney on 02-27-2023 Protein Ql (U) 100 mg/dl Negative [facility] Serum or plasma albumin royer urement (mass/volume)Ordered By: Dorene Saha on 02-27-2023 Albumin [Mass/Vol] 3.5 g/dL 3.2-5.0 [facility] Serum or plasma albumin/glob ulin mass ratioOrdered By: Dorene Saha on 02-27-2023 Albumin/Globulin [Mass ratio] 1.3 {ratio} 0.9-2.4 [facility] Serum or plasma cholesterol in HDL measurement (mass/volume)Ordered By: Dorene Saha on 02-27-2023 Cholesterol in HDL [Mass/Vol] 68 mg/dL >40 [facility] Comment on above: The drugs N-Acetylcy steine and Metamizole may falsely depress this assay. Reference Range HDL <40 mg/dL Low HDL Cholesterol HDL >or= 60 mg/dL High HDL Cholesterol Serum or plasma cholesterol in VLDL measurement (mass/volume)Ordered By: Dorene Saha on 02-27-2023 Cholesterol in VLDL [Mass/Vol] 9 mg/dL 5-40 [facility] Serum or plasma low density lipoprotein (LDL) cholesterol measurement (mass/volume)Ordered By: Dorene Saha on 02-27-2023 Cholesterol in LDL [Mass/Vol] 68 mg/dL 0-130 [facility] Squamous epithelial cells de tection in urine sediment by light microscopyOrdered By: Marcio Toney on 02-27-2023 Epithelial cells.squamous LM Ql (Urine sed) 0 SEEN /hpf 0-5 [facility] Thin prep Papanicolaou smear with manual screeningOrdered By: Dorene Saha on 02-27-2023 Thin prep Papanicolaou smear with manual screening 55 U/L 15-37 [facility] Urine blood detectionOrdered By: Marcio Toney on 02-27-2023 RBC Ql (U) 50 /ul Negative [facility] RBC Ql (U) 0-5 SEEN /hpf 0-5 [facility] Urine clarityOrdered By: Viji Toney on 02-27-2023 Clarity (U) Clear Clear [facility] Urine color determinationOrd ered By: Marcio Toney on 02-27-2023 Color (U) Yellow Yellow [facility] Urine glucose detectionOrder ed By: Marcio Toney on 02-27-2023 Glucose Ql (U) Normal mg/dl Normal [facility] Urine leukocyte esterase det ection by dipstickOrdered By: Marcio Toney on 02-27-2023 Leukocyte esterase Test strip Ql (U) Negative Negative [facility] Urine pHOrdered By: Marcio Santana gur on 02-27-2023 pH (U) 6.0 [pH] 5.0 - 8.0 [facility] Urine phencyclidine (PCP) de tectionOrdered By: Dorene Saha on 02-27-2023 Phencyclidine Ql (U) Negative < 25 ng/mL [facility] Urine sediment bacteria coun t by microscopy (number/high power field)Ordered By: Marcio Toney on 02-27-2023 Bacteria LM.HPF (Urine sed) [#/Area] RARE /hpf None Seen [facility] Urine sediment unidentified crystal count by microscopy (number/high powered field)Ordered By: Marcio Toney on 02-27-2023 Unidentified crystals LM.HPF (Urine sed) [#/Area] SEE COMMENT /hpf None Seen [facility] Comment on above: RARE SPERM PRESENT Urine specific gravity measu rementOrdered By: Marcio Toney on 02-27-2023 Specific gravity (U) [Rel density] 1.015 1.002-1.030 [facility] Urobilinogen Auto test strip Ql (U)Ordered By: Marcio Toney on 02-27-2023 Urobilinogen Ql (U) Normal mg/dl Normal [facility] Whole blood hemoglobin A1c/t otal hemoglobin ratio (mass fraction)Ordered By: Dorene Saha on 02-27-2023 HbA1c (Bld) [Mass fraction] 5.3 % 3.8-5.6 [facility] Comment on above: Normal < 5.7 % Predi abetic 5.7 - 6.4 % Diabetic >or= 6.5 % Please note range changes. Laboratory - Chemistry and C hemistry - challengeOrdered By: Dorene Saha on 02-26-2023 Magnesium [Mass/Vol] 1.8 mg/dL 1.6-2.[address] [facility] Basophil percentageOrdered B y: Dr. Pierre on 11-14-2022 Cholesterol [Mass/Vol] 221 mg/dL <200 [facility] Comment on above: <200 mg/dL Desirable 200-240 mg/dL Borderline >240 mg/dL High Risk Triglyceride [Mass/Vol] 158 mg/dL <199 [facility] Comment on above: The drugs N-Acetylcy steine and Metamizole may falsely depress this assay.Serum Triglycerides Reference Interval Normal <150 mg/dL Borderline high 150 - 199 mg/dL High 200 - 499 mg/dL Very High > or = 500 mg/dL Serum or plasma cholesterol in HDL measurement (mass/volume)Ordered By: Dr. Pierre on 11-14-2022 Cholesterol in HDL [Mass/Vol] 57 mg/dL >40 [facility] Comment on above: The drugs N-Acetylcy steine and Metamizole may falsely depress this assay. Reference Range HDL <40 mg/dL Low HDL Cholesterol HDL >or= 60 mg/dL High HDL Cholesterol Serum or plasma cholesterol in VLDL measurement (mass/volume)Ordered By: Dr. Pierre on 11-14-2022 Cholesterol in VLDL [Mass/Vol] 32 mg/dL 5-40 [facility] Serum or plasma low density lipoprotein (LDL) cholesterol measurement (mass/volume)Ordered By: Dr. Pierre on 11-14-2022 Cholesterol in LDL [Mass/Vol] 132 mg/dL 0-130 [facility] Basophil percentageon 2021 Chloride [Moles/Vol] 103 mmol/L 98-[address] [facility] Work Phone: Cholesterol [Mass/Vol] 235 mg/dL <200 [facility] Work Phone: Comment on above: <200 mg/dL Desirable 200-240 mg/dL Borderline >240 mg/dL High Risk Glucose [Mass/Vol] 114 mg/dL 74-106 [facility] Work Phone: Comment on above: Fasting Glucose resu lt from 100 to 125 mg/dL suggests IMPAIRED HOMEOSTASIS per A.D.A. criteria. Potassium [Moles/Vol] 3.7 mmol/L 3.5-5.1 [facility] Work Phone: Sodium [Moles/Vol] 136 mmol/L 136-145 [facility] Work Phone: Triglyceride [Mass/Vol] 143 mg/dL <199 [facility] Work Phone: Comment on above: The drugs N-Acetylcy steine and Metamizole may falsely depress this assay.Serum Triglycerides Reference Interval Normal <150 mg/dL Borderline high 150 - 199 mg/dL High 200 - 499 mg/dL Very High > or = 500 mg/dL Laboratory - Chemistry and C hemistry - challengeon 05-30-2022 CO2 [Moles/Vol] 28.0 mmol/L 21.0-32.0 [facility] Work Phone: Urea nitrogen/Creatinine [Mass ratio] 17.9 mg/mg 10-20 [facility] Work Phone: No Panel Informationon 05-30 Estimated GFR (MDRD) Amer 118 mL/min >60 [facility] Work Phone: Comment on above: GFR Calc Estimated GFR (MDRD) Non-Af Amer 98 mL/min >60 [facility] Work Phone: Comment on above: Non- GFR Calc Serum or plasma calcium royer urement (mass/volume)on 05-30-2022 Calcium [Mass/Vol] 9.4 mg/dL 8.5-10.1 [facility] Work Phone: Serum or plasma cholesterol in HDL measurement (mass/volume)on 05-30-2022 Cholesterol in HDL [Mass/Vol] 46 mg/dL >40 [facility] Work Phone: Comment on above: The drugs N-Acetylcy steine and Metamizole may falsely depress this assay. Reference Range HDL <40 mg/dL Low HDL Cholesterol HDL >or= 60 mg/dL High HDL Cholesterol Serum or plasma cholesterol in VLDL measurement (mass/volume)on 05-30-2022 Cholesterol in VLDL [Mass/Vol] 29 mg/dL 5-40 [facility] Work Phone: Serum or plasma creatinine m easurement (mass/volume)on 05-30-2022 Creatinine [Mass/Vol] 0.84 mg/dL 0.70-1.30 [facility] Work Phone: Comment on above: The validity of the calculated GFR & GFRAA in patients over 70 years has not been determined. Clinical correlation is essential. Serum or plasma low density lipoprotein (LDL) cholesterol measurement (mass/volume)on 05-30-2022 Cholesterol in LDL [Mass/Vol] 160 mg/dL 0-130 [facility] Work Phone: Serum or plasma urea nitroge n measurement (mass/volume)on 05-30-2022 Urea nitrogen [Mass/Vol] 15 mg/dL - [facility] Work Phone: Thin prep Papanicolaou smear with manual screeningon 05-30-2022 Thin prep Papanicolaou smear with manual screening 02 14-15 [facility] Work Phone: Basophil percentageon 2021 Bilirubin [Mass/Vol] 0.80 mg/dL 0.20-1.[address] [facility] Work Phone: Comment on above: For patients on eltr ombopag therapy, use of Dimension [place] TBIL is not recommended. Chloride [Moles/Vol] 104 mmol/L 98-[address] [facility] Work Phone: Glucose [Mass/Vol] 108 mg/dL 74-106 [facility] Work Phone: Comment on above: Fasting Glucose resu lt from 100 to 125 mg/dL suggests IMPAIRED HOMEOSTASIS per A.D.A. criteria. Lactate [Moles/Vol] 1.7 mmol/L 0.4-2.0 [facility] Work Phone: Potassium [Moles/Vol] 4.1 mmol/L 3.5-5.1 [facility] Work Phone: Protein [Mass/Vol] 7.1 g/dL 6.4-8.2 [facility] Work Phone: Sodium [Moles/Vol] 138 mmol/L 136-145 [facility] Work Phone: Laboratory - Chemistry and C hemistry - challengeon 12-27-2021 ALP [Catalytic activity/Vol] 71 U/L 45-117 [facility] Work Phone: ALT [Catalytic activity/Vol] 35 U/L 16-61 [facility] Work Phone: CO2 [Moles/Vol] 31.0 mmol/L 21.0-32.0 [facility] Work Phone: Globulin (S) [Mass/Vol] 3.1 g/dL 2.2-4.2 [facility] Work Phone: Urea nitrogen/Creatinine [Mass ratio] 15.7 mg/mg 10-20 [facility] Work Phone: No Panel Informationon 12-27 Estimated GFR (MDRD) Amer 120 mL/min >60 [facility] Work Phone: Comment on above: GFR Calc Estimated GFR (MDRD) Non-Af Amer 99 mL/min >60 [facility] Work Phone: Comment on above: Non- GFR Calc Serum or plasma albumin royer urement (mass/volume)on 12-27-2021 Albumin [Mass/Vol] 4.0 g/dL 3.2-5.0 [facility] Work Phone: Serum or plasma albumin/glob ulin mass ratioon 12-27-2021 Albumin/Globulin [Mass ratio] 1.3 {ratio} 0.9-2.4 [facility] Work Phone: Serum or plasma calcium royer urement (mass/volume)on 12-27-2021 Calcium [Mass/Vol] 9.6 mg/dL 8.5-10.1 [facility] Work Phone: Serum or plasma creatinine m easurement (mass/volume)on 12-27-2021 Creatinine [Mass/Vol] 0.83 mg/dL 0.70-1.30 [facility] Work Phone: Comment on above: The validity of the calculated GFR & GFRAA in patients over 70 years has not been determined. Clinical correlation is essential. Serum or plasma urea nitroge n measurement (mass/volume)on 12-27-2021 Urea nitrogen [Mass/Vol] 13 mg/dL 7-18 [facility] Work Phone: Thin prep Papanicolaou smear with manual screeningon 12-27-2021 Thin prep Papanicolaou smear with manual screening 24 U/L 15-37 [facility] Work Phone: Thin prep Papanicolaou smear with manual screening 3 5-15 [facility] Work Phone: Absolute lymphocyte counton 11-22-2021 Lymphocytes Auto (Unsp spec) [#/Vol] 2.51 10*3/uL 0.83-4.51 [facility] Work Phone: Basophil percentageon 2021 Lactate [Moles/Vol] 5.3 mmol/L 0.4-2.0 [facility] Work Phone: Comment on above: Critical Result(s) C alled at: 05:44:14 11/22/2021 by: MARICARMEN FERRERA to Armando Marroquin [employer]. Results read back by same. Basophils/100 WBC (Bld) 0.5 % 0-1 [facility] Work Phone: Chloride [Moles/Vol] 103 mmol/L 98-[address] [facility] Work Phone: Eosinophils/100 WBC (Bld) 4.4 % 0-5 [facility] Work Phone: Glucose [Mass/Vol] 160 mg/dL 74-106 [facility] Work Phone: Comment on above: Fasting Glucose resu lt greater than or equal to 126 mg/dL suggests DIABETES MELLITUS per A.D.A. criteria. Neutrophils (Bld) [#/Vol] 4.4 10*3/uL 2.0-7.7 [facility] Work Phone: Neutrophils/100 WBC (Bld) 55.7 % 47-70 [facility] Work Phone: Potassium [Moles/Vol] 3.4 mmol/L 3.5-5.1 [facility] Work Phone: Sodium [Moles/Vol] 137 mmol/L 136-145 [facility] Work Phone: WBC (Bld) [#/Vol] 7.8 10*3/uL 4.4-11.0 [facility] Work Phone: Blood erythrocytes count (nu mber/volume)on 11-22-2021 RBC (Bld) [#/Vol] 4.31 10*6[facility]L [facility].6-[facility] Blood hemoglobin measurement (mass/volume)on 11-22-2021 Hemoglobin (Bld) [Mass/Vol] 14.8 g/dL 13.0-16.5 [facility] Work Phone: Blood lymphocytes/100 leukoc yteson 11-22-2021 Lymphocytes/100 WBC (Bld) 32.1 % 19-41 [facility] Work Phone: Blood monocytes/100 leukocyt eson 11-22-2021 Monocytes/100 WBC (Bld) 6.5 % 0-10 [facility] Work Phone: Blood platelet mean volumeon 11-22-2021 Platelet mean volume (Bld) [Entitic vol] 8.6 fL 6.2-12.0 [facility] Work Phone: Determination of erythrocyte mean corpuscular volume (MCV)on 11-22-2021 MCV (RBC) [Entitic vol] 99.1 fL 80-94 [facility] Work Phone: Hematocrit Auto (Bld) [Volum e fraction]on 11-22-2021 Hematocrit (Bld) [Volume fraction] 42.7 % 40-54 [facility] Work Phone: INR in Blood by Coagulation assayon 11-22-2021 INR Coag (Bld) [Relative time] 1.2 {INR} [facility] Work Phone: Laboratory - Chemistry and C hemistry - challengeon 11-22-2021 CO2 [Moles/Vol] 19.0 mmol/L 21.0-32.0 [facility] Work Phone: Urea nitrogen/Creatinine [Mass ratio] 14.3 mg/mg 10-20 [facility] Work Phone: Laboratory - Coagulationon 0 11-22-2021 aPTT Coag (Bld) [Time] 26.0 s 24.1-36.2 [facility] Work Phone: PT Coag (PPP) [Time] 14.6 s 11.7-14.[address] [facility] Work Phone: Laboratory - Hematology and Cell countson 11-22-2021 Erythrocyte distribution width (RBC) [Entitic vol] 53.8 fL 35.1-43.9 [facility] Work Phone: Erythrocyte distribution width (RBC) [Ratio] 14.6 % 11.6-14.6 [facility] Work Phone: Immature granulocytes/100 WBC (Bld) 0.800 % 0.0-0.9 [facility] Work Phone: Comment on above: IG% - Immature Granu locytes (promyelocytes, myelocytes and metamyelocytes) > 1% indicates that a LEFT SHIFT is Present. MCH (RBC) [Entitic mass] 34.3 pg 27.0-32.0 [facility] Work Phone: Nucleated RBC/100 WBC (Bld) [Ratio] 0 % 0-5 [facility] Work Phone: MCHC Auto (RBC) [Mass/Vol]on 11-22-2021 MCHC (RBC) [Mass/Vol] 34.7 g/dL 32-36 [facility] Work Phone: No Panel Informationon 11-22 Estimated Creatinine Clearance Calc 73.67 ml/min [facility] Work Phone: Estimated GFR (MDRD) Amer 99 mL/min >60 [facility] Work Phone: Comment on above: GFR Calc Estimated GFR (MDRD) Non-Af Amer 82 mL/min >60 [facility] Work Phone: Comment on above: Non- GFR Calc Troponin I High Sensitivity 16 pg/mL 3.0-78.0 [facility] Work Phone: Comment on above: Please Note: New [place] t Units and Gender Specific Reference Ranges. For more information see Policy Stat Procedure [place] High Sensitivity Troponin (TNIH) and attachments. Platelets bldon 11-22-2021 Platelets (Bld) [#/Vol] 156 10*3/uL 150-450 [facility] Work Phone: Serum or plasma calcium royer urement (mass/volume)on 11-22-2021 Calcium [Mass/Vol] 8.4 mg/dL 8.5-10.1 [facility] Work Phone: Serum or plasma creatinine m easurement (mass/volume)on 11-22-2021 Creatinine [Mass/Vol] 0.98 mg/dL 0.70-1.30 [facility] Work Phone: Comment on above: The validity of the calculated GFR & GFRAA in patients over 70 years has not been determined. Clinical correlation is essential. Serum or plasma urea nitroge n measurement (mass/volume)on 11-22-2021 Urea nitrogen [Mass/Vol] 14 mg/dL 7-18 [facility] Work Phone: Thin prep Papanicolaou smear with manual screeningon 11-22-2021 Thin prep Papanicolaou smear with manual screening 15 5-15 [facility] Work Phone: Basophil percentageon 2020 Bilirubin [Mass/Vol] 0.20 mg/dL 0.20-1.[address] [facility] Work Phone: Comment on above: For patients on eltr ombopag therapy, use of Dimension [place] TBIL is not recommended. Chloride [Moles/Vol] 104 mmol/L 98-107 [facility] Work Phone: Glucose [Mass/Vol] 132 mg/dL 74-106 [facility] Work Phone: Comment on above: Fasting Glucose resu lt greater than or equal to 126 mg/dL suggests DIABETES MELLITUS per A.D.A. criteria.Please note revised GLUCOSE reference range effective 2017. Potassium [Moles/Vol] 3.8 mmol/L 3.5-5.1 Jacinto [facility] Work Phone: Protein [Mass/Vol] 6.0 g/dL 6.4-8.2 [facility] Work Phone: Sodium [Moles/Vol] 138 mmol/L 136-145 [facility] Work Phone: Laboratory - Chemistry and C hemistry - challengeon 10-11-2021 ALP [Catalytic activity/Vol] 120 U/L 45-117 [facility] Work Phone: ALT [Catalytic activity/Vol] 48 U/L 16-61 [facility] Work Phone: CO2 [Moles/Vol] 26.0 mmol/L 21.0-32.0 [facility] Work Phone: Globulin (S) [Mass/Vol] 3.8 g/dL 2.2-4.2 [facility] Work Phone: Urea nitrogen/Creatinine [Mass ratio] 30.0 mg/mg 10-20 [facility] Work Phone: No Panel Informationon 10-11 Estimated GFR (MDRD) Amer 154 mL/min >60 [facility] Work Phone: Comment on above: GFR Calc Estimated GFR (MDRD) Non-Af Amer 128 mL/min >60 [facility] Work Phone: Comment on above: Non- GFR Calc Serum or plasma albumin royer urement (mass/volume)on 10-11-2021 Albumin [Mass/Vol] 2.2 g/dL 3.2-5.0 [facility] Work Phone: Serum or plasma albumin/glob ulin mass ratioon 10-11-2021 Albumin/Globulin [Mass ratio] 0.6 {ratio} 0.9-2.4 [facility] Work Phone: Serum or plasma calcium royer urement (mass/volume)on 10-11-2021 Calcium [Mass/Vol] 8.6 mg/dL 8.5-10.1 [facility] Work Phone: Serum or plasma creatinine m easurement (mass/volume)on 10-11-2021 Creatinine [Mass/Vol] 0.67 mg/dL 0.70-1.30 [facility] Work Phone: Comment on above: The validity of the calculated GFR & GFRAA in patients over 70 years has not been determined. Clinical correlation is essential. Serum or plasma urea nitroge n measurement (mass/volume)on 10-11-2021 Urea nitrogen [Mass/Vol] 20 mg/dL 7-18 [facility] Work Phone: Thin prep Papanicolaou smear with manual screeningon 10-11-2021 Thin prep Papanicolaou smear with manual screening 18 U/L 15-37 [facility] Work Phone: Thin prep Papanicolaou smear with manual screening 8 5-15 [facility] Work Phone: Absolute lymphocyte counton 10-02-2021 Lymphocytes Auto (Unsp spec) [#/Vol] 1.02 10*3/uL 0.83-4.51 [facility] Work Phone: Basophil percentageon 2020 Bilirubin [Mass/Vol] 0.50 mg/dL 0.20-1.[address] [facility] Work Phone: Comment on above: For patients on eltr ombopag therapy, use of Dimension Antler TBIL is not recommended. Chloride [Moles/Vol] 102 mmol/L 98-[address] [facility] Work Phone: Eosinophils/100 WBC (Bld) 0.4 % 0-5 [facility] Work Phone: Glucose [Mass/Vol] 157 mg/dL 74-106 [facility] Work Phone: Comment on above: Fasting Glucose resu lt greater than or equal to 126 mg/dL suggests DIABETES MELLITUS per A.D.A. criteria.Please note revised GLUCOSE reference range effective 2017. Neutrophils (Bld) [#/Vol] 9.8 10*3/uL 2.0-7.7 [facility] Work Phone: Potassium [Moles/Vol] 4.3 mmol/L 3.5-5.1 [facility] Work Phone: Protein [Mass/Vol] 6.1 g/dL 6.4-8.2 [facility] Work Phone: Sodium [Moles/Vol] 136 mmol/L 136-145 [facility] Work Phone: WBC (Bld) [#/Vol] 11.8 10*3/uL 4.4-11.0 [facility] Work Phone: Blood erythrocytes count (nu mber/volume)on 10-02-2021 RBC (Bld) [#/Vol] 4.49 10*6/uL 4.6-6.2 [facility] Work Phone: Blood hemoglobin measurement (mass/volume)on 10-02-2021 Hemoglobin (Bld) [Mass/Vol] 14.8 g/dL 13.0-16.5 [facility] Work Phone: Blood lymphocytes/100 leukoc yteson 10-02-2021 Lymphocytes/100 WBC (Bld) 8.7 % 19-41 [facility] Work Phone: Blood monocytes/100 leukocyt eson 10-02-2021 Monocytes/100 WBC (Bld) 6.1 % 0-10 [facility] Work Phone: Blood platelet mean volumeon 10-02-2021 Platelet mean volume (Bld) [Entitic vol] 9.6 fL 6.2-12.0 [facility] Work Phone: Determination of erythrocyte mean corpuscular volume (MCV)on 10-02-2021 MCV (RBC) [Entitic vol] 93.8 fL 80-94 [facility] Work Phone: Hematocrit Auto (Bld) [Volum e fraction]on 10-02-2021 Hematocrit (Bld) [Volume fraction] 42.1 % 40-54 [facility] Work Phone: Laboratory - Chemistry and C hemistry - challengeon 10-02-2021 ALP [Catalytic activity/Vol] 222 U/L 45-117 [facility] Work Phone: ALT [Catalytic activity/Vol] 332 U/L 16-61 [facility] Work Phone: CO2 [Moles/Vol] 26.0 mmol/L 21.0-32.0 [facility] Work Phone: Globulin (S) [Mass/Vol] 3.9 g/dL 2.2-4.2 [facility] Work Phone: Urea nitrogen/Creatinine [Mass ratio] 40.5 mg/mg 10-20 [facility] Work Phone: Laboratory - Hematology and Cell countson 10-02-2021 Basophils/100 WBC (Unsp spec) 0.3 % 0-1 [facility] Work Phone: Erythrocyte distribution width (RBC) [Entitic vol] 43.1 fL 35.1-43.9 [facility] Work Phone: Erythrocyte distribution width (RBC) [Ratio] 12.5 % 11.6-14.6 [facility] Work Phone: Immature granulocytes/100 WBC (Bld) 1.600 % 0.0-0.9 [facility] Work Phone: Comment on above: IG% - Immature Granu locytes (promyelocytes, myelocytes and metamyelocytes) > 1% indicates that a LEFT SHIFT is Present. MCH (RBC) [Entitic mass] 33.0 pg 27.0-32.0 [facility] Work Phone: Neutrophils/100 WBC (Bld) 82.9 % 47-70 [facility] Work Phone: Nucleated RBC/100 WBC (Bld) [Ratio] 0 % 0-5 [facility] Work Phone: MCHC Auto (RBC) [Mass/Vol]on 10-02-2021 MCHC (RBC) [Mass/Vol] 35.2 g/dL 32-36 [facility] Work Phone: No Panel Informationon 10-02 Estimated Creatinine Clearance Calc 104.07 ml/min [facility] Work Phone: Estimated GFR (MDRD) Amer 161 mL/min >60 [facility] Work Phone: Comment on above: GFR Calc Estimated GFR (MDRD) Non-Af Amer 133 mL/min >60 [facility] Work Phone: Comment on above: Non- GFR Calc Platelets bldon 10-02-2021 Platelets (Bld) [#/Vol] 200 10*3/uL 150-450 [facility] Work Phone: Serum or plasma albumin royer urement (mass/volume)on 10-02-2021 Albumin [Mass/Vol] 2.2 g/dL 3.2-5.0 [facility] Work Phone: Serum or plasma albumin/glob ulin mass ratioon 10-02-2021 Albumin/Globulin [Mass ratio] 0.6 {ratio} 0.9-2.4 [facility] Work Phone: Serum or plasma calcium royer urement (mass/volume)on 10-02-2021 Calcium [Mass/Vol] 8.6 mg/dL 8.5-10.1 [facility] Work Phone: Serum or plasma creatinine m easurement (mass/volume)on 10-02-2021 Creatinine [Mass/Vol] 0.64 mg/dL 0.70-1.30 [facility] Work Phone: Comment on above: The validity of the calculated GFR & GFRAA in patients over 70 years has not been determined. Clinical correlation is essential. Serum or plasma urea nitroge n measurement (mass/volume)on 10-02-2021 Urea nitrogen [Mass/Vol] 26 mg/dL 7-18 [facility] Work Phone: Thin prep Papanicolaou smear with manual screeningon 10-02-2021 Thin prep Papanicolaou smear with manual screening 40 U/L 15-37 [facility] Work Phone: Thin prep Papanicolaou smear with manual screening 8 5-15 [facility] Work Phone: Blood manual differential co mment interpretation (narrative result)on 09-29-2021 Manual differential comment Stefan (Bld) [Interp] SCANNED [facility] Work Phone: Blood platelet adequacy dete ction by light microscopyon 09-28-2021 Platelets LM Ql (Bld) ADEQUATE ADEQ [facility] Work Phone: RBC morphologyon 09-28-2021 RBC morphology finding Nom (Bld) NORM C+C NORMAL NORM C&C [facility] Work Phone: No Panel Informationon 09-27 Streptococcus pneumoniae Antigen (M [facility] Work Phone: Basophil percentageon 2020 Lactate [Moles/Vol] 0.7 mmol/L 0.4-2.0 [facility] Work Phone: Direct bilirubinon Bilirubin.direct [Mass/Vol] 0.19 mg/dL 0.00-0.30 [facility] Work Phone: Gram stain for investigation of transfusion reactionon 09-26-2021 Microscopic observation Gram stain Nom (Unsp spec) [facility] Work Phone: INR in Blood by Coagulation assayon 09-26-2021 INR Coag (Bld) [Relative time] 1.2 {INR} [facility] Work Phone: Laboratory - Chemistry and C hemistry - challengeon 09-26-2021 Natriuretic peptide B (Bld) [Mass/Vol] 36.7 pg/mL 0-100 [facility] Work Phone: Laboratory - Coagulationon 1 11-27-2020 aPTT Coag (Bld) [Time] 27.9 s 24.1-36.2 willy [facility] Work Phone: PT Coag (PPP) [Time] 14.8 s 11.7-14.[address] [facility] Work Phone: Laboratory - Microbiology an d Antimicrobial susceptibilityon 09-26-2021 Bacteria identified Cx Nom (Bld) No growth in [address] [facility] Work Phone: No Panel Informationon 09-26 Troponin I High Sensitivity 72 pg/mL 3.0-78.0 [facility] Work Phone: Comment on above: Please Note: New [place] t Units and Gender Specific Reference Ranges. For more information see Policy Stat Procedure Antler High Sensitivity Troponin (TNIH) and attachments. D-Dimer Quantitative (PE/DVT) 15.37 FEU/ug/m 0.27-0.49 [facility] Work Phone: Comment on above: D-Dimer ELEVATED (>0 .49): Additional studies and clinicalassessments are indicated to conclude diagnosis of:Deep Vein Thrombosis (DVT) or Pulmonary Embolism (PE)CRITICAL VALUE VERIFIED. [facility] Yolanda Pichardo.RESULTS READ BACK BY SAME . Serum or plasma C reactive p rotein measurement (mass/volume)on 09-26-2021 CRP [Mass/Vol] 303.00 mg/L 0.0-3.0 [facility] Work Phone: Comment on above: C-Reactive Protein ( CRP) provides useful information for thediagnosis, therapy and monitoring of inflammatory processesand associated diseases. For the evaluation of Relative Riskfor Cardiovascular Disease, a High Sensitivity CRP (HSCRP)should be ordered. Serum or plasma ferritin eleuterio surement (mass/volume)on 09-26-2021 Ferritin [Mass/Vol] 1177 ng/mL 26-388 [facility] Work Phone: Serum procalcitonin measurem enton 09-26-2021 Procalcitonin [Mass/Vol] 0.73 ng/mL 0.00-0.09 [facility] Work Phone: Comment on above: A procalcitonin (PCT ) level above 2.0 ng/mL on the first day of ICU admission is associated with a high risk for progression to severe sepsis and/or septic shock. A PCT level below 0.5 ng/mL on the first day of ICU admission is associated with a low risk for progression to severe and/or septic shock. Note: Concentrations <0.5 ng/mL do not exclude an infection on account of localized infections (without systemic signs) which can be associated with such low concentrations, or a systemic infection in its initial stages (<6 hours). Furthermore, increased procalcitonin can occur without infection. PCT concentrations between 0.5 and 2.0 ng/mL should be interpreted taking into account the patient's history. It is recommended to retest PCT within 6-24 hours if any concentrations <2 ng/mL are obtained. Thin prep Papanicolaou smear with manual screeningon 09-26-2021 Thin prep Papanicolaou smear with manual screening 343 U/L 87-241 [facility] Work Phone: Laboratory - Microbiology an d Antimicrobial susceptibilityon 09-24-2021 SARS-CoV-2 (COVID-19) RNA GAIL+probe Ql (Unsp spec) Detected Not Detect [facility] Work Phone: Comment on above: Normal Reference Ran ge: Not DetectedMethod:(RT-PCR) real-time reverse transcriptase PCRLuminex LEX Instrument*The Food and Drug Administration (FDA) has issued an Emergency Use Authorization (EAU) for the LEX SARS-CoV-2 Assay for the rapid detection of the virus that causes COVID-19. This test has been validated, but the FDAs independent review of this validation is pending.*Negative results do not preclude infection and should not be used as the sole basis for treatment or patient management. Optimum specimen types and timing for peak viral levels during infections caused by SARS-CoV-2 have not been determined. Collection of multiple specimens from the same patient may be necessary to detect the virus. The possibility of a false negative result should be considered if the patient has clinical presentation or has had recent exposure. Halima 12-24-2019 PROGRESS HNO ID: [id number] Author: Mario Chavez Service: ? Author Type: Physician Type: Progress Notes Filed: 12/24/2019 4:38 PM Note Text: Contact lens trial to make OD dominant in contact lens as he is in real life Ultra for Astigmatism OD Target pl for distance -0.50-2.87a500 20/25- O/r +0.50 Pl -2.62s267 gives 20/20 (patient feels a little off as he was used to this being his near eye but with OS closed vision is good) -needs to try for 3 days and report left eye targeting -1.25 near +1.00-2.64r688 gives J1+ (-1.25 target) Also gave pl-2.82u735 for distance OS if patient wants to go distance OU and try for couple days -educated patient will need Reading Only Rx if goes this route with surgery Patient to schedule measurement and report on results of trial preferrence I have confirmed and edited as necessary the relevant ophthalmic history, ROS, and the neuro exam findings as obtained by others. I have seen and examined Radha Woodard. I have discussed the case and the management of this patient's care with the Resident/Fellow, if applicable. I also have reviewed and agree with the assessment and plan as stated above and agree with all of its relevant components. Mario Chavez, OD Normal [facility] PROGRESS HNO ID: [id number] Author: Miguelito Johnson Service: ? Author Type: Physician Type: Progress Notes Filed: 12/24/2019 1:49 PM Note Text: Hyperopia with moderate Astigmatism both eyes. Tomography shows good curvature, central, and regional thickness both eyes. patient is a good candidate for refractive surgery. No findings of cataracts at this stage but discussed uncertainty as to when lens changes will develop - discussed LASIK will lose efficacy when cataracts become significant. Disc options including laser in situ keratomileusis (LASIK), Photorefractive keratectomy (PRK)- patient is a candidate for all. Patient elects laser in situ keratomileusis (LASIK) both eyes. Disc monovision - patient is interested in this option - will pursue CTL trial with Dr. Chavez - may ultimately switch near eye to non-dominant Plan: Fs-LASIK OU Target: TBD after trial and measurement eval 6.5 OZ I have confirmed and edited as necessary the relevant ophthalmic history, ROS, and the neuro exam findings as obtained by others. I have seen and examined Radha Sánchezjarett. I have discussed the case and the management of this patient's care with the Resident/Fellow, if applicable. I also have reviewed and agree with the assessment and plan as stated above and agree with all of its relevant components. Ree Johnson MD [facility] Vital Signs Date Time Vital Sign Value Performing Clinician Facility 03-28-2025 10:01-0400 Body height 172.72 cm Ermelinda Castanon [employer] Work Phone: [facility] 03-28-2025 10:01-0400 Body mass index (BMI) [Ratio] 24.5 kg/m2 Ermelinda Lg [employer] MECH[employer]IC[employer]C Work Phone: [facility] 03-28-2025 10:01-0400 Body temperature 98.4 [degF] Ermelinda Lg [employer] MECH[employer]IC[employer]C Work Phone: [facility] 03-28-2025 10:01-0400 Body weight 73.14 kg Ermelinda Castanon [employer] MECH[employer]IC[employer]C Work Phone: [facility] 03-28-2025 10:01-0400 Diastolic blood pressure 68 mm[Hg] Ermelinda Lg AREA MECHANIC[employer]C Work Phone: [facility] 03-28-2025 10:01-0400 Heart rate 51 /min Ermelinda Lg [employer] MECH[employer]IC[employer]C Work Phone: [facility] 03-28-2025 10:01-0400 Respiratory rate 16 /min Ermelinda Oswaldgar ARE[employer] MECHANIC[employer]C Work Phone: [facility] 03-28-2025 10:01-0400 SaO2% (BldA) [Mass fraction] 97 % Ermelinda Castanon AREA MECHANIC[employer]C Work Phone: [facility] 03-28-2025 10:01-0400 Systolic blood pressure 111 mm[Hg] Ermelinda Castanon AREA MECH[employer]IC[employer]C Work Phone: [facility] 02-02-2024 11:05-0400 Body height 172.[address] Jhoan Pierre Work Phone: [facility] 02-02-2024 11:05-0400 Body mass index (BMI) [Ratio] 24.3 kg/m2 Dr. Jhoan Pierre Work Phone: [facility] 02-02-2024 11:05-0400 Body temperature 98.3 [degF] Dr. Jhoan Pierre Work Phone: [facility] 02-02-2024 11:05-0400 Body weight 72.[address] Jhoan Pierre Work Phone: [facility] 02-02-2024 11:05-0400 Diastolic blood pressure 70 mm[Hg] Dr. Jhoan Pierre Work Phone: [facility] 02-02-2024 11:05-0400 Heart rate 51 /min Dr. Jhoan Pierre Work Phone: [facility] 02-02-2024 11:05-0400 Respiratory rate 17 /min Dr. Jhoan Pierre Work Phone: [facility] 02-02-2024 11:05-0400 Systolic blood pressure 120 mm[Hg] Dr. Jhoan Pierre Work Phone: [facility] 02-01-2024 08:18-0400 Body temperature 97 [degF] [facility] 02-01-2024 08:18-0400 Diastolic blood pressure 67 mm[Hg] [facility] 02-01-2024 08:18-0400 Heart rate 50 /min [facility] 02-01-2024 08:18-0400 Respiratory rate 18 /min [facility] 02-01-2024 08:18-0400 SaO2% (BldA) [Mass fraction] 99 % [facility] 02-01-2024 08:18-0400 Systolic blood pressure 115 mm[Hg] [facility] 02-01-2024 06:54-0400 Body height 172.72 cm [facility] 02-01-2024 06:54-0400 Body mass index (BMI) [Ratio] 23.8 kg/m2 [facility] 02-01-2024 06:54-0400 Body weight 71.3 kg [facility] 10-31-2023 18:30-0500 Body temperature 97.6 [degF] Dr. Jhoan Pierre Work Phone: [facility] 10-31-2023 18:30-0500 Diastolic blood pressure 67 mm[Hg] Dr. Jhoan Pierre Work Phone: [facility] 10-31-2023 18:30-0500 Heart rate 76 /min Dr. Jhoan Pierre Work Phone: [facility] 10-31-2023 18:30-0500 Respiratory rate 16 /min Dr. Jhoan Pierre Work Phone: [facility] 10-31-2023 18:30-0500 SaO2% (BldA) [Mass fraction] 97 % Dr. Jhoan Pierre Work Phone: [facility] 10-31-2023 18:30-0500 Systolic blood pressure 123 mm[Hg] Dr. Jhoan Pierre Work Phone: [facility] 10-31-2023 18:12-0500 Inhaled oxygen flow rate 8 L/min Dr. Jhoan Pierre Work Phone: [facility] 10-31-2023 13:53-0500 Body height 172.[address] Jhoan Pierre Work Phone: [facility] 10-31-2023 13:53-0500 Body mass index (BMI) [Ratio] 24.7 kg/m2 Dr. Jhoan Pierre Work Phone: [facility] 10-31-2023 13:53-0500 Body weight 73.[address] Jhoan Pierre Work Phone: [facility] 08-04-2023 11:38-0400 Body height 172.[address] Jhoan Pierre Work Phone: [facility] 08-04-2023 11:38-0400 Body mass index (BMI) [Ratio] 23.8 kg/m2 Dr. Jhoan Pierre Work Phone: [facility] 08-04-2023 11:38-0400 Body temperature 98.6 [degF] Dr. Jhoan Pierre Work Phone: [facility] 08-04-2023 11:38-0400 Body weight 71.[address] Jhoan Pierre Work Phone: [facility] 08-04-2023 11:38-0400 Diastolic blood pressure 60 mm[Hg] Dr. Jhoan Pierre Work Phone: [facility] 08-04-2023 11:38-0400 Heart rate 58 /min Dr. Jhoan Pierre Work Phone: [facility] 08-04-2023 11:38-0400 Respiratory rate 16 /min Dr. Jhoan Pierre Work Phone: [facility] 08-04-2023 11:38-0400 SaO2% (BldA) [Mass fraction] 98 % Dr. Jhoan Pierre Work Phone: [facility] 08-04-2023 11:38-0400 Systolic blood pressure 110 mm[Hg] Dr. Jhoan Pierre Work Phone: [facility] 06-27-2023 08:50-0400 Respiratory rate 16 /min Dr. Jhoan Pierre Work Phone: [facility] 06-27-2023 06:52-0400 Body height 172.[address] Jhoan Pierre Work Phone: [facility] 06-27-2023 06:52-0400 Body mass index (BMI) [Ratio] 24.9 kg/m2 Dr. Jhoan Pierre Work Phone: [facility] 06-27-2023 06:52-0400 Body temperature 97.5 [degF] Dr. Jhoan Pierre Work Phone: [facility] 06-27-2023 06:52-0400 Body weight 74.[address] Jhoan Pierre Work Phone: [facility] 06-27-2023 06:52-0400 Diastolic blood pressure 68 mm[Hg] Dr. Jhoan Pierre Work Phone: [facility] 06-27-2023 06:52-0400 Heart rate 48 /min Dr. Jhoan Pierre Work Phone: [facility] 06-27-2023 06:52-0400 SaO2% (BldA) [Mass fraction] 99 % Dr. Jhoan Pierre Work Phone: [facility] 06-27-2023 06:52-0400 Systolic blood pressure 145 mm[Hg] Dr. Jhoan Pierre Work Phone: [facility] 03-24-2023 14:32-0400 Body height 172.[address] Jhoan Pierre Work Phone: [facility] 03-24-2023 14:32-0400 Body mass index (BMI) [Ratio] 23.6 kg/m2 Dr. Jhoan Pierre Work Phone: [facility] 03-24-2023 14:32-0400 Body temperature 98.6 [degF] Dr. Jhoan Pierre Work Phone: [facility] 03-24-2023 14:32-0400 Body weight 70.[address] Jhoan Pierre Work Phone: [facility] 03-24-2023 14:32-0400 Diastolic blood pressure 70 mm[Hg] Dr. Jhoan Pierre Work Phone: [facility] 03-24-2023 14:32-0400 Heart rate 64 /min Dr. Jhoan Pierre Work Phone: [facility] 03-24-2023 14:32-0400 Respiratory rate 16 /min Dr. Jhoan Pierre Work Phone: [facility] 03-24-2023 14:32-0400 SaO2% (BldA) [Mass fraction] 97 % Dr. Jhoan Pierre Work Phone: [facility] 03-24-2023 14:32-0400 Systolic blood pressure 116 mm[Hg] Dr. Jhoan Pierre Work Phone: [facility] 03-01-2023 13:52-0400 Body temperature 98.3 [degF] Dr. Jhoan Pierre Work Phone: [facility] 03-01-2023 13:52-0400 Diastolic blood pressure 69 mm[Hg] Dr. Jhoan Pierre Work Phone: [facility] 03-01-2023 13:52-0400 Heart rate 55 /min Dr. Jhoan Pierre Work Phone: [facility] 03-01-2023 13:52-0400 Respiratory rate 14 /min Dr. Jhoan Pierre Work Phone: [facility] 03-01-2023 13:52-0400 SaO2% (BldA) [Mass fraction] 100 % Dr. Jhoan Pierre Work Phone: [facility] 03-01-2023 13:52-0400 Systolic blood pressure 117 mm[Hg] Dr. Jhoan Pierre Work Phone: [facility] 03-01-2023 06:00-0400 Body mass index (BMI) [Ratio] 23.2 kg/m2 Dr. Jhoan Pierre Work Phone: [facility] 03-01-2023 06:00-0400 Body weight 69.[address] Jhoan Pierre Work Phone: [facility] 03-01-2023 02:57-0400 Inhaled oxygen concentration 21 % Dr. Jhoan Pierre Work Phone: [facility] 02-28-2023 03:33-0400 Inhaled oxygen flow rate 10 L/min Dr. Jhoan Pierre Work Phone: [facility] 02-06-2023 13:37-0400 Body mass index (BMI) [Ratio] 23.8 kg/m2 Dr. Jhoan Pierre Work Phone: [facility] 02-06-2023 13:37-0400 Body temperature 98.4 [degF] Dr. Jhoan Pierre Work Phone: [facility] 02-06-2023 13:37-0400 Body weight 71.[address] Jhoan Pierre Work Phone: [facility] 02-06-2023 13:37-0400 Diastolic blood pressure 60 mm[Hg] Dr. Jhoan Pierre Work Phone: 6(180)681-340535 [address] 02-06-2023 13:37-0400 Heart rate 69 /min Dr. Jhoan Pierre Work Phone: 2(822)865-815100 [place] [address] 02-06-2023 13:37-0400 Respiratory rate 16 /min Dr. Jhoan Pierre Work Phone: 9(790)092-297335 [address] 02-06-2023 13:37-0400 SaO2% (BldA) [Mass fraction] 98 % Dr. Jhoan Pierre Work Phone: 9(087)457-750235 [address] 02-06-2023 13:37-0400 Systolic blood pressure 116 mm[Hg] Dr. Jhoan Pierre Work Phone: 0(507)167-971935 [address] 10-10-2022 10:27-0500 Body height 172.[address] Jhoan Pierre Work Phone: [facility] 10-10-2022 10:27-0500 Body mass index (BMI) [Ratio] 23.4 kg/m2 Dr. Jhoan Pierre Work Phone: 9(766)344-624235 [address] 10-10-2022 10:27-0500 Body temperature 98.4 [degF] Dr. Jhoan Pierre Work Phone: [facility] 10-10-2022 10:27-0500 Body weight 69.[address] Jhoan Pierre Work Phone: 5(461)[phone] [place] [address] 10-10-2022 10:27-0500 Diastolic blood pressure 62 mm[Hg] Dr. Jhoan Pierre Work Phone: [facility] 10-10-2022 10:27-0500 Heart rate 56 /min Dr. Jhoan Pierre Work Phone: 6(495)466-503800 [place] [address] 10-10-2022 10:27-0500 Respiratory rate 17 /min Dr. Jhoan Pierre Work Phone: 3(066)263-709200 [place] [address] 10-10-2022 10:27-0500 SaO2% (BldA) [Mass fraction] 98 % Dr. Jhoan Pierre Work Phone: 7(870)922-366300 [place] [address] 10-10-2022 10:27-0500 Systolic blood pressure 110 mm[Hg] Dr. Jhoan Pierre Work Phone: 2(412)320-246500 [place] [address] 07-29-2022 14:48-0400 Body mass index (BMI) [Ratio] 24.3 kg/m2 Dr. Jhoan Pierre Work Phone: 3(033)074-240700 [place] [address] 07-29-2022 14:48-0400 Body temperature 98.4 [degF] Dr. Jhoan Pierre Work Phone: 1(340)204-611800 [place] [address] 07-29-2022 14:48-0400 Body weight 72.[address] Jhoan Pierre Work Phone: 9(237)788-495700 [place] [address] 07-29-2022 14:48-0400 Diastolic blood pressure 62 mm[Hg] Dr. Jhoan Pierre Work Phone: 6(913)188-793600 [place] [address] 07-29-2022 14:48-0400 Heart rate 53 /min Dr. Jhoan Pierre Work Phone: 1(720)343-582500 [place] [address] 07-29-2022 14:48-0400 Respiratory rate 16 /min Dr. Jhoan Pierre Work Phone: 4(260)[phone] [place] [address] 07-29-2022 14:48-0400 SaO2% (BldA) [Mass fraction] 97 % Dr. Jhoan Pierre Work Phone: 5(355)904-865300 [place] [address] 07-29-2022 14:48-0400 Systolic blood pressure 110 mm[Hg] Dr. Jhoan Pierre Work Phone: [facility] 02-26-2022 11:18-0400 Body height 172.[address] Jhoan Pierre Work Phone: [facility] Work Phone: 02-26-2022 11:18-0400 Body mass index (BMI) [Ratio] 24.6 kg/m2 Dr. Jhoan Pierre Work Phone: [facility] Work Phone: 02-26-2022 11:18-0400 Body weight 73.[address] Jhoan Pierre Work Phone: [facility] Work Phone: 02-26-2022 11:18-0400 Diastolic blood pressure 70 mm[Hg] Dr. Jhoan Pierre Work Phone: [facility] Work Phone: 02-26-2022 11:18-0400 Heart rate 54 /min Dr. Jhoan Pierre Work Phone: [facility] Work Phone: 02-26-2022 11:18-0400 Respiratory rate 16 /min Dr. Jhoan Pierre Work Phone: [facility] Work Phone: 02-26-2022 11:18-0400 SaO2% (BldA) [Mass fraction] 96 % Dr. Jhoan Pierre Work Phone: [facility] Work Phone: 02-26-2022 11:18-0400 Systolic blood pressure 120 mm[Hg] Dr. Jhoan Pierre Work Phone: [facility] Work Phone: 12-25-2021 11:07-0400 Body height 172.[address] Jhoan Pierre Work Phone: [facility] Work Phone: 12-25-2021 11:07-0400 Body mass index (BMI) [Ratio] 24.5 kg/m2 Dr. Jhoan Pierre Work Phone: [facility] Work Phone: 12-25-2021 11:07-0400 Body temperature 98.9 [degF] Dr. Jhoan Pierre Work Phone: [facility] Work Phone: 12-25-2021 11:07-0400 Body weight 73.[address] Jhoan Pierre Work Phone: [facility] Work Phone: 12-25-2021 11:07-0400 Diastolic blood pressure 76 mm[Hg] Dr. Jhoan Pierre Work Phone: [facility] Work Phone: 12-25-2021 11:07-0400 Heart rate 57 /min Dr. Jhoan Pierre Work Phone: [facility] Work Phone: 12-25-2021 11:07-0400 Respiratory rate 18 /min Dr. Jhoan Pierre Work Phone: [facility] Work Phone: 12-25-2021 11:07-0400 SaO2% (BldA) [Mass fraction] 97 % Dr. Jhoan Pierre Work Phone: [facility] Work Phone: 12-25-2021 11:07-0400 Systolic blood pressure 144 mm[Hg] Dr. Jhoan Pierre Work Phone: [facility] Work Phone: 11-22-2021 06:10-0500 Diastolic blood pressure 77 mm[Hg] Dr. Jhoan Pierre Work Phone: [facility] Work Phone: 11-22-2021 06:10-0500 Heart rate 68 /min Dr. Jhoan Pierre Work Phone: [facility] Work Phone: 11-22-2021 06:10-0500 Respiratory rate 15 /min Dr. Jhoan Pierre Work Phone: [facility] Work Phone: 11-22-2021 06:10-0500 SaO2% (BldA) [Mass fraction] 97 % Dr. Jhoan Pierre Work Phone: [facility] Work Phone: 11-22-2021 06:10-0500 Systolic blood pressure 142 mm[Hg] Dr. Jhoan Pierre Work Phone: [facility] Work Phone: 11-22-2021 03:20-0500 Body mass index (BMI) [Ratio] 24.5 kg/m2 Dr. Jhoan Pierre Work Phone: [facility] Work Phone: 11-22-2021 03:20-0500 Body weight 73.[address] Jhoan Pierre Work Phone: [facility] Work Phone: 11-22-2021 03:09-0500 Body temperature 97.7 [degF] Dr. Jhoan Pierre Work Phone: [facility] Work Phone: 10-02-2021 13:44-0500 Body temperature 98.3 [degF] Dr. Jhoan Pierre Work Phone: [facility] Work Phone: 10-02-2021 13:44-0500 Diastolic blood pressure 75 mm[Hg] Dr. Jhoan Pierre Work Phone: [facility] Work Phone: 10-02-2021 13:44-0500 Heart rate 66 /min Dr. Jhoan Pierre Work Phone: [facility] Work Phone: 10-02-2021 13:44-0500 Respiratory rate 18 /min Dr. Jhoan Pierre Work Phone: [facility] Work Phone: 10-02-2021 13:44-0500 SaO2% (BldA) [Mass fraction] 93 % Dr. Jhoan Pierre Work Phone: [facility] Work Phone: 10-02-2021 13:44-0500 Systolic blood pressure 131 mm[Hg] Dr. Jhoan Pierre Work Phone: [facility] Work Phone: 10-02-2021 05:00-0500 Body weight 62.[address] Jhoan Pierre Work Phone: [facility] Work Phone: 09-30-2021 06:54-0500 Inhaled oxygen concentration 93 % Dr. Jhoan Pierre Work Phone: [facility] Work Phone: 09-26-2021 19:06-0500 Body mass index (BMI) [Ratio] 21.7 kg/m2 Dr. Jhoan Pierre Work Phone: [facility] Work Phone: Encounters Encounter Date Encounter Type Care Provider Facility Start: 03-28-2025 End: 03-28-2025 ambulatory Ermelinda Castanon [employer]IC-C Work Phone: [facility] Work Phone: Start: 03-28-2025 End: 03-28-[address] Enmanuel Mcdonough MD -[facility] Work Phone: Start: 11-05-2024 Encounter for genera l adult medical examination with abnormal findings Ermelinda Castanon [facility] Start: 09-30-2024 End: 09-30-2024 ambulatory Ermelinda Castanon Facility:[facility] Start: 07-26-2024 End: 07-26-2024 ambulatory Enmanuel Mcdonough Facility:[facility] Start: 02-02-2024 End: 02-02-[address] Jhoan Pierre Work Phone: [facility] Work Phone: Start: 02-02-2024 End: 02-02-[address] [facility] Work [facility]: Start: 02-02-2024 End: 02-02-[address] Jhoan Pierre Work Phone: [facility] Work Phone: Start: 02-02-2024 End: 02-02-2024 ambulatory [facility] Facility:[facility] Start: 02-02-2024 End: 02-02-2024 ambulatory [facility] Facility:[facility] Start: 02-01-2024 End: 02-01-2024 Emergency department patient visit [facility] Work Phone: Start: 01-28-2024 End: 01-28-[address] Jhoan Pierre Work Phone: [facility] Work Phone: Start: 01-28-2024 End: 01-28-2024 Patient encounter procedure [facility] Sylvia Diane [facility] Start: 01-28-2024 End: 01-28-2024 ambulatory [facility] Facility:[facility] Start: 10-31-2023 End: 10-31-2023 Admission to same day surgery center Dr. Jhoan Pierre Work Phone: [facility] Start: 10-31-2023 End: 10-31-[address] Jhoan Pierre Work Phone: [facility] Work Phone: Start: 10-20-2023 End: 10-20-[address] Jhoan Pierre Work Phone: [facility] Work Phone: Start: 10-20-2023 End: 10-20-[address] Jhoan Pierre Work Phone: [facility] Start: 10-09-2023 End: 10-09-[address] Jhoan Pierre Work Phone: [facility] Work Phone: Start: 10-09-2023 End: 10-09-[address] Jhoan Pierre Work Phone: [facility] Work Phone: Start: 09-17-[address] Jhoan Pierre Work Phone: [facility] Work Phone: Start: 09-11-2023 End: 09-11-[address] Jhoan Pierre Work Phone: [facility] Work Phone: Start: 09-11-2023 End: 09-11-[address] Jhoan Pierre Work Phone: [facility] Work Phone: Start: 08-18-2023 End: 08-18-[address] Jhoan Pierre Work Phone: [facility] Work Phone: Start: 08-04-2023 End: 08-04-[address] Jhoan Pierre Work Phone: [facility] Work Phone: Start: 07-09-2023 End: 07-09-[address] Jhoan Pierre Work Phone: [facility] Work Phone: Start: 07-09-2023 End: 07-09-[address] Jhoan Pierre Work Phone: [facility] Work Phone: Start: 06-27-2023 End: 06-27-2023 Emergency department patient visit Dr. Jhoan Pierre Work Phone: [facility]Emer[facility] Work Phone: Start: 06-25-[address] Jhoan Pierre Work Phone: [facility]Physical Therapy Work Phone: Start: 03-24-2023 End: 03-24-[address] Jhoan Pierre Work Phone: [facility] Work Phone: Start: 03-01-2023 Non-patient / Non-visit Dr. Chris Pierre Work Phone: [facility] Work Phone: Start: 03-01-2023 End: 03-01-2023 Non-patient / Non-visit Dr. Jhoan Pierre Work Phone: [facility] Work Phone: Start: 02-28-2023 Non-patient / Non-visit Dr. Chris Pierre Work Phone: [facility] Work Phone: Start: 02-27-2023 End: 02-27-2023 Non-patient / Non-visit Dr. Jhoan Pierre Work Phone: [facility] Work Phone: Start: 02-27-2023 End: 03-01-2023 Evaluation and management of inpatient Dr. Jhoan Pierre Work Phone: [facility]-Progressive Care Unit Work Phone: Start: 02-27-2023 Non-patient / Non-visit Dr. Chris Pierre Work Phone: [facility] Work Phone: Start: 02-06-2023 End: 02-06-[address] Jhoan Pierre Work Phone: [facility] Work Phone: Start: 02-03-2023 End: 02-03-[address] Jhoan Pierre Work Phone: [facility] Work Phone: Start: 02-03-2023 End: 02-03-[address] Jhoan Pierre Work Phone: [facility] Work Phone: Start: 11-25-[address] Jhoan Pierre Work Phone: [facility] Start: 11-14-2022 End: 11-14-[address] Jhoan Pierre Work Phone: [facility] Work Phone: Start: 11-14-2022 End: 11-14-[address] Jhoan Pierre Work Phone: [facility] Start: 10-10-2022 End: 10-10-[address] Jhoan Pierre Work Phone: [facility] Start: 07-29-2022 End: 07-29-[address] Jhoan Pierre Work Phone: [facility] Start: 05-30-2022 End: 05-30-[address] Jhoan Pierre Work Phone: [facility] Work Phone: Start: 05-30-2022 End: 05-30-[address] Jhoan Pierre Work Phone: [facility] Start: 02-26-2022 End: 02-26-[address] Jhoan Pierre Work Phone: [facility] Start: 01-23-2022 End: 01-23-[address] Jhoan Pierre Work Phone: [facility]-Pulmonary Services/Neurology Start: 01-08-2022 End: 01-08-[address] Jhoan Pierre Work Phone: [facility] Start: 12-27-2021 End: 12-27-[address] [facility]ho[facility] Start: 12-25-2021 End: 12-25-[address] Jhoan Pierre Work Phone: [facility] Start: 11-22-2021 End: 11-22-2021 Emergency department patient visit Dr. Jhoan Pierre Work Phone: [facility]Emergency Department Start: 11-08-2021 End: 11-08-[address] Jhoan Pierre Work Phone: [facility]Cardiovascular Services Start: 10-11-[address] [facility]hoan Pierre [facility] Start: 10-02-2021 Non-patient / Non-visit Dr. Chris Pierre Work Phone: [facility] Start: 10-01-2021 Non-patient / Non-visit Dr. Chris Pierre Work Phone: [facility] Start: 09-30-2021 Non-patient / Non-visit Dr. Chris Pierre Work Phone: [facility] Start: 09-29-2021 Non-patient / Non-visit Dr. Chris Pierre Work Phone: [facility] Start: 09-28-2021 Non-patient / Non-visit Dr. Chris Pierre Work Phone: [facility] Start: 09-27-2021 Non-patient / Non-visit Dr. Chris Pierre Work Phone: [facility] Start: 09-26-2021 End: 10-02-2021 Evaluation and management of inpatient Dr.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 needed for breakthrough pain not take NSAIDs secondary to his anticoagulation. Was discharged home. Is given return precautions. Patient and verbalized agreement understanding with this plan. Radiography Diagnostic Testing: Clinical Impression(s) from Imaging Studies Brain CT 06/27/23 07:23 IMPRESSION: No acute intracranial process identified. Mild right periorbital contusion. Electronically Signed: Suzy Hernandez MD at 8:12 EDT , Ribs w/Chest X-Ray 06/27/23 07:50 IMPRESSION: Age-indeterminate nondisplaced right 10th and 11th rib fractures. Electronically Signed: Suzy Hernadnez MD at 8:18 EDT , Discharge Plan Triage Chief Complaint: Fall ED Provider: Jennifer Senior Dx/Rx/DC Orders Clinical Impression: Anticoagulant long-term use, Closed head injury, Contusion of rib on right side, Contusion of face Instructions: ED Facial Contusion, ED Head Injury (Adult), ED Bruise, Rib Prescriptions: New hydrocodone-acetaminophen 5-325 mg tablet 1 tab PO Q8H PRN (Reason: pain) 3 Days Qty: 9 0RF No Action finasteride [Propecia] 1 mg tablet 1 mg PO DAILY levetiracetam 250 mg tablet 250 mg PO .COMPLEX Qty: 42 0RF Rx Instructions: Beginning on 03/29/2023, take 1 tablet twice daily for 2 weeks then 1 tablet daily for 2 weeks then discontinue levetiracetam. lamotrigine 25 mg tablet 25 mg PO .COMPLEX Qty: 120 5RF Rx Instructions: Beginning on 03/25/2023, take 1 tablet twice daily for 1 week then 2 tablets twice daily thereafter. Eliquis 5 mg Tablet See Taper PO BID Qty: 34 0RF Taper: Apixaban VTE Treatment 10 mg TWICE A DAY for 1 Day 5 mg TWICE A DAY for 30 Days acetaminophen 325 mg Tablet 650 mg PO Q6H PRN PRN (Reason: Fever, pain 1-07/22) Qty: 0 0RF Rx Instructions: Juir-mbp-kkzeuam Tylenol methocarbamol 500 mg Tablet 1,000 mg PO 4X/DAY PRN (Reason: muscle spasm) Qty: 30 0RF oxycodone 5 mg Tablet 2.5 mg PO Q4H PRN PRN (Reason: Pain Score 4-10) 3 Days Qty: 10 0RF Rx Instructions: 2.5 mg for 4-6 and 7-10/10 pantoprazole 40 mg Tablet,Delayed Release (Dr/Ec) 40 mg PO DAILY 30 Days Qty: 30 0RF Primary Care Provider: Jhoan Pierre Referrals: Jhoan Pierre MD [Primary Care Provider] - Activity Restrictions/Additional Instructions: The CT of the brain did not show any bleeding around the brain or more severe process. Your x-ray showed what is most likely old 10th and 11 rib fractures. Is possible you could have a new small fracture that did not show up on the x-ray today on your ribs or a bruise to the ribs. I recommend Lidoderm patches (4% extra strength), using your incentive spirometer at least for the next week to prevent pneumonia associated with a rib injury and you been given a prescription for short course of pain medicine if needed/if Tylenol and the Lidoderm patch is not sufficient for your pain control. As we discussed constipation is a common side effect of pain medicine and I do recommend taking MiraLAX or stool softener while taking the pain pills. Disposition Disposition: Home, Self Care What to do if you have Problems For any increased pain, shortness of breath, bleeding, nausea or vomiting, chestpain, or any unexpected problems, contact your Primary Care Provider. Call [facility] ([phone]) or report to the closest Emergency Room. Call 911 if necessary. 06/27/23 0806 <Electronically signed by Jennifer Senior DO> Cosigner Signature (if applicable): CC: Dr. Jhoan Pierre MD ~ Signed [facility] Work Phone: Discharge summary Author Philip Toscano [facility] February 01, 2024 8:12am Note Date/Time February 01, 2024 7:[address] [facility] Medical Records Department [address] [place] [id number] Emergency Department Summary 02/01/24 MR#: [id number] Acct: [id number] Name: RADHA WOODARD Rep #:[id number] : 1955 68 From: Philip Toscano MD PCP: BAL Cuenca Status:REG ER Location: ED HPI History of Present Illness Chief Complaint: Lower Extremity Injury Informant: patient and spouse/S.O. Narrative Narrative: 68-year-old male anticoagulated on Eliquis because of history of DVT/PE states that several days ago he worked his lower body at the gym for the first time in a long time. He woke up this morning and his legs are sore. He got a significant cramp in his right calf, and he states the pain was excruciating, feeling like a muscle cramp. Therefore without getting up out of bed, he had his knee in extension and he dorsiflexed his right foot with the muscles in his leg, not using his hand and assistance, and felt a painful pop in his mid calf immediately. He got up and was able to walk to the kitchen although it was soreand painful, and when he was there he noticed that there was an indentation in his calf where the pain was that is not there right now. [facility] Medical History Alcohol use Anxiety Arthritis Asthma Cardiology follow-up encounter CPAP (continuous positive airway pressure) dependence Depression Diabetes Dietary restriction Dislocation of left shoulder joint DVT (deep venous thrombosis) History of deep venous thrombosis History of pulmonary embolus (PE) (2012) History of stress test Hypothyroidism Leg cramps Loss of hearing Seizures TIA (transient ischemic attack) Trigger finger Wears contact lenses Wears glasses Home Medications finasteride 1 mg tablet (Propecia) 1 mg PO DAILY 07/29/22 [History Last Taken Unknown] acetaminophen 325 mg tablet 650 mg (2 x 325 mg) PO Q6H PRN PRN Fever, pain 1- 07/22 #0 tabs 03/01/23 [Rx Last Taken Unknown] lamotrigine 25 mg tablet 50 mg (2 x 25 mg) PO BID #120 tabs 08/04/23 [Rx Last Taken 10/31/23] apixaban 5 mg tablet (Eliquis) 5 mg PO BID 10/22/23 [History Last Taken 10/24/23] montelukast 10 mg tablet 10 mg PO DAILY 10/22/23 [History Last Taken Unknown] doxycycline hyclate 100 mg capsule 100 mg PO DAILY #10 caps 10/31/23 [Rx Last Taken Unknown] oxycodone-acetaminophen 5 mg-325 mg tablet 1 tab PO Q8H PRN pain 7 days #28 tabs10/31/23 [Rx Last Taken Unknown] hydrocodone-acetaminophen 5-325mg 5mg-325mg 0.5 - 1 tab (0.5 - 1 x 5-325 mg) PO Q4H PRN PRN Pain 2 days #10 TABLETS 02/01/24 [Rx Last Taken Unknown] Allergy/AdvReac Type Severity Reaction Status Date / Time iodine AdvReac Severe Hives Verified 02/01/24 06:55 Family History Father Myocardial infarction, Onset Age: 37 Heart disease Mental disorder Mother Myocardial infarction, Onset Age: 73 Heart disease Asthma Hypertension Surgical History H/O cardiac catheterization H/O thumb surgery History of herniorrhaphy History of hip replacement History of nasal septoplasty History of repair of rotator cuff History of shoulder surgery Hx of arthroscopy of shoulder Hx of colonoscopy Hx of elbow surgery Social History household members: spouse Smoking Status: Never smoker how long ago did patient quit smoking: Smoked ~ 6 months [age] years old, <1/2 ppd. second hand exposure: No alcohol intake: never substance use type: does not use what type of physical activity do you participate in: walking, bicycling and weight training seatbelt use: always ROS ROS ED Constitutional Constitutional ED: Denies chills or fever(s) Musculoskeletal Musculoskeletal: Reports extremity pain; Denies neck pain Integumentary Denies Abrasions, rash or wounds Neurologic Neurologic: Denies paresthesias or weakness EXAM Physical Exam Const Vital Signs: 02/01/24 06:54 Temperature 97.1 F L Temperature Source Temporal Pulse Rate 50 L Respiratory Rate 16 Blood Pressure 130/80 H Blood Pressure Mean 96 Pulse Ox 98 Oxygen Delivery Method Room Air Positive well nourished and well developed General Appearance ED: well developed and NAD Neck full ROM and supple Back/Spine normal ROM and normal to inspection Extremity normal to inspection and full ROM Extremity Narrative: Point tender in 1 particular area mid calf at the most posterior aspect, approximately 10 cm from the popliteal fossa. Normal on inspection. No discoloration. No edema distally. All compartments soft and nondistended with no deformities or indentations, including with plantarflexion of the foot. Fullrange of motion of all of the joints of the right lower extremity without any discomfort. When in knee extension and gently forcibly dorsiflexing the foot, there is a very slight increase in pain but nothing severe. Rider's test is normal and without pain. 2+ bounding dorsalis pedis pulse and brisk cap refill. Normal neurologic exam. No palpable cords in the calf. Neuro oriented x3, no focal motor deficits and no sensory deficits noted Sensorium / Orientation: alert Psych mental status grossly normal and thought process normal Mood & Affect: anxious Skin no wounds Rashes: no rashes MDM MDM MDM Narrative Medical decision making narrative: Patient does not have any signs of purpura or ecchymosis right now but he came right after this happened. I think this is all muscular. I do not think he needs an ultrasound for DVT, that is not consistent with a history and he is already anticoagulated. Patient goes on several tangents, so is wondering if I can tell him why he had a DVT years ago when he had COVID, as of the 1 that he had before that was 15 years prior. Wants to know if he is truly supposed to be on anticoagulation. He states he was told that his blood clot was may be related to his stroke that he had at some point in the past. I advised him thatmy suspicion was that his most recent DVT was related to COVID since it increases clotting, and I wouldn't be able to advise him on how long he should be anticoagulated. Patient states that the painful pop in his leg today felt like something broke. I advised him that he is not tender along the tibia or the fibula and so I do not think this is a bony issue but he and significant other are really pressing for x-rays so I obtained 2 view x-ray of the right tibia/fibula, and on my interpretation this confirms that there is no acute bony issue. At this time I recommend supportive care along with ice for the first 3 days, then if he does not see any ecchymosis or purpura to suggest a muscle or tendon tear/rupture, I think applying heat to help things loosen up would be reasonable. He would occasionally have spasms of pain here and he was offered a tramadol which he hasnever had before and he was okay with trying that and Tylenol. 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 Of note, patient has had no new prescriptions recently such as antibiotics or steroids to potentially put him at risk for a tendon rupture. Discharge Plan Triage Chief Complaint: Lower Extremity Injury ED Provider: Philip Toscano Dx/Rx/DC Orders Clinical Impression: Strain of right gastrocnemius muscle or tendon Instructions: Self-Care for Strains and Sprains Prescriptions: New hydrocodone-acetaminophen [hydrocodone-acetaminophen] 5-325 mg tablet 0.5 - 1 tab PO Q4H PRN PRN (Reason: Pain) 2 Days Qty: 10 0RF No Action finasteride [Propecia] 1 mg tablet 1 mg PO DAILY lamotrigine 25 mg tablet 50 mg PO BID Qty: 120 6RF acetaminophen 325 mg Tablet 650 mg PO Q6H PRN PRN (Reason: Fever, pain 1-07/22) Qty: 0 0RF Rx Instructions: [id number] Tylenol montelukast 10 mg tablet 10 mg PO DAILY Patient Comments: take 1 tablet by mouth once daily Eliquis 5 mg Tablet 5 mg PO BID Taper: Apixaban VTE Treatment 10 mg TWICE A DAY for 1 Day 5 mg TWICE A DAY for 30 Days doxycycline hyclate 100 mg capsule 100 mg PO DAILY Qty: 10 0RF oxycodone-acetaminophen 5-325 mg tablet 1 tab PO Q8H PRN (Reason: pain) 7 Days Qty: 28 0RF Primary Care Provider: Ermelinda Castanon Referrals: Ermelinda Castanon, [employer] [Primary Care Provider] - 1 Week if not improving (or your switch operators supervisor) Activity Restrictions/Additional Instructions: Apply ice to affected area as needed for the first 3 days, then as long as you do not see the significant bruising or purple discoloration traveling down your leg, you may apply heat if desired to help loosen the calf muscle. Gentle stretches are okay, walking is okay, use pain as your guide and do not push it or exert with regards to her right lower extremity until you are better. Disposition Disposition: Home, Self Care What to do if you have Problems For any increased pain, shortness of breath, bleeding, nausea or vomiting, chestpain, or any unexpected problems, contact your Primary Care Provider. Call [facility] ([phone]) or report to the closest Emergency Room. Call 911 if necessary. 02/01/24811 <Electronically signed by Philip Toscano MD> Cosigner Signature (if applicable): CC: PARUL Alfaro; [employer] Ermelinda Castanon ~ Signed [facility] Work Phone: Evaluation note* Diagnosis Onset Date Resolution Status Acute respiratory failure with hypoxia acute COVID-19 acute Hypoxemia acute Pneumonia due to COVID-19 virus acute Pulmonary emboli acute Severe protein-calorie malnutrition acute Hyperlipemia chronic Nocturnal seizure acute [facility] Work Phone: Evaluation note* Diagnosis Onset Date Resolution Status Nocturnal seizure acute [facility] Work Phone: Evaluation note* Diagnosis Onset Date Resolution Status Neck pain chronic Paresthesias chronic Nocturnal seizure resolved Anxiety acute Lightheadedness acute Sleep disturbance acute Paresthesias chronic Nocturnal seizure resolved [facility] Work Phone: Evaluation note* Diagnosis Onset Date Resolution Status Nocturnal seizure resolved Sleep disturbance resolved Abnormal ECG acute Acute alteration in mental status acute Acute hypokalemia acute Unresponsive episode resolve d Epilepsy acute Nocturnal seizure resolved [facility] Work Phone: Evaluation note* Diagnosis Onset Date Resolution Status Abnormal ECG acute Acute alteration in mental status acute Acute hypokalemia acute Unresponsive episode resolve d Epilepsy acute Nocturnal seizure resolved [facility] Work Phone: Evaluation note* Diagnosis Onset Date Resolution Status Epilepsy acute Nocturnal seizure resolved [facility] Work Phone: Evaluation note* Diagnosis Onset Date Resolution Status Epilepsy acute Nocturnal seizure resolved Capsulitis of toe of right foot acute Cyst of bone of right foot a cute Pain in right foot acute [facility] Work Phone: Evaluation note* Diagnosis Onset Date Resolution Status Capsulitis of toe of right foot acute Cyst of bone of right foot a cute Pain in right foot acute [facility] Work Phone: Evaluation note* Diagnosis Onset Date Resolution Status Capsulitis of toe of right foot acute Cyst of bone of right foot a cute Pain in right foot acute Epilepsy acute [facility] Work Phone: Evaluation note* Diagnosis Onset Date Resolution Status Admit Date Epilepsy acute March 28 10:02am Nocturnal seizure resolved March 282024 10:02am [facility] Work Phone: [facility] Work [facility]: Hospital Discharge instructions Additional Instructions The CT of the brain did not show any bleeding around the brain or more severe process. Your x-ray showed what is most likely old 10th and 11 rib fractures. Is possible you could have a new small fracture that did not show up on the x-ray today on your ribs or a bruise to the ribs. I recommend Lidoderm patches (4% extra strength), using your incentive spirometer at least for the next week to prevent pneumonia associated with a rib injury and you been given a prescription for short course of pain medicine if needed/if Tylenol and the Lidoderm patch is not sufficient for your pain control. As we discussed constipation is a common side effect of pain medicine and I do recommend taking MiraLAX or stool softener while taking the pain pills.[facility] Work Phone: Hospital Discharge instructions Additional Instructions [facility] Additional Instructions Apply ice to affected area as needed for the first 3 days, then as long as you do not see the significant bruising or purple discoloration traveling down your leg, you may apply heat if desired to help loosen the calf muscle. Gentle stretches are okay, walking is okay, use pain as your guide and do not push it or exert with regards to her right lower extremity until you are better.[facility] Work Phone: Reason for referral (narrative)No reason for referral information availableH[facility] Work Phone: Summary Purpose Family History Relationship Condition Age at Onset Recorded Date/T [place] father Myocardial infarction 37 Cardiac disease Unknown Mental disorder Unknown mother Myocardial infarction 73 Asthma Unknown Hypertension Unknown Advance Directives Advance Directive Response Recorded Date/ Time Advance Directives Yes November 4:19pm Living Will No November 26 4:19pm Power of Sack Cleaner No November 26, 2021 4:19pm Name of Medical Power of Sack Cleaner maricarmen amaya r September 26, 2021 9:06pm Advance Directive Response Recorded Date/ Time Advance Directives Yes November 4:19pm Living Will No November 26 4:19pm Power of Sack Cleaner No November 26, 2021 4:19pm Advance Directive Response Recorded Date/ Time Advance Directives Yes November 3:19pm Living Will No November 26, 3:19pm Power of Sack Cleaner No November 26, 2021 3:19pm Advance Directive Response Recorded Date/ Time Name of Medical Power of Sack Cleaner Irene Amaya r February 27, 2023 2:36am Advance Directives Yes November 4:19pm Living Will Yes February 27, 2023 2 :36am Power of Sack Cleaner Yes February 27, 2023 2:36am Advance Directive Response Recorded Date/ Time Name of Medical Power of Sack Cleaner Irene Amaya r February 27, 2023 2:36am Name of Medical Power of Sack Cleaner Nichol Amaya r June 27, 2023 6:56am Advance Directives Yes November 4:19pm Living Will Yes June 27, 2023 6:56am Power of Sack Cleaner Yes June 6:56am Advance Directive Response Recorded Date/ Time Name of Medical Power of Sack Cleaner Nichol Amaya r June 27, 2023 6:56am Advance Directives Yes November 4:19pm Living Will Yes June 27, 2023 6:56am Power of Sack Cleaner Yes June 6:56am Advance Directive Response Recorded Date/ Time Name of Medical Power of Sack Cleaner Nichol espino June 27, 2023 5:56am Advance Directives Yes November 3:19pm Living Will Yes June 27, 2023 5:56am Power of Sack Cleaner Yes June 5:56am Advance Directive Response Recorded Date/ Time Name of Medical Power of Sack Cleaner Nichol Amaya r June 27, 2023 5:56am Advance Directives Yes November 3:19pm Living Will Yes October 22 2:24pm Power of Sack Cleaner Yes October 22, 2023 2:24pm Advance Directive Response Recorded Date/ Time Name of Medical Power of Sack Cleaner October 22, 2023 2:24pm Advance Directives Yes November 3:19pm Living Will Yes October 22 2:24pm Power of Sack Cleaner Yes October 22, 2023 2:24pm Advance Directive Response Recorded Date/ Time Name of Medical Power of Sack Cleaner October 22, 2023 3:24pm Name of Medical Power of Sack Cleaner Maricarmen February 01, 2024 6:54am Advance Directives Yes November 4:19pm Living Will Yes February 01, 2024 6:54am Power of Sack Cleaner Yes January 31 6:54am Advance Directive Response Recorded Date/ Time Living Will Yes February 01, 2024 6:54am Do you have a Healthcare Power of Sack Cleaner? Yes February 01, 2024 6:54am Advance Directives Yes November 4:19pm Chief Complaint and Reason for Visit Chief Complaint COVID 19 CHEST XRAY COVID 19, HYPOXIA, PE COVID 19, HYPOXIA, PE COVID 19, HYPOXIA, PE COVID 19, HYPOXIA, PE COVID 19, HYPOXIA, PE COVID 19, HYPOXIA, PE COVID 19, HYPOXIA, PE COVID 19, HYPOXIA, PE COVID-19 neuro TODDS PARALYSIS EORDERS/2 PHYSICIANS NOCTURNAL SEIZURE Reason for Visit Acute respiratory fa ilure with hypoxia COVID-19 Hypoxemia Pneumonia due to COVID-19 virus Pulmonary emboli Severe protein-calorie malnutrition Hyperlipemia Nocturnal seizure Chief Complaint 2 M FU Reason for Visit Nocturnal seizure Chief Complaint 6 M FU 3 M FU RT SHOULDER OSTEOARTHRITIS / RX HERE Reason for Visit Neck pain Paresthesias Nocturnal seizure Anxiety Lightheadedness Sleep disturbance Paresthesias Nocturnal seizure Chief Complaint RT SHOULDER OSTEOART HRITIS / RX HERE 4MO MENTAL STATUS CHANGE, ABNORMAL EKG UNRESPONSIVE EPISODE UNRESPONSIVE EPISODE UNRESPONSIVE EPISODE 4 MO Reason for Visit Nocturnal seizure Sleep disturbance Abnormal ECG Acute alteration in mental status Acute hypokalemia Unresponsive episode Epilepsy Nocturnal seizure Chief Complaint MENTAL STATUS CHANGE , ABNORMAL EKG UNRESPONSIVE EPISODE EKG UNRESPONSIVE EPISODE AM EKG UNRESPONSIVE EPISODE 4 MO LEFT SHOULDER. RX HERE Fall Reason for Visit Abnormal ECG Acute alteration in mental status Acute hypokalemia Unresponsive episode Epilepsy Nocturnal seizure Chief Complaint Fall LEFT SHOULDER. RX HERE 4 M FU Reason for Visit Epilepsy Nocturnal seizure Chief Complaint Fall LEFT SHOULDER. RX HERE 4 M FU RIGHT FOOT PAIN LEFT SHOULDER. RX HERE Reason for Visit Epilepsy Nocturnal seizure Chief Complaint LEFT SHOULDER. RX HE RE 4 M FU RIGHT FOOT PAIN LEFT SHOULDER. RX HERE Partial excision of right second metatarsal head w Reason for Visit Epilepsy Nocturnal seizure Capsulitis of toe of right foot Cyst of bone of right foot Pain in right foot Chief Complaint LEFT SHOULDER. RX HE RE Partial excision of right second metatarsal head w right calf Reason for Visit Capsulitis of toe of right foot Cyst of bone of right foot Pain in right foot Chief Complaint LEFT SHOULDER. RX HE RE Partial excision of right second metatarsal head w right calf 6 month f/u INT LABS Reason for Visit Capsulitis of toe of right foot Cyst of bone of right foot Pain in right foot Epilepsy Chief Complaint Partial excision of right second metatarsal head w right calf 6 month f/u INT LABS Reason for Visit Capsulitis of toe of right foot Cyst of bone of right foot Pain in right foot Epilepsy Chief Complaint Admit Date 8 MONTH F/U March 28, 2025 10:0 2am Reason for Visit Admit Date Epilepsy March 28, 2025 10:0 2am Nocturnal seizure March 28, 2025 10:0 2am Additional Source Comments (unrecognized sect ion and content) No Status Records FoundNo Status Records Found INFORMATION SOURCE (unrecogn ized section and content) DATE CREATED AUTHOR 12/24/2019 [facility] DATE CREATED AUTHOR 'Bernardo LANG 11/05/2024 [facility] Goals (unrecognized section and content) Goals may be documented in a n alternate sectionGoals may be documented in an alternate sectionGoals may be documented in an alternate sectionGoals may be documented in an alternate sectionGoals may be documented in an alternate sectionGoals may be documented in an alternate sectionGoals may be documented in an alternate sectionGoals may be documented in an alternate sectionGoals may be documented in an alternate sectionGoals may be documented in an alternate section Care Teams (unrecognized sec tion and content) Team Status: Active Member Role Status Dates Dr. Jhoan Pierre MD Family Provider Active Dr. Jhoan Pierre MD Primary Care Provider Active Team Status: Inactive Member Role Status Dates Dr. Jhoan Pierre MD Primary Care Provider, Referring Provider Active Dr. Enmanuel Mcdonough MD Attending Provider Active Team Status: Active Member Role Status Dates Dr. Jhoan Pierre MD Primary Care Provider Active Dr. Andrew Frey MD Attending Provider, Referring P rovider Active Team Status: Inactive Member Role Status Dates Dr. Jhoan Pierre MD Primary Care Provi roya, Attending Provider, Referring Provider Active Team Status: Active Member Role Status Dates Dr. Jhoan Pierre MD Primary Care Provider Active Dr. Marcio Toney DO Emergency Provider Active Dr. Dorene Saha MD Admit Provider, Attending Provider, Other Provider Active Team Status: Active Member Role Status Dates Dr. Jhoan Pierre MD Primary Care Provider Active Dr. Marcio Toney DO Emergency Provider Active Dr. Dorene Saha MD Admit Provider, Other Provider Active Dr. Claudio Pena MD Attending Provider, Other Provi roya Active Dr. Black Brothers MD Other Provider Active Team Status: Inactive Member Role Status Dates Dr. Jhoan Pierre MD Primary Care Provider Active Dr. Andrew Frey MD Attending Provider, Referring P rovider Active Team Status: Inactive Member Role Status Dates Dr. Jhoan Pierre MD Primary Care Provider Active Dr. Marcio Toney DO Emergency Provider Active Dr. Dorene Saah MD Admit Provider, Other Provider Active Dr. Claudio Pena MD Attending Provider Active Dr. Black Brothers MD Other Provider Active Team Status: Active Member Role Status Dates Dr. Jhoan Pierre MD Primary Care Provider Active Dr. Jose Ramon Banks MD Attending Provider, Referring Pro vider Active Team Status: Inactive Member Role Status Dates Dr. Jhoan Pierre MD Primary Care Provider Active Dr. Jennifer Senior , Emergency Provider Active Team Status: Active Member Role Status Dates Dr. Jhoan Pierre MD Primary Care Provider Active TAVON UPTON Attending Provider, Referring Provider Active Team Status: Inactive Member Role Status Dates Dr. Jhoan Pierre MD Primary Care Provider Active Dr. Jennifer Senior DO Attending Provider, Emergency P rovider Active Team Status: Inactive Member Role Status Dates Dr. Jhoan Pierre MD Primary Care Provider Active TAVON UPTON Attending Provider, Referring Provider Active Team Status: Active Member Role Status Dates Dr. Jhoan Pierre MD Family Provider Active Ermelinda Lg , [employer] Primary Care Provider Active Team Status: Inactive Member Role Status Dates Dr. Jhoan Pierre MD Primary Care Provider Active Dr. Cristino Alfaro DPM Attending Provider Active Team Status: Inactive Member Role Status Dates Ermelinda Lg , [employer]IC[employer] Primary Care Provide r, Attending Provider, Referring Provider Active Team Status: Inactive Member Role Status Dates Ermelinda Lg , [employer]IC-C Primary Care Provider, Attending P rovider Active Team Status: Inactive Member Role Status Dates Ermelindacraig Castanon , [employer]IC-C Primary Care Provider Active Dr. Cristino Alfaro DPM Attending Provider, Referri ng Provider Active Team Status: Active Member Role Status Dates Ermelinda Castanon , [employer]IC[employer]C Primary Care Provide r, Attending Provider, Referring Provider Active Team Status: Inactive Member Role Status Dates Ermelinda Castanon , [employer]IC-C Primary Care Provider Active Dr. Philip Toscano MD Emergency Provider Active Team Status: Inactive Member Role Status Dates Dr. Jhoan Pierre MD Referring Provider Active Dr. Enmanuel Mcdonough MD Attending Provider Active Ermelinda Lg , [employer]IC-C Primary Care Provider Active Team Status: Active Member Role Status Dates Ermelinda Castanon , [employer]IC-[employer] Primary Care Provider Active Dr. Enmanuel Mcdonough MD Attending Provider, Referring Provider Active Team Status: Inactive Member Role Status Dates Ermelinda Castanon , [employer]IC-C Primary Care Provider Active Dr. Enmanuel Mcdonough MD Attending Provider, Referring Provider Active Team Status: Inactive Member Role Status Dates Ermelinda Castanon , [employer]IC-C Primary Care Provider Active Dr. Philip Toscano MD Attending Provider, Emergency Provider Active Team Status: Inactive Member Role Status Dates Ermelinda Lg , [employer]IC-C Primary Care Provider Active Start: March 28, 2025 End: March 28, 2025 Ermelindacraig Castanon , [employer]IC-C Referring Provider Active St art: March 28, 2025 End: March 28, 2025 Dr. Enmanuel Mcdonough MD Attending Provider Active Start: March 28, 2025 End: March 28, 2025 FOR RECORDS PERTAINING TO PATIENTS WHO ARE [...] BE BASED ON THE PRIMARY CLINICAL RECORDS. [facility] [employer] [facility]. provides no warranty or guarantee of the accuracy or completeness of information in this document.
[2025-03-29 10:59] LABS: Ammonia 46.9 umol/L (16-60)
[2025-04-01 14:08] LABS: Lamotrigine (Lamictal) Level 1.1 ug/mL (2.0-20.0)
== END | disposition home or self-care (01) ==
LOC: MTLAB 07:07
PROVIDERS: PCP Nurse Practitioner Family; Referring Provider Psychiatry & Neurology Neurology; Visit Provider Psychiatry & Neurology Neurology
DX: G40.909 Epilepsy, unspecified, not intractable, without status epilepticus (principal)
CPT/HCPCS: 36415; 82140; 82542

== ENCOUNTER → 2025-09-15 | Outpatient (CLI) | payer MEDICARE, SELFPAY ==
[2025-09-15 17:34] LABS: Hematocrit 44.6 % (40-54); Hemoglobin 15.5 g/dL (13.0-16.5); Mean Corp Hgb Conc 34.8 g/dL (32-36); Mean Corpuscular Volume 98.5 fL (80-94); Mean Platelet Vol. 9.0 fl (6.2-12.0); Platelet Count 184 K/mm3 (150-450); RBC Distribution Width CV 12.8 % (11.6-14.6); RBC Distribution Width SD 46.1 fl (35.1-43.9); Red Blood Count 4.53 M/mm3 (4.6-6.2); White Blood Count 4.4 K/mm3 (4.4-11.0)
[2025-09-15 18:04] LABS: AST(SGOT) 23 U/L (<=37); Alanine Aminotransfer ALT/SGPT 23 U/L (<=46); Albumin, Serum 4.5 g/dL (3.4-4.8); Alkaline Phosphatase 74 U/L (40-129); Anion Gap 11 (5-15); BUN 20 mg/dL (4-19); BUN/Creat Ratio 24.5 RATIO (10-20); Calcium,Total 9.9 mg/dL (7.6-11.0); Carbon Dioxide 24.8 mmol/L (21.0-32.0); Chloride 103 mmol/L (98-108); Globulin 2.4 g/dL (2.2-4.2); Glucose 105 mg/dL (70-99); Magnesium 2.1 mg/dL (1.5-2.2); Potassium 4.1 mmol/L (3.3-5.1); Vitamin B12 419 pg/mL (180-914)
[2025-09-15 18:05] LABS: Ammonia 24.3 umol/L (16-60)
[2025-09-19 12:08] LABS: Vitamin D 1,25-Dihydroxy 32.4 pg/mL (24.8-81.5)
== END | disposition home or self-care (01) ==
LOC: MTLAB 13:51
PROVIDERS: PCP Nurse Practitioner Family; Referring Provider Psychiatry & Neurology Neurology; Visit Provider Psychiatry & Neurology Neurology
DX: G40.909 Epilepsy, unspecified, not intractable, without status epilepticus (principal); R53.83 Other fatigue
CPT/HCPCS: 36415; 80053; 82140; 82542; 82607; 82652; 83735; 85027

== ENCOUNTER 2025-10-01 08:10 | Emergency (ER) | payer MEDICARE, SELFPAY ==
[2025-10-01 08:11] VITALS: BP 129/78; PULSE 52; RESP 16; TEMP 36.4; O2SAT 98
[2025-10-01 08:19] VITALS: BMI 24.7
--- OUTSIDE RECORDS SUMMARY | 2025-10-01 09:07 | XMS RPT_ITS | CCD ---
Author Organization [facility] Care Team Providers Care Geospatial Program Management Officer Name Role Phone Dr. Jhoan Pierre Primary [...] Provider Dr. Jhoan Pierre Referring Provider Gautam MOTLEY, BAL Reynolds Attending Provider Dr. Jhoan Pierre Primary Care Provider Dr. Jhoan Pierre Referring Provider Dr. Enmanuel Mcdonough Attending Provider Dr. Jhoan Pierre Primary Care Provider Dr. Jhoan Pierre Referring Provider Dr. Enmanuel Mcdonough Attending Provider Dr. Marcio Toney Emergency Provider Yifan, Dr. Dorene Waldron Admit Provider White, Dr. Dorene Waldron Attending Provider White, Dr. Dorene Waldron Other Provider Jean, Dr. Snyder Attending Provider Jean, Dr. Snyder Other Provider Brothers, Dr. Cleaning Other Provider Dr. Jhoan Pierre Primary Care Provider Darren, Dr. Albright Attending Provider Darren, Dr. Albright Referring Provider Dr. Jhoan Pierre Referring Provider Dr. Enmanuel Mcdonough Attending Provider Dr. Jhoan Pierre Primary Care Provider Dr. Jhoan Pierre Referring Provider Dr. Enmanuel Mcdonough Attending Provider Dr. Jhoan Pierre Primary Care Provider Dr. Jhoan Pierre Referring Provider Dr. Enmanuel Mcdonough Attending Provider Dr. Jhoan Pierre Referring Provider Dr. Enmanuel Mcdonough Attending Provider Lg, CHRISTIAN SCIENCE PRACTITIONER-C Ermelinda Primary Care Provider Lg CHRISTIAN SCIENCE PRACTITIONER-C, Ermelinda Primary Care Provider Lg CHRISTIAN SCIENCE PRACTITIONER-C, Ermelinda Referring Provider Dr. Enmanuel Mcdonough MD Attending Provider Dr. Enmanuel Mcdonough MD Referring Provider Lg, Ermelinda Referring Unavailable Enmanuel Mcdonough Attending Unavailable Lg, Ermelinda Primary Care Unavailable LgErmelinda rios Primary Care Unavailable Enmanuel Mcdonough Attending Unavailable Enmanuel Mcdonough Referring Unavailable LgErmelinda Referring Unavailable Lg, Ermelinda Primary Care Unavailable LgSkipErmelinda Attending Unavailable Lg, Ermelinda Referring Unavailable Enmanuel Mcdonough Attending Unavailable Lg, Ermelinda Primary Care Unavailable Allergies Allergy Classification Reported Allergen(s) Allergy Type Date of Onset Reaction(s) Facility (17 sources) Iodine Drug Allergy 12-25-2021 [facility] Comment on above: TOPICAL SURGERY SCRU B (1 source) Iodine Drug Allergy 03-28-2025 [facility] Repository Medications Current Medications Medication Drug Class(es) Dates Sig (Normalized) Sig (Original) acetaminophen 325 mg oral tablet (12 sources) Start: 03-01-2023 take 2 tablets by mouth every six hours as needed for pain Acetaminophen 325 mg Tablet Active 650 mg PO EVERY 6 HOURS NEEDED as needed for Fever, pain March 01, 2023 11:03am Yxwi-hhy-espuymt Tylenol Start: 03-01-2023 take 650 mg by mouth every six hours as needed Acetaminophen Active 650 MG PO EVERY 6 HOURS NEEDED March 01, 2023 11:03am Plhk-yle-wffyuza Tylenol Albuterol Sulfate (5 sources) beta2-Adrenergic Agonist [...] Schedule details. clindamycin 300 mg oral capsule (2 sources) Lincosamide Antibacterial Start: 07-26-2024 Clindamycin Hcl 300 [...] / HYDROcodone bitartrate 5 mg oral tablet (9 sources) Opioid Agonist Start: 02-01-2024 End: 03-28-2025 [...] / oxyCODONE hydrochloride 5 mg oral tablet (6 sources) Opioid Agonist Start: 10-31-2023 End: 03-28-2025 Oxycodone-Acetaminophen 5-32 5 mg tablet Discontinued 1 {tbl} PO Q8H as needed for pain 09 05October 31, 2023 March 28, 2025 10:42am Start: 10-31-2023 take 1 tablet by nelson th every eight hours Oxycodone-Acetaminophen Active 1 TABLET PO Q8H 09 05October 31, 2023 aspirin 81 mg delayed release oral tablet (17 sources) Platelet Aggregation Inhibitor, Nonsteroidal Anti-inflammatory Drug Start: 08-17-2019 End: 08-18-2019 take 1 tablet by mouth once daily Aspirin (Adult Aspirin Regimen) 81 mg tablet,delayed release (DR/EC) Discontinued 81 mg PO DAILY August 17, 2019 1:00am August 18, 2019 3:42pm benzonatate 100 mg oral capsule (17 sources) Non-narcotic Antitussive Start: 11-11-2014 End: 08-17-2019 take 1 capsule by mouth three times daily as needed for cough Benzonatate 100 MG capsule Discontinued 100 mg PO 3 TIMES DAILY NEEDED as needed for Cough November 11, 2014 1:00am August 17, 2019 10:16pm Betaine (17 sources) Methylating Agent Start: 09-26-2021 End: 10-02-2021 [...] pt takes with meals Deglyrrhizinated Licorice Extract (17 sources) Start: 09-29-2021 End: 10-02-2021 take 3 [...] dexlansoprazole 60 mg delayed release oral capsule (17 sources) Proton Pump Inhibitor Start: 11-11-2014 End: 08-17-2019 take 1 capsule by mouth once daily Dexlansoprazole 60 MG capsule,biphase delayed releas Discontinued 60 mg PO DAILY November 11, 2014 1:00am August 17, 2019 10:16pm 12 hr dextromethorphan hydrobromide 30 mg / guaiFENesin 600 mg extended release oral tablet (17 sources) Uncompetitive G-iofmor-C-asparta te Receptor Antagonist, Sigma-1 Agonist Start: 10-02-2021 End: 07-29-2022 Dextromethorphan-Gu aifenesin (Mucus Dm) 30-600 mg Tablet Extended Release 12 Hr Discontinued 1 {tbl} PO TWICE A DAY 14 October 02, 2021 1:00am July 29, 2022 2:58pm doxycycline hyclate 100 mg oral capsule (6 sources) Tetracycline-class Drug Start: 10-31-2023 End: 03-28-2025 [...] lansoprazole 15 mg delayed release oral capsule (17 sources) Proton Pump Inhibitor Start: 08-18-2019 End: [...] 10:30pm magnesium oxide 400 mg oral capsule (17 sources) Start: 08-18-2019 End: 10-10-2022 take 1 capsule by mouth once daily Magnesium Oxide 400 mg magnesium capsule Discontinued 400 mg PO DAILY August 18, 2019 1:00am October 10, 2022 11:35am meloxicam 7.5 mg oral tablet (17 sources) Nonsteroidal Anti-inflammatory Drug Start: 11-11-2014 End: 08-17-2019 take 1 tablet by mouth once daily Meloxicam 7.5 MG tablet Discontinued 7.5 mg PO DAILY November 11, 2014 1:00am August 17, 2019 10:16pm 60 actuat mometasone furoate 0.22 mg/actuat dry powder inhaler (17 sources) Corticosteroid Start: 11-11-2014 End: 08-17-2019 Mometasone 220 MCG inhaler Discontinued 220 ug INHALATION TWICE A DAY as needed for Dyspnea November 11, 2014 1:00am August 17, 2019 10:16pm niacin 100 mg oral tablet (17 sources) Nicotinic Acid Start: 08-18-2019 End: 08-18-2019 take 1 tablet by mouth twice daily Niacin 100 mg tablet Discontinued 100 mg PO TWICE A DAY August 18, 2019 1:00am August 18, 2019 3:43pm predniSONE 10 mg oral tablet (17 sources) Start: 11-22-2021 End: 02-26-2022 Prednisone 10 mg tablet Discontinued 20 mg DAILY November 22, 2021 1:00am February 26, 2022 11:35am Start: 11-22-2021 End: 02-26-2022 Prednisone Discontinued 20 M G DAILY November 22, 2021 1:00am February 26, 2022 11:35am red yeast rice 600 mg oral tablet (17 sources) Start: 09-26-2021 End: 10-02-2021 take 1 tablet by mouth once daily Red Yeast Rice 600 mg Tablet Discontinued 600 mg PO DAILY September 26, 2021 1:00am October 02, 2021 11:08am Testosterone (17 sources) Androgen Start: 11-11-2014 End: 08-17-2019 Testosterone [...] 1:00am August 17, 2019 10:16pm Thyro Syn (17 sources) Start: 09-29-2021 End: 10-02-2021 take 2 [...] October 02, 2021 11:08am [employer] (17 sources) Start: 08-18-2019 End: 10-02-2021 take 1 dose by mouth once daily IDINCU Discontinued 1 dose pk PO DAILY August 18, 2019 3:20pm October 02, 2021 11:08am Start: 08-18-2019 End: 10-02-2021 take 1 dose by mouth once daily [employer] Discontinued 1 dose pk PO DAILY August 18, 2019 12:00am October 02, 2021 10:08am Start: 08-18-2019 End: 10-02-2021 take 1 dose by mouth once daily IDINCU Discontinued 1 dose pk PO DAILY August 18, 2019 1:00am October 02, 2021 11:08am vitamin b12 1 mg oral tablet (17 sources) Vitamin B12 Start: 09-26-2021 End: 07-29-2022 take 1 tablet by mouth once daily Cyanocobalamin (Vitamin B-12) (Vitamin B-12) 1,000 mcg Tablet Discontinued 1000 ug PO DAILY September 26, 2021 1:00am July 29, 2022 2:59pm Zinc (17 sources) Start: 09-26-2021 End: 10-02-2021 take 50 [...] 2021 1:00am October 02, 2021 11:08am Problems Problem Classification Problem Date Documented Date Episodic/Chronic Anxiety disorders (14 sources) Anxiety; Translations: [Anxiety disorder, unspecified] 10-10-2022 Chronic Conditions associated with dizziness or vertigo (14 sources) Lightheadedness; Translations: [Dizziness and giddiness] 10-10-2022 Episodic Disorders of lipid metabolism (20 sources) Hyperlipidemia; Translations: [Hyperlipidemia, unspecified] Chronic Epilepsy; convulsions (20 sources) Epilepsy; Translations: [Epilepsy, unspecified, not intractable, without status epilepticus] Onset: 03-24-2023 Chronic Epilepsy; convulsions (20 sources) Seizure; Translations: [Unspecified convulsions] Episodic Fluid and electrolyte disorders (14 sources) Acute hypokalemia; Translations: [Hypokalemia] 02-27-2023 Episodic Fracture of upper limb (12 sources) Fracture of scapula; Translations: [Fracture of unspecified part of scapula, left shoulder, initial encounter for closed fracture] 03-01-2023 Episodic Joint disorders and dislocations; trauma-related (12 sources) Dislocation of shoulder joint; Translations: [Unspecified dislocation of left shoulder joint, initial encounter] 03-09-2023 Episodic Nonspecific chest pain (17 sources) Chest pain; Translations: [Chest pain, unspecified] 08-17-2019 Episodic Nutritional deficiencies (20 sources) Deficiency of macronutrients; Translations: [Unspecified severe protein-calorie malnutrition] Chronic Other aftercare (11 sources) Long-term current use of anticoagulant; 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] 06-27-2023 Episodic Other bone disease and musculoskeletal deformities (6 sources) Bone cyst of right foot; Translations: [Other cyst of bone, right ankle and foot] 10-31-2023 Episodic Other bone disease and musculoskeletal deformities (4 sources) Other cyst of bone, right ankle and foot; Translations: [Cyst of bone (localized), unspecified] 10-31-2023 Episodic Other connective tissue disease (17 sources) Triggering of digit; Translations: [Trigger finger, unspecified finger] 07-05-2021 Episodic Other connective tissue disease (6 sources) Capsulitis; Translations: [Other enthesopathy of right foot and ankle] 10-31-2023 Episodic Other connective tissue disease (6 sources) Foot pain; Translations: [Pain in right foot] 10-31-2023 Episodic Other connective tissue disease (4 sources) Other enthesopathy of right foot and ankle; Translations: [Enthesopathy of ankle and tarsus, unspecified] 10-31-2023 Episodic Other connective tissue disease (4 sources) Pain in right foot; Translations: [Pain in limb] 10-31-2023 Episodic Other injuries and conditions due to external causes (11 sources) Closed injury of head; Translations: [Unspecified injury of head, initial encounter] 06-27-2023 Episodic Other lower respiratory disease (17 sources) Hypoxemia; Translations: [Hypoxemia] 09-26-2021 Episodic Other lower respiratory disease (3 sources) Hypoxemia; Translations: [Hypoxemia] Episodic Other nervous system disorders (13 sources) Paresthesia; Translations: [Paresthesia of skin] 07-29-2022 Episodic Other nervous system disorders (2 sources) Paresthesia of skin; Translations: [Disturbance of skin sensation] 07-29-2022 Episodic Other nervous system disorders (12 sources) Unresponsive ; Translations: [Other symptoms and signs involving cognitive functions and awareness] 03-09-2023 Episodic Other nervous system disorders (2 sources) Other symptoms and signs involving cognitive functions and awareness; Translations: [Other alteration of consciousness] 03-01-2023 Episodic Other nervous system disorders (6 sources) Acute postoperative pain; Translations: [Other acute postprocedural pain] 10-31-2023 Episodic Other nutritional; endocrine; and metabolic disorders (17 sources) Hypomagnesemia; Translations: [Hypomagnesemia] 08-17-2019 Chronic Other screening for suspected conditions (not mental disorders or infectious disease) (14 sources) Electrocardiogram abnormal; Translations: [Abnormal electrocardiogram [ECG] [EKG]] 02-27-2023 Episodic Paralysis (17 sources) Miguel's paresis; 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 Pulmonary heart disease (20 sources) Pulmonary embolism; Translations: [Other pulmonary embolism without acute cor pulmonale] Episodic Comment on above: 2013 Residual codes; unclassified (20 sources) Altered mental status; Translations: [Altered mental status, unspecified] 11-30-2021 Episodic Residual codes; unclassified (13 sources) Disturbance in sleep behavior; Translations: [Sleep disorder, unspecified] 10-10-2022 Episodic Residual codes; unclassified (2 sources) Sleep disorder, unspecified; Translations: [Sleep disturbance, unspecified] 10-10-2022 Episodic Residual codes; unclassified (2 sources) Altered mental status, unspecified; Translations: [Altered mental status] 03-01-2023 Episodic Respiratory failure; insufficiency; arrest (adult) (20 sources) Acute respiratory failure; Translations: [Acute respiratory failure with hypoxia] Episodic Spondylosis; intervertebral disc disorders; other back problems (14 sources) Neck pain; Translations: [Cervicalgia] 07-29-2022 Episodic Sprains and strains (5 sources) Strain of other muscle(s) and tendon(s) of posterior muscle group at lower leg level, right leg, initial encounter; Translations: [Strain of right gastrocnemius muscle or tendon] 02-01-2024 Episodic Superficial injury; contusion (20 sources) Contusion of rib; Translations: [Contusion of right front wall of thorax, initial encounter] 06-27-2023 Episodic Viral infection (20 sources) COVID-19; Translations: [Pneumonia due to COVID-19 virus] Episodic Results Test Name Value Interpretation Reference Range Facility Lamotrigine (Lamictal) Level on 04-01-2025 LAMOTRIGINE 1.1 ug/mL Low 2.0-20.0 [facility] Comment on above: Result Comment: Dete ction Limit = 1.0 Performed at: [facility] [id number] Bearing Press Machine Operator: Candy Briceno MD, Phone: [phone] Performed By: #### L 3300.4400, L503.0210 #### [facility] [address] [place], [place], [id number] Ammoniaon 03-29-2025 Ammonia (P) [Moles/Vol] 46.9 umol/L Normal 16-60 [facility] Comment on above: Performed By: #### L 3300.4400, L503.5510 #### [facility] [address] [place], [place], [id number] Serum or plasma lamotrigine measurement (mass/volume)Ordered By: Enmanuel Mcdonough on 03-29-2025 lamoTRIgine [Mass/Vol] 1.1 ug/mL Low 2.0-20.0 [facility] Comment on above: Detection Limit = 1. 0Performed at: [facility] [id number] Director: Candy Briceno MD, Phone: [phone] Venous blood ammonia measure mentOrdered By: Enmanuel Mcdonough on 03-29-2025 Ammonia (P) [Moles/Vol] 46.9 umol/L 16-60 [facility] Neurology Visit Reporton Neurology Visit Report [facility] [address] [place] [address] OFFICE VISIT Date of Service: 03/28/25 MR#: [id number] Acct: [id number] Name: MURIEL WOODARD Rep #: [id number] : 1955 Provider: Dr. Enmanuel mann MD Age/Sex: 69/M Location: [facility] [place] Status: Signed HPI HPI Chief Complaint: Details: Interim History: Muriel returns for follow-up. He has a history of hyperlipidemia, diet-controlled diabetes mellitus, hypothyroidism, right Adie's pupil and obstructive sleep apnea on CPAP. In the padder cushion hours of 11/22/2021, while asleep, he was noted by his to exhibit a snorting sound. He was wearing his CPAP at that time; he had not exhibited snorting type sounds previously. She tried to awaken him but was unable to do so. He did not have limb shaking, tongue biting, or urinary incontinence. He was taken to [...] shoulder pain due to degenerative joint disease. Saw an orthopedic surgeon and had right shoulder surgery in August 2022 and this was of benefit. His right shoulder pain diminished. He had bilateral shoulder rotator cuff [...] stroke. 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 He does not have any history of seizures prior to 2021. He has had no further episodes suggestive [...] experienced easy irritability as a side effect. In early 2022, levetiracetam was discontinued and lamotrigine was initiated. He has had no further seizures since February 2023. He is tolerating lamotrigine well. He was evaluated by an orthopedic surgeon and underwent reduction of his left shoulder dislocation. His left shoulder pain resolved. 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 He was [...] hands and occasional tingling in the toes of both feet. He reported that gripping a (more content not included)... Normal [facility] CBC W/Diff, Automatedon 12-1 Absolute Lymph 1.41 X10 3/uL Normal 0.83-4.51 [facility] Comment on above: Performed By: #### L 501.9910, L506.1000, L500.4050, L100.0100, L500.4100 #### [facility] [address] [place], [address] Absolute Neut 2.9 X10 3/uL Normal 2.0-7.7 [facility] Comment on above: Performed By: #### L [id number], L506.1000, L500.4050, L100.0100, L500.4100 #### [facility] [address] [place], [address] Basophils/100 WBC (Bld) 0.8 % Normal 0-1 [facility] Comment on above: Performed By: #### L 501.9910, L506.1000, L500.4050, L100.0100, L500.4100 #### [facility] [address] [place], [address] Eosinophils/100 WBC (Bld) 7.6 % High 0-5 [facility] Comment on above: Performed By: #### L 501.9910, L506.1000, L500.4050, L100.0100, L500.4100 #### [facility] [address] [place], [address] Erythrocyte distribution width (RBC) [Ratio] 13.2 % Normal 11.6-14.6 [facility] Comment on above: Performed By: #### L 501.9910, L506.1000, L500.4050, L100.0100, L500.4100 #### [facility] [address] [place], [address] Hematocrit (Bld) [Volume fraction] 42.7 % Normal 40-54 [facility] Comment on above: Performed By: #### L 501.9910, L506.1000, L500.4050, L100.0100, L500.4100 #### [facility] [address] [place], [address] Hemoglobin (Bld) [Mass/Vol] 14.9 g/dL Normal 13.0-16.5 [facility] Comment on above: Performed By: #### L 501.9910, L506.1000, L500.4050, L100.0100, L500.4100 #### [facility] [address] [place], [address] IG% 0.200 Normal 0.0-0.9 [facility] Comment on above: Result Comment: IG% - Immature Granulocytes (promyelocytes, myelocytes and metamyelocytes) > 1% indicates that a LEFT SHIFT is Present. Performed By: #### L 501.9910, L506.1000, L500.4050, L100.0100, L500.4100 #### [facility] [address] [place], [address] Lymphocytes/100 WBC (Bld) 26.8 % Normal 19-41 [facility] Comment on above: Performed By: #### L 501.9910, L506.1000, L500.4050, L100.0100, L500.4100 #### [facility] [address] [place], [address] MCH (RBC) [Entitic mass] 34.2 pg High 27.0-32.0 [facility] Comment on above: Performed By: #### L 501.9910, L506.1000, L500.4050, L100.0100, L500.4100 #### [facility] [address] [place], [address] MCHC (RBC) [Mass/Vol] 34.9 g/dL Normal 32-36 [facility] Comment on above: Performed By: #### L 501.9910, L506.1000, L500.4050, L100.0100, L500.4100 #### [facility] [address] [place], [address] MCV (RBC) [Entitic vol] 97.9 fL High 80-94 [facility] Comment on above: Performed By: #### L 501.9910, L506.1000, L500.4050, L100.0100, L500.4100 #### [facility] [address] [place], [address] Monocytes/100 WBC (Bld) 10.1 % High 0-10 [facility] Comment on above: Performed By: #### L 501.9910, L506.1000, L500.4050, L100.0100, L500.4100 #### [facility] [address] [place], [address] Neutrophils/100 WBC (Bld) 54.5 % Normal 47-70 [facility] Comment on above: Performed By: #### L 501.9910, L506.1000, L500.4050, L100.0100, L500.4100 #### [facility] [address] [place], [address] Nucleated RBC (Bld) [#/Vol] 0 10*3/uL Normal 0-5 [facility] Comment on above: Performed By: #### L 501.9910, L506.1000, L500.4050, L100.0100, L500.4100 #### [facility] [address] [place], [address] Platelet mean volume (Bld) [Entitic vol] 8.4 fL Normal 6.2-12.0 [facility] Comment on above: Performed By: #### L 501.9910, L506.1000, L500.4050, L100.0100, L500.4100 #### [facility] [address] [place], [address] Platelets (Bld) [#/Vol] 145 10*3/uL Low 150-450 [facility] Comment on above: Performed By: #### L 501.9910, L506.1000, L500.4050, L100.0100, L500.4100 #### [facility] [address] [place], [address] RBC (Bld) [#/Vol] 4.36 10*6/uL Low 4.6-6.2 [facility] Comment on above: Performed By: #### L 501.9910, L506.1000, L500.4050, L100.0100, L500.4100 #### [facility] [address] [place], [address] RDW SD 47.5 fl High 35.1-43.9 [facility] Comment on above: Performed By: #### L 501.9910, L506.1000, L500.4050, L100.0100, L500.4100 #### [facility] [address] [place], [address] WBC (Bld) [#/Vol] 5.3 10*3/uL Normal 4.4-11.0 [facility] Comment on above: Performed By: #### L 501.9910, L506.1000, L500.4050, L100.0100, L500.4100 #### [facility] [address] [place], [address] Comprehensive Metabolic Prof ilon 09-30-2024 Albumin [Mass/Vol] 3.8 g/dL Normal 3.2-5.0 [facility] Comment on above: Order Comment: CBCD Performed By: #### L 501.9910, L506.1000, L500.4050, L100.0100, L500.4100 #### [facility] [address] [place], [address] Albumin/Globulin [Mass ratio] 1.3 {ratio} Normal 0.9-2.4 [facility] Comment on above: Order Comment: CBCD Performed By: #### L 501.9910, L506.1000, L500.4050, L100.0100, L500.4100 #### [facility] [address] [place], [address] ALK P 67 U/L Normal 45-117 [facility] Comment on above: Order Comment: CBCD Performed By: #### L 501.9910, L506.1000, L500.4050, L100.0100, L500.4100 #### [facility] [address] [place], [address] ALT [Catalytic activity/Vol] 46 U/L Normal 16-61 [facility] Comment on above: Order Comment: CBCD Performed By: #### L 501.9910, L506.1000, L500.4050, L100.0100, L500.4100 #### [facility] [address] [place], [address] AST [Catalytic activity/Vol] 34 U/L Normal 15-37 [facility] Comment on above: Order Comment: CBCD Performed By: #### L 501.9910, L506.1000, L500.4050, L100.0100, L500.4100 #### [facility] [address] [place], [address] Bilirubin [Mass/Vol] 0.90 mg/dL Normal 0.20-1.00 [facility] Comment on above: Order Comment: CBCD Result Comment: For patients on eltrombopag therapy, use of Dimension [place] TBIL is not recommended. Performed By: #### L 501.9910, L506.1000, L500.4050, L100.0100, L500.4100 #### [facility] [address] [place], [address] BUN/CRE 14.5 RATIO Normal 10-20 [facility] Comment on above: Order Comment: CBCD Performed By: #### L 501.9910, L506.1000, L500.4050, L100.0100, L500.4100 #### [facility] [address] [place], [address] CA,Total 9.7 mg/dL Normal 8.5-10.1 [facility] Comment on above: Order Comment: CBCD Performed By: #### L 501.9910, L506.1000, L500.4050, L100.0100, L500.4100 #### [facility] [address] [place], [address] Chloride [Moles/Vol] 104 mmol/L Normal 98-107 [facility] Comment on above: Order Comment: CBCD Performed By: #### L 501.9910, L506.1000, L500.4050, L100.0100, L500.4100 #### [facility] [address] [place], [address] CO2 [Moles/Vol] 29.0 mmol/L Normal 21.0-32.0 [facility] Comment on above: Order Comment: CBCD Performed By: #### L 501.9910, L506.1000, L500.4050, L100.0100, L500.4100 #### [facility] [address] [place], [address] Creatinine [Mass/Vol] 0.97 mg/dL Normal 0.70-1.30 [facility] Comment on above: Order Comment: CBCD Result Comment: The validity of the calculated GFR GFRAA in patients over 70 years has not been determined. Clinical correlation is essential. Performed By: #### L 501.9910, L506.1000, L500.4050, L100.0100, L500.4100 #### [facility] [address] [place], [address] EST GFR - AA 99 mL/min Normal >60 [facility] Comment on above: Order Comment: CBCD Result Comment: Afri can Afghan GFR Calc Performed By: #### L 501.9910, L506.1000, L500.4050, L100.0100, L500.4100 #### [facility] [address] [place], [address] GAP 4 Low 5-15 [facility] Comment on above: Order Comment: CBCD Performed By: #### L 501.9910, L506.1000, L500.4050, L100.0100, L500.4100 #### [facility] [address] [place], [address] GFR/1.73 sq M.predicted among non-blacks MDRD (S/P/Bld) [Vol rate/Area] 82 mL/min/{1.73_m2} Normal >60 [facility] Comment on above: Order Comment: CBCD Result Comment: Non- GFR Calc Performed By: #### L 501.9910, L506.1000, L500.4050, L100.0100, L500.4100 #### [facility] [address] [place], [address] Globulin (S) [Mass/Vol] 3.0 g/dL Normal 2.2-4.2 [facility] Comment on above: Order Comment: CBCD Performed By: #### L 501.9910, L506.1000, L500.4050, L100.0100, L500.4100 #### [facility] [address] [place], [address] Glucose [Mass/Vol] 112 mg/dL High 74-106 [facility] Comment on above: Order Comment: CBCD Result Comment: Fast ing Glucose result from 100 to 125 mg/dL suggests IMPAIRED HOMEOSTASIS per A.D.A. criteria. Performed By: #### L 501.9910, L506.1000, L500.4050, L100.0100, L500.4100 #### [facility] [address] [place], [address] Potassium [Moles/Vol] 4.0 mmol/L Normal 3.5-5.1 [facility] Comment on above: Order Comment: CBCD Performed By: #### L 501.9910, L506.1000, L500.4050, L100.0100, L500.4100 #### [facility] [address] [place], [address] Sodium [Moles/Vol] 137 mmol/L Normal 136-145 [facility] Comment on above: Order Comment: CBCD Performed By: #### L 501.9910, L506.1000, L500.4050, L100.0100, L500.4100 #### [facility] [address] [place], [address] T PROT 6.8 g/dL Normal 6.4-8.2 [facility] Comment on above: Order Comment: CBCD Performed By: #### L 501.9910, L506.1000, L500.4050, L100.0100, L500.4100 #### [facility] [address] [place], [address] Urea nitrogen [Mass/Vol] 14 mg/dL Normal 7-18 [facility] Comment on above: Order Comment: CBCD Performed By: #### L 501.9910, L506.1000, L500.4050, L100.0100, L500.4100 #### [facility] [address] [place], [address] Lipid Profileon 09-30-2024 Cholesterol [Mass/Vol] 244 mg/dL High 200 [facility] Comment on above: Order Comment: CBCD Result Comment: <200 mg/dL Desirable 200-240 mg/dL Borderline >240 mg/dL High Risk Performed By: #### L 501.9910, L506.1000, L500.4050, L100.0100, L500.4100 #### [facility] [address] [place], [address] Cholesterol in HDL [Mass/Vol] 51 mg/dL Normal [facility] Comment on above: Order Comment: CBCD Result Comment: The drugs N-Acetylcysteine and Metamizole may falsely depress this assay. Reference Range HDL <40 mg/dL Low HDL Cholesterol HDL >or= 60 mg/dL High HDL Cholesterol Performed By: #### L 501.9910, L506.1000, L500.4050, L100.0100, L500.4100 #### [facility] [address] [place], [address] Cholesterol in LDL [Mass/Vol] 165 mg/dL High 0-130 [facility] Comment on above: Order Comment: CBCD Performed By: #### L 501.9910, L506.1000, L500.4050, L100.0100, L500.4100 #### [facility] [address] [place], [address] Cholesterol in VLDL [Mass/Vol] 28 mg/dL Normal 5-40 [facility] Comment on above: Order Comment: CBCD Performed By: #### L 501.9910, L506.1000, L500.4050, L100.0100, L500.4100 #### [facility] [address] [place], [address] Triglyceride [Mass/Vol] 142 mg/dL Normal [facility] Comment on above: Order Comment: CBCD Result Comment: The drugs N-Acetylcysteine and Metamizole may falsely depress this assay. Serum Triglycerides Reference Interval Normal <150 mg/dL Borderline high 150 - 199 mg/dL High 200 - 499 mg/dL Very High > or = 500 mg/dL Performed By: #### L 501.9910, L506.1000, L500.4050, L100.0100, L500.4100 #### [facility] [address] [place], [address] PSA,Total - Annual Screenon 09-30-2024 PSA,TOT SCREEN 0.10 ng/mL Normal 0.00-4.00 [facility] Comment on above: Order Comment: CBCD Result Comment: This test was performed using the TPSA assay method for the [employer] chemistry system. Values obtained with different assay methods cannot be used interchangably. When changing PSA assays in the course of monitoring a patient, additional sequential testing should be carried out to confirm baseline values. Performed By: #### L 501.9910, L506.1000, L500.4050, L100.0100, L500.4100 #### [facility] [address] [place], [address] Vitamin D,25 Hydroxyon 09-30 Vitamin D 25-OH 54.6 ng/mL Normal [facility] Comment on above: Result Comment: Alondra min D 25(OH) Status Range Deficiency <20 ng/mL (50nmol/L) Insufficiency 20 - 30 ng/mL (50 - 75 nmol/L) Sufficiency 30 - 100 ng/mL (75 - 250 nmol/L) Toxicity >100 ng/mL (>250 nmol/L) Performed By: #### L 501.9910, L506.1000, L500.4050, L100.0100, L500.4100 #### [facility] [address] [place], [place], [address] Neurology Visit Reporton Neurology Visit Report [facility] [address], [address] [place], [place] [address] OFFICE VISIT Date of Service: 07/26/24 MR#: [id number] Acct: [id number] Name: MURIEL WOODARD Rep #: [id number] : 1955 Provider: Dr. Enmanuel mann MD Age/Sex: 69/M Location: [facility] Status: Signed HPI HPI Chief Complaint: Details: Interim History: Muriel returns for follow-up. He has a history of hyperlipidemia, diet-controlled diabetes mellitus, hypothyroidism, right Adie's pupil and obstructive sleep apnea on CPAP. In the padder cushion hours of 11/22/2021, while asleep, he was [...] He does not have any history of [employer] infection, concussion or significant history. He was [...] the toes (more content not included)... Normal [facility] Basophil percentageOrdered B y: Enmanuel Mcdonough on 02-02-2024 Basophil percentage < 10.0 umol/L [facility] - Chemistry and C hemistry - challengeOrdered By: Enmanuel Mcdonough on 02-02-2024 Magnesium [Mass/Vol] 2.1 mg/dL 1.6-2.6 [facility] Serum or plasma lamotrigine measurement (mass/volume)Ordered By: Enmanuel Mcdonough on 02-02-2024 lamoTRIgine [Mass/Vol] 2.4 ug/mL 2.0-20.0 [facility] Comment on above: Detection Limit = 1. 0Performed at: - [facility] [id number] Director: Candy Briceno MD, Phone: [phone] Basophil percentageOrdered B y: Ermelinda Castanon on 01-28-2024 Chloride [Moles/Vol] 106 mmol/L 98-107 [facility] Cholesterol [Mass/Vol] 219 mg/dL <200 [facility] Comment on above: <200 mg/dL Desirable 200-240 mg/dL Borderline >240 mg/dL High Risk Glucose [Mass/Vol] 121 mg/dL 74-106 [facility] Comment on above: Fasting Glucose resu lt from 100 to 125 mg/dL suggests IMPAIRED HOMEOSTASIS per A.D.A. criteria. Potassium [Moles/Vol] 4.2 mmol/L 3.5-5.1 [facility] Sodium [Moles/Vol] 138 mmol/L 136-145 [facility] Triglyceride [Mass/Vol] 232 mg/dL <199 [facility] Comment on above: The drugs N-Acetylcy steine and Metamizole may falsely depress this assay.Serum Triglycerides Reference Interval Normal <150 mg/dL Borderline high 150 - 199 mg/dL High 200 - 499 mg/dL Very High > or = 500 mg/dL Laboratory - Chemistry and C hemistry - challengeOrdered By: Ermelinda Castanon on 01-28-2024 Cholesterol in HDL [Mass/Vol] 43 mg/dL >40 [facility] Comment on above: The drugs N-Acetylcy steine and Metamizole may falsely depress this assay. Reference Range HDL <40 mg/dL Low HDL Cholesterol HDL >or= 60 mg/dL High HDL Cholesterol Cholesterol in LDL [Mass/Vol] 130 mg/dL 0-130 [facility] CO2 [Moles/Vol] 27.0 mmol/L 21.0-32.0 [facility] Urea nitrogen/Creatinine [Mass ratio] 21.9 mg/mg 10-20 [facility] No Panel InformationOrdered By: Ermelinda Castanon on 01-28-2024 Estimated GFR (MDRD) Amer 107 mL/min >60 [facility] Comment on above: GFR Calc Estimated GFR (MDRD) Non-Af Amer 88 mL/min >60 [facility] Comment on above: Non- GFR Calc VLDL Cholesterol 46 mg/dL 5-40 [facility] Serum or plasma calcium royer urement (mass/volume)Ordered By: Ermelinda Castanon on 01-28-2024 Calcium [Mass/Vol] 9.8 mg/dL 8.5-10.1 [facility] Serum or plasma creatinine m easurement (mass/volume)Ordered By: Ermelinda Castanon on 01-28-2024 Creatinine [Mass/Vol] 0.91 mg/dL 0.70-1.30 [facility] Comment on above: The validity of the calculated GFR & GFRAA in patients over 70 years has not been determined. Clinical correlation is essential. Serum or plasma urea nitroge n measurement (mass/volume)Ordered By: Ermelinda Castanon on 01-28-2024 Urea nitrogen [Mass/Vol] 20 mg/dL 7-18 [facility] Thin prep Papanicolaou smear with manual screeningOrdered By: Ermelinda Castanon on 01-28-2024 Thin prep Papanicolaou smear with manual screening 5 5-15 [facility] Whole blood hemoglobin A1c/t otal hemoglobin ratio (mass fraction)Ordered By: Ermelinda Castanon on 01-28-2024 HbA1c (Bld) [Mass fraction] 5.3 % 3.8-5.6 [facility] Comment on above: Normal < 5.7 % Predi abetic 5.7 - 6.4 % Diabetic >or= 6.5 % Please note range changes. Absolute lymphocyte countOrd ered By: Ermelinda Castanon on 10-20-2023 Lymphocytes Auto (Unsp spec) [#/Vol] 1.31 10*3/uL 0.83-4.51 [facility] Basophil percentageOrdered B y: Ermelinda Castanon on 10-20-2023 Basophils/100 WBC (Bld) 0.4 % 0-1 [facility] Bilirubin [Mass/Vol] 0.60 mg/dL 0.20-1.00 [facility] Comment on above: For patients on eltr ombopag therapy, use of Dimension [place] TBIL is not recommended. Chloride [Moles/Vol] 109 mmol/L 98-107 [facility] Eosinophils/100 WBC (Bld) 5.3 % 0-5 [facility] Glucose [Mass/Vol] 115 mg/dL 74-106 [facility] Comment on above: Fasting Glucose resu lt from 100 to 125 mg/dL suggests IMPAIRED HOMEOSTASIS per A.D.A. criteria. Neutrophils (Bld) [#/Vol] 2.6 10*3/uL 2.0-7.7 [facility] Neutrophils/100 WBC (Bld) 56.0 % 47-70 [facility] Potassium [Moles/Vol] 4.2 mmol/L 3.5-5.1 [facility] Protein [Mass/Vol] 7.0 g/dL 6.4-8.2 [facility] Sodium [Moles/Vol] 141 mmol/L 136-145 [facility] WBC (Bld) [#/Vol] 4.6 10*3/uL 4.4-11.0 [facility] Blood erythrocytes count (nu mber/volume)Ordered By: Ermelinda Castanon on 10-20-2023 RBC (Bld) [#/Vol] 4.44 10*6/uL 4.6-6.2 [facility] Blood hemoglobin measurement (mass/volume)Ordered By: Ermelinda Castanon on 10-20-2023 Hemoglobin (Bld) [Mass/Vol] 14.8 g/dL 13.0-16.5 [facility] Blood lymphocytes/100 leukoc ytesOrdered By: Ermelindacraig Castanon on 10-20-2023 Lymphocytes/100 WBC (Bld) 28.7 % 19-41 [facility] Blood monocytes/100 leukocyt esOrdered By: [place] Lg on 10-20-2023 Monocytes/100 WBC (Bld) 9.4 % 0-10 [facility] Blood platelet mean volumeOr dered By: Ermelinda Lg on 10-20-2023 Platelet mean volume (Bld) [Entitic vol] 9.3 fL 6.2-12.0 [facility] Determination of erythrocyte mean corpuscular volume (MCV)Ordered By: Ermelinda Castanon on 10-20-2023 MCV (RBC) [Entitic vol] 100.7 fL 80-94 [facility] Hematocrit Auto (Bld) [Volum e fraction]Ordered By: [place] Lg on 10-20-2023 Hematocrit (Bld) [Volume fraction] 44.7 % 40-54 [facility] - Chemistry and C hemistry - challengeOrdered By: [facility] 10-20-2023 ALP [Catalytic activity/Vol] 71 U/L 45-117 [facility] ALT [Catalytic activity/Vol] 31 U/L 16-61 [facility] CO2 [Moles/Vol] 29.0 mmol/L 21.0-32.0 [facility] Globulin (S) [Mass/Vol] 3.2 g/dL 2.2-4.2 [facility] Urea nitrogen/Creatinine [Mass ratio] 22.6 mg/mg 10-20 [facility] - Hematology and Cell countsOrdered By: [place] Lg on 10-20-2023 Erythrocyte distribution width (RBC) [Entitic vol] 48.9 fL 35.1-43.9 [facility] Erythrocyte distribution width (RBC) [Ratio] 13.2 % 11.6-14.6 [facility] Immature granulocytes/100 WBC (Bld) 0.200 % 0.0-0.9 [facility] Comment on above: IG% - Immature Granu locytes (promyelocytes, myelocytes and metamyelocytes) > 1% indicates that a LEFT SHIFT is Present. MCH (RBC) [Entitic mass] 33.3 pg 27.0-32.0 [facility] Nucleated RBC/100 WBC (Bld) [Ratio] 0 % 0-5 [facility] MCHC Auto (RBC) [Mass/Vol]Or dered By: Ermelinda Castanon on 10-20-2023 MCHC (RBC) [Mass/Vol] 33.1 g/dL 32-36 [facility] No Panel InformationOrdered By: Ermelinda Castanon on 10-20-2023 Estimated GFR (MDRD) Amer 104 mL/min >60 [facility] Comment on above: GFR Calc Estimated GFR (MDRD) Non-Af Amer 86 mL/min >60 [facility] Comment on above: Non- GFR Calc Platelets bldOrdered By: Skip Castanon on 10-20-2023 Platelets (Bld) [#/Vol] 169 10*3/uL 150-450 [facility] Serum or plasma albumin royer urement (mass/volume)Ordered By: Ermelinda Castanon on 10-20-2023 Albumin [Mass/Vol] 3.8 g/dL 3.2-5.0 [facility] Serum or plasma albumin/glob ulin mass ratioOrdered By: Ermelinda Castanon on 10-20-2023 Albumin/Globulin [Mass ratio] 1.2 {ratio} 0.9-2.4 [facility] Serum or plasma calcium royer urement (mass/volume)Ordered By: Ermelinda Castanon on 10-20-2023 Calcium [Mass/Vol] 9.8 mg/dL 8.5-10.1 [facility] Serum or plasma creatinine m easurement (mass/volume)Ordered By: Ermelinda Castanon on 10-20-2023 Creatinine [Mass/Vol] 0.93 mg/dL 0.70-1.30 [facility] Comment on above: The validity of the calculated GFR & GFRAA in patients over 70 years has not been determined. Clinical correlation is essential. Serum or plasma urea nitroge n measurement (mass/volume)Ordered By: Ermelinda Castanon on 10-20-2023 Urea nitrogen [Mass/Vol] 21 mg/dL 7-18 [facility] Thin prep Papanicolaou smear with manual screeningOrdered By: Ermelinda Castanon on 10-20-2023 Thin prep Papanicolaou smear with manual screening 28 U/L 15-37 [facility] Thin prep Papanicolaou smear with manual screening 3 5-15 [facility] Absolute lymphocyte countOrd ered By: Ermelinda Castanon on 09-11-2023 Lymphocytes Auto (Unsp spec) [#/Vol] 1.13 10*3/uL 0.83-4.51 [facility] Basophil percentageOrdered B y: Enmanuel Mcdonough on 09-11-2023 Ammonia (P) [Moles/Vol] 47.0 umol/L [facility] Basophil percentageOrdered B y: Ermelinda Castanon on 09-11-2023 Basophils/100 WBC (Bld) 1.0 % 0-1 [facility] Bilirubin [Mass/Vol] 0.70 mg/dL 0.20-1.00 [facility] Comment on above: For patients on eltr ombopag therapy, use of [place] TBIL is not recommended. Chloride [Moles/Vol] 105 mmol/L 98-107 [facility] Cholesterol [Mass/Vol] 214 mg/dL <200 [facility] Comment on above: <200 mg/dL Desirable 200-240 mg/dL Borderline >240 mg/dL High Risk Eosinophils/100 WBC (Bld) 3.1 % 0-5 [facility] Glucose [Mass/Vol] 114 mg/dL 74-106 [facility] Comment on above: Fasting Glucose resu lt from 100 to 125 mg/dL suggests IMPAIRED HOMEOSTASIS per A.D.A. criteria. Neutrophils (Bld) [#/Vol] 2.2 10*3/uL 2.0-7.7 [facility] Neutrophils/100 WBC (Bld) 57.5 % 47-70 [facility] Potassium [Moles/Vol] 4.0 mmol/L 3.5-5.1 [facility] Protein [Mass/Vol] 7.3 g/dL 6.4-8.2 [facility] Sodium [Moles/Vol] 139 mmol/L 136-145 [facility] Triglyceride [Mass/Vol] 119 mg/dL <199 [facility] Comment on above: The drugs N-Acetylcy steine and Metamizole may falsely depress this assay.Serum Triglycerides Reference Interval Normal <150 mg/dL Borderline high 150 - 199 mg/dL High 200 - 499 mg/dL Very High > or = 500 mg/dL WBC (Bld) [#/Vol] 3.9 10*3/uL 4.4-11.0 [facility] Blood erythrocytes count (nu mber/volume)Ordered By: Ermelinda Castanon on 09-11-2023 RBC (Bld) [#/Vol] 4.68 10*6/uL 4.6-6.2 [facility] Blood hemoglobin measurement (mass/volume)Ordered By: Ermelinda Castanon on 09-11-2023 Hemoglobin (Bld) [Mass/Vol] 16.0 g/dL 13.0-16.5 [facility] Blood lymphocytes/100 leukoc ytesOrdered By: Ermelindacraig Castanon on 09-11-2023 Lymphocytes/100 WBC (Bld) 29.3 % 19-41 [facility] Blood monocytes/100 leukocyt esOrdered By: Ermelindacraig Castanon on 09-11-2023 Monocytes/100 WBC (Bld) 9.1 % 0-10 [facility] Blood platelet mean volumeOr dered By: Ermelinda Castanon on 09-11-2023 Platelet mean volume (Bld) [Entitic vol] 8.7 fL 6.2-12.0 [facility] Determination of erythrocyte mean corpuscular volume (MCV)Ordered By: Ermelinda Castanon on 09-11-2023 MCV (RBC) [Entitic vol] 99.8 fL 80-94 [facility] Hematocrit Auto (Bld) [Volum e fraction]Ordered By: Ermelindacraig Castanon on 09-11-2023 Hematocrit (Bld) [Volume fraction] 46.7 % 40-54 [facility] - Chemistry and C hemistry - challengeOrdered By: Ermelinda Castanon on 09-11-2023 ALP [Catalytic activity/Vol] 74 U/L 45-117 [facility] ALT [Catalytic activity/Vol] 34 U/L 16-61 [facility] CO2 [Moles/Vol] 28.0 mmol/L 21.0-32.0 [facility] Globulin (S) [Mass/Vol] 3.2 g/dL 2.2-4.2 [facility] Urea nitrogen/Creatinine [Mass ratio] 14.6 mg/mg 10-20 [facility] - Hematology and Cell countsOrdered By: Ermelinda Castanon on 09-11-2023 Erythrocyte distribution width (RBC) [Entitic vol] 49.4 fL 35.1-43.9 [facility] Erythrocyte distribution width (RBC) [Ratio] 13.3 % 11.6-14.6 [facility] Immature granulocytes/100 WBC (Bld) 0.000 % 0.0-0.9 [facility] Comment on above: IG% - Immature Granu locytes (promyelocytes, myelocytes and metamyelocytes) > 1% indicates that a LEFT SHIFT is Present. MCH (RBC) [Entitic mass] 34.2 pg 27.0-32.0 [facility] Nucleated RBC/100 WBC (Bld) [Ratio] 0 % 0-5 [facility] MCHC Auto (RBC) [Mass/Vol]Or dered By: Ermelinda Castanon on 09-11-2023 MCHC (RBC) [Mass/Vol] 34.3 g/dL 32-36 [facility] No Panel InformationOrdered By: Ermelinda Castanon on 09-11-2023 Estimated GFR (MDRD) Amer 101 mL/min >60 [facility] Comment on above: GFR Calc Estimated GFR (MDRD) Non-Af Amer 84 mL/min >60 [facility] Comment on above: Non- GFR Calc Platelets bldOrdered By: Skip Castanon on 09-11-2023 Platelets (Bld) [#/Vol] 168 10*3/uL 150-450 [facility] Serum or plasma albumin royer urement (mass/volume)Ordered By: Ermelinda Castanon on 09-11-2023 Albumin [Mass/Vol] 4.1 g/dL 3.2-5.0 [facility] Serum or plasma albumin/glob ulin mass ratioOrdered By: Ermelinda Castanon on 09-11-2023 Albumin/Globulin [Mass ratio] 1.3 {ratio} 0.9-2.4 [facility] Serum or plasma calcium royer urement (mass/volume)Ordered By: Ermelinda Castanon on 09-11-2023 Calcium [Mass/Vol] 8.9 mg/dL 8.5-10.1 [facility] Serum or plasma cholesterol in HDL measurement (mass/volume)Ordered By: Ermelinda Castanon on 09-11-2023 Cholesterol in HDL [Mass/Vol] 57 mg/dL >40 [facility] Comment on above: The drugs N-Acetylcy steine and Metamizole may falsely depress this assay. Reference Range HDL <40 mg/dL Low HDL Cholesterol HDL >or= 60 mg/dL High HDL Cholesterol Serum or plasma cholesterol in VLDL measurement (mass/volume)Ordered By: Ermelinda Castanon on 09-11-2023 Cholesterol in VLDL [Mass/Vol] 24 mg/dL 5-40 [facility] Serum or plasma creatinine m easurement (mass/volume)Ordered By: Ermelinda Castanon on 09-11-2023 Creatinine [Mass/Vol] 0.96 mg/dL 0.70-1.30 [facility] Comment on above: The validity of the calculated GFR & GFRAA in patients over 70 years has not been determined. Clinical correlation is essential. Serum or plasma lamotrigine measurement (mass/volume)Ordered By: Enmanuel Mcdonough on 09-11-2023 lamoTRIgine [Mass/Vol] 2.1 ug/mL 2.0-20.0 [facility] Comment on above: Detection Limit = 1. 0Performed at: - [address] [id number] Director: Candy Briceno MD, Phone: [phone] Serum or plasma low density lipoprotein (LDL) cholesterol measurement (mass/volume)Ordered By: Ermelinda Castanon on 09-11-2023 Cholesterol in LDL [Mass/Vol] 133 mg/dL 0-130 [facility] Serum or plasma urea nitroge n measurement (mass/volume)Ordered By: Ermelinda Castanon on 09-11-2023 Urea nitrogen [Mass/Vol] 14 mg/dL 7-18 [facility] Thin prep Papanicolaou smear with manual screeningOrdered By: Ermelinda Castanon on 09-11-2023 Thin prep Papanicolaou smear with manual screening 27 U/L 15-37 [facility] Thin prep Papanicolaou smear with manual screening 6 5-15 [facility] Absolute lymphocyte countOrd ered By: Claudio Pena on 03-01-2023 Lymphocytes Auto (Unsp spec) [#/Vol] 1.49 10*3/uL 0.83-4.51 [facility] Basophil percentageOrdered B y: Claudio Pena on 03-01-2023 Basophils/100 WBC (Bld) 0.5 % 0-1 [facility] Chloride [Moles/Vol] 113 mmol/L 98-107 [facility] Eosinophils/100 WBC (Bld) 4.8 % 0-5 [facility] Glucose [Mass/Vol] 112 mg/dL 74-106 [facility] Comment on above: Fasting Glucose resu lt from 100 to 125 mg/dL suggests IMPAIRED HOMEOSTASIS per A.D.A. criteria. Neutrophils (Bld) [#/Vol] 3.6 10*3/uL 2.0-7.7 [facility] Neutrophils/100 WBC (Bld) 61.5 % 47-70 [facility] Potassium [Moles/Vol] 4.3 mmol/L 3.5-5.1 [facility] Sodium [Moles/Vol] 142 mmol/L 136-145 [facility] WBC (Bld) [#/Vol] 5.9 10*3/uL 4.4-11.0 [facility] Blood erythrocytes count (nu mber/volume)Ordered By: Claudio Pena on 03-01-2023 RBC (Bld) [#/Vol] 4.10 10*6/uL 4.6-6.2 [facility] Blood hemoglobin measurement (mass/volume)Ordered By: Claudio Pena on 03-01-2023 Hemoglobin (Bld) [Mass/Vol] 14.3 g/dL 13.0-16.5 [facility] Blood lymphocytes/100 leukoc ytesOrdered By: Claudio Pena on 03-01-2023 Lymphocytes/100 WBC (Bld) 25.4 % 19-41 [facility] Blood monocytes/100 leukocyt esOrdered By: Claudio Pena on 03-01-2023 Monocytes/100 WBC (Bld) 7.5 % 0-10 [facility] Blood platelet mean volumeOr dered By: Claudio Pena on 03-01-2023 Platelet mean volume (Bld) [Entitic vol] 8.9 fL 6.2-12.0 [facility] Determination of erythrocyte mean corpuscular volume (MCV)Ordered By: Claudio Pena on 03-01-2023 MCV (RBC) [Entitic vol] 99.5 fL 80-94 [facility] Hematocrit Auto (Bld) [Volum e fraction]Ordered By: Claudio Pena on 03-01-2023 Hematocrit (Bld) [Volume fraction] 40.8 % 40-54 [facility] Laboratory - Chemistry and C hemistry - challengeOrdered By: Claudio Pena on 03-01-2023 CK [Catalytic activity/Vol] 273 U/L 39-308 [facility] CO2 [Moles/Vol] 25.0 mmol/L 21.0-32.0 [facility] Urea nitrogen/Creatinine [Mass ratio] 20.4 mg/mg 10-20 [facility] Laboratory - Hematology and Cell countsOrdered By: Claudio Pena on 03-01-2023 Erythrocyte distribution width (RBC) [Entitic vol] 47.4 fL 35.1-43.9 [facility] Erythrocyte distribution width (RBC) [Ratio] 12.9 % 11.6-14.6 [facility] Immature granulocytes/100 WBC (Bld) 0.300 % 0.0-0.9 [facility] Comment on above: IG% - Immature Granu locytes (promyelocytes, myelocytes and metamyelocytes) > 1% indicates that a LEFT SHIFT is Present. MCH (RBC) [Entitic mass] 34.9 pg 27.0-32.0 [facility] Nucleated RBC/100 WBC (Bld) [Ratio] 0 % 0-5 [facility] MCHC Auto (RBC) [Mass/Vol]Or dered By: Claudio Pena on 03-01-2023 MCHC (RBC) [Mass/Vol] 35.0 g/dL 32-36 [facility] No Panel InformationOrdered By: Claudio Pena on 03-01-2023 Estimated Creatinine Clearance Calc 118.29 ml/min [facility] Estimated GFR (MDRD) Amer 178 mL/min >60 [facility] Comment on above: GFR Calc Estimated GFR (MDRD) Non-Af Amer 147 mL/min >60 [facility] Comment on above: Non- GFR Calc Platelets bldOrdered By: Ponce Pena on 03-01-2023 Platelets (Bld) [#/Vol] 135 10*3/uL 150-450 [facility] Serum or plasma calcium royer urement (mass/volume)Ordered By: Claudio Pena on 03-01-2023 Calcium [Mass/Vol] 8.4 mg/dL 8.5-10.1 [facility] Serum or plasma creatinine m easurement (mass/volume)Ordered By: Claudio Pena on 03-01-2023 Creatinine [Mass/Vol] 0.59 mg/dL 0.70-1.30 [facility] Comment on above: The validity of the calculated GFR & GFRAA in patients over 70 years has not been determined. Clinical correlation is essential. Serum or plasma urea nitroge n measurement (mass/volume)Ordered By: Claudio Pena on 03-01-2023 Urea nitrogen [Mass/Vol] 12 mg/dL 04-29 [facility] Thin prep Papanicolaou smear with manual screeningOrdered By: Claudio Pena on 03-01-2023 Thin prep Papanicolaou smear with manual screening 4 -15 [facility] Basophil percentageOrdered B y: Claudio Pena on 02-27-2023 Basophil percentage 3.0 mg/dL 2.5-4.9 [facility] Basophil percentageOrdered B y: Dorene White on 02-27-2023 Bilirubin [Mass/Vol] 0.90 mg/dL 0.20-1.00 [facility] Comment on above: For patients on eltr ombopag therapy, use of Dimension [place] TBIL is not recommended. Cholesterol [Mass/Vol] 145 mg/dL <200 [facility] Comment on above: <200 mg/dL Desirable 200-240 mg/dL Borderline >240 mg/dL High Risk Protein [Mass/Vol] 6.2 g/dL 6.4-8.2 [facility] Triglyceride [Mass/Vol] 47 mg/dL <199 [facility] Comment on above: The drugs N-Acetylcy steine and Metamizole may falsely depress this assay.Serum Triglycerides Reference Interval Normal <150 mg/dL Borderline high 150 - 199 mg/dL High 200 - 499 mg/dL Very High > or = 500 mg/dL Basophil percentageOrdered B y: Marcio Toney on 02-27-2023 Basophil percentage 0 SEEN /hpf 0-5 [facility] Bilirubin Test strip Ql (U)O rdered By: Marcio Toney on 02-27-2023 Bilirubin Ql (U) Negative Negative [facility] Blood platelet adequacy dete ction by light microscopyOrdered By: Dorene Saha on 02-27-2023 Platelets LM Ql (Bld) SLT DEC ADEQ [facility] Ketones Test strip Ql (U)Ord ered By: Marcio Toney on 02-27-2023 Ketones Ql (U) 150 mg/dl Negative [facility] Comment on above: CRITICAL VALUE *HCRI TICAL VALUE VERIFIED. CALLED TO Ashley NAVA RN ER02/27/23 0101 Colby Ferrera.RESULTS READ BACK BY SAME. Laboratory - Chemistry and C hemistry - challengeOrdered By: Dorene Saha on 02-27-2023 ALP [Catalytic activity/Vol] 64 U/L 45-117 [facility] ALT [Catalytic activity/Vol] 41 U/L 16-61 [facility] Globulin (S) [Mass/Vol] 2.7 g/dL 2.2-4.2 [facility] Laboratory - Drug toxicology Ordered By: Dorene Saha on 02-27-2023 Amphetamines Ql (U) Negative <1000 ng/mL [facility] Benzodiazepines Ql (U) Negative < 200 ng/mL [facility] Cannabinoids Screen Ql (U) Negative < 50 ng/mL [facility] Cocaine Ql (U) Negative < 300 ng/mL [facility] Opiates Ql (U) Positive < 300 ng/mL [facility] Macrocytes detectionOrdered By: Dorene Saha on 02-27-2023 Macrocytes Ql (Bld) 1+ [facility] Mucus LM Ql (Urine sed)Order ed By: Marcio Toney on 02-27-2023 Mucus Ql (Urine sed) 0 SEEN /hpf [facility] Nitrite Test strip Ql (U)Ord ered By: Marcio Toney on 02-27-2023 Nitrite Ql (U) Negative Negative [facility] No Panel InformationOrdered By: Dorene Saha on 02-27-2023 Troponin I High Sensitivity 33 pg/mL 3.0-78.0 [facility] Comment on above: Please Note: [place] Units and Gender Specific Reference Ranges. For more information see Policy Stat Procedure [place] High Sensitivity Troponin (TNIH) and attachments. Thyroid Stimulating Hormone (TSH) 2.64 uIU/mL 0.358-3.74 [facility] MDMA (Ecstasy) Screen Negative < 500 ng/mL [facility] Urine Barbiturates Screen Negative < 200 ng/mL [facility] Urine Drug Screen Comment [facility] Comment on above: CONFIRMATORY TESTING FOR [...] Methadone Screen Negative < 300 ng/mL [facility] Protein Test strip Ql (U)Ord ered By: Marcio Toney on 02-27-2023 Protein Ql (U) 100 mg/dl Negative [facility] Serum or plasma albumin royer urement (mass/volume)Ordered By: Dorene Saha on 02-27-2023 Albumin [Mass/Vol] 3.5 g/dL 3.2-5.0 [facility] Serum or plasma albumin/glob ulin mass ratioOrdered By: Dorene Saha on 02-27-2023 Albumin/Globulin [Mass ratio] 1.3 {ratio} 0.9-2.4 [facility] Serum or plasma cholesterol in HDL measurement (mass/volume)Ordered By: Dorene Saha on 02-27-2023 Cholesterol in HDL [Mass/Vol] 68 mg/dL >40 [facility] Comment on above: The drugs N-Acetylcy steine and Metamizole may falsely depress this assay. Reference Range HDL <40 mg/dL Low HDL Cholesterol HDL >or= 60 mg/dL High HDL Cholesterol Serum or plasma cholesterol in VLDL measurement (mass/volume)Ordered By: Dorene Saha on 02-27-2023 Cholesterol in VLDL [Mass/Vol] 9 mg/dL 5-40 [facility] Serum or plasma low density lipoprotein (LDL) cholesterol measurement (mass/volume)Ordered By: Dorene Saha on 02-27-2023 Cholesterol in LDL [Mass/Vol] 68 mg/dL 0-130 [facility] Squamous epithelial cells de tection in urine sediment by light microscopyOrdered By: Marcio Toney on 02-27-2023 Epithelial cells.squamous LM Ql (Urine sed) 0 SEEN /hpf 0-5 [facility] Thin prep Papanicolaou smear with manual screeningOrdered By: Dorene Saha on 02-27-2023 Thin prep Papanicolaou smear with manual screening 55 U/L 15-37 [facility] Urine blood detectionOrdered By: Marcio Toney on 02-27-2023 RBC Ql (U) 50 /ul Negative [facility] RBC Ql (U) 0-5 SEEN /hpf 0-5 [facility] Urine clarityOrdered By: Viji Toney on 02-27-2023 Clarity (U) Clear Clear [facility] Urine color determinationOrd ered By: Marcio Toney on 02-27-2023 Color (U) Yellow Yellow [facility] Urine glucose detectionOrder ed By: Marcio Toney on 02-27-2023 Glucose Ql (U) Normal mg/dl Normal [facility] Urine leukocyte esterase det ection by dipstickOrdered By: Marcio Toney on 02-27-2023 Leukocyte esterase Test strip Ql (U) Negative Negative [facility] Urine pHOrdered By: Marcio Santana gur on 02-27-2023 pH (U) 6.0 [pH] 5.0 - 8.0 [facility] Urine phencyclidine (PCP) de tectionOrdered By: Dorene Saha on 02-27-2023 Phencyclidine Ql (U) Negative < 25 ng/mL [facility] Urine sediment bacteria coun t by microscopy (number/high power field)Ordered By: Marcio Toney on 02-27-2023 Bacteria LM.HPF (Urine sed) [#/Area] RARE /hpf None Seen [facility] Urine sediment unidentified crystal count by microscopy (number/high powered field)Ordered By: Marcio Toney on 02-27-2023 Unidentified crystals LM.HPF (Urine sed) [#/Area] SEE COMMENT /hpf None Seen [facility] Comment on above: RARE SPERM PRESENT Urine specific gravity measu rementOrdered By: Marcio Toney on 02-27-2023 Specific gravity (U) [Rel density] 1.015 1.002-1.030 [facility] Urobilinogen Auto test strip Ql (U)Ordered By: Marcio Toney on 02-27-2023 Urobilinogen Ql (U) Normal mg/dl Normal [facility] Whole blood hemoglobin A1c/t otal hemoglobin ratio (mass fraction)Ordered By: Dorene Saha on 02-27-2023 HbA1c (Bld) [Mass fraction] 5.3 % 3.8-5.6 [facility] Comment on above: Normal < 5.7 % Predi abetic 5.7 - 6.4 % Diabetic >or= 6.5 % Please note range changes. Laboratory - Chemistry and C hemistry - challengeOrdered By: Dorene Saha on 02-26-2023 Magnesium [Mass/Vol] 1.8 mg/dL 1.6-2.6 [facility] Basophil percentageOrdered B y: Dr. Pierre on 11-14-2022 Cholesterol [Mass/Vol] 221 mg/dL <200 [facility] Comment on above: <200 mg/dL Desirable 200-240 mg/dL Borderline >240 mg/dL High Risk Triglyceride [Mass/Vol] 158 mg/dL <199 [facility] Comment on above: The drugs N-Acetylcy steine and Metamizole may falsely depress this assay.Serum Triglycerides Reference Interval Normal <150 mg/dL Borderline high 150 - 199 mg/dL High 200 - 499 mg/dL Very High > or = 500 mg/dL Serum or plasma cholesterol in HDL measurement (mass/volume)Ordered By: Dr. Pierre on 11-14-2022 Cholesterol in HDL [Mass/Vol] 57 mg/dL >40 [facility] Comment on above: The drugs N-Acetylcy steine and Metamizole may falsely depress this assay. Reference Range HDL <40 mg/dL Low HDL Cholesterol HDL >or= 60 mg/dL High HDL Cholesterol Serum or plasma cholesterol in VLDL measurement (mass/volume)Ordered By: Dr. Pierre on 11-14-2022 Cholesterol in VLDL [Mass/Vol] 32 mg/dL 5-40 [facility] Serum or plasma low density lipoprotein (LDL) cholesterol measurement (mass/volume)Ordered By: Dr. Pierre on 11-14-2022 Cholesterol in LDL [Mass/Vol] 132 mg/dL 0-130 [facility] Basophil percentageon 2021 Chloride [Moles/Vol] 103 mmol/L 98-107 [facility] Work Phone: Cholesterol [Mass/Vol] 235 mg/dL <200 [facility] Work Phone: Comment on above: <200 mg/dL Desirable 200-240 mg/dL Borderline >240 mg/dL High Risk Glucose [Mass/Vol] 114 mg/dL 74-106 [facility] Work Phone: Comment on above: Fasting Glucose resu lt from 100 to 125 mg/dL suggests IMPAIRED HOMEOSTASIS per A.D.A. criteria. Potassium [Moles/Vol] 3.7 mmol/L 3.5-5.1 [facility] Work Phone: Sodium [Moles/Vol] 136 mmol/L 136-145 [facility] Work Phone: Triglyceride [Mass/Vol] 143 mg/dL <199 [facility] Work Phone: Comment on above: The drugs N-Acetylcy steine and Metamizole may falsely depress this assay.Serum Triglycerides Reference Interval Normal <150 mg/dL Borderline high 150 - 199 mg/dL High 200 - 499 mg/dL Very High > or = 500 mg/dL Laboratory - Chemistry and C hemistry - challengeon 05-30-2022 CO2 [Moles/Vol] 28.0 mmol/L 21.0-32.0 [facility] Work Phone: Urea nitrogen/Creatinine [Mass ratio] 17.9 mg/mg 10-20 [facility] Work Phone: No Panel Informationon 05-30 Estimated GFR (MDRD) Amer 118 mL/min >60 [facility] Work Phone: Comment on above: GFR Calc Estimated GFR (MDRD) Non-Af Amer 98 mL/min >60 [facility] Work Phone: Comment on above: Non- GFR Calc Serum or plasma calcium royer urement (mass/volume)on 05-30-2022 Calcium [Mass/Vol] 9.4 mg/dL 8.5-10.1 [facility] Work Phone: Serum or plasma cholesterol in HDL measurement (mass/volume)on 05-30-2022 Cholesterol in HDL [Mass/Vol] 46 mg/dL >40 [facility] Work Phone: Comment on above: The drugs N-Acetylcy steine and Metamizole may falsely depress this assay. Reference Range HDL <40 mg/dL Low HDL Cholesterol HDL >or= 60 mg/dL High HDL Cholesterol Serum or plasma cholesterol in VLDL measurement (mass/volume)on 05-30-2022 Cholesterol in VLDL [Mass/Vol] 29 mg/dL 5-40 [facility] Work Phone: Serum or plasma creatinine m easurement (mass/volume)on 05-30-2022 Creatinine [Mass/Vol] 0.84 mg/dL 0.70-1.30 [facility] Work Phone: Comment on above: The validity of the calculated GFR & GFRAA in patients over 70 years has not been determined. Clinical correlation is essential. Serum or plasma low density lipoprotein (LDL) cholesterol measurement (mass/volume)on 05-30-2022 Cholesterol in LDL [Mass/Vol] 160 mg/dL 0-130 [facility] Work Phone: Serum or plasma urea nitroge n measurement (mass/volume)on 05-30-2022 Urea nitrogen [Mass/Vol] 15 mg/dL -18 [facility] Work Phone: Thin prep Papanicolaou smear with manual screeningon 05-30-2022 Thin prep Papanicolaou smear with manual screening 5 5-15 [facility] Work Phone: Basophil percentageon 2021 Bilirubin [Mass/Vol] 0.80 mg/dL 0.20-1.00 [facility] Work Phone: Comment on above: For patients on eltr ombopag therapy, use of Dimension [place] TBIL is not recommended. Chloride [Moles/Vol] 104 mmol/L 98-107 [facility] Work Phone: Glucose [Mass/Vol] 108 mg/dL 74-106 [facility] Work Phone: Comment on above: Fasting Glucose resu lt from 100 to 125 mg/dL suggests IMPAIRED HOMEOSTASIS per A.D.A. criteria. Lactate [Moles/Vol] 1.7 mmol/L 0.4-2.0 [facility] Work Phone: Potassium [Moles/Vol] 4.1 mmol/L 3.5-5.1 [facility] Work Phone: Protein [Mass/Vol] 7.1 g/dL 6.4-8.2 [facility] Work Phone: Sodium [Moles/Vol] 138 mmol/L 136-145 [facility] Work Phone: Laboratory - Chemistry and C hemistry - challengeon 12-27-2021 ALP [Catalytic activity/Vol] 71 U/L 45-117 [facility] Work Phone: ALT [Catalytic activity/Vol] 35 U/L 16-61 [facility] Work Phone: CO2 [Moles/Vol] 31.0 mmol/L 21.0-32.0 [facility] Work Phone: Globulin (S) [Mass/Vol] 3.1 g/dL 2.2-4.2 [facility] Work Phone: Urea nitrogen/Creatinine [Mass ratio] 15.7 mg/mg 10-20 [facility] Work Phone: No Panel Informationon 12-27 Estimated GFR (MDRD) Amer 120 mL/min >60 [facility] Work Phone: Comment on above: GFR Calc Estimated GFR (MDRD) Non-Af Amer 99 mL/min >60 [facility] Work Phone: Comment on above: Non- GFR Calc Serum or plasma albumin royer urement (mass/volume)on 12-27-2021 Albumin [Mass/Vol] 4.0 g/dL 3.2-5.0 [facility] Work Phone: Serum or plasma albumin/glob ulin mass ratioon 12-27-2021 Albumin/Globulin [Mass ratio] 1.3 {ratio} 0.9-2.4 [facility] Work Phone: Serum or plasma calcium royer urement (mass/volume)on 12-27-2021 Calcium [Mass/Vol] 9.6 mg/dL 8.5-10.1 [facility] Work Phone: Serum or plasma creatinine m easurement (mass/volume)on 12-27-2021 Creatinine [Mass/Vol] 0.83 mg/dL 0.70-1.30 [facility] Work Phone: Comment on above: The validity of the calculated GFR & GFRAA in patients over 70 years has not been determined. Clinical correlation is essential. Serum or plasma urea nitroge n measurement (mass/volume)on 12-27-2021 Urea nitrogen [Mass/Vol] 13 mg/dL 7-18 [facility] Work Phone: Thin prep Papanicolaou smear with manual screeningon 12-27-2021 Thin prep Papanicolaou smear with manual screening 24 U/L 15-37 [facility] Work Phone: Thin prep Papanicolaou smear with manual screening 3 5-15 [facility] Work Phone: Absolute lymphocyte counton 11-22-2021 Lymphocytes Auto (Unsp spec) [#/Vol] 2.51 10*3/uL 0.83-4.51 [facility] Work Phone: Basophil percentageon 2021 Lactate [Moles/Vol] 5.3 mmol/L 0.4-2.0 [facility] Work Phone: Comment on above: Critical Result(s) C alled at: 05:44:14 11/22/2021 by: COLBY Marroquin RN ER. Results read back by same. Basophils/100 WBC (Bld) 0.5 % 0-1 [facility] Work Phone: [phone] Chloride [Moles/Vol] 103 mmol/L 98-107 [facility]: Eosinophils/100 WBC (Bld) 4.4 % 0-5 [facility] Work Phone: Glucose [Mass/Vol] 160 mg/dL 74-106 [facility] Work Phone: Comment on above: Fasting Glucose resu lt greater than or equal to 126 mg/dL suggests DIABETES MELLITUS per A.D.A. criteria. Neutrophils (Bld) [#/Vol] 4.4 10*3/uL 2.0-7.7 [facility] Work Phone: Neutrophils/100 WBC (Bld) 55.7 % 47-70 [facility] Work Phone: Potassium [Moles/Vol] 3.4 mmol/L 3.5-5.1 [facility] Work Phone: Sodium [Moles/Vol] 137 mmol/L 136-145 [facility] Work Phone: WBC (Bld) [#/Vol] 7.8 10*3/uL 4.4-11.0 [facility] Work Phone: Blood erythrocytes count (nu mber/volume)on 11-22-2021 RBC (Bld) [#/Vol] 4.31 10*6/uL 4.6-6.2 [facility] Work Phone: Blood hemoglobin measurement (mass/volume)on 11-22-2021 Hemoglobin (Bld) [Mass/Vol] 14.8 g/dL 13.0-16.5 [facility] Work Phone: [phone] Blood lymphocytes/100 leukoc yteson 11-22-2021 Lymphocytes/100 WBC (Bld) 32.1 % 19-41 [facility] Work Phone: Blood monocytes/100 leukocyt eson 11-22-2021 Monocytes/100 WBC (Bld) 6.5 % 0-10 [facility] Work Phone: Blood platelet mean volumeon 11-22-2021 Platelet mean volume (Bld) [Entitic vol] 8.6 fL 6.2-12.0 [facility] Work Phone: Determination of erythrocyte mean corpuscular volume (MCV)on 11-22-2021 MCV (RBC) [Entitic vol] 99.1 fL 80-94 [facility] Work Phone: Hematocrit Auto (Bld) [Volum e fraction]on 11-22-2021 Hematocrit (Bld) [Volume fraction] 42.7 % 40-54 [facility] Work Phone: INR in Blood by Coagulation assayon 11-22-2021 INR Coag (Bld) [Relative time] 1.2 {INR} [facility] Work Phone: Laboratory - Chemistry and C hemistry - challengeon 11-22-2021 CO2 [Moles/Vol] 19.0 mmol/L 21.0-32.0 [facility] Work Phone: Urea nitrogen/Creatinine [Mass ratio] 14.3 mg/mg 10-20 [facility] Work Phone: Laboratory - Coagulationon 0 11-22-2021 aPTT Coag (Bld) [Time] 26.0 s 24.1-36.2 [facility] Work Phone: PT Coag (PPP) [Time] 14.6 s 11.7-14.9 os [facility] Work Phone: Laboratory - Hematology and Cell countson 11-22-2021 Erythrocyte distribution width (RBC) [Entitic vol] 53.8 fL 35.1-43.9 [facility] Work Phone: Erythrocyte distribution width (RBC) [Ratio] 14.6 % 11.6-14.6 [facility] Work Phone: Immature granulocytes/100 WBC (Bld) 0.800 % 0.0-0.9 [facility] Work Phone: Comment on above: IG% - Immature Granu locytes (promyelocytes, myelocytes and metamyelocytes) > 1% indicates that a LEFT SHIFT is Present. MCH (RBC) [Entitic mass] 34.3 pg 27.0-32.0 [facility] Work Phone: Nucleated RBC/100 WBC (Bld) [Ratio] 0 % 0-5 [facility] Work Phone: MCHC Auto (RBC) [Mass/Vol]on 11-22-2021 MCHC (RBC) [Mass/Vol] 34.7 g/dL 32-36 [facility] Work Phone: No Panel Informationon 11-22 Estimated Creatinine Clearance Calc 73.67 ml/min [facility] Work Phone: Estimated GFR (MDRD) Amer 99 mL/min >60 [facility] Work Phone: Comment on above: GFR Calc Estimated GFR (MDRD) Non-Af Amer 82 mL/min >60 [facility] Work Phone: Comment on above: Non- GFR Calc Troponin I High Sensitivity 16 pg/mL 3.0-78.0 [facility] Work Phone: Comment on above: Please Note: [place] Units and Gender Specific Reference Ranges. For more information see Policy Stat Procedure [place] High Sensitivity Troponin (TNIH) and attachments. Platelets bldon 11-22-2021 Platelets (Bld) [#/Vol] 156 10*3/uL 150-450 [facility] Work Phone: Serum or plasma calcium royer urement (mass/volume)on 11-22-2021 Calcium [Mass/Vol] 8.4 mg/dL 8.5-10.1 [facility] Work Phone: Serum or plasma creatinine m easurement (mass/volume)on 11-22-2021 Creatinine [Mass/Vol] 0.98 mg/dL 0.70-1.30 [facility] Work Phone: Comment on above: The validity of the calculated GFR & GFRAA in patients over 70 years has not been determined. Clinical correlation is essential. Serum or plasma urea nitroge n measurement (mass/volume)on 11-22-2021 Urea nitrogen [Mass/Vol] 14 mg/dL 7-18 [facility] Work Phone: Thin prep Papanicolaou smear with manual screeningon 11-22-2021 Thin prep Papanicolaou smear with manual screening 15 5-15 [facility] Work Phone: Basophil percentageon 2020 Bilirubin [Mass/Vol] 0.20 mg/dL 0.20-1.00 [facility] Work Phone: Comment on above: For patients on eltr ombopag therapy, use of Dimension [place] TBIL is not recommended. Chloride [Moles/Vol] 104 mmol/L 98-107 [facility] Work Phone: Glucose [Mass/Vol] 132 mg/dL 74-106 [facility] Work Phone: Comment on above: Fasting Glucose resu lt greater than or equal to 126 mg/dL suggests DIABETES MELLITUS per A.D.A. criteria.Please note revised GLUCOSE reference range effective 2017. Potassium [Moles/Vol] 3.8 mmol/L 3.5-5.1 [facility] Work Phone: Protein [Mass/Vol] 6.0 g/dL 6.4-8.2 [facility] Work Phone: Sodium [Moles/Vol] 138 mmol/L 136-145 [facility] Work Phone: Laboratory - Chemistry and C hemistry - challengeon 10-11-2021 ALP [Catalytic activity/Vol] 120 U/L 45-117 [facility] Work Phone: ALT [Catalytic activity/Vol] 48 U/L 16-61 [facility] Work Phone: CO2 [Moles/Vol] 26.0 mmol/L 21.0-32.0 [facility] Work Phone: Globulin (S) [Mass/Vol] 3.8 g/dL 2.2-4.2 [facility] Work Phone: Urea nitrogen/Creatinine [Mass ratio] 30.0 mg/mg 10-20 [facility] Work Phone: No Panel Informationon 10-11 Estimated GFR (MDRD) Amer 154 mL/min >60 [facility] Work Phone: Comment on above: GFR Calc Estimated GFR (MDRD) Non-Af Amer 128 mL/min >60 [facility] [facility] Work Phone: Comment on above: Non- GFR Calc Serum or plasma albumin royer urement (mass/volume)on 10-11-2021 Albumin [Mass/Vol] 2.2 g/dL 3.2-5.0 [facility] Work Phone: Serum or plasma albumin/glob ulin mass ratioon 10-11-2021 Albumin/Globulin [Mass ratio] 0.6 {ratio} 0.9-2.4 [facility] Work Phone: Serum or plasma calcium royer urement (mass/volume)on 10-11-2021 Calcium [Mass/Vol] 8.6 mg/dL 8.5-10.1 [facility] Work Phone: Serum or plasma creatinine m easurement (mass/volume)on 10-11-2021 Creatinine [Mass/Vol] 0.67 mg/dL 0.70-1.30 [facility] Work Phone: Comment on above: The validity of the calculated GFR & GFRAA in patients over 70 years has not been determined. Clinical correlation is essential. Serum or plasma urea nitroge n measurement (mass/volume)on 10-11-2021 Urea nitrogen [Mass/Vol] 20 mg/dL 7-18 [facility] Work Phone: Thin prep Papanicolaou smear with manual screeningon 10-11-2021 Thin prep Papanicolaou smear with manual screening 18 U/L 15-37 [facility] Work Phone: Thin prep Papanicolaou smear with manual screening 8 5-15 [facility] Work Phone: Absolute lymphocyte counton 10-02-2021 Lymphocytes Auto (Unsp spec) [#/Vol] 1.02 10*3/uL 0.83-4.51 [facility] Work Phone: Basophil percentageon 2020 Bilirubin [Mass/Vol] 0.50 mg/dL 0.20-1.00 [facility] Work Phone: Comment on above: For patients on eltr ombopag therapy, use of Dimension [place] TBIL is not recommended. Chloride [Moles/Vol] 102 mmol/L 98-107 [facility] Work Phone: Eosinophils/100 WBC (Bld) 0.4 % 0-5 [facility] Work Phone: Glucose [Mass/Vol] 157 mg/dL 74-106 [facility] Work Phone: Comment on above: Fasting Glucose resu lt greater than or equal to 126 mg/dL suggests DIABETES MELLITUS per A.D.A. criteria.Please note revised GLUCOSE reference range effective 2017. Neutrophils (Bld) [#/Vol] 9.8 10*3/uL 2.0-7.7 [facility] Work Phone: Potassium [Moles/Vol] 4.3 mmol/L 3.5-5.1 [facility] Work Phone: Protein [Mass/Vol] 6.1 g/dL 6.4-8.2 [facility] Work Phone: Sodium [Moles/Vol] 136 mmol/L 136-145 [facility] Work Phone: WBC (Bld) [#/Vol] 11.8 10*3/uL 4.4-11.0 [facility] Work Phone: Blood erythrocytes count (nu mber/volume)on 10-02-2021 RBC (Bld) [#/Vol] 4.49 10*6/uL 4.6-6.2 [facility] Work Phone: Blood hemoglobin measurement (mass/volume)on 10-02-2021 Hemoglobin (Bld) [Mass/Vol] 14.8 g/dL 13.0-16.5 [facility] Work Phone: Blood lymphocytes/100 leukoc yteson 10-02-2021 Lymphocytes/100 WBC (Bld) 8.7 % 19-41 [facility] Work Phone: Blood monocytes/100 leukocyt eson 10-02-2021 Monocytes/100 WBC (Bld) 6.1 % 0-10 [facility] Work Phone: Blood platelet mean volumeon 10-02-2021 Platelet mean volume (Bld) [Entitic vol] 9.6 fL 6.2-12.0 [facility] Work Phone: Determination of erythrocyte mean corpuscular volume (MCV)on 10-02-2021 MCV (RBC) [Entitic vol] 93.8 fL 80-94 [facility] Work Phone: Hematocrit Auto (Bld) [Volum e fraction]on 10-02-2021 Hematocrit (Bld) [Volume fraction] 42.1 % 40-54 [facility] Work Phone: Laboratory - Chemistry and C hemistry - challengeon 10-02-2021 ALP [Catalytic activity/Vol] 222 U/L 45-117 [facility] Work Phone: ALT [Catalytic activity/Vol] 332 U/L 16-61 [facility] Work Phone: CO2 [Moles/Vol] 26.0 mmol/L 21.0-32.0 [facility] Work Phone: Globulin (S) [Mass/Vol] 3.9 g/dL 2.2-4.2 [facility] Work Phone: Urea nitrogen/Creatinine [Mass ratio] 40.5 mg/mg 10-20 [facility] Work Phone: Laboratory - Hematology and Cell countson 10-02-2021 Basophils/100 WBC (Unsp spec) 0.3 % 0-1 [facility] Work Phone: Erythrocyte distribution width (RBC) [Entitic vol] 43.1 fL 35.1-43.9 [facility] Work Phone: Erythrocyte distribution width (RBC) [Ratio] 12.5 % 11.6-14.6 [facility] Work Phone: Immature granulocytes/100 WBC (Bld) 1.600 % 0.0-0.9 [facility] Work Phone: Comment on above: IG% - Immature Granu locytes (promyelocytes, myelocytes and metamyelocytes) > 1% indicates that a LEFT SHIFT is Present. MCH (RBC) [Entitic mass] 33.0 pg 27.0-32.0 [facility] Work Phone: Neutrophils/100 WBC (Bld) 82.9 % 47-70 [facility] Work Phone: Nucleated RBC/100 WBC (Bld) [Ratio] 0 % 0-5 [facility] Work Phone: MCHC Auto (RBC) [Mass/Vol]on 10-02-2021 MCHC (RBC) [Mass/Vol] 35.2 g/dL 32-36 [facility] Work Phone: No Panel Informationon 10-02 Estimated Creatinine Clearance Calc 104.07 ml/min [facility] Work Phone: Estimated GFR (MDRD) Amer 161 mL/min >60 [facility] Work Phone: Comment on above: GFR Calc Estimated GFR (MDRD) Non-Af Amer 133 mL/min >60 [facility] Work Phone: Comment on above: Non- GFR Calc Platelets bldon 10-02-2021 Platelets (Bld) [#/Vol] 200 10*3/uL 150-450 [facility] Work Phone: Serum or plasma albumin royer urement (mass/volume)on 10-02-2021 Albumin [Mass/Vol] 2.2 g/dL 3.2-5.0 [facility] Work Phone: Serum or plasma albumin/glob ulin mass ratioon 10-02-2021 Albumin/Globulin [Mass ratio] 0.6 {ratio} 0.9-2.4 [facility] Work Phone: Serum or plasma calcium royer urement (mass/volume)on 10-02-2021 Calcium [Mass/Vol] 8.6 mg/dL 8.5-10.1 [facility] Work Phone: Serum or plasma creatinine m easurement (mass/volume)on 10-02-2021 Creatinine [Mass/Vol] 0.64 mg/dL 0.70-1.30 [facility] Work Phone: Comment on above: The validity of the calculated GFR & GFRAA in patients over 70 years has not been determined. Clinical correlation is essential. Serum or plasma urea nitroge n measurement (mass/volume)on 10-02-2021 Urea nitrogen [Mass/Vol] 26 mg/dL 7-18 [facility] Work Phone: Thin prep Papanicolaou smear with manual screeningon 10-02-2021 Thin prep Papanicolaou smear with manual screening 40 U/L 15-37 [facility] Work Phone: Thin prep Papanicolaou smear with manual screening 8 5-15 [facility] Work Phone: Blood manual differential co mment interpretation (narrative result)on 09-29-2021 Manual differential comment Stefan (Bld) [Interp] SCANNED [facility] Work Phone: Blood platelet adequacy dete ction by light microscopyon 09-28-2021 Platelets LM Ql (Bld) ADEQUATE ADEQ [facility] Work Phone: RBC morphologyon 09-28-2021 RBC morphology finding Nom (Bld) NORM C+C NORMAL NORM C&C [facility] Work Phone: No Panel Informationon 09-27 Streptococcus pneumoniae Antigen (M [facility] Work Phone: Basophil percentageon 2020 Lactate [Moles/Vol] 0.7 mmol/L 0.4-2.0 [facility] Work Phone: Direct bilirubinon 1 Bilirubin.direct [Mass/Vol] 0.19 mg/dL 0.00-0.30 [facility] Work Phone: Gram stain for investigation of transfusion reactionon 09-26-2021 Microscopic observation Gram stain Nom (Unsp spec) [facility] Work Phone: INR in Blood by Coagulation assayon 09-26-2021 INR Coag (Bld) [Relative time] 1.2 {INR} [facility] Work Phone: Laboratory - Chemistry and C hemistry - challengeon 09-26-2021 Natriuretic peptide B (Bld) [Mass/Vol] 36.7 pg/mL 0-100 [facility] Work Phone: [phone] Laboratory - Coagulationon 1 11-27-2020 aPTT Coag (Bld) [Time] 27.9 s 24.1-36.2 [facility] Work Phone: PT Coag (PPP) [Time] 14.8 s 11.7-14.9 [facility] Work Phone: Laboratory - Microbiology an d Antimicrobial susceptibilityon 09-26-2021 Bacteria identified Cx Nom (Bld) No growth in 5 days. [facility] Work Phone: No Panel Informationon 09-26 Troponin I High Sensitivity 72 pg/mL 3.0-78.0 [facility] Work Phone: Comment on above: Please Note: [place] t Units and Gender Specific Reference Ranges. For more information see Policy Stat Procedure [place] High Sensitivity Troponin (TNIH) and attachments. D-Dimer Quantitative (PE/DVT) 15.37 FEU/ug/m 0.27-0.49 [facility] Work Phone: Comment on above: D-Dimer ELEVATED (>0 .49): Additional studies and clinicalassessments are indicated to conclude diagnosis of:Deep Vein Thrombosis (DVT) or Pulmonary Embolism (PE)CRITICAL VALUE VERIFIED. [facility] TO [facility]09/26/21 1743 Valorie Pichardo.RESULTS READ BACK BY SAME . Serum or plasma C reactive p rotein measurement (mass/volume)on 09-26-2021 CRP [Mass/Vol] 303.00 mg/L 0.0-3.0 [facility] Work Phone: Comment on above: C-Reactive Protein ( CRP) provides useful information for thediagnosis, therapy and monitoring of inflammatory processesand associated diseases. For the evaluation of Relative Riskfor Cardiovascular Disease, a High Sensitivity CRP (HSCRP)should be ordered. Serum or plasma ferritin eleuterio surement (mass/volume)on 09-26-2021 Ferritin [Mass/Vol] 1177 ng/mL 26-388 [facility] Work Phone: Serum procalcitonin measurem enton 09-26-2021 Procalcitonin [Mass/Vol] 0.73 ng/mL 0.00-0.09 [facility] Work Phone: Comment on above: A [...] smear with manual screening 343 U/L 87-241 [facility] Work Phone: Laboratory - Microbiology an d Antimicrobial susceptibilityon 09-24-2021 SARS-CoV-2 (COVID-19) RNA GAIL+probe Ql (Unsp spec) Detected Not Detect [facility] Work Phone: Comment on above: Normal Reference Ran ge: Not DetectedMethod:(RT-PCR) real-time reverse transcriptase PCRLuminex LEX Instrument*The Food and Drug Administration (FDA) has issued an Emergency Use Authorization (EAU) for the [employer] SARS-CoV-2 Assay for the rapid detection of [...] clinical presentation or has had recent exposure. PROGRESSon 12-24-2019 PROGRESS HNO ID: [id number] Author: Mario Chavez Service: ? Author Type: Physician Type: Progress Notes Filed: 12/24/2019 4:38 PM Note Text: Contact lens trial to make OD dominant in contact lens as he is in real life Ultra for Astigmatism OD Target pl for distance -0.50-2.12d611 20/25- O/r +0.50 Pl -2.32c485 gives 20/20 (patient feels a little off as he was used to this being his near eye but with OS closed vision is good) -needs to try for 3 days and report left eye targeting -1.25 near +1.00-2.21s711 gives J1+ (-1.25 target) Also gave pl-2.92m692 for distance OS if patient wants to [...] by others. I have seen and examined Muriel Woodard. I have discussed the case and the management of this patient's care with the Resident/Fellow, if applicable. I also have reviewed and agree with the assessment and plan as stated above and agree with all of its relevant components. Mario Chavez, OD [facility] PROGRESS HNO ID: [id number] Author: Miguelito Johnson Service: ? Author Type: [...] by others. I have seen and examined Muriel Stas. I have discussed the case and the management of this patient's care with the Resident/Fellow, if applicable. I also have reviewed and agree with the assessment and plan as stated above and agree with all of its relevant components. Ree Johnson MD [facility] Vital Signs Date Time Vital Sign Value Performing Clinician Facility 03-28-2025 [id number] Body height 172.72 cm Ermelinda Castanon NP-C Work Phone: [facility] 03-28-2025 10:01-0400 Body mass index (BMI) [Ratio] 24.5 kg/m2 Ermelinda Lg [employer]RI[employer]IAN SCIENCE PRACTITIONER-C Work Phone: [facility] 03-28-2025 10:01-0400 Body temperature 98.4 [degF] Ermelinda Castanon CHRISTIAN SCIENCE PRACTITIONER-C Work Phone: [facility] 03-28-2025 10:01-0400 Body weight 73.14 kg Ermelinda Castanon CHRISTIAN SCIENCE PRACTITIONER-C Work Phone: [facility] 03-28-2025 10:01-0400 Diastolic blood pressure 68 mm[Hg] Ermelinda Castanon CHRISTIAN SCIENCE PRACTITIONER-C Work Phone: [facility] 03-28-2025 10:01-0400 Heart rate 51 /min Ermelinda Castanon CHRISTIAN SCIENCE PRACTITIONER-C Work Phone: [facility] 03-28-2025 10:01-0400 Respiratory rate 16 /min Ermelinda Castanon CHRISTIAN SCIENCE PRACTITIONER-C Work Phone: [facility] 03-28-2025 10:01-0400 SaO2% (BldA) [Mass fraction] 97 % Ermelinda Castanon CHRISTIAN SCIENCE PRACTITIONER-C Work Phone: [facility] 03-28-2025 10:01-0400 Systolic blood pressure 111 mm[Hg] Ermelinda Castanon CHRISTIAN SCIENCE PRACTITIONER-C Work Phone: [facility] 02-02-2024 11:05-0400 Body height 172.[address] Jhoan Pierre Work Phone: [facility] 02-02-2024 11:05-0400 Body mass index (BMI) [Ratio] 24.3 kg/m2 Dr. Jhoan Pierre Work Phone: [facility] 02-02-2024 11:05-0400 Body temperature 98.3 [degF] Dr. Jhoan Pierre Work Phone: [facility] 02-02-2024 11:05-0400 Body weight 72.[address] Jhoan Pierre Work Phone: [facility] 02-02-2024 11:05-0400 Diastolic blood pressure 70 mm[Hg] Dr. Jhoan Pierre Work Phone: [facility] 02-02-2024 11:05-0400 Heart rate 51 /min Dr. Jhoan Pierre Work Phone: [facility] 02-02-2024 11:05-0400 Respiratory rate 17 /min Dr. Jhoan Pierre Work Phone: [facility] 02-02-2024 11:05-0400 Systolic blood pressure 120 mm[Hg] Dr. Jhoan Pierre Work Phone: [facility] 02-01-2024 08:18-0400 Body temperature 97 [degF] [facility] 02-01-2024 08:18-0400 Diastolic blood pressure 67 mm[Hg] [facility] 02-01-2024 08:18-0400 Heart rate 50 /min [facility] 02-01-2024 08:18-0400 Respiratory rate 18 /min [facility] 02-01-2024 08:18-0400 SaO2% (BldA) [Mass fraction] 99 % [facility] 02-01-2024 08:18-0400 Systolic blood pressure 115 mm[Hg] [facility] 02-01-2024 06:54-0400 Body height 172.72 cm [facility] 02-01-2024 06:54-0400 Body mass index (BMI) [Ratio] 23.8 kg/m2 [facility] 02-01-2024 06:54-0400 Body weight 71.3 kg [facility] 10-31-2023 18:30-0500 Body temperature 97.6 [degF] Dr. Jhoan Pierre Work Phone: [facility] 10-31-2023 18:30-0500 Diastolic blood pressure 67 mm[Hg] Dr. Jhoan Pierre Work Phone: [facility] 10-31-2023 18:30-0500 Heart rate 76 /min Dr. Jhoan Pierre Work Phone: [facility] 10-31-2023 18:30-0500 Respiratory rate 16 /min Dr. Jhoan Pierre Work Phone: [facility] 10-31-2023 18:30-0500 SaO2% (BldA) [Mass fraction] 97 % Dr. Jhoan Pierre Work Phone: [facility] 10-31-2023 18:30-0500 Systolic blood pressure 123 mm[Hg] Dr. Jhoan Pierre Work Phone: 1(608)811-635367 [address] 10-31-2023 18:12-0500 Inhaled oxygen flow rate 8 L/min Dr. Jhoan Pierre Work Phone: 0(353)233-461567 [address] 10-31-2023 13:53-0500 Body height 172.[address] Jhoan Pierre Work Phone: 5(770)246-912867 [address] 10-31-2023 13:53-0500 Body mass index (BMI) [Ratio] 24.7 kg/m2 Dr. Jhoan Pierre Work Phone: 3(575)128-699467 [address] 10-31-2023 13:53-0500 Body weight 73.[address] Jhoan Pierre Work Phone: 3(252)960-421967 [address] 08-04-2023 11:38-0400 Body height 172.[address] Jhoan Pierre Work Phone: 6(316)110-484832 [place] [address] 08-04-2023 11:38-0400 Body mass index (BMI) [Ratio] 23.8 kg/m2 Dr. Jhoan Pierre Work Phone: 5(415)846-759467 [address] 08-04-2023 11:38-0400 Body temperature 98.6 [degF] Dr. Jhoan Pierre Work Phone: 6(511)958-307512 [place] [address] 08-04-2023 11:38-0400 Body weight 71.[address] Jhoan Pierre Work Phone: 3(105)056-784167 [address] 08-04-2023 11:38-0400 Diastolic blood pressure 60 mm[Hg] Dr. Jhoan Pierre Work Phone: 3(629)246-485712 [place] [address] 08-04-2023 11:38-0400 Heart rate 58 /min Dr. Jhoan Pierre Work Phone: 4(750)335-173012 [place] [address] 08-04-2023 11:38-0400 Respiratory rate 16 /min Dr. Jhoan Pierre Work Phone: [facility] 08-04-2023 11:38-0400 SaO2% (BldA) [Mass fraction] 98 % Dr. Jhoan Pierre Work Phone: [facility] 08-04-2023 11:38-0400 Systolic blood pressure 110 mm[Hg] Dr. Jhoan Pierre Work Phone: 5(900)130-848812 [place] [address] 06-27-2023 08:50-0400 Respiratory rate 16 /min Dr. Jhoan Pierre Work Phone: 6(311)233-750532 [place] [address] 06-27-2023 06:52-0400 Body height 172.[address] Jhoan Pierre Work Phone: 3(481)040-289967 [address] 06-27-2023 06:52-0400 Body mass index (BMI) [Ratio] 24.9 kg/m2 Dr. Jhoan Pierre Work Phone: 5(907)007-505767 [address] 06-27-2023 06:52-0400 Body temperature 97.5 [degF] Dr. Jhoan Pierre Work Phone: 9(326)613-410632 [place] [address] 06-27-2023 06:52-0400 Body weight 74.[address] Jhoan Pierre Work Phone: 3(579)508-788832 [place] [address] 06-27-2023 06:52-0400 Diastolic blood pressure 68 mm[Hg] Dr. Jhoan Pierre Work Phone: 6(724)418-617867 [address] 06-27-2023 06:52-0400 Heart rate 48 /min Dr. Jhoan Pierre Work Phone: [facility] 06-27-2023 06:52-0400 SaO2% (BldA) [Mass fraction] 99 % Dr. Jhoan Pierre Work Phone: [facility] 06-27-2023 06:52-0400 Systolic blood pressure 145 mm[Hg] Dr. Jhoan Pierre Work Phone: 1(501)671-327212 [place] [address] 03-24-2023 14:32-0400 Body height 172.[address] Jhoan Pierre Work Phone: [facility] 03-24-2023 14:32-0400 Body mass index (BMI) [Ratio] 23.6 kg/m2 Dr. Jhoan Pierre Work Phone: [facility] 03-24-2023 14:32-0400 Body temperature 98.6 [degF] Dr. Jhoan Pierre Work Phone: [facility] 03-24-2023 14:32-0400 Body weight 70.[address] Jhaon Pierre Work Phone: [facility] 03-24-2023 14:32-0400 Diastolic blood pressure 70 mm[Hg] Dr. Jhoan Pierre Work Phone: [facility] 03-24-2023 14:32-0400 Heart rate 64 /min Dr. Jhoan Pierre Work Phone: [facility] 03-24-2023 14:32-0400 Respiratory rate 16 /min Dr. Jhoan Pierre Work Phone: [facility] 03-24-2023 14:32-0400 SaO2% (BldA) [Mass fraction] 97 % Dr. Jhoan Pierre Work Phone: [facility] 03-24-2023 14:32-0400 Systolic blood pressure 116 mm[Hg] Dr. Jhoan Pierre Work Phone: [facility] 03-01-2023 13:52-0400 Body temperature 98.3 [degF] Dr. Jhoan Pierre Work Phone: [facility] 03-01-2023 13:52-0400 Diastolic blood pressure 69 mm[Hg] Dr. Jhoan Pierre Work Phone: [facility] 03-01-2023 13:52-0400 Heart rate 55 /min Dr. Jhoan Pierre Work Phone: [facility] 03-01-2023 13:52-0400 Respiratory rate 14 /min Dr. Jhoan Pierre Work Phone: [facility] 03-01-2023 13:52-0400 SaO2% (BldA) [Mass fraction] 100 % Dr. Jhoan Pierre Work Phone: [facility] 03-01-2023 13:52-0400 Systolic blood pressure 117 mm[Hg] Dr. Jhoan Pierre Work Phone: [facility] 03-01-2023 06:00-0400 Body mass index (BMI) [Ratio] 23.2 kg/m2 Dr. Jhoan Pierre Work Phone: [facility] 03-01-2023 06:00-0400 Body weight 69.[address] Jhoan Pierre Work Phone: 5(220)629-639212 [place] [address] 03-01-2023 02:57-0400 Inhaled oxygen concentration 21 % Dr. Jhoan Pierre Work Phone: 5(143)618-113212 [place] [address] 02-28-2023 03:33-0400 Inhaled oxygen flow rate 10 L/min Dr. Jhoan Pierre Work Phone: [facility] 02-06-2023 13:37-0400 Body mass index (BMI) [Ratio] 23.8 kg/m2 Dr. Jhoan Pierre Work Phone: [facility] 02-06-2023 13:37-0400 Body temperature 98.4 [degF] Dr. Jhoan Pierre Work Phone: [facility] 02-06-2023 13:37-0400 Body weight 71.[address] Jhoan Pierre Work Phone: [facility] 02-06-2023 13:37-0400 Diastolic blood pressure 60 mm[Hg] Dr. Jhoan Pierre Work Phone: [facility] 02-06-2023 13:37-0400 Heart rate 69 /min Dr. Jhoan Pierre Work Phone: [facility] 02-06-2023 13:37-0400 Respiratory rate 16 /min Dr. Jhoan Pierre Work Phone: [facility] 02-06-2023 13:37-0400 SaO2% (BldA) [Mass fraction] 98 % Dr. Jhoan Pierre Work Phone: [facility] 02-06-2023 13:37-0400 Systolic blood pressure 116 mm[Hg] Dr. Jhoan Pierre Work Phone: [facility] 10-10-2022 10:27-0500 Body height 172.[address] Jhoan Pierre Work Phone: [facility] 10-10-2022 10:27-0500 Body mass index (BMI) [Ratio] 23.4 kg/m2 Dr. Jhoan Pierre Work Phone: [facility] 10-10-2022 10:27-0500 Body temperature 98.4 [degF] Dr. Jhoan Pierre Work Phone: [facility] 10-10-2022 10:27-0500 Body weight 69.[address] Jhoan Pierre Work Phone: [facility] 10-10-2022 10:27-0500 Diastolic blood pressure 62 mm[Hg] Dr. Jhoan Pierre Work Phone: [facility] 10-10-2022 10:27-0500 Heart rate 56 /min Dr. Jhoan Pierre Work Phone: [facility] 10-10-2022 10:27-0500 Respiratory rate 17 /min Dr. Jhoan Pierre Work Phone: [facility] 10-10-2022 10:27-0500 SaO2% (BldA) [Mass fraction] 98 % Dr. Jhoan Pierre Work Phone: [facility] 10-10-2022 10:27-0500 Systolic blood pressure 110 mm[Hg] Dr. Jhoan Pierre Work Phone: [facility] 07-29-2022 14:48-0400 Body mass index (BMI) [Ratio] 24.3 kg/m2 Dr. Jhoan Pierre Work Phone: [facility] 07-29-2022 14:48-0400 Body temperature 98.4 [degF] Dr. Jhoan Pierre Work Phone: [facility] 07-29-2022 14:48-0400 Body weight 72.[address] Jhoan Pierre Work Phone: [facility] 07-29-2022 14:48-0400 Diastolic blood pressure 62 mm[Hg] Dr. Jhoan Pierre Work Phone: [facility] 07-29-2022 14:48-0400 Heart rate 53 /min Dr. Jhoan Pierre Work Phone: [facility] 07-29-2022 14:48-0400 Respiratory rate 16 /min Dr. Jhoan Pierre Work Phone: [facility] 07-29-2022 14:48-0400 SaO2% (BldA) [Mass fraction] 97 % Dr. Jhoan Pierre Work Phone: [facility] 07-29-2022 14:48-0400 Systolic blood pressure 110 mm[Hg] Dr. Jhoan Pierre Work Phone: [facility] 02-26-2022 11:18-0400 Body height 172.[address] Jhoan Pierre Work Phone: [facility] Work Phone: 02-26-2022 11:18-0400 Body mass index (BMI) [Ratio] 24.6 kg/m2 Dr. Jhoan Pierre Work Phone: [facility] Work Phone: 02-26-2022 11:18-0400 Body weight 73.[address] Jhoan Pierre Work Phone: [facility] Work Phone: 02-26-2022 11:18-0400 Diastolic blood pressure 70 mm[Hg] Dr. Jhoan Pierre Work Phone: [facility] Work Phone: 02-26-2022 11:18-0400 Heart rate 54 /min Dr. Jhoan Pierre Work Phone: [facility] Work Phone: 02-26-2022 11:18-0400 Respiratory rate 16 /min Dr. Jhoan Pierre Work Phone: [facility] Work Phone: 02-26-2022 11:18-0400 SaO2% (BldA) [Mass fraction] 96 % Dr. Jhoan Pierre Work Phone: [facility] Work Phone: 02-26-2022 11:18-0400 Systolic blood pressure 120 mm[Hg] Dr. Jhoan Pierre Work Phone: [facility] Work Phone: 12-25-2021 11:07-0400 Body height 172.[address] Jhoan Pierre Work Phone: [facility] Work Phone: 12-25-2021 11:07-0400 Body mass index (BMI) [Ratio] 24.5 kg/m2 Dr. Jhoan Pierre Work Phone: [facility] Work Phone: 12-25-2021 11:07-0400 Body temperature 98.9 [degF] Dr. Jhoan Pierre Work Phone: [facility] Work Phone: 12-25-2021 11:07-0400 Body weight 73.[address] Jhoan Pierre Work Phone: [facility] [facility] Work Phone: 12-25-2021 11:07-0400 Diastolic blood pressure 76 mm[Hg] Dr. Jhoan Pierre Work Phone: [facility] Work Phone: 12-25-2021 11:07-0400 Heart rate 57 /min Dr. Jhoan Pierre Work Phone: [facility] Work Phone: 12-25-2021 11:07-0400 Respiratory rate 18 /min Dr. Jhoan Pierre Work Phone: [facility] Work Phone: 12-25-2021 11:07-0400 SaO2% (BldA) [Mass fraction] 97 % Dr. Jhoan Pierre Work Phone: [facility] Work Phone: 12-25-2021 11:07-0400 Systolic blood pressure 144 mm[Hg] Dr. Jhoan Pierre Work Phone: [facility] Work Phone: 11-22-2021 06:10-0500 Diastolic blood pressure 77 mm[Hg] Dr. Jhoan Pierre Work Phone: [facility] Work Phone: 11-22-2021 06:10-0500 Heart rate 68 /min Dr. Jhoan Pierre Work Phone: [facility] Work Phone: 11-22-2021 06:10-0500 Respiratory rate 15 /min Dr. Jhoan Pierre Work Phone: [facility] Work Phone: 11-22-2021 06:10-0500 SaO2% (BldA) [Mass fraction] 97 % Dr. Jhoan Pierre Work Phone: [facility] Work Phone: 11-22-2021 06:10-0500 Systolic blood pressure 142 mm[Hg] Dr. Jhoan Pierre Work Phone: [facility] Work Phone: 11-22-2021 03:20-0500 Body mass index (BMI) [Ratio] 24.5 kg/m2 Dr. Jhoan Pierre Work Phone: [facility] Work Phone: 11-22-2021 03:20-0500 Body weight 73.[address] Jhoan Pierre Work Phone: [facility] Work Phone: 11-22-2021 03:09-0500 Body temperature 97.7 [degF] Dr. Jhoan Pierre Work Phone: [facility] Work Phone: 10-02-2021 13:44-0500 Body temperature 98.3 [degF] Dr. Jhoan Pierre Work Phone: [facility] Work Phone: 10-02-2021 13:44-0500 Diastolic blood pressure 75 mm[Hg] Dr. Jhoan Pierre Work Phone: [facility] Work Phone: 10-02-2021 13:44-0500 Heart rate 66 /min Dr. Jhoan Pierre Work Phone: [facility] Work Phone: 10-02-2021 13:44-0500 Respiratory rate 18 /min Dr. Jhoan Pierre Work Phone: [facility] Work Phone: 10-02-2021 13:44-0500 SaO2% (BldA) [Mass fraction] 93 % Dr. Jhoan Pierre Work Phone: [facility] Work Phone: 10-02-2021 13:44-0500 Systolic blood pressure 131 mm[Hg] Dr. Jhoan Pierre Work Phone: [facility] Work Phone: 10-02-2021 05:00-0500 Body weight 62.[address] Jhoan Pierre Work Phone: [facility] Work Phone: 09-30-2021 06:54-0500 Inhaled oxygen concentration 93 % Dr. Jhoan Pierre Work Phone: [facility] Work Phone: 09-26-2021 19:06-0500 Body mass index (BMI) [Ratio] 21.7 kg/m2 Dr. Jhoan Pierre Work Phone: [facility] Work Phone: Encounters Encounter Date Encounter Type Care Provider Facility Start: 03-29-2025 End: 03-29-2025 ambulatory Ermelindacraig Castanon CHRISTIAN SCIENCE PRACTITIONER-C Work Phone: [facility] Work Phone: Start: 03-29-2025 End: 03-29-[address] Enmanuel Mcdonough MD -[facility] [place] Work Phone: Start: 03-28-2025 End: 03-29-2025 ambulatory Ermelinda Castanon CHRISTIAN SCIENCE PRACTITIONER-C Work Phone: [facility] Work Phone: Start: 03-28-2025 End: 03-28-[address] Enmanuel Mcdonough MD -[facility] Work Phone: Start: 11-05-2024 Encounter for genera l adult medical examination with abnormal findings [facility] Start: 09-30-2024 End: 09-30-2024 ambulatory [facility] Facility:[facility] Start: 07-26-2024 End: 07-26-2024 ambulatory [facility] Facility:[facility] Start: 02-02-2024 End: 02-02-[address] Jhoan Pierre Work Phone: [facility] Work Phone: Start: 02-02-2024 End: 02-02-[address] Jhoan Pierre Work Phone: [facility]Labor[facility] Work Phone: Start: 02-02-2024 End: 02-02-[address] Jhoan Pierre Work Phone: [facility] Work Phone: Start: 02-01-2024 End: 02-01-2024 Emergency department patient visit [facility]Emergency Department Work Phone: Start: 01-28-2024 End: 01-28-[address] Jhoan Pierre Work Phone: [facility] Work Phone: Start: 01-28-2024 End: 01-28-2024 Patient encounter procedure [facility] [place] Start: 10-31-2023 End: 10-31-2023 Admission to same day surgery center Dr. Jhoan Pierre Work Phone: [facility]Surgical Day Care Start: 10-31-2023 End: 10-31-[address] Jhoan Pierre Work Phone: [facility] Work Phone: Start: 10-20-2023 End: 10-20-[address] Jhoan Pierre Work Phone: [facility] Work Phone: Start: 10-20-2023 End: 10-20-[address] Jhoan Pierre Work Phone: [facility] [place] Start: 10-09-2023 End: 10-09-[address] Jhoan Pierre Work Phone: [facility] Work Phone: Start: 10-09-2023 End: 10-09-[address] Jhoan Pierre Work Phone: [facility]Physical Therapy Work Phone: Start: 09-17-[address] Jhoan Pierre Work Phone: [facility] Work Phone: Start: 09-11-2023 End: 09-11-[address] Jhoan Pierre Work Phone: [facility] Work Phone: Start: 09-11-2023 End: 09-11-[address] Jhoan Pierre Work Phone: [facility] Work Phone: Start: 08-18-2023 End: 08-18-[address] Jhoan Pierre Work Phone: [facility] Work Phone: Start: 08-04-2023 End: 08-04-[address] Jhoan Pierre Work Phone: [facility] Work Phone: Start: 07-09-2023 End: 07-09-[address] Jhoan Pierre Work Phone: [facility] Work Phone: Start: 07-09-2023 End: 07-09-[address] Jhoan Pierre Work Phone: [facility]Physical Therapy Work Phone: Start: 06-27-2023 End: 06-27-2023 Emergency department patient visit Dr. Jhoan Pierre Work Phone: [facility]-Emergency Department Work Phone: Start: 06-25-[address] Jhoan Pierre Work Phone: [facility]-Physical Therapy Work Phone: Start: 03-24-2023 End: 03-24-[address] hJoan Pierre Work Phone: [facility] Work Phone: Start: 03-01-2023 Non-patient / Non-visit Dr. Chris Pierre Work Phone: [facility] Work Phone: Start: 03-01-2023 End: 03-01-2023 Non-patient / Non-visit Dr. Jhoan Pierre Work Phone: [facility] Work Phone: Start: 02-28-2023 Non-patient / Non-visit Dr. Chris Pierre Work Phone: [facility] Work Phone: Start: 02-27-2023 End: 02-27-2023 Non-patient / Non-visit Dr. Jhoan Pierre Work Phone: [facility] Work Phone: Start: 02-27-2023 End: 03-01-2023 Evaluation and management of inpatient Dr. Jhoan Pierre Work Phone: [facility]-Progressive Care Unit Work Phone: Start: 02-27-2023 Non-patient / Non-visit Dr. Chris Pierre Work Phone: [facility] Work Phone: Start: 02-06-2023 End: 02-06-[address] Jhoan Pierre Work Phone: [facility] Work Phone: Start: 02-03-2023 End: 02-03-[address] Jhoan Pierre Work Phone: [facility] Work Phone: Start: 02-03-2023 End: 02-03-[address] Jhoan Pierre Work Phone: [facility]Physical Therapy Work Phone: Start: 11-25-[address] Jhoan Pierre Work Phone: [facility]Physical Therapy Start: 11-14-2022 End: 11-14-[address] Jhoan Pierre Work Phone: [facility] Work Phone: Start: 11-14-2022 End: 11-14-[address] Jhoan Pierre Work Phone: [facility] Start: 10-10-2022 End: 10-10-[address] Jhoan Pierre Work Phone: [facility] Start: 07-29-2022 End: 07-29-[address] Jhoan Pierre Work Phone: [facility] Start: 05-30-2022 End: 05-30-[address] Jhoan Pierre Work Phone: [facility] Work Phone: Start: 05-30-2022 End: 05-30-[address] Jhoan Pierre Work Phone: [facility] Start: 02-26-2022 End: 02-26-[address] Jhoan Pierre Work Phone: [facility] Start: 01-23-2022 End: 01-23-[address] Jhoan Pierre Work Phone: [facility]-Pulmonary Services/Neurology Start: 01-08-2022 End: 01-08-[address] Jhoan Pierre Work Phone: [facility] Start: 12-27-2021 End: 12-27-[address] [facility]ho[facility] Pierre [facility] Start: 12-25-2021 End: 12-25-[address] Jhoan Pierre Work Phone: [facility] Start: 11-22-2021 End: 11-22-2021 Emergency department patient visit Dr. Jhoan Pierre Work Phone: [facility]-Emergency Department Start: 11-08-2021 End: 11-08-[address] Jhoan Pierre Work Phone: [facility]-Cardiovascular Services Start: 10-11-[address] Jhoan Pierre Work Phone: [facility] Start: 10-02-2021 Non-patient / Non-visit Dr. Chris Pierre Work Phone: [facility] Start: 10-01-2021 Non-patient / Non-visit Dr. Chris Pierre Work Phone: [facility] Start: 09-30-2021 Non-patient / Non-visit Dr. Chris Pierre Work Phone: [facility] Start: 09-29-2021 Non-patient / Non-visit Dr. Chris Pierre Work Phone: [facility] Start: 09-28-2021 Non-patient / Non-visit Dr. Chris Pierre Work Phone: [facility] Start: 09-27-2021 Non-patient / Non-visit Dr. Chris Pierre Work Phone: [facility] Start: 09-26-2021 End: 10-02-2021 Evaluation and management of inpatient Dr. Jhoan Pierre Work Phone: [facility]-Progressive Care Unit Start: 09-26-2021 Non-patient / Non-visit Dr. Chris Pierre Work Phone: [facility] Start: 09-25-[address] Jhoan Pierre Work Phone: [facility]-Radiology, [facility] Start: 09-24-2021 End: 09-24-[address] Jhoan Pierre Work Phone: [facility]-Laboratory, Specimen Procedures Date Procedure Procedure Detail [...] 06-27-2023 CT of head without contrast Dr. Jhaon Pierre Work Phone: Start: 03-01-2023 Fluoroscopic guidance [...] Pierre Work Phone: Start: 09-25-2021 Plain chest X-ray Dr. Alexander Pierre Work Phone: Plan of Treatment Date Care Activity Detail Author Start: 02-01-[address] [facility] Start: 10-31-2023 Catheterization of vein [facility] Start: 10-31-2023 Elevation of foot of bed [facility] Start: 10-31-2023 Neurovascular assessment [facility] Start: 10-31-2023 Patient discharge [facility] Start: 10-31-2023 Procedure discontinued [facility] Start: 10-31-2023 Provision of mobility device [facility] Start: 10-31-2023 Vital signs measurements [facility] Start: 10-31-[address] [facility] Start: 10-31-2023 Radiography of foot Foot 2 Views [facility] Start: 10-31-2023 XR Foot 2 Views [facility] Start: 10-31-2023 Anes open proc bones lower leg/ankle/foot nos ANESTH LOWER LEG BONE SURG [facility] Start: 10-31-2023 Bone graft any donor area minor/small REMOVAL OF BONE FOR GRAFT [facility] Start: 10-31-2023 Prtl exc b1 tarsal/m etar b1 xcp talus/calcaneus PARTIAL REMOVAL OF FOOT BONE [facility] Start: 03-01-[address] [facility] Start: 03-01-2023 Patient discharge [facility] Start: 03-01-[address] [facility] Start: 02-28-[address] [facility] Start: 02-28-[address] [facility] Start: 02-28-[address] [facility] Start: 02-28-2023 Referral to occupati onal therapist [facility] Start: 02-27-2023 Clsd tx shoulder dis lc w/manipulation w/o anes CLTX ERWIN DSLC W/MNPJ [place] Start: 02-27-2023 Telepractice consultation [facility] Start: 02-27-[address] [facility] Start: 02-27-2023 End: 02-27-2023 Following clinical pathway protocol [facility] Start: 02-27-2023 Application of ice c ollar, cap or bag [facility] Start: 02-27-2023 Aspiration precautions [facility] Start: 02-27-2023 Assessment of risk o f venous thromboembolism [facility] Start: 02-27-2023 Continuous positive airway pressure ventilation treatment [facility] Start: 02-27-2023 Fall prevention [facility] Start: 02-27-2023 Insertion of cathete r into peripheral vein [facility] Start: 02-27-2023 Introduction of urin jillian catheter [facility] Start: 02-27-2023 Measuring intake and output [facility] Start: 02-27-2023 Oxygen therapy [facility] Start: 02-27-2023 Providing care accor ding to standard [facility] Start: 02-27-2023 Provision of activit y privileges [facility] Start: 02-27-2023 Referral to service [facility] Start: 02-27-2023 Seizure precautions [facility] Start: 02-27-2023 End: 02-28-2023 [facility] Start: 02-27-2023 Admission procedure [facility] Start: 02-27-[address] [facility] Blood ammonia measurement [facility] Complete blood count [facility] Lamotrigine measurement [facility] Patient Education [facility] Work Phone: Patient referral [facility] [place] Work Phone: [facility] Immunizations Immunization Date Immunization Notes Care Provider Fa cility 08-13-[address] Jhoan Pierre Work Phone: [facility] Payers Date Payer Category Payer Self-pay [id number] 2024 Unknown [id number] Unknown [id number] Unknown [id number] Unknown [id number] Unknown [id number] [id number] [id number] Unknown [id number] [id number] [id number] Unknown [id number] [id number] [id number] Social History Date Type Detail Facility Start: 12-25-2021 End: 02-01-2024 Tobacco smoking status NHIS Unknown if ever smoked [facility] Start: 11-26-[address] [facility] Start: 11-26-[address] [facility] Start: 11-12-2014 Spouse/ Signif icant Other [facility] Start: 1955 Sex Assigned At Male [facility] Start: 02-01-2024 Tobacco smoking status NHIS Never smoked tobacco (finding) [facility] Medical Equipment Procedure Code Equipment Code [...] Assessment Result Facility 03-01-2023 Functional status Chair [facility] Work Phone: 10-02-2021 Functional status Ambulates;Bedrest [facility] Work Phone: 09-30-2021 Functional status None [facility] Work Phone: Mental Status Date Assessment Result Facility 10-31-2023 Cognitive function Level Of Consciousness Drowsy [facility] Work Phone: 10-31-2023 Cognitive function Voice/Name [facility] Work Phone: 03-01-2023 Cognitive function Voice/Name [facility] Work Phone: 11-22-2021 Cognitive function Voice/Name [facility] Work Phone: 10-02-2021 Cognitive function Voice/Name [facility] Work Phone: Clinical Notes 04-17-2023 to 03-28-2025 Note Date & Type Note Facility 03-28-2025 Evaluation note Diagnosis Onset Date Resolution Epilepsy acute March 28 10:02am Nocturnal seizure resolved March 282024 10:02am [facility] Work Phone: 1(224) 609-409401-19-2024 Discharge summary Author Cristino Alfaro [facility] October 31, 2023 6:42pm Note Date/Time October 31, 2023 3 :48pm [facility] Medical Records Department [address] [place] [address] Instructions for Home/Discharge Instructions 10/31/23 1546 MR#: [id number] Acct: [id number] Name: MURIEL WOODARD Rep #:[id number] : 1955 68 From: Cristino waldron DPM PCP: Ermelinda Castanon NP-C Status:[facility] [place] [place] Discharge Instructions Diet Discharge Diet: No restrictions [...] be discussed in further detail at your follow- up appointment, if applicable. Discharge Plan Admission Attending Provider: Cristino Alfaro Primary Care Provider: Ermelinda Castanno Discharge Orders/Prescriptions Prescriptions: New doxycycline hyclate 100 [...] pain 1-07/22) Qty: 0 0RF Rx Instructions: Cyga-gro-xlbidwz Tylenol montelukast 10 mg tablet 10 mg PO DAILY Patient Comments: take 1 tablet by mouth once daily Eliquis 5 mg Tablet 5 mg PO BID Taper: Apixaban VTE Treatment 10 mg TWICE A DAY for 1 Day 5 mg TWICE A DAY for 30 Days Referrals / Follow Up: Ermelinda Castanon, BAL [Primary Care Provider] - Disposition Disposition (needs filled in before D/C Order can be placed): Home, Self Care 10/31/231841<Electronically signed by Cristino Alfaro DPM>Cristino Alfaro DPM CC: BAL Castanon ~ Signed [facility] Work Phone: 1(459) 736-184312-28-2023 Discharge summary Author Namrata Marion [facility] October 09, 2023 1:24pm Note Date/Time October 09, 2023 1:24pm [facility] Physical Therapy [address] [place] [address] / REHABILITATION SERVICES DISCHARGE SUMMARY MR#: [id number] Acct: [id number] Name: MURIEL WOOADRD Rep #: [id number] : 1955 68 From: Namrata Marion MP T Referring DrZhang: Status: REG R Insurance: [facility] [id number] SELF PAY INSURANCE Discharge Summary D/C summary: It has been my pleasure to treat MURIEL WOODARD referred by ALEXSANDRA MONTES DE OCA, [...] please feel free to call me at [phone]. Thank you for the referral of thispatient. Sincerely, Namrata Marion, TRIP Balance/Gait/Functional tests Balance/Special Test Scores Quick DASH Score: 9.0900 Improvement % Improvement: 50 <Electronically signed by Namrata Marion MPT> 10/09/23 1324 CC: Dr. Jhoan Pierre MD; ALEXSANDRA MONTES DE OCA ~ Signed [facility] Work Phone: 1(844) 619-159310-31-2023 Discharge summary Author Sergio He [facility] August 12, 2023 1:17pm Note Date/Time August 12, 2023 1 :17pm [facility] Physical Therapy [facility] [facility] [place] [address] / REHABILITATION SERVICES DISCHARGE SUMMARY MR#: [id number] Acct: [id number] Name: MURIEL WOODARD Rep #: [id number] : 1955 68 From: Sergio He PT, ATC Referring DrZhang: OUT OF TOWN DOCTOR Status: REG RCR Insurance: [facility] [id number] SELF PAY INSURANCE Patient Information Patient Information: MURIEL WOODARD was seen in my office for [...] and treatment will be transferred to another # At this point I will be discontinuing [...] Pierre MD; ALEXSANDRA MONTES DE OCA ~ [facility] Signed [facility] Work Phone: 1(561) 855-262607-06-2023 Discharge summary Author Sergio He [facility] April 17, 2023 11:39am Note Date/Time April 17, 2023 11:39 am [facility] Physical Therapy [address] [place] [address] / REHABILITATION SERVICES DISCHARGE SUMMARY MR#: [id number] Acct: [id number] Name: MURIEL WOODARD Rep #: [id number] : 1955 67 From: Sergio He PT, ATC Referring Dr.: Dr. Andrew Frey MD Status: REG RCR Insurance: [facility] [place] [id number] SELF PAY INSURANCE Patient Information Patient Information: MURIEL WOODARD was seen in my office for [...] signed by Sergio He PT, ATC> 04/17/23 1139 CC: Dr. Andrew Frey MD; Dr. 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 NOCTURNAL SEIZURE Unspecified convulsions Reason for Visit Acute respiratory fa ilure with hypoxia COVID-19 Hypoxemia Pneumonia due to COVID-19 virus Pulmonary emboli Severe protein-calorie malnutrition Hyperlipemia Nocturnal seizure [facility] Work Phone: Discharge summary Author Jennifer Senior [facility] June 27, 2023 8:41am Note Date/Time June 27, 2023 7:30am [facility] Medical Records Department [address] [place] [address] Emergency Department Summary 06/27/23 MR#: [id number] Acct: [id number] Name: MURIEL WOODARD Rep #:[id number] : 1955 68 From: Jennifer Sierra PCP: [...] No other complaintsor concerns at this time. [facility] Medical History Arthritis Asthma Chronic [...] PO Q6H PRN PRN Fever, pain 1- 10 #0 tabs 03/01/23 [Rx Last Taken Unknown] [...] given a prescription for short course of [place] if needed for breakthrough pain not take [...] and 11th rib fractures. Electronically Signed: Suzy Hernandez MD at 8:18 EDT , Discharge Plan [...] PO Q6H PRN PRN (Reason: Fever, pain 1-10/10) Qty: 0 0RF Rx Instructions: Psju-jfi-jthnxxv Tylenol methocarbamol 500 mg Tablet 1,000 mg [...] your Primary Care Provider. Call [facility] ([phone]) or report to the closest Emergency Room. Call 911 if necessary. 06/27/23 08 <Electronically signed by Jennifer Senior DO> Cosigner Signature (if applicable): CC: Dr. Jhoan Pierre MD ~ Signed [facility] Work Phone: Discharge summary Author Philip Toscano [facility] February 01, 2024 8:12am Note Date/Time February 01, 2024 7:3 3am [facility] Medical Records Department [address] [place] [address] Emergency Department Summary 02/01/24 MR#: [id number] Acct: [id number] Name: MURIEL WOODARD Rep #:[id number] : 1955 68 From: Philip Toscano MD [...] was that is not there right now. [facility] Medical History Alcohol use Anxiety [...] trying that and Tylenol. 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 Call [facility] ([phone]) or report to the closest Emergency Room. Call 911 if necessary. 02/01/2412 <Electronically signed by Philip Toscano MD> Cosigner Signature (if applicable): CC: PARUL Alfaro; CHRISTIAN SCIENCE PRACTITIONER-C Ermelinda Castanon ~ Signed [facility] Work Phone: Evaluation note* Diagnosis Onset Date Resolution Status Acute respiratory failure with hypoxia acute COVID-19 acute Hypoxemia acute Pneumonia due to COVID-19 virus acute Pulmonary emboli acute Severe protein-calorie malnutrition acute Hyperlipemia chronic Nocturnal seizure acute [facility] Work Phone: Evaluation note* Diagnosis Onset Date Resolution Status Nocturnal seizure acute [facility] Work Phone: Evaluation note* Diagnosis Onset Date Resolution Status Neck pain chronic Paresthesias chronic Nocturnal seizure resolved Anxiety acute Lightheadedness acute Sleep disturbance acute Paresthesias chronic Nocturnal seizure resolved [facility] Work Phone: Evaluation note* Diagnosis Onset Date Resolution Status Nocturnal seizure resolved Sleep disturbance resolved Abnormal ECG acute Acute alteration in mental status acute Acute hypokalemia acute Unresponsive episode resolve d Epilepsy acute Nocturnal seizure resolved [facility] Work Phone: Evaluation note* Diagnosis Onset Date Resolution Status Abnormal ECG acute Acute alteration in mental status acute Acute hypokalemia acute Unresponsive episode resolve d Epilepsy acute Nocturnal seizure resolved [facility] Work Phone: Evaluation note* Diagnosis Onset Date Resolution Status Epilepsy acute Nocturnal seizure resolved [facility] Work Phone: Evaluation note* Diagnosis Onset Date Resolution Status Epilepsy acute Nocturnal seizure resolved Capsulitis of toe of right foot acute Cyst of bone of right foot a cute Pain in right foot acute [facility] Work Phone: Evaluation note* Diagnosis Onset Date Resolution Status Capsulitis of toe of right foot acute Cyst of bone of right foot a cute Pain in right foot acute [facility] Work Phone: Evaluation note* Diagnosis Onset Date Resolution Status Capsulitis of toe of right foot acute Cyst of bone of right foot a cute Pain in right foot acute Epilepsy acute [facility] Work Phone: Evaluation note* Diagnosis Onset Date Resolution Status Admit Date Epilepsy acute March 28 10:02am Nocturnal seizure resolved March 282024 10:02am [facility] Work Phone: Hospital Discharge [facility] Work Phone: Hospital Discharge instructions Additional [...] or stool softener while taking the pain pills.[facility] Work Phone: Hospital Discharge instructions Additional Instructions Implant Used?: Yes [facility] Work Phone: Hospital Discharge instructions Additional [...] her right lower extremity until you are better.[facility] Work Phone: Reason for referral (narrative)No reason for referral [facility] Work [facility]: Summary Purpose Family History No Family History Records Found Relationship Condition Age at Onset Recorded Date/T ronak father Myocardial infarction 37 Cardiac disease Unknown Mental disorder Unknown mother Myocardial infarction 73 Asthma Unknown Hypertension Unknown Advance Directives No Advanced Directives Records Found Advance Directive Response Recorded Date/ Time Advance Directives Yes November 4:19pm Living Will No November 26 4:19pm Power of Magnet Valve Assembler No November 26, 2021 4:19pm Name of Medical Power of Magnet Valve Assembler maricarmen espino September 26, 2021 9:06pm Advance Directive Response Recorded Date/ Time Advance Directives Yes November 4:19pm Living Will No February 14th, 2 022 4:19pm Power of Magnet Valve Assembler No November 26, 2021 4:19pm Advance Directive Response Recorded Date/ Time Advance Directives Yes November 3:19pm Living Will No November 26 022 3:19pm Power of Magnet Valve Assembler No November 26, 2021 3:19pm Advance Directive Response Recorded Date/ Time Name of Medical Power of Magnet Valve Assembler Irene Paz r February 27, 2023 2:36am Advance Directives Yes November 4:19pm Living Will Yes February 27, 2023 2 :36am Power of Magnet Valve Assembler Yes February 27, 2023 2:36am Advance Directive Response Recorded Date/ Time Name of Medical Power of Magnet Valve Assembler Irene Paz r February 27, 2023 2:36am Name of Medical Power of Magnet Valve Assembler Nichol Paz r June 27, 2023 6:56am Advance Directives Yes November 4:19pm Living Will Yes June 27, 2023 6:56am Power of Magnet Valve Assembler Yes June 6:56am Advance Directive Response Recorded Date/ Time Name of Medical Power of Magnet Valve Assembler Nichol Paz r June 27, 2023 6:56am Advance Directives Yes November 4:19pm Living Will Yes June 27, 2023 6:56am Power of Magnet Valve Assembler Yes June 6:56am Advance Directive Response Recorded Date/ Time Name of Medical Power of Magnet Valve Assembler Nichol Paz r June 27, 2023 5:56am Advance Directives Yes November 3:19pm Living Will Yes June 27, 2023 5:56am Power of Magnet Valve Assembler Yes June 5:56am Advance Directive Response Recorded Date/ Time Name of Medical Power of Magnet Valve Assembler Nichol aPz r June 27, 2023 5:56am Advance Directives Yes November 3:19pm Living Will Yes October 22 2:24pm Power of Magnet Valve Assembler Yes October 22, 2023 2:24pm Advance Directive Response Recorded Date/ Time Name of Medical Power of Magnet Valve Assembler October 22, 2023 2:24pm Advance Directives Yes November 3:19pm Living Will Yes October 22 2:24pm Power of Magnet Valve Assembler Yes October 22, 2023 2:24pm Advance Directive Response Recorded Date/ Time Name of Medical Power of Magnet Valve Assembler October 22, 2023 3:24pm Name of Medical Power of Magnet Valve Assembler Maricarmen February 01, 2024 6:54am Advance Directives Yes November 4:19pm Living Will Yes February 01, 2024 6:54am Power of Magnet Valve Assembler Yes January 31 6:54am Advance Directive Response Recorded Date/ Time Living Will Yes February 01, 2024 6:54am Do you have a Healthcare Power of Magnet Valve Assembler? Yes February 01, 2024 6:54am Advance Directives Yes November 4:19pm Chief Complaint and Reason for Visit Chief Complaint Admit Date 8 MONTH F/U March 28, 2025 10:0 2am EORDERS March 29, 2025 7:05 am Reason for Visit Admit Date Epilepsy March 28, 2025 10:0 2am Nocturnal seizure March 28, 2025 10:0 2am Chief Complaint COVID 19 CHEST XRAY COVID [...] MONTH F/U March 28, 2025 10:0 2am Additional Source Comments (unrecognized sect ion and content) No Status Records FoundNo Status Records Found INFORMATION SOURCE (unrecogn ized section and content) DATE CREATED AUTHOR 12/24/2019 [facility] DATE CREATED AUTHOR AUTHOR'S ORGANIZ ATION 04/04/2025 [facility] Goals (unrecognized section and content) Goals may [...] Care Provider Active Dr. Jennifer Senior DO Emergency Provider Active Team Status: Active Member [...] Dr. Jhoan Pierre MD Family Provider Active [facility] Primary Care Provider Active Team Status: Inactive Member Role Status Dates Dr. Jhoan Pierre MD Primary Care Provider Active Dr. Cristino Alfaro DPM Attending Provider Active Team Status: Inactive Member Role Status Dates Ermelinda Lg , CHRISTIAN SCIENCE PRACTITIONER-C Primary Care Provide r, Attending Provider, Referring Provider Active Team Status: Inactive Member Role Status Dates Ermelinda Lg , CHRISTIAN SCIENCE PRACTITIONER-C Primary Care Provider, Attending Alexander wilson Active Team Status: Inactive Member Role Status Dates Ermelinda Lg , CHRISTIAN SCIENCE PRACTITIONER-C Primary Care Provider Active Dr. Cristino Alfaro DPM Attending Provider, Referri ng Provider Active Team Status: Active Member Role Status Dates Ermelinda Lg , CHRISTIAN SCIENCE PRACTITIONER-C Primary Care Provide r, Attending Provider, Referring Provider Active Team Status: Inactive Member Role Status Dates Ermelinda Lg , CHRISTIAN SCIENCE PRACTITIONER-C Primary Care Provider Active Dr. Philip Toscano MD Emergency Provider Active Team Status: Inactive Member Role Status Dates Dr. Jhoan Pierre MD Referring Provider Active Dr. Enmanuel Mcdonough MD Attending Provider Active Ermelinda Gl , CHRISTIAN SCIENCE PRACTITIONER-C Primary Care Provider Active Team Status: Active Member Role Status Dates Ermelinda Castanon , CHRISTIAN SCIENCE PRACTITIONER-C Primary Care Provider Active Dr. Enmanuel Mcdonough MD Attending Provider, Referring Provider Active Team Status: Inactive Member Role Status Dates Ermelinda Castanon , CHRISTIAN SCIENCE PRACTITIONER-C Primary Care Provider Active Dr. Enmanuel Mcdonough MD Attending Provider, Referring Provider Active Team Status: Inactive Member Role Status Dates Ermelindacraig Castanon , CHRISTIAN SCIENCE PRACTITIONER-C Primary Care Provider Active Dr. Philip Toscano MD Attending Provider, Emergency Provider Active Team Status: Inactive Member Role Status Dates Ermelinda Lg , CHRISTIAN SCIENCE PRACTITIONER-C Primary Care Provider Active Start: March 28, 2025 End: March 28, 2025 Ermelinda Castanon , CHRISTIAN SCIENCE PRACTITIONER-C Referring Provider Active St art: March 28, 2025 End: March 28, 2025 Dr. Enmanuel Mcdonough MD Attending Provider Active Start: March 28, 2025 End: March 28, 2025 Team Status: Inactive Member Role Status Dates Ermelindacraig Castanon , CHRISTIAN SCIENCE PRACTITIONER-C Primary Care Provider Active Start: March 29, 2025 End: March 29, 2025 Dr. Enmanuel Mcdonough MD Attending Provider Active Start: March 29, 2025 End: March 29, 2025 Dr. Enmanuel Mcdonough MD Referring Provider Active Start: March 29, 2025 End: March 29, 2025 FOR RECORDS PERTAINING TO PATIENTS WHO [...] BE BASED ON THE PRIMARY CLINICAL RECORDS. [facility] [employer] [facility]. provides no warranty or guarantee of the accuracy or completeness of information in this document.
[2025-10-01 09:29] VITALS: BP 130/68; PULSE 40; O2SAT 100
--- NOTE | 2025-10-01 09:29 | EX.ED.GENINJ ---
HPI History of Present Illness Chief Complaint: Laceration Narrative Narrative: Patient is a 70-year-old male presenting to the emergency department for a finger laceration that occurred last night. Patient states that he was trying to cut something with a sharp knife while cooking yesterday when he cut his left index finger. He is on Eliquis. He states that it took a while to stop bleeding last evening. He states he cleaned it out very well. He is unsure exactly when his last tetanus vaccine was but states that it was within the past 5 years. He denies any other injuries. States he woke up this morning and wanted to get his finger checked. [facility] Medical History Loss of hearing Wears contact lenses Wears glasses Depression Anxiety Alcohol use Diabetes TIA (transient ischemic attack) Seizures Dietary restriction Leg cramps Cardiology follow-up encounter Dislocation of left shoulder joint Arthritis History of stress test Hypothyroidism CPAP (continuous positive airway pressure) dependence DVT (deep venous thrombosis) Trigger finger History of pulmonary embolus (PE) (2012) History of deep venous thrombosis Asthma Home Medications ?Medication ?Instructions ?Recorded ?Last Taken ?Type finasteride 1 mg tablet (Propecia) 1 mg PO DAILY 07/29/22 Unknown History acetaminophen 325 mg tablet 650 mg (2 x 325 mg) PO Q6H PRN PRN 03/01/23 Unknown Rx Fever, pain 1-07/22 #0 tabs apixaban 5 mg tablet (Eliquis) 5 mg PO BID 10/22/23 10/24/23 History montelukast 10 mg tablet 10 mg PO DAILY 10/22/23 Unknown History clindamycin HCl 300 mg capsule 300 mg PO .COMPLEX 07/26/24 Unknown History lamotrigine 25 mg tablet 50 mg (2 x 25 mg) PO BID #360 tabs 03/28/25 Unknown Rx Allergy/AdvReac Type Severity Reaction Status Date / Time iodine AdvReac Severe Hives Verified 10/01/25 08:13 Family History Father Myocardial infarction, Onset Age: 37 Heart disease Mental disorder Mother Myocardial infarction, Onset Age: 73 Heart disease Asthma Hypertension Surgical History Hx of colonoscopy Hx of elbow surgery Hx of arthroscopy of shoulder History of shoulder surgery H/O thumb surgery H/O cardiac catheterization History of nasal septoplasty History of hip replacement History of repair of rotator cuff History of herniorrhaphy Social History household members: spouse Smoking Status: Never smoker how long ago did patient quit smoking: Smoked ~ 6 months 19-20 years old, <1/2 ppd. second hand exposure: No alcohol intake: never substance use type: does not use what type of physical activity do you participate in: walking, bicycling and weight training seatbelt use: always ROS ROS ED ROS Narrative see HPI EXAM Physical Exam Narrative Exam Narrative: Vital signs: Reviewed General: Alert and orientedx3. No acute distress. Well appearing, nontoxic. HEENT: Head is normocephalic and atraumatic, sinuses nontender, pupils equal round and reactive. Nares are patent. Oropharynx and throat exams normal. Neck: Supple without lymphadenopathy nontender Cardiovascular: Regular rate and rhythm, no murmurs. No rubs or gallops. Normal S1 and S2 Respiratory: Clear to auscultation bilaterally. No wheezes, rales, rhonchi Abdominal: Soft and nontender. Normal bowel sounds. No guarding or rebound. Nonsurgical abdomen Extremities: 1.5 cm J shaped superficial laceration to the left distal volar index finger. No active bleeding. The wound is not gaping. No erythema, warmth, swelling or drainage from the wound. Sensation and motor intact in radial, median and ulnar distributions. Radial pulse intact bilaterally. No tenderness. No bruising. Skin: No rash or redness. The rest of the physical exam is unremarkable Const Vital Signs: 10/01/25 08:11 Temperature 97.5 F L Temperature Source Temporal Pulse Rate 52 L Respiratory Rate 16 Blood Pressure 129/78 H Blood Pressure Mean 95 Pulse Ox 98 Oxygen Delivery Method Room Air MDM MDM MDM Narrative Medical decision making narrative: Patient is a 70-year-old male presenting to the emergency department for a finger laceration that occurred last evening. Patient was seen and examined. Vitals are stable. Patient resting in bed comfortably no acute distress. Patient's tetanus vaccine is up-to-date. The laceration is superficial and not gaping. It does not require suture repair. It does not require xray imaging. The wound was irrigated by myself. Dermabond was placed on the wound. Gauze dressing was applied prior to discharge by nursing staff. Patient was given wound care instructions including watching for signs of infection which were discussed. Instructed to keep the wound clean and dry. All questions answered. Patient discharged from the Emergency Department. I do not feel that the patient's evaluation reveals any acute reason for admission at this time. I instructed them to either follow-up with their primary care physician or promptly return to the Emergency Department for reevaluation should symptoms worsen or new symptoms develop. I explained what symptoms would indicate the need to return to the emergency department. Shared decision making was used. The patient voiced understanding of the treatment plan and is agreeable with it. Clinical impression: Finger laceration History & Record Review Discussion w/independent historian: Patient and Significant other Discharge Plan Triage Chief Complaint: Laceration ED Provider: Marissa De Dios Dx/Rx/DC Orders Clinical Impression: Laceration of finger of left hand Instructions: ED Laceration, Extremity: Skin Glue, ED Laceration Superficial No Stitch Prescriptions: No Action finasteride [Propecia] 1 mg tablet 1 mg PO DAILY clindamycin HCl 300 mg capsule 300 mg PO .COMPLEX Rx Instructions: 300 mg orally; To be taken around dental procedures as needed lamotrigine 25 mg tablet 50 mg PO BID Qty: 360 3RF acetaminophen 325 mg Tablet 650 mg PO Q6H PRN PRN (Reason: Fever, pain 1-10/10) Qty: 0 0RF Rx Instructions: [id number]-bmb-koczpiy Tylenol montelukast 10 mg tablet 10 mg PO DAILY Patient Comments: take 1 tablet by mouth once daily Eliquis 5 mg Tablet 5 mg PO BID Taper: Apixaban VTE Treatment 10 mg TWICE A DAY for 1 Day 5 mg TWICE A DAY for 30 Days Primary Care Provider: Ermelinda Castanon Referrals: Ermelinda Castanon NP-C [Primary Care Provider, Family Practice] - As soon as possible Activity Restrictions/Additional Instructions: Keep the wound clean and dry. Watch for signs of infection which include redness, drainage or warmth. Your evaluation in the Emergency Department did not reveal any acute reason for admission. However, I want to emphasize that you may be early in the course of a disease process or illness even if it is not present. For this reason you should follow-up within 24 hours for reevaluation with either your primary care physician or if necessary back here in the Emergency Department. You should return to the Emergency Department immediately if your symptoms worsen or new symptoms develop. Print Language: Mauritian Disposition Disposition: Home, Self Care
[2025-10-01 09:34] VITALS: BP 130/68; PULSE 40; RESP 18; TEMP 37.1; O2SAT 100
== END 2025-10-01 09:39 | disposition home or self-care (01) ==
LOC: ED 09:04
PROVIDERS: Emergency Provider Student in an Organized Health Care Education/Training Program; PCP Nurse Practitioner Family; Visit Provider Student in an Organized Health Care Education/Training Program
DX: S61.211A Laceration without foreign body of left index finger without damage to nail, initial encounter (principal); E11.9 Type 2 diabetes mellitus without complications; Z86.718 Personal history of other venous thrombosis and embolism; Z86.711 Personal history of pulmonary embolism; Z79.01 Long term (current) use of anticoagulants; W26.0XXA Contact with knife, initial encounter; Y93.G9 Activity, other involving cooking and grilling; J45.909 Unspecified asthma, uncomplicated
CPT/HCPCS: 99282